=== PATIENT | female | born 1950 | race Caucasian/White ===

== ENCOUNTER 2023-09-26 15:04 | Inpatient (IN) ==
--- NOTE | 2023-09-26 15:24 | ED Triage Note ---
Date of Service September 26, 2023 History of Present Illness This patient was briefly evaluated while in triage. An abbreviated physical exam was performed. This patient is a 73-year-old Female who presents to the ED for evaluation of at Dr. 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 Nontender to palpation. Initial orders for labs and / or imaging were placed and patient was placed in the waiting area until a bed is available. Please see further documentation for the full ED course.
[2023-09-26 15:44] LABS: Basophils # (auto) 0.02 K/uL (0.00-0.20); Basophils % (auto) 0.2 %; Eosinophils # (auto) 0.04 K/uL (0.00-0.50); Eosinophils % (auto) 0.5 %; Hematocrit (blood only) 33.8 % (37.0-47.0); Hemoglobin 10.9 g/dl (12.0-16.0); Immature Granulocytes # (auto) 0.04 K/uL (0.01-0.20); Immature Granulocytes % (auto) 0.5 %; Lymphocytes # (auto) 2.06 K/uL (1.20-3.40); Lymphocytes % (auto) 24.2 %; Mean Corpuscular Hemoglobin 31.2 pg (25.0-34.0); Mean Corpuscular Hgb Conc 32.2 g/dL (32.0-36.0); Mean Corpuscular Volume 96.8 fL (80.0-100.0); Mean Platelet Volume 10.6 fL (9.4-12.4); Monocytes # (auto) 0.61 K/uL (0.11-0.59); Monocytes % (auto) 7.2 %; Neutrophils # (auto) 5.75 K/uL (1.40-6.50); Neutrophils % (auto) 67.4 %; Platelet Count 358 K/uL (130-400); RDW Coefficient of Variation 15.2 % (11.5-14.5); RDW Standard Deviation 53.5 fL (36.4-46.3); Red Blood Count 3.49 M/uL (4.20-5.40); White Blood Count 8.52 K/ul (4.8-10.8)
[2023-09-26 16:03] LABS: Alanine Aminotransferase 19 U/L (7-52); Albumin Globulin Ratio 1.6 (0.9-2); Albumin Level 4.5 gm/dl (3.4-5.0); Alkaline Phosphatase 39 U/L (34-104); Anion Gap 7 (3-11); Aspartate Aminotransferase 25 U/L (13-39); BUN Creatinine Ratio 14.3 (10-20); Bilirubin,Total 0.4 mg/dl (0.2-1.0); Blood Urea Nitrogen 13 mg/dl (6-23); Calcium 10.3 mg/dl (8.6-10.3); Carbon Dioxide 29 mmol/L (21-32); Chloride 103 mmol/L (98-107); Est GFR (African American) 73.1 ml/min; Globulin 2.9 gm/dl (2.5-4.0); Glucose 91 mg/dl (70-99(Fasting)); Potassium 3.6 mmol/L (3.5-5.1); Sodium 139 mmol/L (136-145); Total Protein 7.4 gm/dl (6.0-8.3)
--- NOTE | 2023-09-26 16:05 | XRay Report ---
XR chest 1V not portable HISTORY: hypertension COMPARISON: Chest 08/15/2023. FINDINGS: The lungs are clear. Cardiac silhouette is normal in size. No pleural effusions. No pneumot horax. Mild elevation of the right hemidiaphragm, unchanged. Surgical clips again noted within the up per abdomen. IMPRESSION: No significant change compared to the prior study. No acute process. ACT 112: Negative or not required by law. Electronically signed by: Aly Diaz M.D. 09/26/2023 4:04 PM
[2023-09-26 16:09] LABS: Troponin I High Sensitivity 8.5 pg/ml (0-14)
--- NOTE | 2023-09-26 16:09 | CT Scan Report ---
HEAD CT NONCONTRAST CT DOSE: 703.85 mGy.cm HISTORY: Hypertension, vison changes TECHNIQUE: Multiaxial CT images of the head were performed without the use of intravenous contrast. A utomated exposure control was utilized for this study. A dose lowering technique was utilized adheri ng to the principles of ALARA. Comparison: None. Findings: Postoperative changes within the paranasal sinuses. The paranasal sinuses and mastoid air c ells are clear. Prior bilateral lens replacement. The calvarium and skull base are intact. There is n o mass, hematoma, midline shift, acute infarct. White matter hypodensity is nonspecific but suggestiv e of microvascular ischemic change. The ventricles and sulci demonstrate mild age-related involutiona l changes. Impression: No acute intracranial abnormality. ACT 112: Negative or not required by law. Electronically signed by: Aly Diaz M.D. 09/26/2023 4:08 PM
[2023-09-26 16:18] LABS: Thyroid Stimulating Hormone 1.266 uIu/ml (0.300-4.500)
[2023-09-26] MEDS ORDERED: LABETALOL HCL IV 5 MG/ML 20ML IV STA (18:25)
--- NOTE | 2023-09-26 18:30 | Emergency Department Note ---
Impression & Plan Brain TIA, Hypertensive emergency ED Provider Note NAME: ELAINE SHELBY AGE: 73 SEX: F : 1950 ARRIVES VIA: Walk-In INFORMANT: Patient, ED PROVIDER(S): Mike Toledo MD CHIEF COMPLAINT: Elevated blood pressure HPI: This is a 73-year-old female presenting for elevated blood pressure. Mary ent notes that she was seen for a first-time cardiology appointment with the cardiology [employer]. At that time she does have blood pressures in the 200s systolic. She does note that prior to arrival of this appointment she also noted some vision changes where she had said that her left eye her right eye were seeing at different angles. She notes that this resolved after about 5 to 7 minutes but she had some haziness in her vision at this time. Otherwise she notes while the emergency room she is at about 3 episodes of dizziness when which she describes room spinning sensation. She has no weakness in her arms, legs, facial droop, difficulty with speech. Patient has me that she thinks her blood pressure elevated due to her significant back pain, she has had sciatica type back pain for the past 2 weeks and is waiting to see orthopedic surgery for a injection. She reports no chest pain, shortness of breath, fever, chills, diarrhea. ROS: See above HPI for pertinent positives & negatives. A total of 10 systems reviewed and were otherwise negative. PAST MEDICAL HISTORY: See Below PAST SURGICAL HISTORY: See Below FAMILY HISTORY: See Below SOCIAL HISTORY: See Below HOME MEDICATIONS: See Below ALLERGIES: See Below VITALS: See Below PHYSICAL EXAMINATION: General: resting comfortably in no acute distress Head: Normocephalic and atraumatic Eyes: Normal inspection, extraocular muscles intact, no conjunctival pallor Ear, nose, throat: Normal external exam Neck: Normal range of motion Respiratory: Patient is in no respiratory distress, lungs clear to auscultation bilaterally Cardiovascular: RRR without murmur appreciated GI: soft, nontender, no guarding or rebound Extremities: pulses intact with good cap refills, no LE pitting edema or calf tenderness Neuro: The patient awake and alert, appropriately conversive,no focal decifits, cranial nerves II through XII grossly intact Skin: Warm, dry, and intact MEDICAL DECISION MAKING: This is a 73-year-old female seen for elevated blood pressure. Patient has an episode where she had vision changes. Then she has had episodes with dizziness here. This time she is no neurodeficits but concern for TIA at this time. She had this work-up including head CT which is negative at this time. Based on patient's current symptoms and elevated blood pressure we will admit for TIA rule out versus hypertensive emergency. We will give 20 mg IV labetalol for blood pressures in the 230s systolic at this time. Blood work otherwise reviewed showing anemia, improved from baseline. Otherwise no signs of other endorgan damage such as troponin elevation or creatinine el evation. Urinalysis negative for protein. Triage Nursing notes reviewed. Prior medical records reviewed Vital Signs: reviewed and remarkable for no significant abnormalities Differential diagnosis: ACS, PE, TIA, stroke, hypertensive emergency ER treatment provided: See below Diagnostics interpreted by me: ECG: None Cardiac Monitoring: An order was placed for continuous cardiac monitoring. The monitor shows a rate of 55 with sinus rhythm. Laboratory studies: As stated above and show below. Imaging studies: See below. Radiographic imaging was reviewed by myself Consultation(s): None Past Med/Surg History Medical History Coronary artery disease Stent May 2012 - SD during stress test Stent Oct 2019 - pressure in chest Diverticulitis Fibromyalgia Heart attack Hypothyroid Osteoarthritis Rheumatoid arthritis Staph infection Surgical History History of back surgery History of colon resection History of left nephrectomy Social History Smoking Status: Never smoker Hx Alcohol Use: No Hx Substance Use: No Preferred Language: Japanese Communication Ability: Effective Legal [employer] Required: No Beliefs That Will Affect Care: None Current Living Situation: Spouse Other Information That Helps Us Care for You: No Feels Safe at Home: Yes Safety Concerns: Feels Safe At This Time Assistive Devices: Cane Allergies Allergies Allergy/AdvReac Type Severity Reaction Status Date / Time clopidogrel [From Plavix] Allergy Intermediate Hives Verified 09/26/23 17:46 hydroxychloroquine Allergy Intermediate Hives Verified 09/26/23 17:46 [From Plaquenil] celecoxib [From Celebrex] AdvReac Intermediate HX OF Verified 09/26/23 17:46 BLEEDING STOMACH codeine AdvReac Intermediate Gastrointestinal Verified 09/26/23 17:46 Upset hydrocodone [From Vicodin] AdvReac Intermediate Gastrointestinal Verified 09/26/23 17:46 Upset lubiprostone [From Amitiza] AdvReac Intermediate HX OF Verified 09/26/23 17:46 BLEEDING STOMACH pitavastatin AdvReac Intermediate Joint Pain Verified 09/26/23 17:46 pravastatin [From Pravachol] AdvReac Intermediate Joint Pain Verified 09/26/23 17:46 rosuvastatin AdvReac Intermediate Joint Pain Verified 09/26/23 17:46 [From Ezallor Sprinkle] simvastatin [From FloLipid] AdvReac Intermediate Joint Pain Verified 09/26/23 17:46 [id number] Reductase AdvReac Intermediate Joint Pain Verified 09/26/23 17:46 Inhibitor Home Meds Home Medications Medication Instructions Recorded Confirmed albuterol sulfate 90 mcg/actuation 1 puff inhalation QID PRN Wheezing 04/05/23 09/26/23 aerosol inhaler alirocumab 75 mg/mL subcutaneous 75 mg subcut USEASDIRECTD 04/05/23 09/26/23 pen injector (Praluent Pen) amlodipine 10 mg tablet 10 mg PO DAILY 04/05/23 09/26/23 aspirin 81 mg tablet,delayed 81 mg PO DAILY 04/05/23 09/26/23 release cefadroxil 500 mg capsule 500 mg PO BID 04/05/23 09/26/23 coenzyme Q10 100 mg capsule 100 mg PO BID 04/05/23 09/26/23 (CoQ-10) docusate sodium 100 mg capsule 100 mg PO DAILY 04/05/23 09/26/23 (Colace) esomeprazole magnesium 40 mg 40 mg PO DAILY 04/05/23 09/26/23 capsule,delayed release fluticasone propionate 50 1 spray intranasal DAILY PRN 04/05/23 09/26/23 mcg/actuation nasal allergy spray,suspension folic acid 1 mg tablet 1 mg PO DAILY 04/05/23 09/26/23 lactobacillus combination no.4 3 3,000 mmu cells PO QPM 04/05/23 09/26/23 billion cell capsule (Probiotic) methotrexate sodium 2.5 mg tablet 17.5 mg PO WK 04/05/23 09/26/23 metoprolol succinate 50 mg 50 mg PO DAILY 04/05/23 09/26/23 tablet,extended release 24 hr montelukast 10 mg tablet 10 mg PO QPM 04/05/23 09/26/23 nitroglycerin 0.4 mg sublingual 0.4 mg sublingual DIRECTED PRN 04/05/23 09/26/23 tablet Chest Pain omega 4-crx-kfq-fish oil 1,200 mg 1 cap PO QPM 04/05/23 09/26/23 (144 mg-216 mg) capsule (Fish Oil) pregabalin 100 mg capsule 100 mg PO BID 04/05/23 09/26/23 sulfasalazine 500 mg tablet 500 mg PO BID 04/05/23 09/26/23 thyroid (pork) 60 mg tablet 60 mg PO DAILY 04/05/23 09/26/23 ([place] Thyroid) triamterene 37.5 1 cap PO QAM 04/05/23 09/26/23 mg-hydrochlorothiazide 25 mg capsule iron,carbonyl 65 mg-vitamin C 125 1 tab PO QPM 08/15/23 09/26/23 mg tablet,delayed release (Vitron-C) acetaminophen 650 mg 650 mg PO BID 09/26/23 09/26/23 tablet,extended release (Tylenol Arthritis Pain) calcium carbonate 500 mg calcium 500 mg PO DAILY 09/26/23 09/26/23 (1,250 mg) tablet denosumab 60 mg/mL subcutaneous 0 mg subcut DIRECTED 09/26/23 09/26/23 syringe (Prolia) inulin-sorbitol 2 gram chewable 1 tab PO DAILY 09/26/23 09/26/23 tablet methylprednisolone 8 mg tablet 16 mg PO DAILY 09/26/23 09/26/23 Previous Rx's Medication Instructions Recorded potassium chloride 20 mEq 20 meq PO DAILY #20 tabs 04/05/23 tablet,extended release apixaban 5 mg tablet (Eliquis) 5 mg PO BID #60 tabs 08/17/23 Results & Data (ED) Vital Signs Vital Signs - 24 hr 09/26/23 15:20 09/26/23 17:07 09/26/23 17:07 Temperature 36.8 C Temperature Source Temporal Artery Scan Pulse Rate 64 52 L Pulse Rate [Left Finger] 53 L Pulse Rhythm Regular Respiratory Rate 18 14 18 Respiratory Effort / Characteristics Non-Labored Spontaneous Non-Labored Spontaneous Respiratory Depth Normal Normal Respiratory Pattern Regular Blood Pressure 201/92 H Blood Pressure [Right Arm] 171/92 H Blood Pressure Mean 128 Blood Pressure Mean [Right Arm] 118 Blood Pressure Position Sitting Pulse Oximetry 99 99 99 Oxygen Delivery Method Room Air Room Air Room Air Sepsis Recent Fever Within 48 Hours No Sepsis New/Unexplained Change in Mental Status N/A Sepsis Action Taken by Nursing No Action Required 09/26/23 17:06 09/26/23 18:42 09/26/23 19:00 Temperature Temperature Source Pulse Rate 67 62 60 Pulse Rate [Left Finger] Pulse Rhythm Respiratory Rate 20 Respiratory Effort / Characteristics Respiratory Depth Respiratory Pattern Blood Pressure 209/112 H 191/94 H Blood Pressure [Right Arm] Blood Pressure Mean 126 Blood Pressure Mean [Right Arm] Blood Pressure Position Pulse Oximetry 100 Oxygen Delivery Method Sepsis Recent Fever Within 48 Hours Sepsis New/Unexplained Change in Mental Status Sepsis Action Taken by Nursing 09/26/23 19:14 09/26/23 19:55 Temperature Temperature Source Pulse Rate 72 60 Pulse Rate [Left Finger] Pulse Rhythm Respiratory Rate 18 16 Respiratory Effort / Characteristics Respiratory Depth Respiratory Pattern Blood Pressure 170/89 H 160/79 H Blood Pressure [Right Arm] Blood Pressure Mean 116 106 Blood Pressure Mean [Right Arm] Blood Pressure Position Pulse Oximetry 98 Oxygen Delivery Method Sepsis Recent Fever Within 48 Hours Sepsis New/Unexplained Change in Mental Status Sepsis Action Taken by Nursing Laboratory Data 09/26/23 15:28 09/26/23 15:28 Lab Results 09/26/23 09/26/23 Range/Units 15:28 15:28 WBC 8.52 (4.8-10.8) K/ul RBC 3.49 L (4.20-5.40) M/uL Hgb 10.9 L (12.0-16.0) g/dl Hct 33.8 L (37.0-47.0) % MCV 96.8 (80.0-100.0) fL MCH 31.2 (25.0-34.0) pg MCHC 32.2 (32.0-36.0) g/dL RDW Std Deviation 53.5 H (36.4-46.3) fL RDW Coeff of Ashley 15.2 H (11.5-14.5) % Plt Count 358 (130-400) K/uL MPV 10.6 (9.4-12.4) fL Immature Gran % (Auto) 0.5 % Neut % (Auto) 67.4 % Lymph % (Auto) 24.2 % [place] % (Auto) 7.2 % Eos % (Auto) 0.5 % Baso % (Auto) 0.2 % Neut # (Auto) 5.75 (1.40-6.50) K/uL Lymph # (Auto) 2.06 (1.20-3.40) K/uL [place] # (Auto) 0.61 H (0.11-0.59) K/uL Eos # (Auto) 0.04 (0.00-0.50) K/uL Baso # (Auto) 0.02 (0.00-0.20) K/uL Immature Gran # (Auto) 0.04 (0.01-0.20) K/uL Sodium 139 (136-145) mmol/L Potassium 3.6 (3.5-5.1) mmol/L Chloride 103 (98-107) mmol/L Carbon Dioxide 29 (21-32) mmol/L Anion Gap 7 (3-11) BUN 13 (6-23) mg/dl Creatinine 0.91 (0.6-1.2) mg/dl Est Cr Clr Drug Dosing Not Reportable Est GFR ( Amer) 73.1 ml/min Est GFR (Non-Af Amer) 63.0 ml/min BUN/Creatinine Ratio 14.3 (10-20) Glucose 91 (70-99(Fasting)) mg/dl Calcium 10.3 (8.6-10.3) mg/dl Total Bilirubin 0.4 (0.2-1.0) mg/dl AST 25 (13-39) U/L ALT 19 (7-52) U/L Alkaline Phosphatase 39 (34-104) U/L Troponin I High Sens 8.5 (0-14) pg/ml Total Protein 7.4 (6.0-8.3) gm/dl Albumin 4.5 (3.4-5.0) gm/dl Globulin 2.9 (2.5-4.0) gm/dl Albumin/Globulin Ratio 1.6 (0.9-2) TSH 1.266 (0.300-4.500) uIu/ml Administered Medications Morphine Sulfate (Morphine Sulfate 2 Mg/Ml Carp) 2 mg IV Q4H PRN PRN Reason: Pain (5+) Stop: 11/13/23 20:13 Last Admin: 09/26/23 23:03 Dose: 2 mg Documented By: JAYSON Discontinued Medications Acetaminophen (Acetaminophen 325 Mg Tab) 650 mg PO NOW STA Stop: 09/26/23 20:15 Last Admin: 09/26/23 20:30 Dose: 650 mg Documented By: KATY Labetalol HCl (Labetalol Hcl Iv 5 Mg/Ml 20ml) 10 mg IV NOW STA Stop: 09/26/23 18:26 Last Admin: 09/26/23 18:42 Dose: 10 mg Documented By: ALISON Co-signed By: MANDO Lidocaine (Lidocaine 5% 1 Patch) 1 patch TD NOW STA Stop: 09/26/23 20:15 Last Admin: 09/26/23 20:30 Dose: 1 patch Documented By: KATY Morphine Sulfate (Morphine Sulfate 2 Mg/Ml Carp) 2 mg IV NOW STA Stop: 09/26/23 19:37 Last Admin: 09/26/23 19:51 Dose: 2 mg Documented By: KATY Imaging Data Radiologist's Impression: Chest X-Ray 09/26/23 15:24 XR chest 1V not portable HISTORY: hypertension COMPARISON: Chest 08/15/2023. FINDINGS: The lungs are clear. Cardiac silhouette is normal in size. No pleural effusions. No pneumothorax. Mild elevation of the right hemidiaphragm, unchanged. Surgical clips again noted within the upper abdomen. IMPRESSION: No significant change compared to the prior study. No acute process. ACT 112: Negative or not required by law. Electronically signed by: Aly Diaz M.D. 09/26/2023 4:[address] 09/26/23 15:[address] DOSE: 703.85 mGy.cm HISTORY: Hypertension, vison changes TECHNIQUE: Multiaxial CT images of the head were performed without the use of intravenous contrast. Automated exposure control was utilized for this study. A dose lowering technique was utilized adhering to the principles of ALARA. Comparison: None. Findings: Postoperative changes within the paranasal sinuses. The paranasal sinuses and mastoid air cells are clear. Prior bilateral lens replacement. The calvarium and skull base are intact. There is no mass, hematoma, midline shift, acute infarct. White matter hypodensity is nonspecific but suggestive of microvascular ischemic change. The ventricles and sulci demonstrate mild age- related involutional changes. Impression: No acute intracranial abnormality. ACT 112: Negative or not required by law. Electronically signed by: Aly Diaz M.D. 09/26/2023 4:08 PM Venous Doppler Study 09/26/23 18:31 Exam(s): US VENOUS RIGHT LOWER EXTREMITY EXAM: US Duplex Right Lower Extremity Veins CLINICAL HISTORY: Reason for exam: pain in calf. TECHNIQUE: Real-time duplex ultrasound scan of the right lower extremity veins integrating B-mode two-dimensional vascular structure, Doppler spectral analysis, color flow Doppler imaging and compression. COMPARISON: No relevant prior studies available. FINDINGS: Deep veins: Unremarkable. No DVT in the visualized common femoral, femoral, proximal deep femoral or popliteal veins. The veins demonstrate normal color flow, are normally compressible, with normal phasic flow and/or augmentation response. Superficial veins: Unremarkable. No thrombus in the visualized great saphenous vein. Soft tissues: No acute findings. No popliteal cyst. IMPRESSION: Normal right lower extremity duplex venous ultrasound. Electronically signed by: Adams Rock MD 09/27/23 00:05 AM Discharge Plan Visit Data Chief Complaint: Hypertension Stated Complaint: BP HIGH ED Provider: Mike Toledo Discharge Problem: Brain TIA, Hypertensive emergency Patient Disposition: Admitted As Inpatient Discharge Instructions Interventions: ED Discharge Assessment Last Done: 09/26/23 20:55
--- NOTE | 2023-09-26 19:13 | History & Physical Report ---
Date of Service September 26, 2023 Assessment & Plan (1) Hypertensive urgency: Plan: -Admit to the PCU on tele -Currently stable and without neurologic findings -Patient presented to the ED from the Cardiology clinic for HTN and vision changes -CT of the head and chest xray were without acute findings -Patient is without acute ST segment or T-wave changes on ECG, denies chest pain or SOB -At this time the patient's HTN and resolved vision changes are most likely due to her severe, uncontrolled left hip/left leg pain -Pain has been severe and uncontrolled over the past 2 weeks, was severe in the Cardiology office as well -Pain is significantly improved after I gave her 2 mg IV morphine on admission, BP now stable with systolic's in the 120's-140's -Will hold off on MRI of the brain at this time as symptoms have resolved, will focus on pain control at this time -Will continue Tylenol for and IV morphine for pain control, will also order lidocaine patch and heat -Continue amlodipine, metoprolol, and triamterene-HCTZ -Q4H neuro checks -Fall precautions -Continue home Eliquis for DVT PPX -HH diet -AM CBC, BMP. PT/INR (2) Left hip pain: Plan: -Patient has been experiencing progressive left lateral buttocks/hip pain with radiation down the left leg to the left knee -Patient denies recent trauma, confirms this is an ongoing, chronic issue -She denies back pain, loss of bowel or bladder function, and paresthesias in the LE's, but her symptoms do sound radicular in nature -Continue tylenol, morphine, heat, and lidocaine patch -Will obtain Xray of the lumbar spine for further evaluation at this time -Fall precautions ordered (3) Pulmonary emboli: Plan: -Continue BID Eliquis (4) Polymyalgia rheumatica: Plan: -Continue methylprednisolone, methotrexate, and Sulfasalazine (5) Hypothyroid: Plan: -Continue levothyroxine (6) Coronary artery disease: Plan: -Continue aspirin Plan The patient was discussed with Dr. Gómez at the time of the amdission History of Present Illness Chief Complaint: HTN, headache, vision changes Primary Care Provider: Elaine Winchester is a 73yo female with history of CAD s/p KS in 2011 with stent placement x 1 in 2011 and again [id number], RA, Giant Cell Arteritis, Fibromyalgia, Hypothyroidism, and recently diagnosed PE's with recent trip to [place] and b pamela Covid 19 positive who was sent to the [facility] from the [facility] when she was found to be hypertensive and reporting vision changes. She was found to be hypertensive at 209/112 and bradycardic with HR in the 50's but otherwise stable. Labs including CBC, CMP, High sen trop, and TSH were WNL. CT of the head and chest xray were read as "No acute intracranial abnormality.". The patient was asymptomatic in the ED and was given 10 mg IV labetalol prior to admission as her systolic BP remained above 200 mmhg. We were asked to admit the patient for further evaluation of previous neurologic symptoms and ongoing HTN. At the time of the exam the patient was lying in bed and uncomfortable due to chronic left hip/bursitis pain but otherwise asymptomatic. She states that she had been in her normal state of health since last admission and has been taking the lower dose of her Eliquis as prescribed without complication. She has been having severe left hip/bursitis pain over the past 2 weeks. This is a chronic issue typically resolved by injections in the orthopedic office. She has been unable to get an appointment with orthopedics recently. She took her am meds as prescribed and was driving to the Cardiology clinic with her . She was initially driving when she developed a sudden onset of vision changes. She describes the changes as the left side of the road being higher and the right side of the road being lower. She states that this lasted for 5-10 minutes. When it started she pulled off the road and her drove the rest of the way. She had a short episode of blurry vision in the left upper field of her left eye, but this resolved quickly. She states that her neurologic symptoms had resolved by the time she arrived to the Cardiology clinic. However, her left hip pain was still severe during her appointment. They sent her to the ED for ongoing HTN and neurologic symptoms. She states that she has been without neurologic symptoms since arrival to to the ED. She had one episode of dizziness when they quickly laid the head of her bed down earlier, but was fine when she got up to go to the bathroom prior to my exam. She denies current headache, vision changes, new numbness/paresthesias, unilateral weakness, chest pain, SOB, abd pain, nausea, vomiting, diarrhea, dysuria, hematuria, melena, LE Swelling, and recent trauma. We discussed code status, she is a full code and wishes for her to make medical decisions for her if she cannot make them herself. Please refer to Dr. Gómez's attestation for any changes to the treatment plan Allergies Allergy/AdvReac Type Severity Reaction Status Date / Time clopidogrel [From Plavix] Allergy Intermediate Hives Verified 09/26/23 17:46 hydroxychloroquine Allergy Intermediate Hives Verified 09/26/23 17:46 [From Plaquenil] celecoxib [From Celebrex] AdvReac Intermediate HX OF Verified 09/26/23 17:46 BLEEDING STOMACH codeine AdvReac Intermediate Gastrointestinal Verified 09/26/23 17:46 Upset hydrocodone [From Vicodin] AdvReac Intermediate Gastrointestinal Verified 09/26/23 17:46 Upset lubiprostone [From Amitiza] AdvReac Intermediate HX OF Verified 09/26/23 17:46 BLEEDING STOMACH pitavastatin AdvReac Intermediate Joint Pain Verified 09/26/23 17:46 pravastatin [From Pravachol] AdvReac Intermediate Joint Pain Verified 09/26/23 17:46 rosuvastatin AdvReac Intermediate Joint Pain Verified 09/26/23 17:46 [From Ezallor Sprinkle] simvastatin [From FloLipid] AdvReac Intermediate Joint Pain Verified 09/26/23 17:46 Pnobhdh-DWR-TaN Reductase AdvReac Intermediate Joint Pain Verified 09/26/23 17:46 Inhibitor Home Medications Medication Instructions Recorded Confirmed Type albuterol sulfate 90 mcg/actuation 1 puff inhalation QID PRN Wheezing 04/05/23 09/26/23 History aerosol inhaler alirocumab 75 mg/mL subcutaneous 75 mg subcut USEASDIRECTD 04/05/23 09/26/23 History pen injector (Praluent Pen) amlodipine 10 mg tablet 10 mg PO DAILY 04/05/23 09/26/23 History aspirin 81 mg tablet,delayed 81 mg PO DAILY 04/05/23 09/26/23 History release cefadroxil 500 mg capsule 500 mg PO BID 04/05/23 09/26/23 History coenzyme Q10 100 mg capsule 100 mg PO BID 04/05/23 09/26/23 History (CoQ-10) docusate sodium 100 mg capsule 100 mg PO DAILY 04/05/23 09/26/23 History (Colace) esomeprazole magnesium 40 mg 40 mg PO DAILY 04/05/23 09/26/23 History capsule,delayed release fluticasone propionate 50 1 spray intranasal DAILY PRN 04/05/23 09/26/23 History mcg/actuation nasal allergy spray,suspension folic acid 1 mg tablet 1 mg PO DAILY 04/05/23 09/26/23 History lactobacillus combination no.4 3 3,000 mmu cells PO QPM 04/05/23 09/26/23 History billion cell capsule (Probiotic) methotrexate sodium 2.5 mg tablet 17.5 mg PO WK 04/05/23 09/26/23 History metoprolol succinate 50 mg 50 mg PO DAILY 04/05/23 09/26/23 History tablet,extended release 24 hr montelukast 10 mg tablet 10 mg PO QPM 04/05/23 09/26/23 History nitroglycerin 0.4 mg sublingual 0.4 mg sublingual DIRECTED PRN 04/05/23 09/26/23 History tablet Chest Pain omega 6-quv-ppx-fish oil 1,200 mg 1 cap PO QPM 04/05/23 09/26/23 History (144 mg-216 mg) capsule (Fish Oil) potassium chloride 20 mEq 20 meq PO DAILY #20 tabs 04/05/23 09/26/23 Rx tablet,extended release pregabalin 100 mg capsule 100 mg PO BID 04/05/23 09/26/23 History sulfasalazine 500 mg tablet 500 mg PO BID 04/05/23 09/26/23 History thyroid (pork) 60 mg tablet 60 mg PO DAILY 04/05/23 09/26/23 History ([place] Thyroid) triamterene 37.5 1 cap PO QAM 04/05/23 09/26/23 History mg-hydrochlorothiazide 25 mg capsule iron,carbonyl 65 mg-vitamin C 125 1 tab PO QPM 08/15/23 09/26/23 History mg tablet,delayed release (Vitron-C) apixaban 5 mg tablet (Eliquis) 5 mg PO BID #60 tabs 08/17/23 09/26/23 Rx acetaminophen 650 mg 650 mg PO BID 09/26/23 09/26/23 History tablet,extended release (Tylenol Arthritis Pain) calcium carbonate 500 mg calcium 500 mg PO DAILY 09/26/23 09/26/23 History (1,250 mg) tablet denosumab 60 mg/mL subcutaneous 0 mg subcut DIRECTED 09/26/23 09/26/23 History syringe (Prolia) inulin-sorbitol 2 gram chewable 1 tab PO DAILY 09/26/23 09/26/23 History tablet methylprednisolone 8 mg tablet 16 mg PO DAILY 09/26/23 09/26/23 History Past Med/Surg History Medical History Coronary artery disease Stent May 2012 - KS during stress test Stent Oct 2019 - pressure in chest Diverticulitis Fibromyalgia Heart attack Hypothyroid Osteoarthritis Rheumatoid arthritis Staph infection Surgical History History of back surgery History of colon resection History of left nephrectomy Social History Smoking Status: Never smoker Hx Alcohol Use: No Hx Substance Use: No Preferred Language: Bahamian Communication Ability: Effective Sales Executive Required: No Beliefs That Will Affect Care: None Current Living Situation: Spouse Feels Safe at Home: Yes Assistive Devices: Cane Physical Exam Physical Exam: Physical Exam: General: In no acute distress, stated age, well-nourished, good hygiene HEENT: Normocephalic, atraumatic, no scleral icterus, pupils around round, symmetrical, and reactive to light, moist mucus membranes, trachea midline, no thyromegaly Chest/Pulm: No respiratory distress, symmetrical chest expansion, clear breath sounds throughout Cardiac: RRR, no murmurs noted Abdomen: Negative for ascites and bruising, normoactive bowel sounds, soft, non-tender to palpation throughout Musculoskeletal: Without signs of acute trauma, upper extremities with full ROM, tender to palpation over the left hip/bursa without crepitus or acute trauma, intact ROM in the BL LE's with increased pain in the left hip with flexion Extremities: Radial, dorsalis pedis, and posterior tibial pulses are intact and symmetrical, no edema noted in the BL LE's Skin: Warm, dry, no rashes , lesions, or scars noted Neuro: Alert and oriented to person, place, month, year, and president, no focal defects, CN II-XII tested and intact, negative cerebellar and pronator drift BL, no tremors noted Psych: No acute distress, calm and cooperative during the exam Results & Data Results & Data Vital Signs (Past 12 Hours) Vital Signs Temp Pulse Pulse Resp BP BP Pulse Ox 09/26/23 18:42 62 209/112 H 09/26/23 17:06 67 09/26/23 17:07 52 L 18 99 09/26/23 17:07 53 L 14 171/92 H 99 09/26/23 15:20 36.8 C 64 18 201/92 H 99 O2 Del Method 09/26/23 18:42 09/26/23 17:06 09/26/23 17:07 Room Air 09/26/23 17:07 Room Air 09/26/23 15:20 Room Air Laboratory Results Abnormal lab results 09/26/23 Range/Units 15:28 RBC 3.49 L (4.20-5.40) M/uL Hgb 10.9 L (12.0-16.0) g/dl Hct 33.8 L (37.0-47.0) % RDW Std Deviation 53.5 H (36.4-46.3) fL RDW Coeff of Ashley 15.2 H (11.5-14.5) % [place] # (Auto) 0.61 H (0.11-0.59) K/uL Diagnostic Findings Chest X-Ray 09/26/23 15:24 XR chest 1V not portable HISTORY: hypertension COMPARISON: Chest 08/15/2023. FINDINGS: The lungs are clear. Cardiac silhouette is normal in size. No pleural effusions. No pneumothorax. Mild elevation of the right hemidiaphragm, unchanged. Surgical clips again noted within the upper abdomen. IMPRESSION: No significant change compared to the prior study. No acute process. ACT 112: Negative or not required by law. Electronically signed by: Aly Diaz M.D. 09/26/2023 4:[address] 09/26/23 15:[address] DOSE: 703.85 mGy.cm HISTORY: Hypertension, vison changes TECHNIQUE: Multiaxial CT images of the head were performed without the use of intravenous contrast. Automated exposure control was utilized for this study. A dose lowering technique was utilized adhering to the principles of ALARA. Comparison: None. Findings: Postoperative changes within the paranasal sinuses. The paranasal sinuses and mastoid air cells are clear. Prior bilateral lens replacement. The calvarium and skull base are intact. There is no mass, hematoma, midline shift, acute infarct. White matter hypodensity is nonspecific but suggestive of microvascular ischemic change. The ventricles and sulci demonstrate mild age- related involutional changes. Impression: No acute intracranial abnormality. ACT 112: Negative or not required by law. Electronically signed by: Aly Diaz M.D. 09/26/2023 4:08 PM ECG Additional Comments: Sinus bradycardia Possible Inferior infarct (cited on or before 05-APR-2023) Anterior infarct (cited on or before 05-APR-2023) Abnormal ECG When compared with ECG of 15-AUG-2023 21:12, Questionable change in initial forces of Anteroseptal leads T wave inversion no longer evident in Inferior leads Code Status & VTE Plan Code Status Full code VTE Prophylaxis Plan VTE Prophylaxis will be ordered: Yes Supervising Physician Co-Signing Physician Notes Patient seen and examined, chart reviewed, case discussed with Gagan Hodge PA-C and I agree with the assessment and plan as above except as otherwise noted Labs and images reviewed Annabella presents with ?symptomatic HTN >200. Took all meds this morning and was driving to [facility]. While driving she had a 5 minute episode of visual disturbance and slightly blurry vision in left upper eye. THis resolved shortly thereafter and prior to arriving to the Clinic. BP at cardiology clinic noted elevated BP at beginning and end of appointment, with visual sx was recommended for ER evaluation. Pt notes she has had bursitis and severe hip pain which was also severe on the way to cards clinic and in the car, and thinks this may be elevating her BP. She is on eliquis for hx of PE and no bleeding issues. No sx at time of assessment, vision is full. No headaches. No sensation or strength deficits, no speech deficits, no facial asymmetry. Recommend admission for symptomatic hypertension. Improved with labetelol, sx resolves with BP <180. 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 Low suspicion for stroke given resolution of symptoms and no other neuro sx. Agree w/ tx above PG Care Time/CCT Total # of Minutes Spent Total Time Spent with Patient: Total time spent is greater than 50% in coordination of care (as documented) at patient's floor/unit and/or counseling patient: Coding [place] [address] INT INP/OBS CARE 2/55MIN Patient Type Established History Comprehensive Exam Comprehensive Medical Decision Making Moderate Complexity Diagnoses Hypertensive urgency I16.0 Left hip pain M25.552 Pulmonary emboli I26.99 Polymyalgia rheumatica M35.3 Hypothyroid E03.9 Coronary artery disease I25.10
[2023-09-26] MEDS ORDERED: MoRPHine SULFATE 2 MG/ML CARP IV STA (19:36)
[2023-09-26] MEDS ORDERED: ACETAMINOPHEN 325 MG TAB PO STA (20:14)
[2023-09-26] MEDS ORDERED: LIDOCAINE 5% 1 PATCH TD STA (20:14)
[2023-09-26] MEDS ORDERED: ACETAMINOPHEN 325 MG TAB PO PRN ×2 (20:22→22:55)
[2023-09-26] MEDS ORDERED: NON-FORMULARY MEDICATION (Cefadroxil 500 mg capsule) PO SCH (22:55)
[2023-09-26] MEDS: MoRPHine SULFATE 2 MG/ML CARP IV PRN (23:03)
[2023-09-26 23:14] LABS: Appearance Urine Clear (Clear); Bilirubin Urine Negative (Negative); Blood Urine Negative (Negative); Color Urine Yellow; Glucose Urine UA Negative (Negative); Ketones Urine Negative (Negative); Leukocyte Esterase Urine Negative (Negative); Nitrite Urine Negative (Negative); Protein Urine Negative (Negative); Specific Gravity Urine 1.009 (1.000-1.030); Urobilinogen Urine Negative (Negative); pH Urine 6.5 (4.5-7.5)
--- NOTE | 2023-09-27 00:06 | Ultrasound Report ---
Exam(s): US VENOUS RIGHT LOWER EXTREMITY EXAM: US Duplex Right Lower Extremity Veins CLINICAL HISTORY: Reason for exam: pain in calf. TECHNIQUE: Real-time duplex ultrasound scan of the right lower extremity veins integrating B-mode two-dimensional vascular structure, Doppler spectral analysis, color flow Doppler imaging and compression. COMPARISON: No relevant prior studies available. FINDINGS: Deep veins: Unremarkable. No DVT in the visualized common femoral, femoral, proximal deep femoral or popliteal veins. The veins demonstrate normal color flow, are normally compressible, with normal phasic flow and/or augmentation response. Superficial veins: Unremarkable. No thrombus in the visualized great saphenous vein. Soft tissues: No acute findings. No popliteal cyst. IMPRESSION: Normal right lower extremity duplex venous ultrasound. Electronically signed by: Adams Rock MD 09/27/23 00:05 AM
[2023-09-27] MEDS: sulfaSALAzine 500 MG TABLET PO SCH ×3 (00:58→20:28)
[2023-09-27] MEDS: APIXABAN 5 MG TABLET PO SCH ×3 (00:59→20:28)
[2023-09-27] MEDS: cefUROXime axetil 500 MG TAB PO SCH ×3 (00:59→20:28)
[2023-09-27] MEDS: PREGABALIN 100 MG CAP PO SCH ×3 (01:08→20:32)
[2023-09-27] MEDS: MoRPHine SULFATE 2 MG/ML CARP IV PRN ×3 (03:06→16:46)
--- NOTE | 2023-09-27 03:12 | Magnetic Resonance Report ---
Exam(s): MRI HEAD Without Contrast EXAM: MR Head Without Intravenous Contrast CLINICAL HISTORY: Reason for exam: HTN, vision changes. TECHNIQUE: Magnetic resonance images of the head/brain without intravenous contrast in multiple planes. COMPARISON: CT head from September 26, 2023 FINDINGS: Brain: Mild patchy periventricular and deep white matter T2 hyperintensities consistent with chronic small vessel disease and/or senescent changes. No areas of diffusion restriction are seen to indicate acute stroke. No hemorrhage. Ventricles: Unremarkable. No ventriculomegaly. Bones/joints: Unremarkable. Sinuses: Unremarkable as visualized. No acute sinusitis. Mastoid air cells: Unremarkable as visualized. No mastoid effusion. Orbits: Unremarkable as visualized. IMPRESSION: 1. Mild patchy periventricular and deep white matter T2 hyperintensities consistent with chronic small vessel disease and/or senescent changes. No areas of diffusion restriction are seen to indicate acute stroke. 2. No acute intracranial process is identified. Electronically signed by: Adams Rock MD 09/27/23 03:11 AM
[2023-09-27] MEDS: ARMOUR THYROID 30 MG TAB PO SCH (05:34)
--- NOTE | 2023-09-27 07:47 | XRay Report ---
XR lumbar spine 2-3V CLINICAL HISTORY: left low back pain COMPARISON STUDY: None. FINDINGS: Mild dextroscoliosis of the lumbar spine. Prior cholecystectomy. Moderate degenerative burns ges within the bilateral sacroiliac joints. The sacrum appears intact. No acute fractures within the lumbar spine. L4-L5 posterior decompression and fusion with pedicle screws and rods. Hardware appears intact. Severe disc space narrowing at L3-L4. IMPRESSION: 1. No acute fractures within the lumbar spine. 2. Severe disc space narrowing at L3-L4. 3. Postoperative changes as described above. ACT 112: Negative or not required by law. Electronically signed by: Aly Diaz M.D. 09/27/2023 7:46 AM
[2023-09-27 07:48] LABS: Basophils # (auto) 0.04 K/uL (0.00-0.20); Basophils % (auto) 0.5 %; Eosinophils # (auto) 0.27 K/uL (0.00-0.50); Eosinophils % (auto) 3.4 %; Hematocrit (blood only) 30.8 % (37.0-47.0); Hemoglobin 9.8 g/dl (12.0-16.0); Immature Granulocytes # (auto) 0.03 K/uL (0.01-0.20); Immature Granulocytes % (auto) 0.4 %; Lymphocytes # (auto) 2.75 K/uL (1.20-3.40); Mean Corpuscular Hemoglobin 31.5 pg (25.0-34.0); Mean Corpuscular Hgb Conc 31.8 g/dL (32.0-36.0); Mean Platelet Volume 11.4 fL (9.4-12.4); Monocytes # (auto) 0.71 K/uL (0.11-0.59); Neutrophils # (auto) 4.05 K/uL (1.40-6.50); Neutrophils % (auto) 51.7 %; Platelet Count 309 K/uL (130-400); RDW Coefficient of Variation 15.3 % (11.5-14.5); RDW Standard Deviation 54.9 fL (36.4-46.3); Red Blood Count 3.11 M/uL (4.20-5.40); White Blood Count 7.85 K/ul (4.8-10.8)
--- NOTE | 2023-09-27 08:05 | Electrocardiogram Report ---
Test Reason : Blood Pressure : / mmHG Vent. Rate : 059 BPM Atrial Rate : 059 BPM P-R Int : 166 ms QRS Dur : 066 ms QT Int : 392 ms P-R-T Axes : 053 002 042 degrees QTc Int : 388 ms Sinus bradycardia Possible Inferior infarct (cited on or before 05-APR-2023) Anterior infarct (cited on or before 05-APR-2023) Abnormal ECG When compared with ECG of 15-AUG-2023 21:12, T wave inversion no longer evident in Inferior leads Confirmed by Mark Ogden [id number]) on 09/27/2023 8:05:22 AM Referred By: Rhonda Chance Confirmed By:Trevin Ogden
[2023-09-27 08:07] LABS: BUN Creatinine Ratio 14.4 (10-20); Calcium 9.7 mg/dl (8.6-10.3); Creatinine Clr Calc Pharmacy 51.8 ml/min; Est GFR (African American) 67.6 ml/min; Est GFR (Non-African American) 58.3 ml/min; Magnesium 1.6 mg/dl (1.7-2.4); Potassium 3.7 mmol/L (3.5-5.1)
[2023-09-27 08:08] LABS: Prothrombin Time 11.1 Seconds (9.0-12.0)
[2023-09-27] MEDS: PANTOprazole 40 MG TAB PO SCH (08:12)
[2023-09-27] MEDS: ASPIRIN 81 MG ECTAB PO SCH (08:12)
[2023-09-27] MEDS: TRIAMTERENE/HCTZ 37.5/25MG CAP PO SCH (08:12)
[2023-09-27] MEDS: amLODIPine BESYLATE 5 MG TAB PO SCH (08:12)
[2023-09-27] MEDS: POTASSIUM CHLORIDE CRTAB 20 MEQ TABCR PO SCH (08:12)
[2023-09-27] MEDS: METOPROLOL SUCC 50MG EXT REL TAB PO SCH (08:12)
[2023-09-27] MEDS ORDERED: MoRPHine SULFATE 2 MG/ML CARP IV PRN (17:20)
--- NOTE | 2023-09-27 17:33 | Hospitalist Progress Note ---
Date of Service September 27, 2023 Assessment & Plan (1) Hypertensive urgency: Plan: blood pressure is fairly controlled at this time Most likely pain induced We will address pain Vision changes are likely related to uncontrolled hypertension Vision problems have resolved CT head negative MRI brain negative. (2) Left hip pain: Plan: -Patient has been experiencing progressive left lateral buttocks/hip pain with radiation down the left leg to the left knee -Patient denies recent trauma, confirms this is an ongoing, chronic issue -She denies back pain, loss of bowel or bladder function, and paresthesias in the LE's, but her symptoms do sound radicular in nature -Continue tylenol, morphine, heat, and lidocaine patch Added oxycodone IR Already on methylprednisolone for PMR Lumbar spine x-ray showed disc space narrowing and L3/L4 We will consult orthospine (3) Pulmonary emboli: Plan: -Continue BID Eliquis (4) Polymyalgia rheumatica: Plan: -Continue methylprednisolone, methotrexate, and Sulfasalazine (5) Hypothyroid: Plan: -Continue levothyroxine (6) Coronary artery disease: Plan: -Continue aspirin Admission and Anticipated Discharge Date Admission Date: September 26, 2023 Subjective patient says that her back pain is fairly controlled with IV morphine use. Noted that her blood pressure is fairly controlled as well. She does not have any issues with her vision. Her vision problems have resolved. Review of Systems Review of Systems: All systems reviewed & are unremarkable except as noted in Subjective Physical Exam Physical Exam: General: Awake, conversant Heart: S1, S2/regular rate and rhythm, no murmur rubs or gallops Lungs: Clear to auscultation bilaterally. Normal effort Abdomen: Soft/nontender/nondistended. No hepatosplenomegaly Extremities: No clubbing/cyanosis. No edema Behavior: Appropriate, cooperative Results & Data Results & Data Vital Signs (Past 12 Hours) Vital Signs Temp Pulse Pulse Resp BP Pulse Ox O2 Del Method 09/27/23 15:55 70 09/27/23 15:42 36.9 C 70 22 153/81 H 94 Room Air 09/27/23 11:37 36.7 C 63 20 120/75 98 Room Air 09/27/23 10:40 Room Air 09/27/23 07:44 36.4 C L 65 18 147/75 H 98 Room Air 09/27/23 07:37 54 L Laboratory Results Abnormal lab results 09/27/23 09/27/23 Range/Units 07:01 07:01 RBC 3.11 L (4.20-5.40) M/uL Hgb 9.8 L (12.0-16.0) g/dl Hct 30.8 L (37.0-47.0) % MCHC 31.8 L (32.0-36.0) g/dL RDW Std Deviation 54.9 H (36.4-46.3) fL RDW Coeff of Ashley 15.3 H (11.5-14.5) % [place] # (Auto) 0.71 H (0.11-0.59) K/uL Glucose 105 H (70-99(Fasting)) mg/dl Magnesium 1.6 L (1.7-2.4) mg/dl Diagnostic Findings Venous Doppler Study 09/26/23 18:31 Exam(s): US VENOUS RIGHT LOWER EXTREMITY EXAM: US Duplex Right Lower Extremity Veins CLINICAL HISTORY: Reason for exam: pain in calf. TECHNIQUE: Real-time duplex ultrasound scan of the right lower extremity veins integrating B-mode two-dimensional vascular structure, Doppler spectral analysis, color flow Doppler imaging and compression. COMPARISON: No relevant prior studies available. FINDINGS: Deep veins: Unremarkable. No DVT in the visualized common femoral, femoral, proximal deep femoral or popliteal veins. The veins demonstrate normal color flow, are normally compressible, with normal phasic flow and/or augmentation response. Superficial veins: Unremarkable. No thrombus in the visualized great saphenous vein. Soft tissues: No acute findings. No popliteal cyst. IMPRESSION: Normal right lower extremity duplex venous ultrasound. Electronically signed by: Adams Rock MD 09/27/23 00:05 AM Lumbar Spine X-Ray 09/26/23 20:17 XR lumbar spine 2-3V CLINICAL HISTORY: left low back pain COMPARISON STUDY: None. FINDINGS: Mild dextroscoliosis of the lumbar spine. Prior cholecystectomy. Moderate degenerative changes within the bilateral sacroiliac joints. The sacrum appears intact. No acute fractures within the lumbar spine. L4-L5 posterior decompression and fusion with pedicle screws and rods. Hardware appears intact. Severe disc space narrowing at L3-L4. IMPRESSION: 1. No acute fractures within the lumbar spine. 2. Severe disc space narrowing at L3-L4. 3. Postoperative changes as described above. ACT 112: Negative or not required by law. Electronically signed by: Aly Diaz M.D. 09/27/2023 7:46 AM Brain MRI 09/27/23 00:28 Exam(s): MRI HEAD Without Contrast EXAM: MR Head Without Intravenous Contrast CLINICAL HISTORY: Reason for exam: HTN, vision changes. TECHNIQUE: Magnetic resonance images of the head/brain without intravenous contrast in multiple planes. COMPARISON: CT head from September 26, 2023 FINDINGS: Brain: Mild patchy periventricular and deep white matter T2 hyperintensities consistent with chronic small vessel disease and/or senescent changes. No areas of diffusion restriction are seen to indicate acute stroke. No hemorrhage. Ventricles: Unremarkable. No ventriculomegaly. Bones/joints: Unremarkable. Sinuses: Unremarkable as visualized. No acute sinusitis. Mastoid air cells: Unremarkable as visualized. No mastoid effusion. Orbits: Unremarkable as visualized. IMPRESSION: 1. Mild patchy periventricular and deep white matter T2 hyperintensities consistent with chronic small vessel disease and/or senescent changes. No areas of diffusion restriction are seen to indicate acute stroke. 2. No acute intracranial process is identified. Electronically signed by: Adams Rock MD 09/27/23 03:11 AM PG Care Time/CCT Total # of Minutes Spent Total Time Spent with Patient: Total time spent is greater than 50% in coordination of care (as documented) at patient's floor/unit and/or counseling patient: Coding Level of Care Code 71377 SUB INP/OBS CARE 2/35MIN Diagnoses Hypertensive urgency I16.0 Left hip pain M25.552 Pulmonary emboli I26.99 Polymyalgia rheumatica M35.3 Hypothyroid E03.9 Coronary artery disease I25.10
[2023-09-27] MEDS: oxyCODONE HCL IR 5 MG TAB (IMMEDIATE RELEASE) PO PRN (22:52)
[2023-09-28] MEDS: ARMOUR THYROID 30 MG TAB PO SCH (05:29)
[2023-09-28 06:46] LABS: Basophils # (auto) 0.03 K/uL (0.00-0.20); Basophils % (auto) 0.3 %; Eosinophils # (auto) 0.18 K/uL (0.00-0.50); Eosinophils % (auto) 1.9 %; Hemoglobin 10.2 g/dl (12.0-16.0); Immature Granulocytes # (auto) 0.06 K/uL (0.01-0.20); Immature Granulocytes % (auto) 0.6 %; Lymphocytes # (auto) 2.12 K/uL (1.20-3.40); Lymphocytes % (auto) 21.8 %; Mean Corpuscular Hemoglobin 31.5 pg (25.0-34.0); Mean Corpuscular Hgb Conc 31.9 g/dL (32.0-36.0); Mean Corpuscular Volume 98.8 fL (80.0-100.0); Mean Platelet Volume 11.1 fL (9.4-12.4); Monocytes # (auto) 0.79 K/uL (0.11-0.59); Monocytes % (auto) 8.1 %; Neutrophils # (auto) 6.54 K/uL (1.40-6.50); Neutrophils % (auto) 67.3 %; Platelet Count 333 K/uL (130-400); RDW Coefficient of Variation 15.3 % (11.5-14.5); RDW Standard Deviation 55.4 fL (36.4-46.3); Red Blood Count 3.24 M/uL (4.20-5.40); White Blood Count 9.72 K/ul (4.8-10.8)
[2023-09-28 07:10] LABS: BUN Creatinine Ratio 21.7 (10-20); Calcium 9.2 mg/dl (8.6-10.3); Creatinine Clr Calc Pharmacy 53.8 ml/min; Est GFR (African American) 72.1 ml/min; Est GFR (Non-African American) 62.2 ml/min; Magnesium 1.7 mg/dl (1.7-2.4); Potassium 3.9 mmol/L (3.5-5.1)
[2023-09-28 07:12] LABS: Prothrombin Time 10.7 Seconds (9.0-12.0)
[2023-09-28] MEDS: oxyCODONE HCL IR 5 MG TAB (IMMEDIATE RELEASE) PO PRN ×3 (09:19→21:51)
[2023-09-28] MEDS: sulfaSALAzine 500 MG TABLET PO SCH ×2 (09:20→20:45)
[2023-09-28] MEDS: PANTOprazole 40 MG TAB PO SCH (09:20)
[2023-09-28] MEDS: amLODIPine BESYLATE 5 MG TAB PO SCH (09:20)
[2023-09-28] MEDS: POTASSIUM CHLORIDE CRTAB 20 MEQ TABCR PO SCH (09:20)
[2023-09-28] MEDS: METOPROLOL SUCC 50MG EXT REL TAB PO SCH (09:20)
[2023-09-28] MEDS: TRIAMTERENE/HCTZ 37.5/25MG CAP PO SCH (09:20)
[2023-09-28] MEDS: ASPIRIN 81 MG ECTAB PO SCH (09:20)
[2023-09-28] MEDS: APIXABAN 5 MG TABLET PO SCH ×2 (09:20→20:45)
[2023-09-28] MEDS: cefUROXime axetil 500 MG TAB PO SCH ×2 (09:20→20:45)
[2023-09-28] MEDS: PREGABALIN 100 MG CAP PO SCH ×2 (09:22→20:46)
--- NOTE | 2023-09-28 10:01 | Consultation ---
Date of Consultation September 28, 2023 Assessment & Plan (1) Left hip pain: Dr. Tafoya has reviewed imaging. She has an acute L2-3 on the left disc herniation which is probably the source of her symptoms for the past 2 weeks. She also has severe adjacent level L3-4 stenosis with a vacuum phenomenon. Batres rdware present at L4-5 which appears to be well fused. I have given her 4 options these include #1 observation and pain control. #2 is consultation with pain management for greater trochanter injection as well as lumbar injection. She would have to hold her anticoagulation for this. #3 is keep her follow-up with Dr. Stephens in 5 days and continue further care with him as he is her established surgeon. #4 we have discussed pursuing surgical intervention here. This would require hardware removal L4-5, decompression instrumented fusion L2- 4. Patient was on the phone with her during our exam and interview. She is going to consider her options with him and let us know how they would like to proceed. History of Present Illness Reason for Consultation: Back and leg pain Attending Physician: Madhu Shrestha MD History of Present Illness Velma is a pleasant 73-year-old female we are asked to see in consultation regarding new left lower extremity pain. She has had a prior L4-5 decompression and fusion by Dr. Stpehens in [place] in 2018. She did suffer an infection that required an I&D postop. No issues since. 2 weeks ago she started with acute onset of pain across the left buttock, lateral hip anterior lateral thigh to her knee. Right leg is asymptomatic. She is now using a cane because of the pain. It is fairly constant. She has had prior greater trochanter injections by Dr. Stephens on the left which have been successful last almost 3+ years ago. At home she has tramadol and Lyrica for pain control. She is on Eliquis and aspirin. She has an upcoming appoint with Dr. Stephens on October 03. She denies any bowel or bladder dysfunction or perineum numbness. 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 Allergies Allergy/AdvReac Type Severity Reaction Status Date / Time clopidogrel [From Plavix] Allergy Intermediate Hives Verified 09/26/23 17:46 hydroxychloroquine Allergy Intermediate Hives Verified 09/26/23 17:46 [From Plaquenil] celecoxib [From Celebrex] AdvReac Intermediate HX OF Verified 09/26/23 17:46 BLEEDING STOMACH codeine AdvReac Intermediate Gastrointestinal Verified 09/26/23 17:46 Upset hydrocodone [From Vicodin] AdvReac Intermediate Gastrointestinal Verified 09/26/23 17:46 Upset lubiprostone [From Amitiza] AdvReac Intermediate HX OF Verified 09/26/23 17:46 BLEEDING STOMACH pitavastatin AdvReac Intermediate Joint Pain Verified 09/26/23 17:46 pravastatin [From Pravachol] AdvReac Intermediate Joint Pain Verified 09/26/23 17:46 rosuvastatin AdvReac Intermediate Joint Pain Verified 09/26/23 17:46 [From Ezallor Sprinkle] simvastatin [From FloLipid] AdvReac Intermediate Joint Pain Verified 09/26/23 17:46 Pmcnznm-AMY-WrR Reductase AdvReac Intermediate Joint Pain Verified 09/26/23 17:46 Inhibitor Home Medications Medication Instructions Recorded Confirmed Type albuterol sulfate 90 mcg/actuation 1 puff inhalation QID PRN Wheezing 04/05/23 09/26/23 History aerosol inhaler alirocumab 75 mg/mL subcutaneous 75 mg subcut USEASDIRECTD 04/05/23 09/26/23 History pen injector (Praluent Pen) amlodipine 10 mg tablet 10 mg PO DAILY 04/05/23 09/26/23 History aspirin 81 mg tablet,delayed 81 mg PO DAILY 04/05/23 09/26/23 History release cefadroxil 500 mg capsule 500 mg PO BID 04/05/23 09/26/23 History coenzyme Q10 100 mg capsule 100 mg PO BID 04/05/23 09/26/23 History (CoQ-10) docusate sodium 100 mg capsule 100 mg PO DAILY 04/05/23 09/26/23 History (Colace) esomeprazole magnesium 40 mg 40 mg PO DAILY 04/05/23 09/26/23 History capsule,delayed release fluticasone propionate 50 1 spray intranasal DAILY PRN 04/05/23 09/26/23 History mcg/actuation nasal allergy spray,suspension folic acid 1 mg tablet 1 mg PO DAILY 04/05/23 09/26/23 History lactobacillus combination no.4 3 3,000 mmu cells PO QPM 04/05/23 09/26/23 History billion cell capsule (Probiotic) methotrexate sodium 2.5 mg tablet 17.5 mg PO WK 04/05/23 09/26/23 History metoprolol succinate 50 mg 50 mg PO DAILY 04/05/23 09/26/23 History tablet,extended release 24 hr montelukast 10 mg tablet 10 mg PO QPM 04/05/23 09/26/23 History nitroglycerin 0.4 mg sublingual 0.4 mg sublingual DIRECTED PRN 04/05/23 09/26/23 History tablet Chest Pain omega 0-puh-gbd-fish oil 1,200 mg 1 cap PO QPM 04/05/23 09/26/23 History (144 mg-216 mg) capsule (Fish Oil) potassium chloride 20 mEq 20 meq PO DAILY #20 tabs 04/05/23 09/26/23 Rx tablet,extended release pregabalin 100 mg capsule 100 mg PO BID 04/05/23 09/26/23 History sulfasalazine 500 mg tablet 500 mg PO BID 04/05/23 09/26/23 History thyroid (pork) 60 mg tablet 60 mg PO DAILY 04/05/23 09/26/23 History (Alger Thyroid) triamterene 37.5 1 cap PO QAM 04/05/23 09/26/23 History mg-hydrochlorothiazide 25 mg capsule iron,carbonyl 65 mg-vitamin C 125 1 tab PO QPM 08/15/23 09/26/23 History mg tablet,delayed release (Vitron-C) apixaban 5 mg tablet (Eliquis) 5 mg PO BID #60 tabs 08/17/23 09/26/23 Rx acetaminophen 650 mg 650 mg PO BID 09/26/23 09/26/23 History tablet,extended release (Tylenol Arthritis Pain) calcium carbonate 500 mg calcium 500 mg PO DAILY 09/26/23 09/26/23 History (1,250 mg) tablet denosumab 60 mg/mL subcutaneous 0 mg subcut DIRECTED 09/26/23 09/26/23 His tory syringe (Prolia) inulin-sorbitol 2 gram chewable 1 tab PO DAILY 09/26/23 09/26/23 History tablet methylprednisolone 8 mg tablet 16 mg PO DAILY 09/26/23 09/26/23 History Patient History Medical History Coronary artery disease Stent May 2012 - [place] during stress test Stent Oct 2019 - pressure in chest Diverticulitis Fibromyalgia Heart attack Hypothyroid Osteoarthritis Rheumatoid arthritis Staph infection Surgical History History of back surgery History of colon resection History of left nephrectomy Social History Smoking Status: Never smoker Hx Alcohol Use: No Hx Substance Use: No Preferred Language: Mexican Communication Ability: Effective Supervisor Blueprinting And Photocopy Required: No Beliefs That Will Affect Care: None Current Living Situation: Spouse Other Information That Helps Us Care for You: No Feels Safe at Home: Yes Safety Concerns: Feels Safe At This Time Assistive Devices: Cane Review of Systems Review of Systems: All systems reviewed & are unremarkable except as noted in HPI & below Physical Exam Physical Exam: She is alert and oriented x3 No acute distress Sitting on the edge of the bed talking to her on the phone when I arrived Negative logrolling bilateral Negative tension signs bilateral Motor testing is 5 5 bilateral EHL, dorsiflexion, plantarflexion, car steps, hamstrings, hip flexors, hip abductor's and hip adductor Nontender over the site not regions bilaterally Exquisite tenderness over the left greater trochanter region Well-healed lumbar incision No evidence of ankle clonus bilaterally Results & Data Vital Signs (Past 12 Hours) Vital Signs Temp Pulse Pulse Resp BP Pulse Ox O2 Del Method 09/28/23 08:00 36.7 C 73 20 121/61 97 Room Air 09/27/23 22:00 84 09/28/23 03:24 36.6 C 65 18 133/79 98 Room Air 09/27/23 22:38 36.7 C 62 17 135/77 96 Room Air
--- NOTE | 2023-09-28 13:00 | Magnetic Resonance Report ---
MRI OF THE LUMBAR SPINE WITHOUT IV CONTRAST CLINICAL HISTORY: Left hip and buttock pain. COMPARISON STUDY: Radiographs of the lumbar spine dated 09/26/2023. TECHNIQUE: MRI of the lumbar spine was performed utilizing various T1 and T2-weighted sequences in th e axial and sagittal planes. IV contrast was not administered for this examination. There is suscepti bility-artifact from metallic spinal hardware. FINDINGS: Lumbar spine: Vertebral body height is maintained throughout the lumbar spine. There is 7 mm of anter olisthesis at L4-L5. Alignment is otherwise preserved. There is postsurgical change from laminectomy and posterior fusion at L4-L5. Interpedicular screws are in place. The transverse processes are gross ly intact. A small hemangioma is noted in the body of T12. No destructive bony lesion is seen. Chroni c degenerative endplate change is noted at several levels. There is degenerative endplate edema seen at L2-L3. Small anterior and lateral marginal osteophytes are seen throughout. Intervertebral discs: There has been discectomy at L4-L5. Disc desiccation and loss of height is seen at the remaining lumbar levels. Loss of height is severe at L3-L4. Spinal cord: The visualized spinal cord is normal in morphology and signal intensity. The conus medul cherri terminates at the level of L1. The nerve roots of the cauda equina are normal in morphology. L1-L2: Unremarkable. L2-L3: There is broad-based posterior disc bulge. In conjunction with hypertrophy of the ligamentum f lavum, there is mild central canal stenosis at this level with a minimum AP canal diameter of 7.5 mm. Lateral disc bulges contribute to bilateral subarticular stenosis. In conjunction with facet arthrop athy, there is mild left neural foraminal stenosis. The right neural foramen is patent. There is an i nferiorly extruded and likely sequestered disc fragment, eccentric to the left at this level. This is best seen on axial image #11 and sagittal image #10. The extruded fragment measures up to 1.7 cm and impinges on the transiting left-sided nerve roots. L3-L4: There is broad-based posterior disc bulge with annular fissure. This abuts the transiting nerv e roots. In conjunction with hypertrophy of the ligamentum flavum, there is moderate central canal st enosis at this level. The minimum AP canal diameter measures 5 mm. Lateral disc bulges contribute to bilateral subarticular stenosis and likely impinge the exiting bilateral L3 nerve roots. In conjuncti on with facet arthropathy, there is vejqbuay-em-qhdcnn left and cnog-cj-qumjcbbm right neural foramin al stenosis. L4-L5: There is mild posterior osteophytosis. The central canal is clear. Facet arthropathy and osteo phytosis in conjunction with anterolisthesis contribute to moderate bilateral neural foraminal stenos is. L5-S1: Unremarkable. Sacrum: The visualized sacrum is normal in morphology and signal intensity. A bone graft donor site i s seen in the right ilium. Soft tissues: Postsurgical change is seen posterior to the thecal sac at the operative levels. The pa raspinous soft tissues are otherwise normal in appearance. The left kidney is not visualized. The ret roperitoneal structures are otherwise grossly unremarkable but incompletely evaluated. IMPRESSION: 1. There is a large inferiorly extruded and likely sequestered disc fragment, eccentric to the left a t L2-L3. This impinges on the transiting left-sided nerve roots. 2. The postsurgical and spondylotic change at additional levels as above with moderate central canal stenosis at L3-L4. See discussion for detailed level by level analysis. 3. There is grade 1 anterolisthesis at L4-L5. 4. Degenerative disc disease as above with endplate edema at L2-L3. 5. No destructive bony lesion is seen. Dictated: 09/28/2023 9:20 AM Transcribed: 09/28/2023 11:14 AM Shahram [id number] [email or web address] Electronically signed by: Garrett Ocampo M.D. 09/28/2023 12:59 PM
--- NOTE | 2023-09-28 16:56 | Hospitalist Progress Note ---
Date of Service September 28, 2023 Assessment & Plan (1) Hypertensive urgency: Plan: blood pressure is fairly controlled at this time Most likely pain induced We will address pain Vision changes are likely related to uncontrolled hypertension Vision problems have resolved CT head negative MRI brain negative. (2) Left hip pain: Plan: -Patient has been experiencing progressive left lateral buttocks/hip pain with radiation down the left leg to the left knee -Patient denies recent trauma, confirms this is an ongoing, chronic issue -She denies back pain, loss of bowel or bladder function, and paresthesias in the LE's, but her symptoms do sound radicular in nature -Continue tylenol, morphine, heat, and lidocaine patch Added oxycodone IR. Encourage patient to use oxycodone More regularly. Already on methylprednisolone for PMR Lumbar spine x-ray showed disc space narrowing and L3/L4 Orthospine involved. Options given. Patient is thinking about her options. No decisions yet. (3) Pulmonary emboli: Plan: -Continue BID Eliquis (4) Polymyalgia rheumatica: Plan: -Continue methylprednisolone, methotrexate, and Sulfasalazine (5) Hypothyroid: Plan: -Continue levothyroxine (6) Coronary artery disease: Plan: -Continue aspirin Admission and Anticipated Discharge Date Admission Date: September 28, 2023 Subjective patient complains of pain being uncontrolled. She had a conversation with the orthospine team and was given some options. She has not made up her mind as to what option she is going to choose. In the meantime, she has not used oxycodone as regularly. She was informed that pain medication options are limited because of the fact that she is on Eliquis, making NSAIDs not an option. Review of Systems Review of Systems: All systems reviewed & are unremarkable except as noted in Subjective Physical Exam Physical Exam: General: Awake, conversant Heart: S1, S2/regular rate and rhythm, no murmur rubs or gallops Lungs: Clear to auscultation bilaterally. Normal effort Abdomen: Soft/nontender/nondistended. No hepatosplenomegaly Extremities: No clubbing/cyanosis. No edema Behavior: Appropriate, cooperative Results & Data Results & Data Vital Signs (Past 12 Hours) Vital Signs Temp Pulse Resp BP Pulse Ox O2 Del Method 09/28/23 12:00 36.8 C 62 18 130/82 92 Room Air 09/28/23 08:00 36.7 C 73 20 121/61 97 Room Air PG Care Time/CCT Total # of Minutes Spent Total Time Spent with Patient: Total time spent is greater than 50% in coordination of care (as documented) at patient's floor/unit and/or counseling patient: Coding Level of Care Code 09463 SUB INP/OBS CARE 2/35MIN Diagnoses Hypertensive urgency I16.0 Left hip pain M25.552 Pulmonary emboli I26.99 Polymyalgia rheumatica M35.3 Hypothyroid E03.9 Coronary artery disease I25.10
[2023-09-29] MEDS: ARMOUR THYROID 30 MG TAB PO SCH (05:24)
[2023-09-29] MEDS: oxyCODONE HCL IR 5 MG TAB (IMMEDIATE RELEASE) PO PRN ×2 (05:24→11:29)
[2023-09-29 06:41] LABS: Basophils # (auto) 0.03 K/uL (0.00-0.20); Basophils % (auto) 0.3 %; Eosinophils # (auto) 0.17 K/uL (0.00-0.50); Eosinophils % (auto) 1.9 %; Hematocrit (blood only) 30.8 % (37.0-47.0); Hemoglobin 9.9 g/dl (12.0-16.0); Immature Granulocytes # (auto) 0.03 K/uL (0.01-0.20); Immature Granulocytes % (auto) 0.3 %; Lymphocytes # (auto) 2.68 K/uL (1.20-3.40); Lymphocytes % (auto) 30.4 %; Mean Corpuscular Hemoglobin 31.5 pg (25.0-34.0); Mean Corpuscular Hgb Conc 32.1 g/dL (32.0-36.0); Mean Corpuscular Volume 98.1 fL (80.0-100.0); Mean Platelet Volume 11.2 fL (9.4-12.4); Monocytes # (auto) 1.06 K/uL (0.11-0.59); Neutrophils # (auto) 4.84 K/uL (1.40-6.50); Neutrophils % (auto) 55.1 %; Platelet Count 308 K/uL (130-400); RDW Coefficient of Variation 15.5 % (11.5-14.5); RDW Standard Deviation 54.4 fL (36.4-46.3); Red Blood Count 3.14 M/uL (4.20-5.40); White Blood Count 8.81 K/ul (4.8-10.8)
[2023-09-29 07:01] LABS: BUN Creatinine Ratio 24.7 (10-20); Creatinine Clr Calc Pharmacy 53.2 ml/min; Est GFR (African American) 71.2 ml/min; Est GFR (Non-African American) 61.4 ml/min; Magnesium 1.8 mg/dl (1.7-2.4); Potassium 3.2 mmol/L (3.5-5.1)
[2023-09-29 07:38] LABS: Prothrombin Time 10.5 Seconds (9.0-12.0)
[2023-09-29] MEDS ORDERED: POTASSIUM CHLORIDE CRTAB 20 MEQ TABCR PO STA (08:26)
[2023-09-29] MEDS: amLODIPine BESYLATE 5 MG TAB PO SCH (09:38)
[2023-09-29] MEDS: ASPIRIN 81 MG ECTAB PO SCH (09:38)
[2023-09-29] MEDS: TRIAMTERENE/HCTZ 37.5/25MG CAP PO SCH (09:39)
[2023-09-29] MEDS: cefUROXime axetil 500 MG TAB PO SCH ×2 (09:39→21:06)
[2023-09-29] MEDS: APIXABAN 5 MG TABLET PO SCH ×2 (09:39→21:06)
[2023-09-29] MEDS: sulfaSALAzine 500 MG TABLET PO SCH ×2 (09:39→21:07)
[2023-09-29] MEDS: METOPROLOL SUCC 50MG EXT REL TAB PO SCH (09:39)
[2023-09-29] MEDS: PANTOprazole 40 MG TAB PO SCH (09:39)
[2023-09-29] MEDS: POTASSIUM CHLORIDE CRTAB 20 MEQ TABCR PO SCH (09:40)
[2023-09-29] MEDS: PREGABALIN 100 MG CAP PO SCH ×2 (09:42→21:06)
[2023-09-29] MEDS: oxyCODONE HCL 10 MG TABCR (OxyCONTIN) PO SCH ×2 (13:09→21:05)
--- NOTE | 2023-09-29 14:29 | Hospitalist Progress Note ---
Date of Service September 29, 2023 Assessment & Plan (1) Hypertensive urgency: Plan: blood pressure is fairly controlled at this time Most likely pain induced We will address pain Vision changes are likely related to uncontrolled hypertension Vision problems have resolved CT head negative MRI brain negative. (2) Left hip pain: Plan: -Patient has been experiencing progressive left lateral buttocks/hip pain with radiation down the left leg to the left knee -Patient denies recent trauma, confirms this is an ongoing, chronic issue -She denies back pain, loss of bowel or bladder function, and paresthesias in the LE's, but her symptoms do sound radicular in nature -Continue tylenol, morphine, heat, and lidocaine patch Increase the dose of oxycodone IR to 10 mg as needed. Added OxyContin 10 mg p.o. twice daily Already on methylprednisolone for PMR Lumbar spine x-ray showed disc space narrowing and L3/L4 Orthospine involved. Options given. patient has decided on moving forward with surgery by Dr. Tafoya. Asked her to speak to the nurse so that the message can be relayed to Dr. Tafoya's team. (3) Pulmonary emboli: Plan: -Continue BID Eliquis (4) Polymyalgia rheumatica: Plan: -Continue methylprednisolone, methotrexate, and Sulfasalazine (5) Hypothyroid: Plan: -Continue levothyroxine (6) Coronary artery disease: Plan: -Continue aspirin Admission and Anticipated Discharge Date Admission Date: September 28, 2023 Subjective patient says that the small dose of oxycodone is not taking care of her pain. She says that it is not doing anything at all. We discussed going up on the dose of oxycodone and starting OxyContin long-acting. The patient also informed me that she has decided to proceed with surgery by Dr. Tafoya during this hospital stay. I asked the patient to inform the nurse so she can relay the information to Dr. Tafoya's team. Review of Systems Review of Systems: All systems reviewed & are unremarkable except as noted in Subjective Physical Exam Physical Exam: General: Awake, conversant Heart: S1, S2/regular rate and rhythm, no murmur rubs or gallops Lungs: Clear to auscultation bilaterally. Normal effort Abdomen: Soft/nontender/nondistended. No hepatosplenomegaly Extremities: No clubbing/cyanosis. No edema Behavior: Appropriate, cooperative Results & Data Results & Data Vital Signs (Past 12 Hours) Vital Signs Temp Pulse Resp BP Pulse Ox O2 Del Method 09/29/23 07:10 37.1 C 67 17 121/63 96 Room Air Laboratory Results Abnormal lab results 09/29/23 Range/Units 06:02 RBC 3.14 L (4.20-5.40) M/uL Hgb 9.9 L (12.0-16.0) g/dl Hct 30.8 L (37.0-47.0) % RDW Std Deviation 54.4 H (36.4-46.3) fL RDW Coeff of Ashley 15.5 H (11.5-14.5) % Cobb # (Auto) 1.06 H (0.11-0.59) K/uL Potassium 3.2 L (3.5-5.1) mmol/L BUN/Creatinine Ratio 24.7 H (10-20) PG Care Time/CCT Total # of Minutes Spent Total Time Spent with Patient: Total time spent is greater than 50% in coordination of care (as documented) at patient's floor/unit and/or counseling patient: Coding Level of Care Code 32975 SUB INP/OBS CARE 2/35MIN Diagnoses Hypertensive urgency I16.0 Left hip pain M25.552 Pulmonary emboli I26.99 Polymyalgia rheumatica M35.3 Hypothyroid E03.9 Coronary artery disease I25.10
[2023-09-29] MEDS: DOCUSATE SODIUM 100 MG CAP PO SCH (21:06)
[2023-09-30] MEDS: ARMOUR THYROID 30 MG TAB PO SCH (05:59)
[2023-09-30] MEDS: PANTOprazole 40 MG TAB PO SCH (09:13)
[2023-09-30] MEDS: DOCUSATE SODIUM 100 MG CAP PO SCH ×2 (09:13→20:45)
[2023-09-30] MEDS: METOPROLOL SUCC 50MG EXT REL TAB PO SCH (09:13)
[2023-09-30] MEDS: amLODIPine BESYLATE 5 MG TAB PO SCH (09:13)
[2023-09-30] MEDS: TRIAMTERENE/HCTZ 37.5/25MG CAP PO SCH (09:13)
[2023-09-30] MEDS: ASPIRIN 81 MG ECTAB PO SCH (09:13)
[2023-09-30] MEDS: APIXABAN 5 MG TABLET PO SCH (09:13)
[2023-09-30] MEDS: oxyCODONE HCL 10 MG TABCR (OxyCONTIN) PO SCH (09:14)
[2023-09-30] MEDS: POTASSIUM CHLORIDE CRTAB 20 MEQ TABCR PO SCH (09:14)
[2023-09-30] MEDS: PREGABALIN 100 MG CAP PO SCH ×2 (09:14→20:46)
[2023-09-30] MEDS: sulfaSALAzine 500 MG TABLET PO SCH ×2 (09:14→20:47)
[2023-09-30] MEDS: cefUROXime axetil 500 MG TAB PO SCH ×2 (12:14→20:46)
--- NOTE | 2023-09-30 14:24 | Orthopedic Progress Note ---
Date of Service September 30, 2023 Assessment & Plan (1) Neurogenic claudication due to lumbar spinal stenosis: Plan: Assessment lumbar spinal stenosis with spondylolisthesis L3-L4 disc herniation L2-L3. Plan at this time I had a lengthy discussion today with the patient and her who is at the bedside. Reviewed her MRI findings and clinical presentation. She could consider surgical invention. Would require a lumbar decompression L2-L3 L3-L4 with aggressive facetectomies and foraminotomies to address all neural compression. Subsequently she would require a fusion. This would require removing previous instrumentation L4-5. Risk benefits pros cons alternatives were in detail. Risk include but not limited to anesthesia blindness stroke paralysis nerve damage blood loss and transfusion infection requiring reoperation benefits with the marked improvement of radiculopathy. We will try to find time soon as possible from her surgery so she can begin rehabilitation. Admission and Anticipated Discharge Date Admission Date: September 28, 2023 Subjective Patient continues to struggle significant back pain rating to left buttock and anterior thigh. Marked limited ability to stand and ambulate. Physical Exam Physical Exam: On exam she stands this out of bed she is able to stand for me. She does have modest tenderness palpation of the left trochanter and SI joint but more significant discomfort of the left sciatic notch. She has pain with weightbearing. Bench exam reveals reasonable plantarflexion dorsiflexion bilaterally. Results & Data Vital Signs (Past 12 Hours) Vital Signs Temp Pulse Resp BP Pulse Ox O2 Del Method 09/30/23 07:46 36.8 C 67 15 110/66 81 L Room Air
--- NOTE | 2023-09-30 15:39 | Hospitalist Progress Note ---
Date of Service September 30, 2023 Assessment & Plan (1) Hypertensive urgency: Plan: blood pressure is fairly controlled at this time Most likely pain induced We will address pain Vision changes are likely related to uncontrolled hypertension Vision problems have resolved CT head negative MRI brain negative. (2) Left hip pain: Plan: -Patient has been experiencing progressive left lateral buttocks/hip pain with radiation down the left leg to the left knee -Patient denies recent trauma, confirms this is an ongoing, chronic issue -She denies back pain, loss of bowel or bladder function, and paresthesias in the LE's, but her symptoms do sound radicular in nature -Continue tylenol, morphine, heat, and lidocaine patch continue oxycodone IR 10 mg as needed. Increase the dose of OxyContin to 15 mg p.o. twice daily Already on methylprednisolone for PMR Lumbar spine x-ray showed disc space narrowing and L3/L4 Orthospine involved. Options given. patient has decided on moving forward with surgery by Dr. Tafoya. Dr. Tafoya plans to do her surgery early next week Meds (3) Pulmonary emboli: Plan: - discontinue twice daily Eliquis Switch to Lovenox twice daily in preparation for surgery next week She had PE 5 weeks ago and the plan is to continue anticoagulation for 3 to 6 months. (4) Polymyalgia rheumatica: Plan: -Continue methylprednisolone, methotrexate, and Sulfasalazine (5) Hypothyroid: Plan: -Continue levothyroxine (6) Coronary artery disease: Plan: -Continue aspirin Admission and Anticipated Discharge Date Admission Date: September 28, 2023 Subjective patient says that her pain is still uncontrolled. She did receive some relief after her oxycodone yesterday. Review of Systems Review of Systems: All systems reviewed & are unremarkable except as noted in Subjective Physical Exam Physical Exam: General: Awake, conversant Heart: S1, S2/regular rate and rhythm, no murmur rubs or gallops Lungs: Clear to auscultation bilaterally. Normal effort Abdomen: Soft/nontender/nondistended. No hepatosplenomegaly Extremities: No clubbing/cyanosis. No edema Behavior: Appropriate, cooperative Results & Data Results & Data Vital Signs (Past 12 Hours) Vital Signs Temp Pulse Resp BP BP Pulse Ox O2 Del Method 09/30/23 15:26 36.6 C 70 18 137/81 96 Room Air 09/30/23 07:46 36.8 C 67 15 110/66 81 L Room Air PG Care Time/CCT Total # of Minutes Spent Total Time Spent with Patient: Total time spent is greater than 50% in coordination of care (as documented) at patient's floor/unit and/or counseling patient: Coding Level of Care Code 39578 SUB INP/OBS CARE 2/35MIN Diagnoses Hypertensive urgency I16.0 Left hip pain M25.552 Pulmonary emboli I26.99 Polymyalgia rheumatica M35.3 Hypothyroid E03.9 Coronary artery disease I25.10
[2023-09-30] MEDS ORDERED: ENOXAPARIN 1 MG/KG SC SCH (15:45)
[2023-09-30] MEDS: oxyCODONE HCL 15 MG TABCR (OxyCONTIN) PO SCH (20:53)
[2023-09-30] MEDS: ENOXAPARIN 80 MG/0.8 ML SYR SQ SCH (20:54)
[2023-10-01] MEDS: ARMOUR THYROID 30 MG TAB PO SCH (07:50)
[2023-10-01] MEDS: oxyCODONE HCL 15 MG TABCR (OxyCONTIN) PO SCH ×2 (08:10→20:33)
[2023-10-01] MEDS: POLYETHYLENE (MIRALAX) 17 GM PACK PO PRN (08:10)
[2023-10-01] MEDS: ASPIRIN 81 MG ECTAB PO SCH (08:11)
[2023-10-01] MEDS: PANTOprazole 40 MG TAB PO SCH (08:11)
[2023-10-01] MEDS: sulfaSALAzine 500 MG TABLET PO SCH ×2 (08:12→20:34)
[2023-10-01] MEDS: METOPROLOL SUCC 50MG EXT REL TAB PO SCH (08:13)
[2023-10-01] MEDS: ENOXAPARIN 80 MG/0.8 ML SYR SQ SCH ×2 (08:14→20:33)
[2023-10-01] MEDS: TRIAMTERENE/HCTZ 37.5/25MG CAP PO SCH (08:15)
[2023-10-01] MEDS: amLODIPine BESYLATE 5 MG TAB PO SCH (08:15)
[2023-10-01] MEDS: DOCUSATE SODIUM 100 MG CAP PO SCH ×2 (08:16→20:33)
[2023-10-01] MEDS: cefUROXime axetil 500 MG TAB PO SCH ×2 (08:17→20:34)
[2023-10-01] MEDS: PREGABALIN 100 MG CAP PO SCH ×2 (08:18→20:33)
[2023-10-01] MEDS: POTASSIUM CHLORIDE CRTAB 20 MEQ TABCR PO SCH (08:18)
--- NOTE | 2023-10-01 11:37 | Orthopedic Progress Note ---
Date of Service October 01, 2023 Assessment & Plan (1) Neurogenic claudication due to lumbar spinal stenosis: Plan: Plan at this time in discussions patient stating that we will try for surgery next Tuesday. This allow the Eliquis to clear from her system and prevent risk of increased blood loss at the time of surgery. She states agrees. Admission and Anticipated Discharge Date Admission Date: September 28, 2023 Subjective Patient continues to be limited with predominant left leg pain and weakness Physical Exam Physical Exam: Patient is sitting beside the bed. She is comfortable at this time. Results & Data Vital Signs (Past 12 Hours) Vital Signs Temp Pulse Resp BP Pulse Ox O2 Del Method 10/01/23 08:16 36.8 C 62 16 146/80 H 98 Room Air
--- NOTE | 2023-10-01 13:01 | Hospitalist Progress Note ---
Date of Service October 01, 2023 Assessment & Plan (1) Hypertensive urgency: Plan: blood pressure is fairly controlled at this time Most likely pain induced We will address pain Vision changes are likely related to uncontrolled hypertension Vision problems have resolved CT head negative MRI brain negative. (2) Left hip pain: Plan: -Patient has been experiencing progressive left lateral buttocks/hip pain with radiation down the left leg to the left knee -Patient denies recent trauma, confirms this is an ongoing, chronic issue -She denies back pain, loss of bowel or bladder function, and paresthesias in the LE's, but her symptoms do sound radicular in nature -Continue tylenol, morphine, heat, and lidocaine patch continue oxycodone IR 10 mg as needed. Increase the dose of OxyContin to 15 mg p.o. twice daily Already on methylprednisolone for PMR Lumbar spine x-ray showed disc space narrowing and L3/L4 [facility] involved. Options given. patient has decided on moving forward with surgery by Dr. Tafoya. Dr. Tafoya plans to do her surgery early next week, likely Tuesday (3) Pulmonary emboli: Plan: - discontinued twice daily Eliquis Switched to Lovenox twice daily in preparation for surgery next week She had PE 5 weeks ago and the plan is to continue anticoagulation for 3 to 6 months. (4) Polymyalgia rheumatica: Plan: -Continue methylprednisolone, methotrexate, and Sulfasalazine (5) Hypothyroid: Plan: -Continue levothyroxine (6) Coronary artery disease: Plan: -Continue aspirin Admission and Anticipated Discharge Date Admission Date: September 28, 2023 Subjective Patient says that she spoke with Dr. Tafoya yesterday and the plan is for surgery likely on Tuesday. Her pain seems to be slightly better controlled with up titration of the dose of the long-acting oxycodone. We will continue. Review of Systems Review of Systems: All systems reviewed & are unremarkable except as noted in Subjective Physical Exam Physical Exam: General: Awake, conversant Heart: S1, S2/regular rate and rhythm, no murmur rubs or gallops Lungs: Clear to auscultation bilaterally. Normal effort Abdomen: Soft/nontender/nondistended. No hepatosplenomegaly Extremities: No clubbing/cyanosis. No edema Behavior: Appropriate, cooperative Results & Data Results & Data Vital Signs (Past 12 Hours) Vital Signs Temp Pulse Resp BP Pulse Ox O2 Del Method 10/01/23 08:16 36.8 C 62 16 146/80 H 98 Room Air PG Care Time/CCT Total # of Minutes Spent Total Time Spent with Patient: Total time spent is greater than 50% in coordination of care (as documented) at patient's floor/unit and/or counseling patient: Coding Level of Care Code 66891 SUB INP/OBS CARE 2/35MIN Diagnoses Hypertensive urgency I16.0 Left hip pain M25.552 Pulmonary emboli I26.99 Polymyalgia rheumatica M35.3 Hypothyroid E03.9 Coronary artery disease I25.10
[2023-10-01] MEDS: oxyCODONE HCL IR 5 MG TAB (IMMEDIATE RELEASE) PO PRN (17:45)
[2023-10-02] MEDS: oxyCODONE HCL IR 5 MG TAB (IMMEDIATE RELEASE) PO PRN ×2 (01:26→08:11)
[2023-10-02] MEDS: ARMOUR THYROID 30 MG TAB PO SCH (06:36)
[2023-10-02] MEDS: ASPIRIN 81 MG ECTAB PO SCH (09:12)
[2023-10-02] MEDS: amLODIPine BESYLATE 5 MG TAB PO SCH (09:12)
[2023-10-02] MEDS: TRIAMTERENE/HCTZ 37.5/25MG CAP PO SCH (09:13)
[2023-10-02] MEDS: METOPROLOL SUCC 50MG EXT REL TAB PO SCH (09:13)
[2023-10-02] MEDS: sulfaSALAzine 500 MG TABLET PO SCH ×2 (09:13→20:53)
[2023-10-02] MEDS: DOCUSATE SODIUM 100 MG CAP PO SCH ×2 (09:13→20:53)
[2023-10-02] MEDS: PANTOprazole 40 MG TAB PO SCH (09:13)
[2023-10-02] MEDS: ENOXAPARIN 80 MG/0.8 ML SYR SQ SCH ×2 (09:14→20:53)
[2023-10-02] MEDS: cefUROXime axetil 500 MG TAB PO SCH ×2 (09:14→20:53)
[2023-10-02] MEDS: oxyCODONE HCL 15 MG TABCR (OxyCONTIN) PO SCH ×2 (09:32→20:53)
[2023-10-02] MEDS: PREGABALIN 100 MG CAP PO SCH ×2 (09:32→20:53)
[2023-10-02] MEDS: POTASSIUM CHLORIDE CRTAB 20 MEQ TABCR PO SCH (09:32)
[2023-10-02] MEDS: POLYETHYLENE (MIRALAX) 17 GM PACK PO PRN (09:33)
--- NOTE | 2023-10-02 14:31 | Hospitalist Progress Note ---
Date of Service October 02, 2023 Assessment & Plan (1) Hypertensive urgency: Plan: blood pressure is fairly controlled at this time Most likely pain induced We will address pain Vision changes are likely related to uncontrolled hypertension Vision problems have resolved CT head negative MRI brain negative. (2) Left hip pain: Plan: -Patient has been experiencing progressive left lateral buttocks/hip pain with radiation down the left leg to the left knee -Patient denies recent trauma, confirms this is an ongoing, chronic issue -She denies back pain, loss of bowel or bladder function, and paresthesias in the LE's, but her symptoms do sound radicular in nature -Continue tylenol, morphine, heat, and lidocaine patch continue oxycodone IR 10 mg as needed. Continue OxyContin to 15 mg p.o. twice daily Already on methylprednisolone for PMR Lumbar spine x-ray showed disc space narrowing and L3/L4 [facility] involved. Options given. patient has decided on moving forward with surgery by Dr. Tafoya. Dr. Tafoya plans to do her surgery Tuesday (3) Pulmonary emboli: Plan: - discontinued twice daily Eliquis Switched to Lovenox twice daily in preparation for surgery next week She had PE 5 weeks ago and the plan is to continue anticoagulation for 3 to 6 months. (4) Polymyalgia rheumatica: Plan: -Continue methylprednisolone, methotrexate, and Sulfasalazine (5) Hypothyroid: Plan: -Continue levothyroxine (6) Coronary artery disease: Plan: -Continue aspirin Admission and Anticipated Discharge Date Admission Date: September 28, 2023 Subjective patient feels well. Denies chest pain or shortness of breath. Review of Systems Review of Systems: All systems reviewed & are unremarkable except as noted in Subjective Physical Exam Physical Exam: General: Awake, conversant Heart: S1, S2/regular rate and rhythm, no murmur rubs or gallops Lungs: Clear to auscultation bilaterally. Normal effort Abdomen: Soft/nontender/nondistended. No hepatosplenomegaly Extremities: No clubbing/cyanosis. No edema Behavior: Appropriate, cooperative Results & Data Results & Data Vital Signs (Past 12 Hours) Vital Signs Temp Pulse Resp BP Pulse Ox O2 Del Method 10/02/23 08:36 36.8 C 72 16 124/76 96 Room Air 10/02/23 02:30 36.8 C 69 17 120/69 94 Room Air PG Care Time/CCT Total # of Minutes Spent Total Time Spent with Patient: Total time spent is greater than 50% in coordination of care (as documented) at patient's floor/unit and/or counseling patient: Coding Level of Care Code 88982 SUB INP/OBS CARE 2/35MIN Diagnoses Hypertensive urgency I16.0 Left hip pain M25.552 Pulmonary emboli I26.99 Polymyalgia rheumatica M35.3 Hypothyroid E03.9 Coronary artery disease I25.10
[2023-10-03] MEDS: ARMOUR THYROID 30 MG TAB PO SCH (05:45)
[2023-10-03] MEDS: METOPROLOL SUCC 50MG EXT REL TAB PO SCH (08:43)
[2023-10-03] MEDS: DOCUSATE SODIUM 100 MG CAP PO SCH ×2 (08:43→20:50)
[2023-10-03] MEDS: PANTOprazole 40 MG TAB PO SCH (08:43)
[2023-10-03] MEDS: cefUROXime axetil 500 MG TAB PO SCH ×2 (08:43→20:50)
[2023-10-03] MEDS: amLODIPine BESYLATE 5 MG TAB PO SCH (08:43)
[2023-10-03] MEDS: sulfaSALAzine 500 MG TABLET PO SCH ×2 (08:43→20:50)
[2023-10-03] MEDS: TRIAMTERENE/HCTZ 37.5/25MG CAP PO SCH (08:44)
[2023-10-03] MEDS: ASPIRIN 81 MG ECTAB PO SCH (08:44)
[2023-10-03] MEDS: ENOXAPARIN 80 MG/0.8 ML SYR SQ SCH (08:45)
[2023-10-03] MEDS: oxyCODONE HCL 15 MG TABCR (OxyCONTIN) PO SCH ×2 (08:50→20:50)
[2023-10-03] MEDS: PREGABALIN 100 MG CAP PO SCH ×2 (08:50→20:50)
[2023-10-03] MEDS: POTASSIUM CHLORIDE CRTAB 20 MEQ TABCR PO SCH (08:50)
[2023-10-03] MEDS: POLYETHYLENE (MIRALAX) 17 GM PACK PO PRN (09:01)
[2023-10-03 09:39] LABS: BUN Creatinine Ratio 21.1 (10-20); Calcium 9.2 mg/dl (8.6-10.3); Creatinine Clr Calc Pharmacy 51.1 ml/min; Est GFR (Non-African American) 63.9 ml/min; Potassium 3.3 mmol/L (3.5-5.1)
[2023-10-03] MEDS ORDERED: POTASSIUM CHLORIDE CRTAB 20 MEQ TABCR PO STA (11:20)
--- NOTE | 2023-10-03 13:59 | Hospitalist Progress Note ---
Date of Service October 03, 2023 Assessment & Plan (1) Left hip pain: Plan: -Patient has been experiencing progressive left lateral buttocks/hip pain with radiation down the left leg to the left knee -Patient denies recent trauma, confirms this is an ongoing, chronic issue -She denies back pain, loss of bowel or bladder function, and paresthesias in the LE's, but her symptoms do sound radicular in nature -Continue tylenol, morphine, heat, and lidocaine patch continue oxycodone IR 10 mg as needed. Continue OxyContin to 15 mg p.o. twice daily Already on methylprednisolone for PMR Lumbar spine x-ray showed disc space narrowing and L3/L4 [facility] plans to take the patient to the OR tomorrow 10/04 (2) Pulmonary emboli: Plan: - discontinued twice daily Eliquis Switched to Lovenox twice daily in preparation for surgery Tomorrow She had PE 5 weeks ago and the plan is to continue anticoagulation for 3 to 6 months. (3) Hypertensive urgency: Plan: blood pressure is fairly controlled at this time Most likely pain induced We will address pain Vision changes are likely related to uncontrolled hypertension Vision problems have resolved CT head negative MRI brain negative. (4) Polymyalgia rheumatica: Plan: -Continue methylprednisolone, methotrexate, and Sulfasalazine We will order IV hydrocortisone 50 mg every 8 hours x3 doses in preparation for OR tomorrow (5) Hypothyroid: Plan: -Continue levothyroxine (6) Coronary artery disease: Plan: -Continue aspirin Admission and Anticipated Discharge Date Admission Date: September 28, 2023 Subjective Patient denies any chest pain or shortness of breath. Continues to have back pain, fairly controlled with narcotics. Waiting for OR tomorrow. Review of Systems Review of Systems: All systems reviewed & are unremarkable except as noted in Subjective Physical Exam Physical Exam: General: Awake, conversant Heart: S1, S2/regular rate and rhythm, no murmur rubs or gallops Lungs: Clear to auscultation bilaterally. Normal effort Abdomen: Soft/nontender/nondistended. No hepatosplenomegaly Extremities: No clubbing/cyanosis. No edema Behavior: Appropriate, cooperative Results & Data Results & Data Vital Signs (Past 12 Hours) Vital Signs Temp Pulse Resp BP Pulse Ox O2 Del Method 10/03/23 07:06 36.8 C 68 16 116/66 95 Room Air Laboratory Results Abnormal lab results 10/03/23 Range/Units 08:42 Potassium 3.3 L (3.5-5.1) mmol/L BUN/Creatinine Ratio 21.1 H (10-20) Glucose 120 H (70-99(Fasting)) mg/dl PG Care Time/CCT Total # of Minutes Spent Total Time Spent with Patient: Total time spent is greater than 50% in coordination of care (as documented) at patient's floor/unit and/or counseling patient: Coding Level of Care Code 06473 SUB INP/OBS CARE 2/35MIN Diagnoses Left hip pain M25.552 Pulmonary emboli I26.99 Hypertensive urgency I16.0 Polymyalgia rheumatica M35.3 Hypothyroid E03.9 Coronary artery disease I25.10
[2023-10-04] MEDS: ARMOUR THYROID 30 MG TAB PO SCH (06:01)
[2023-10-04] MEDS: HYDROCORTISONE SOD 50 MG in SYRINGE 0 ML IV SCH ×3 (06:36→21:51)
[2023-10-04] MEDS: DOCUSATE SODIUM 100 MG CAP PO SCH ×2 (08:04→20:21)
[2023-10-04] MEDS: ASPIRIN 81 MG ECTAB PO SCH (08:05)
[2023-10-04] MEDS: sulfaSALAzine 500 MG TABLET PO SCH ×2 (08:06→20:21)
[2023-10-04] MEDS: PREGABALIN 100 MG CAP PO SCH ×2 (08:09→20:21)
[2023-10-04] MEDS: POTASSIUM CHLORIDE CRTAB 20 MEQ TABCR PO SCH (08:10)
[2023-10-04] MEDS: amLODIPine BESYLATE 5 MG TAB PO SCH (08:10)
[2023-10-04] MEDS: METOPROLOL SUCC 50MG EXT REL TAB PO SCH (08:10)
[2023-10-04] MEDS: PANTOprazole 40 MG TAB PO SCH (08:10)
[2023-10-04] MEDS: TRIAMTERENE/HCTZ 37.5/25MG CAP PO SCH (08:10)
[2023-10-04] MEDS: oxyCODONE HCL 15 MG TABCR (OxyCONTIN) PO SCH (08:10)
[2023-10-04] MEDS: cefUROXime axetil 500 MG TAB PO SCH (08:10)
--- NOTE | 2023-10-04 10:29 | Anesthesiology Consultation ---
Date of Service October 04, 2023 Assessment & Plan Chart Review Chart Review: Acceptable Risk for Surgery and Patient NOT seen in Pre Admission Testing Consults Requested none ASA ASA4 Proposed Anesthesia Anesthesia Type: General History Surgery Operation Date: 10/04/23 11:45 Proposed Procedures p L2-L4 Decompression and Fusion, L4-L5 Hardware Removal, Spinal Cord Monitoring - Saturnino Tafoya DO Height/Weight Height: 5 ft 2 in Weight: 68.1 kg Allergies Allergy/AdvReac Type Severity Reaction Status Date / Time clopidogrel [From Plavix] Allergy Intermediate Hives Verified 09/26/23 17:46 hydroxychloroquine Allergy Intermediate Hives Verified 09/26/23 17:46 [From Plaquenil] celecoxib [From Celebrex] AdvReac Intermediate HX OF Verified 09/26/23 17:46 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 STOMACH codeine AdvReac Intermediate Gastrointestinal Verified 09/26/23 17:46 Upset hydrocodone [From Vicodin] AdvReac Intermediate Gastrointestinal Verified 09/26/23 17:46 Upset lubiprostone [From Amitiza] AdvReac Intermediate HX OF Verified 09/26/23 17:46 BLEEDING STOMACH pitavastatin AdvReac Intermediate Joint Pain Verified 09/26/23 17:46 pravastatin [From Pravachol] AdvReac Intermediate Joint Pain Verified 09/26/23 17:46 rosuvastatin AdvReac Intermediate Joint Pain Verified 09/26/23 17:46 [From Ezallor Sprinkle] simvastatin [From FloLipid] AdvReac Intermediate Joint Pain Verified 09/26/23 17:46 Qgurzil-FHV-IhU Reductase AdvReac Intermediate Joint Pain Verified 09/26/23 17:46 Inhibitor Medications Home Medications Medication Instructions Recorded Confirmed Last Taken albuterol sulfate 90 mcg/actuation 1 puff inhalation QID PRN Wheezing 04/05/23 09/26/23 Unknown aerosol inhaler alirocumab 75 mg/mL subcutaneous 75 mg subcut USEASDIRECTD 04/05/23 09/26/23 09/20/23 pen injector (Praluent Pen) amlodipine 10 mg tablet 10 mg PO DAILY 04/05/23 09/26/23 09/26/23 aspirin 81 mg tablet,delayed 81 mg PO DAILY 04/05/23 09/26/23 09/26/23 release cefadroxil 500 mg capsule 500 mg PO BID 05/08/2009/26/23 09/26/23 08:00 coenzyme Q10 100 mg capsule 100 mg PO BID 04/05/23 09/26/23 09/26/23 08:00 (CoQ-10) docusate sodium 100 mg capsule 100 mg PO DAILY 04/05/23 09/26/23 09/26/23 (Colace) esomeprazole magnesium 40 mg 40 mg PO DAILY 04/05/23 09/26/23 09/26/23 capsule,delayed release fluticasone propionate 50 1 spray intranasal DAILY PRN 04/05/23 09/26/23 Unknown mcg/actuation nasal allergy spray,suspension folic acid 1 mg tablet 1 mg PO DAILY 04/05/23 09/26/23 09/26/23 lactobacillus combination no.4 3 3,000 mmu cells PO QPM 04/05/23 09/26/23 09/25/23 billion cell capsule (Probiotic) methotrexate sodium 2.5 mg tablet 17.5 mg PO WK 04/05/23 09/26/23 09/23/23 metoprolol succinate 50 mg 50 mg PO DAILY 04/05/23 09/26/23 09/26/23 tablet,extended release 24 hr montelukast 10 mg tablet 10 mg PO QPM 04/05/23 09/26/23 09/25/23 nitroglycerin 0.4 mg sublingual 0.4 mg sublingual DIRECTED PRN 04/05/23 09/26/23 Unknown tablet Chest Pain omega 9-byi-stj-fish oil 1,200 mg 1 cap PO QPM 04/05/23 09/26/23 09/25/23 (144 mg-216 mg) capsule (Fish Oil) potassium chloride 20 mEq 20 meq PO DAILY #20 tabs 04/05/23 09/26/23 09/26/23 tablet,extended release pregabalin 100 mg capsule 100 mg PO BID 04/05/23 09/26/23 09/26/23 08:00 sulfasalazine 500 mg tablet 500 mg PO BID 04/05/23 09/26/23 09/26/23 08:00 thyroid (pork) 60 mg tablet 60 mg PO DAILY 04/05/23 09/26/23 09/26/23 ([place] Thyroid) triamterene 37.5 1 cap PO QAM 04/05/23 09/26/23 09/26/23 mg-hydrochlorothiazide 25 mg capsule iron,carbonyl 65 mg-vitamin C 125 1 tab PO QPM 08/15/23 09/26/23 09/25/23 mg tablet,delayed release (Vitron-C) apixaban 5 mg tablet (Eliquis) 5 mg PO BID #60 tabs 08/17/23 09/26/23 09/26/23 08:00 acetaminophen 650 mg 650 mg PO BID 09/26/23 09/26/23 09/26/23 08:00 tablet,extended release (Tylenol Arthritis Pain) calcium carbonate 500 mg calcium 500 mg PO DAILY 09/26/23 09/26/23 09/26/23 (1,250 mg) tablet denosumab 60 mg/mL subcutaneous 0 mg subcut DIRECTED 09/26/23 09/26/23 Unknown syringe (Prolia) inulin-sorbitol 2 gram chewable 1 tab PO DAILY 09/26/23 09/26/23 09/26/23 tablet methylprednisolone 8 mg tablet 16 mg PO DAILY 09/26/23 09/26/23 09/26/23 Active Medications Generic Name Dose Route Start Last Admin Trade Name Freq PRN Reason Stop Dose Admin Amlodipine Besylate 10 mg 09/27/23 09:00 10/04/23 08:10 Amlodipine Besylate 5 Mg Tab PO 10/27/23 08:59 10 mg DAILY JEN Administration Aspirin 81 mg 09/27/23 09:00 10/04/23 08:05 Aspirin 81 Mg Ectab PO 10/27/23 08:59 Not Given DAILY JEN Cefuroxime Axetil 500 mg 09/26/23 23:45 10/04/23 08:10 Cefuroxime Axetil 500 Mg Tab PO 10/26/23 23:44 500 mg BID JEN Administration Docusate Sodium 100 mg 09/29/23 21:00 10/04/23 08:04 Docusate Sodium 100 Mg Cap PO 10/29/23 20:59 Not Given BID JEN Hydrocortisone Sodium 1 mls @ 4 mls/min 10/04/23 07:00 10/04/23 06:36 Succinate 50 mg/ Syringe IV 10/04/23 23:01 4 mls/min Q8H JEN Administration Methylprednisolone 16 mg 09/27/23 09:00 10/04/23 08:10 Methylprednisolone 16 Mg Tab PO 10/27/23 08:59 16 mg DAILY JEN Administration Metoprolol Succinate 50 mg 09/27/23 09:00 10/04/23 08:10 Metoprolol Succ 50mg Ext Rel Tab PO 10/27/23 08:59 50 mg DAILY JEN Administration Oxycodone HCl 10 mg 09/29/23 12:36 10/02/23 08:11 Oxycodone Hcl Ir 5 Mg Tab (Immediate Release) PO 10/11/23 17:18 10 mg Q6 PRN Administration Pain Oxycodone HCl 15 mg 09/30/23 21:00 10/04/23 08:10 Oxycodone Hcl 15 Mg Tabcr (Oxycontin) PO 10/14/23 20:59 15 mg BID JEN Administration Pantoprazole Sodium 40 mg 09/27/23 09:00 10/04/23 08:10 Pantoprazole 40 Mg Tab PO 10/27/23 08:59 40 mg DAILY JEN Administration Polyethylene Glycol 17 gm 09/29/23 12:36 10/03/23 09:01 Polyethylene (Miralax) 17 Gm Pack PO 10/29/23 12:35 17 gm DAILY PRN Administration Constipation Potassium Chloride 20 meq 09/27/23 09:00 10/04/23 08:10 Potassium Chloride Crtab 20 Meq Tabcr PO 10/27/23 08:59 20 meq DAILY JEN Administration Pregabalin 100 mg 09/26/23 22:55 10/04/23 08:09 Pregabalin 100 Mg Cap PO 10/26/23 22:54 100 mg BID JEN Administration Sulfasalazine 500 mg 09/26/23 22:55 10/04/23 08:06 Sulfasalazine 500 Mg Tablet PO 10/26/23 22:54 Not Given BID JEN Thyroid 60 mg 09/27/23 06:30 10/04/23 06:01 [place] Thyroid 30 Mg Tab PO 10/27/23 06:29 60 mg DAILYBB JEN Administration Triamterene/Hydrochlorothiazide 1 cap 09/27/23 09:00 10/04/23 08:10 Triamterene/Hctz 37.5/25mg Cap PO 10/27/23 08:59 1 cap QAM JEN Administration Past Medical History Medical History Staph infection Diverticulitis Hypothyroid Osteoarthritis Rheumatoid arthritis Heart attack Coronary artery disease Stent May 2012 - [place] during stress test Stent Oct 2019 - pressure in chest Fibromyalgia 08/15/2023-multiple PE's Exercise / Class Metabolic Activity III < 4 Walking/Shop/Light housework Past Surgical History Surgical History History of left nephrectomy History of back surgery History of colon resection Past Anesthesia History No Hx of Anesthesia Complications and No Family Hx of Anesthesia Complications History of PONV No Hx of PONV and No Hx of Motion Sickness Social History Smoking Status: Never smoker Hx Alcohol Use: No Hx Substance Use: No Physical Exam Vital Signs Last Vital Signs Temp 37 C 10/04/23 07:14 Pulse 71 10/04/23 07:14 Resp 18 10/04/23 07:14 BP 103/69 10/04/23 07:14 Pulse Ox 95 10/04/23 07:14 O2 Del Method Room Air 10/04/23 07:14 Testing Laboratory Results 09/29/23 06:02 10/03/23 08:42 PT 10.5 Seconds (9.0-12.0) 09/29/23 06:02 INR 1.0 (0.9-1.1) 09/29/23 06:02 Urine Color Yellow 09/26/23 22:30 Urine Appearance Clear (Clear) 09/26/23 22:30 Urine pH 6.5 (4.5-7.5) 09/26/23 22:30 Ur Specific [place] 1.009 (1.000-1.030) 09/26/23 22:30 Urine Protein Negative (Negative) 09/26/23 22:30 Urine Glucose (UA) Negative (Negative) 09/26/23 22:30 Urine Ketones Negative (Negative) 09/26/23 22:30 Urine Nitrite Negative (Negative) 09/26/23 22:30 Ur Leukocyte Esterase Negative (Negative) 09/26/23 22:30 Blood Type O Positive 10/03/23 17:32 Antibody Screen NEGATIVE 10/03/23 17:32 Electrocardiogram Date: 09/26/23 Findings: + SB @ (@ 59;poss. infer. infarct,age ?;poss. anter. infarct,age ?) Chest X-Ray Date: 09/26/23 Findings: + NAD Echocardiogram Date: 08/17/23 EF: 65% LV Function: normal RWMA: + none Other Findings: + diastolic dysfunction (Grade 1) Valvular Disease: + no significant valvular disease [id number]
--- NOTE | 2023-10-04 12:33 | History & Physical Bridge Note ---
Date of Service October 04, 2023 History & Physical Bridge Note I have examined the patient, reviewed the History & Physical and in the interval since the performance of the History & Physical I have noted the following changes of clinical significance: no changes noted Patient struggles with severe left leg radiculopathy and progressive motor deficit. She has been off her anticoagulation medication and we have window time to safely pursue surgery. It would require a lumbar decompression and fusion L2-L4 with removal of instrumentation L4-L5.
[2023-10-04] MEDS ORDERED: ONDANSETRON INJ 2 MG/ML 2 ML VIAL ONE (12:34)
[2023-10-04] MEDS ORDERED: MIDAZOLAM HCL 1 MG/ML 2ML VIAL ONE (12:34)
[2023-10-04] MEDS ORDERED: PROPOFOL IV EMULSION 10 MG/ML 20 ML VIAL IV ONE (12:34)
[2023-10-04] MEDS ORDERED: fentaNYL citrate PF 100 MCG/2 ML VIAL ONE ×2 (12:34→13:52)
[2023-10-04] MEDS ORDERED: DEXAMETHASONE SOD INJ 4 MG/ML VIAL ONE (12:34)
[2023-10-04] MEDS ORDERED: LIDOCAINE 2% 2 ML VIAL/AMP(20MG/ML) INFIL ONE (12:34)
[2023-10-04] MEDS ORDERED: ROCURONIUM BROMIDE 10 MG/ML 5 ML VIAL IV ONE (12:34)
[2023-10-04] MEDS ORDERED: HYDROCORTISONE SOD SUCCINATE 100 MG/2 ML VIAL ONE (12:34)
[2023-10-04] MEDS ORDERED: BUPIVACAINE/EPINEPHRINE 0.25% 1:200,000 30 ML VIAL ONE (12:52)
[2023-10-04] MEDS ORDERED: FLUMAZENIL 0.1 MG/1 ML 10 ML VIAL IV PRN (13:01)
[2023-10-04] MEDS ORDERED: HYDROmorphone INJ 1 MG/ML SYRINGE IV PRN ×2 (13:01→16:56)
[2023-10-04] MEDS ORDERED: ATROPINE SULFATE 0.1 MG/ML 10ML SYR IV PRN (13:01)
[2023-10-04] MEDS ORDERED: ONDANSETRON INJ 2 MG/ML 2 ML VIAL IV PRN ×2 (13:01→16:56)
[2023-10-04] MEDS ORDERED: NALOXONE HCL 0.4 MG/1 ML VIAL/CARP IV PRN ×2 (13:01→16:56)
[2023-10-04] MEDS ORDERED: PROMETHAZINE HCL 12.5 MG in SODIUM CHLORIDE 0.9% 50 ML IV PRN ×2 (13:01→16:56)
[2023-10-04] MEDS ORDERED: ePHEDrine sulfate 50 MG/ML AMP IV PRN (13:01)
[2023-10-04] MEDS: ceFAZolin 330 MG/ML 1 GM VIAL ONE (13:17)
[2023-10-04] MEDS ORDERED: LACTATED RINGER'S 1,000 ML IV SCH (13:30)
[2023-10-04] MEDS ORDERED: VANCOMYCIN HCL 1000MG/20ML VIAL ONE (14:02)
[2023-10-04] MEDS ORDERED: GENTAMICIN SULFATE 40 MG/ML 2 ML VIAL ONE (14:03)
[2023-10-04] MEDS ORDERED: FLOSEAL HEMOSTATIC MATRIX 10ML TOP ONE (14:20)
[2023-10-04] MEDS ORDERED: ePHEDrine sulfate 50 MG/5 ML SYR ONE (14:32)
[2023-10-04] MEDS ORDERED: HYDROmorphone INJ 2 MG/ML SYR/VIAL ONE (15:10)
--- NOTE | 2023-10-04 15:36 | Operative Report ---
Post Operative Report Pre & Post Diagnosis Operation Date: 10/04/23 11:45 Pre-Op Diagnosis: Neurogenic claudication due to lumbar spinal stenosis Lumbar spinal listhesis L3-L4 Lumbar disc herniation L2-L3 with free fragment Post-Op Diagnosis: Same I identified the patient and participated in the time-out.: Yes Procedure Operation Date: 10/04/23 11:45 Actual Procedures #1 removal of posterior instrumentation L4-5. #2 exploration of fusion L4-5. #3 lumbar decompression bilaterally facetectomies and foraminotomies L2-L3 L3-4 per #4 posterior spinal fusion L2-L4. #5 placement posterior instrumentation L2-L5. #6 interbody fusion L2-L3 L3-L4. #7 placement Spira 11 x 26 mm at L2-L3 and 10 x 26 mm at L3-L4. #8 placement locally harvested morselized autograft in the posterior gutters. #9 placement of I factor interbody space and infuse collagen sponge, mass graft in the posterior lateral gutters. Surgeon Saturnino Tafoya, Noc Analyst Gladys Mccall Estimated Blood Loss 200 Findings Consistent with Post-Op Diagnosis Specimens None Indications This is a 73-year-old female presents problems diagnosis. Patient presents with marked decline in status inability to ambulate not improving with narcotic medications and rest. Her anticoagulation was held for safe amount of time and we chose to emergently take her to the OR to decompress her spine and remove the disc herniation to stabilize her neurologic decline and hopefully gain some improvement. Description of Procedure Patient was met with identified informed consent obtained. Patient was then taken to the operative suite underwent patient placed in a prone position the [place] table top Chaz frame. All bony promises well-padded eyes inspected to ensure no external pressure placed upon them. This point the lumbar spine was prepped and draped in normal sterile fashion. Sharp dissection with the assistance of Bovie cautery form down to and exposing the lamina transverse processes of L2-L3 and instrumentation at L4-L5 bilaterally. Then proceeded move the hardware bilaterally explore the fusion mass noting it to be mature and intact. Then performed a complete laminectomy of L3 and L2 including bilateral medial facetectomies and foraminotomies addressing severe spinal stenosis as well as identifying massive disc herniation at L2-L3 on the left that migrated caudally along the pedicle of L3 on the left. After complete decompression removal of fragments adhered to the root on the left pedicle screws were placed in L2 L3-L4-L5 bilaterally with assistance of fluoroscopy in the process dexter placed. I did omit the pedicle screw at L5 on the left. By way of transforaminal approach on the left complete discectomy of L3-L4 was performed endplates curetted to subcortical bleeding bone and the 10 x 26 mm Spira cage with I factor tapped in position. Then proceeded to L2-L3 and again by way of a transforaminal approach on the left complete discectomy was performed endplates guided to subcortical bleeding bone and a 11 x 26 mm Spira cage filled with I factor tapped in position. The rods were locked into final position bilaterally. The transverse processes of L2-L3-L4 burred to subcortical bleeding bone. Infuse collagen sponge bone mass graft locally harvested morselized autograft was placed in the posterior gutters. 15 round PRIMO drain inserted. The incision was then closed with 1 Vicryl to fascia 2-0 Vicryl subcutaneously and 4 Monocryl for final skin closure. Steri-Strips sterile dressings placed. Patient awakened taken to PACU in stable condition. Please note spinal cord monitoring was utilized at the procedure no changes noted. Lastly Gladys Mccall was present at the entire surgery about the patient positioning complex portion of the surgery and fascial closure. I attest to the content of the Intraoperative Record and any orders documented therein. Any exceptions are noted below.
[2023-10-04] MEDS: LABETALOL HCL IV 5 MG/ML 20ML IV PRN ×2 (16:04→16:11)
[2023-10-04] MEDS: fentaNYL citrate PF 100 MCG/2 ML VIAL IV PRN ×2 (16:23→16:29)
--- NOTE | 2023-10-04 16:38 | Anesthesiology Progress Note ---
Date of Service October 04, 2023 Anesthesia Post Procedure Vital Signs Vital Signs: Temp Pulse Pulse Resp BP BP Pulse Ox 10/04/23 16:30 71 12 118/78 100 10/04/23 16:20 76 12 134/75 100 10/04/23 16:10 88 14 161/84 H 100 10/04/23 16:01 36.0 C L 84 17 201/110 H 100 10/04/23 11:17 36.6 C 71 18 148/81 H 96 10/04/23 07:14 37 C 71 18 103/69 95 10/03/23 22:36 36.8 C 68 16 143/77 H 94 10/03/23 21:30 10/03/23 20:46 36.8 C 81 16 133/80 96 O2 Del Method O2 Flow Rate 10/04/23 16:30 Oxymask 4 10/04/23 16:20 Oxymask 4 10/04/23 16:10 Oxymask 6 10/04/23 16:01 Oxymask 8 10/04/23 11:17 Room Air 10/04/23 07:14 Room Air 10/03/23 22:36 Room Air 10/03/23 21:30 Room Air 10/03/23 20:46 Room Air Pain Intensity Left Hip: Pain Intensity: 8 Posterior Head: Pain Intensity: 8 Lower Back: Pain Intensity: 6 Transfer of Care Handoff Completed per policy Notes Mental Status: alert / awake / arousable Patient Amnestic to Procedure: Yes Nausea / Vomiting: adequately controlled Pain: adequately controlled Airway Patency, RR, SpO2: stable & adequate BP & HR: stable & adequate Hydration State: stable & adequate Anesthetic Complications: no major complications apparent and Pt Satisfied with anesthetic care
[2023-10-04 16:41] LABS: Hematocrit (blood only) 29.1 % (37.0-47.0); Hemoglobin 9.5 g/dl (12.0-16.0)
[2023-10-04] MEDS ORDERED: hydrOXYzine HCl 25 MG TAB PO PRN (16:56)
[2023-10-04] MEDS ORDERED: MAGNESIUM HYDROXIDE SUSP 30 ML UDC PO PRN (16:56)
[2023-10-04] MEDS ORDERED: diphenhydrAMINE Capsule 25 MG CAP PO PRN (16:56)
[2023-10-04] MEDS ORDERED: SOD PHOSPHATE/SOD BIPHOSPHATE ENEMA 132 ML BTL PR PRN (16:56)
[2023-10-04] MEDS ORDERED: LORazepam 2 MG/1 ML VIAL IV PRN (16:56)
[2023-10-04] MEDS ORDERED: bisacodyL 10 MG SUPP PR PRN (16:56)
[2023-10-04] MEDS ORDERED: DO NOT ADMINISTER FLU VACCINE PRN (16:56)
[2023-10-04] MEDS ORDERED: ONDANSETRON 4 MG OD TAB PO PRN (16:56)
[2023-10-04] MEDS ORDERED: ACETAMINOPHEN 500 MG TAB PO PRN (16:56)
[2023-10-04] MEDS ORDERED: FAMOTIDINE 20 MG TAB PO PRN (16:56)
[2023-10-04] MEDS ORDERED: ACETAMINOPHEN 1,000 MG/100 ML VIAL IV PRN (16:56)
[2023-10-04] MEDS ORDERED: DO NOT ADMINISTER PNEUMOCOCCAL VACCINE PRN (16:56)
[2023-10-04] MEDS ORDERED: LORazepam 0.5 MG TAB PO PRN (16:56)
[2023-10-04] MEDS ORDERED: METOCLOPRAMIDE HCL INJ 5 MG/ML 2 ML VIAL IV PRN (16:56)
[2023-10-04] MEDS ORDERED: ALUMINUM/MAGNESIUM SUSP 30 ML UDC PO PRN (16:56)
--- NOTE | 2023-10-04 17:02 | Fluoroscopy Report ---
INTRAOPERATIVE RADIOGRAPHS CLINICAL HISTORY: Lumbar spinal fusion surgery. Fluoro time: 20 seconds Ka,r: 16.79 mGy FINDINGS: 2 spot fluoroscopic views of the lumbar spine are presented. There is evidence of multileve l lumbar discectomy with laminectomy and posterior fusion. Pedicular screws are in place. Orthopedic hardware appears intact. This is reportedly at L2-L5. The exact levels cannot be delineated on the pr ovided images. IMPRESSION: Intraoperative images from multilevel lumbar spinal fusion surgery as above. Electronically signed by: Garrett Ocampo M.D. 10/04/2023 5:01 PM
[2023-10-04] MEDS: LACTATED RINGER'S 1,000 ML IV SCH (17:31)
--- NOTE | 2023-10-04 18:29 | Hospitalist Progress Note ---
Date of Service October 04, 2023 Assessment & Plan (1) Left hip pain: Plan: -Patient has been experiencing progressive left lateral buttocks/hip pain with radiation down the left leg to the left knee -Patient denies recent trauma, confirms this is an ongoing, chronic issue -She denies back pain, loss of bowel or bladder function, and paresthesias in the LE's, but her symptoms do sound radicular in nature -Continue tylenol, morphine, heat, and lidocaine patch continue oxycodone IR 10 mg as needed. Continue OxyContin to 15 mg p.o. twice daily Already on methylprednisolone for PMR Lumbar spine x-ray showed disc space narrowing and L3/L4 [facility] plans to take the patient to the OR tomorrow 10/04 (2) Pulmonary emboli: Plan: - discontinued twice daily Eliquis Switched to Lovenox twice daily in preparation for surgery Tomorrow She had PE 5 weeks ago and the plan is to continue anticoagulation for 3 to 6 months. (3) Hypertensive urgency: Plan: blood pressure is fairly controlled at this time Most likely pain induced We will address pain Vision changes are likely related to uncontrolled hypertension Vision problems have resolved CT head negative MRI brain negative. (4) Polymyalgia rheumatica: Plan: -Continue methylprednisolone, methotrexate, and Sulfasalazine We will order IV hydrocortisone 50 mg every 8 hours x3 doses in preparation for OR tomorrow (5) Hypothyroid: Plan: -Continue levothyroxine (6) Coronary artery disease: Plan: -Continue aspirin Admission and Anticipated Discharge Date Admission Date: September 28, 2023 Subjective Patient is going to the OR today for spinal stenosis Physical Exam Physical Exam: General: Awake, conversant Heart: S1, S2/regular rate and rhythm, no murmur rubs or gallops Lungs: Clear to auscultation bilaterally. Normal effort Abdomen: Soft/nontender/nondistended. No hepatosplenomegaly Extremities: No clubbing/cyanosis. No edema Behavior: Appropriate, cooperative Results & Data Results & Data Vital Signs (Past 12 Hours) Vital Signs Temp Pulse Pulse Pulse Resp BP BP 10/04/23 17:35 36.4 C L 79 14 120/72 10/04/23 17:03 36.6 C 75 14 123/71 10/04/23 16:40 36.3 C L 70 14 116/78 10/04/23 16:30 71 12 118/78 10/04/23 16:20 76 12 134/75 10/04/23 16:10 88 14 161/84 H 10/04/23 16:01 36.0 C L 84 17 201/110 H 10/04/23 11:17 36.6 C 71 18 148/81 H 10/04/23 07:14 37 C 71 18 103/69 Pulse Ox O2 Del Method O2 Flow Rate 10/04/23 17:35 98 Nasal Cannula 1 10/04/23 17:03 95 Nasal Cannula 2 10/04/23 16:40 99 Oxymask 4 10/04/23 16:30 100 Oxymask 4 10/04/23 16:20 100 Oxymask 4 10/04/23 16:10 100 Oxymask 6 10/04/23 16:01 100 Oxymask 8 10/04/23 11:17 96 Room Air 10/04/23 07:14 95 Room Air PG Care Time/CCT Total # of Minutes Spent Total Time Spent with Patient: Total time spent is greater than 50% in coordination of care (as documented) at patient's floor/unit and/or counseling patient: Coding Level of Care Code 73401 SUB INP/OBS CARE 25MIN Diagnoses Left hip pain M25.552 Pulmonary emboli I26.99 Hypertensive urgency I16.0 Polymyalgia rheumatica M35.3 Hypothyroid E03.9 Coronary artery disease I25.10
[2023-10-04] MEDS: HYDROmorphone INJ 0.5 MG/0.5 ML SYR IV PRN (20:21)
[2023-10-04] MEDS: DOCUSATE SODIUM/SENNA 50/8.6MG TAB PO SCH (20:22)
[2023-10-04] MEDS: ceFAZolin 2000MG 2,000 MG/15 ML SYR IV SCH (21:50)
[2023-10-05] MEDS: HYDROmorphone INJ 0.5 MG/0.5 ML SYR IV PRN (01:30)
[2023-10-05] MEDS: LACTATED RINGER'S 1,000 ML IV SCH ×2 (03:00→12:26)
[2023-10-05] MEDS: ARMOUR THYROID 30 MG TAB PO SCH (05:48)
[2023-10-05] MEDS: ceFAZolin 2000MG 2,000 MG/15 ML SYR IV SCH (05:49)
[2023-10-05 05:53] LABS: Basophils # (auto) 0.01 K/uL (0.00-0.20); Basophils % (auto) 0.1 %; Eosinophils # (auto) 0.01 K/uL (0.00-0.50); Eosinophils % (auto) 0.1 %; Hematocrit (blood only) 26.1 % (37.0-47.0); Hemoglobin 8.1 g/dl (12.0-16.0); Immature Granulocytes % (auto) 0.6 %; Lymphocytes # (auto) 1.46 K/uL (1.20-3.40); Lymphocytes % (auto) 9.4 %; Mean Corpuscular Hemoglobin 30.6 pg (25.0-34.0); Mean Corpuscular Volume 98.5 fL (80.0-100.0); Mean Platelet Volume 11.2 fL (9.4-12.4); Monocytes # (auto) 1.79 K/uL (0.11-0.59); Monocytes % (auto) 11.5 %; Neutrophils # (auto) 12.24 K/uL (1.40-6.50); Neutrophils % (auto) 78.3 %; Platelet Count 282 K/uL (130-400); RDW Coefficient of Variation 14.6 % (11.5-14.5); RDW Standard Deviation 52.6 fL (36.4-46.3); Red Blood Count 2.65 M/uL (4.20-5.40); White Blood Count 15.61 K/ul (4.8-10.8)
[2023-10-05 06:11] LABS: Calcium 8.5 mg/dl (8.6-10.3); Potassium 3.6 mmol/L (3.5-5.1)
[2023-10-05 06:17] LABS: BUN Creatinine Ratio 20.3 (10-20); Creatinine Clr Calc Pharmacy 66.7 ml/min; Est GFR (African American) 100.8 ml/min
[2023-10-05] MEDS: POLYETHYLENE (MIRALAX) 17 GM PACK PO SCH ×4 (06:21→23:00)
[2023-10-05] MEDS: METOPROLOL SUCC 50MG EXT REL TAB PO SCH (08:33)
[2023-10-05] MEDS: amLODIPine BESYLATE 5 MG TAB PO SCH (08:33)
[2023-10-05] MEDS: ASPIRIN 81 MG ECTAB PO SCH (08:34)
[2023-10-05] MEDS: DOCUSATE SODIUM 100 MG CAP PO SCH ×2 (08:34→20:51)
[2023-10-05] MEDS: sulfaSALAzine 500 MG TABLET PO SCH ×2 (08:34→20:50)
[2023-10-05] MEDS: TRIAMTERENE/HCTZ 37.5/25MG CAP PO SCH (08:34)
[2023-10-05] MEDS: PANTOprazole 40 MG TAB PO SCH (08:34)
[2023-10-05] MEDS: PREGABALIN 100 MG CAP PO SCH ×2 (08:52→20:50)
[2023-10-05] MEDS: POTASSIUM CHLORIDE CRTAB 20 MEQ TABCR PO SCH (08:52)
--- NOTE | 2023-10-05 12:59 | Orthopedic Progress Note ---
Date of Service October 05, 2023 Assessment & Plan (1) Neurogenic claudication due to lumbar spinal stenosis: Plan: At this time we will continue physical therapy monitor PRIMO output hopefully discharge home this weekend. Admission and Anticipated Discharge Date Admission Date: September 28, 2023 Subjective Patient's leg pain is markedly improved. Back pain is controlled. Physical Exam Physical Exam: Patient is in the chair at the bedside. Is constricted testing. Appears comfortable. Results & Data Vital Signs (Past 12 Hours) Vital Signs Temp Pulse Pulse Resp BP Pulse Ox O2 Del Method 10/05/23 11:49 Room Air 10/05/23 08:33 71 131/64 96 Room Air 10/05/23 07:49 36.2 C L 57 L 16 110/68 97 Room Air 10/05/23 03:00 36.6 C 70 16 116/70 95 Room Air
[2023-10-05] MEDS ORDERED: LORazepam 0.5 MG in SYRINGE 0.25 ML IV PRN (14:33)
--- NOTE | 2023-10-05 19:12 | Hospitalist Progress Note ---
Date of Service October 05, 2023 Assessment & Plan (1) Left hip pain: Plan: -Patient has been experiencing progressive left lateral buttocks/hip pain with radiation down the left leg to the left knee -Patient denies recent trauma, confirms this is an ongoing, chronic issue -She denies back pain, loss of bowel or bladder function, and paresthesias in the LE's, but her symptoms do sound radicular in nature -Continue tylenol, morphine, heat, and lidocaine patch continue oxycodone IR 10 mg as needed. Continue OxyContin to 15 mg p.o. twice daily Already on methylprednisolone for PMR Lumbar spine x-ray showed disc space narrowing and L3/L4 Status post OR on 10/04 -Neurogenic claudication due to lumbar spinal stenosis: -Possible discharge over the (2) Pulmonary emboli: Plan: - discontinued twice daily Eliquis We will discuss with surgery tomorrow if he can resume Eliquis She had PE 5 weeks ago and the plan is to continue anticoagulation for 3 to 6 months. (3) Hypertensive urgency: Plan: blood pressure is fairly controlled at this time Most likely pain induced We will address pain Vision changes are likely related to uncontrolled hypertension Vision problems have resolved CT head negative MRI brain negative. (4) Polymyalgia rheumatica: Plan: -Continue methylprednisolone, methotrexate, and Sulfasalazine We will order IV hydrocortisone 50 mg every 8 hours x3 doses in preparation for OR tomorrow (5) Hypothyroid: Plan: -Continue levothyroxine (6) Coronary artery disease: Plan: -Continue aspirin Admission and Anticipated Discharge Date Admission Date: September 28, 2023 Subjective No complaint today Physical Exam Physical Exam: Patient is in the chair at the bedside. Is constricted testing. Appears comfortable. Results & Data Results & Data Vital Signs (Past 12 Hours) Vital Signs Temp Pulse Resp BP Pulse Ox O2 Del Method 10/05/23 15:07 36.9 C 72 16 112/56 L 97 Room Air 10/05/23 11:49 Room Air 10/05/23 08:33 71 131/64 96 Room Air 10/05/23 07:49 36.2 C L 57 L 16 110/68 97 Room Air PG Care Time/CCT Total # of Minutes Spent Total Time Spent with Patient: Total time spent is greater than 50% in coordination of care (as documented) at patient's floor/unit and/or counseling patient: Coding Level of Care Code 63021 SUB INP/OBS CARE 2/35MIN Diagnoses Left hip pain M25.552 Pulmonary emboli I26.99 Hypertensive urgency I16.0 Polymyalgia rheumatica M35.3 Hypothyroid E03.9 Coronary artery disease I25.10
[2023-10-05] MEDS: traMADol HCL 50 MG TABLET PO PRN (20:50)
[2023-10-05] MEDS: DOCUSATE SODIUM/SENNA 50/8.6MG TAB PO SCH (20:51)
[2023-10-06] MEDS: HYDROmorphone INJ 0.5 MG/0.5 ML SYR IV PRN ×3 (01:04→20:19)
[2023-10-06] MEDS: ARMOUR THYROID 30 MG TAB PO SCH (05:26)
[2023-10-06] MEDS: POLYETHYLENE (MIRALAX) 17 GM PACK PO SCH ×4 (05:26→23:01)
[2023-10-06] MEDS: PANTOprazole 40 MG TAB PO SCH (07:54)
[2023-10-06] MEDS: DOCUSATE SODIUM 100 MG CAP PO SCH ×2 (07:54→20:18)
[2023-10-06] MEDS: sulfaSALAzine 500 MG TABLET PO SCH ×2 (07:54→20:19)
[2023-10-06] MEDS: METOPROLOL SUCC 50MG EXT REL TAB PO SCH (07:55)
[2023-10-06] MEDS: amLODIPine BESYLATE 5 MG TAB PO SCH (07:55)
[2023-10-06] MEDS: ASPIRIN 81 MG ECTAB PO SCH (07:55)
[2023-10-06] MEDS: TRIAMTERENE/HCTZ 37.5/25MG CAP PO SCH (07:56)
[2023-10-06] MEDS: POTASSIUM CHLORIDE CRTAB 20 MEQ TABCR PO SCH (07:59)
[2023-10-06] MEDS: PREGABALIN 100 MG CAP PO SCH ×2 (07:59→20:19)
[2023-10-06 08:14] LABS: Hematocrit (blood only) 22.9 % (37.0-47.0); Hemoglobin 7.3 g/dl (12.0-16.0); Mean Corpuscular Hemoglobin 29.9 pg (25.0-34.0); Mean Corpuscular Hgb Conc 31.9 g/dL (32.0-36.0); Mean Corpuscular Volume 93.9 fL (80.0-100.0); Mean Platelet Volume 11.8 fL (9.4-12.4); Platelet Count 262 K/uL (130-400); RDW Coefficient of Variation 15.1 % (11.5-14.5); RDW Standard Deviation 51.8 fL (36.4-46.3); Red Blood Count 2.44 M/uL (4.20-5.40); White Blood Count 11.57 K/ul (4.8-10.8)
--- NOTE | 2023-10-06 10:33 | Orthopedic Progress Note ---
Date of Service October 06, 2023 Assessment & Plan (1) Neurogenic claudication due to lumbar spinal stenosis: Plan: Annabella is postoperative day 2 status post hard removal L4-5, decompression L2-4 and instrumented fusion L2-5. She will continue with physical therapy today. Maintain PRIMO drain. May resume anticoagulation starting tomorrow/postoperative day 3. DVT prophylaxis currently is in the form of teds and SCDs. Continue with pain control. Anticipate discharge over the weekend Admission and Anticipated Discharge Date Admission Date: September 28, 2023 Subjective Annabella postoperative day 2 status post hardware removal L4-5, decompression L2-4 and instrumented fusion L2-5. Was having some shortness of breath this morning. Back and leg symptoms improved. PRIMO drain output last shift was 60 cc. Yesterday in physical therapy ambling roughly 12 feet. Review of Systems Review of Systems: All systems reviewed & are unremarkable except as noted in HPI & below Physical Exam Physical Exam: She sitting on the edge of the bed in no acute distress Alert and oriented x3 Lumbar dressing is clean dry intact with functioning PRIMO drain Strength is intact bilateral lower extremities Results & Data Vital Signs (Past 12 Hours) Vital Signs Temp Pulse BP Pulse Ox O2 Del Method 10/06/23 08:05 Room Air 10/06/23 07:52 37.9 C H 99 H 115/67 97 Room Air
--- NOTE | 2023-10-06 19:06 | Hospitalist Progress Note ---
Date of Service October 06, 2023 Assessment & Plan (1) Left hip pain: Plan: -Patient has been experiencing progressive left lateral buttocks/hip pain with radiation down the left leg to the left knee Already on methylprednisolone for PMR Lumbar spine x-ray showed disc space narrowing and L3/L4 Status post OR on 10/04 -Neurogenic claudication due to lumbar spinal stenosis: -CT patient has PRIMO drain, possible PRIMO drain comes off tomorrow, (2) Pulmonary emboli: Plan: - discontinued twice daily Eliquis We will resume Eliquis when medically feasible due to recent surgery She had PE 5 weeks ago and the plan is to continue anticoagulation for 3 to 6 months. (3) Hypertensive urgency: Plan: blood pressure is fairly controlled at this time Most likely pain induced (4) Polymyalgia rheumatica: Plan: -Continue methylprednisolone, methotrexate, and Sulfasalazine (5) Hypothyroid: Plan: -Continue levothyroxine (6) Coronary artery disease: Plan: -Continue aspirin Admission and Anticipated Discharge Date Admission Date: September 28, 2023 Subjective No acute issues today, patient is resting comfortably laying on the bed Results & Data Results & Data Vital Signs (Past 12 Hours) Vital Signs Temp Pulse Resp BP Pulse Ox O2 Del Method 10/06/23 14:17 37.0 C 80 16 127/71 94 Room Air 10/06/23 11:19 37.8 C H 88 114/71 93 Room Air 10/06/23 08:05 Room Air 10/06/23 07:52 37.9 C H 99 H 115/67 97 Room Air PG Care Time/CCT Total # of Minutes Spent Total Time Spent with Patient: Total time spent is greater than 50% in coordination of care (as documented) at patient's floor/unit and/or counseling patient: Coding Level of Care Code 79326 SUB INP/OBS CARE 2/35MIN Diagnoses Left hip pain M25.552 Pulmonary emboli I26.99 Hypertensive urgency I16.0 Polymyalgia rheumatica M35.3 Hypothyroid E03.9 Coronary artery disease I25.10
[2023-10-06] MEDS: DOCUSATE SODIUM/SENNA 50/8.6MG TAB PO SCH (20:18)
[2023-10-06] MEDS: traMADol HCL 50 MG TABLET PO PRN (21:33)
[2023-10-07] MEDS: ARMOUR THYROID 30 MG TAB PO SCH (05:31)
[2023-10-07] MEDS: traMADol HCL 50 MG TABLET PO PRN ×2 (05:31→19:24)
[2023-10-07] MEDS: POLYETHYLENE (MIRALAX) 17 GM PACK PO SCH ×3 (05:43→12:27)
[2023-10-07] MEDS: sulfaSALAzine 500 MG TABLET PO SCH ×2 (08:01→20:46)
[2023-10-07] MEDS: PANTOprazole 40 MG TAB PO SCH (08:02)
[2023-10-07] MEDS: amLODIPine BESYLATE 5 MG TAB PO SCH (08:02)
[2023-10-07] MEDS: ASPIRIN 81 MG ECTAB PO SCH (08:02)
[2023-10-07] MEDS: METOPROLOL SUCC 50MG EXT REL TAB PO SCH (08:03)
[2023-10-07] MEDS: TRIAMTERENE/HCTZ 37.5/25MG CAP PO SCH (08:03)
[2023-10-07] MEDS: DOCUSATE SODIUM 100 MG CAP PO SCH ×2 (08:03→20:46)
[2023-10-07] MEDS: PREGABALIN 100 MG CAP PO SCH ×2 (08:27→20:46)
[2023-10-07] MEDS: POTASSIUM CHLORIDE CRTAB 20 MEQ TABCR PO SCH (09:13)
[2023-10-07] MEDS: APIXABAN 5 MG TABLET PO SCH ×2 (12:12→20:46)
[2023-10-07] MEDS ORDERED: KETOROLAC TROMETHAMINE 15 MG/ML VIAL IV PRN (13:08)
--- NOTE | 2023-10-07 13:27 | Orthopedic Progress Note ---
Date of Service October 07, 2023 Assessment & Plan (1) Neurogenic claudication due to lumbar spinal stenosis: Plan: We will continue physical therapy today. Drain will be DC'd tomorrow. She is cleared for discharge tomorrow from an orthopedic standpoint. Admission and Anticipated Discharge Date Admission Date: September 28, 2023 Subjective Patient's back pain is controlled leg symptoms improved Physical Exam Physical Exam: On exam she is currently back in bed. Has good strength testing. Results & Data Vital Signs (Past 12 Hours) Vital Signs Temp Pulse Resp BP Pulse Ox O2 Del Method 10/07/23 11:57 36.9 C 84 18 122/60 95 Room Air 10/07/23 08:00 37 C 82 16 124/68 95 Room Air
[2023-10-07] MEDS: ACETAMINOPHEN 500 MG TAB PO SCH ×2 (14:34→20:46)
--- NOTE | 2023-10-07 19:22 | Hospitalist Progress Note ---
Date of Service October 07, 2023 Assessment & Plan (1) Left hip pain: Plan: -Patient has been experiencing progressive left lateral buttocks/hip pain with radiation down the left leg to the left knee Already on methylprednisolone for PMR Lumbar spine x-ray showed disc space narrowing and L3/L4 Status post OR on 10/04 -Neurogenic claudication due to lumbar spinal stenosis: -PRIMO drain has been removed on 10/07, patient is to have severe back pain, started on tramadol stating that narcotics give her nausea and vomiting (2) Pulmonary emboli: Plan: - discontinued twice daily Eliquis We will resume Eliquis when medically feasible due to recent surgery She had PE 5 weeks ago and the plan is to continue anticoagulation for 3 to 6 months. (3) Hypertensive urgency: Plan: blood pressure is fairly controlled at this time Most likely pain induced (4) Polymyalgia rheumatica: Plan: -Continue methylprednisolone, methotrexate, and Sulfasalazine (5) Hypothyroid: Plan: -Continue levothyroxine (6) Coronary artery disease: Plan: -Continue aspirin Admission and Anticipated Discharge Date Admission Date: September 28, 2023 Subjective Complaint of pain at the surgical site on inspection the surgical site is clean Physical Exam Physical Exam: Patient is in the chair at the bedside. Is constricted testing. Appears comfortable. Results & Data Results & Data Vital Signs (Past 12 Hours) Vital Signs Temp Pulse Pulse Resp BP Pulse Ox O2 Del Method 10/07/23 14:50 36.8 C 73 16 115/65 96 Room Air 10/07/23 11:57 36.9 C 84 18 122/60 95 Room Air 10/07/23 08:00 37 C 82 16 124/68 95 Room Air PG Care Time/CCT Total # of Minutes Spent Total Time Spent with Patient: Total time spent is greater than 50% in coordination of care (as documented) at patient's floor/unit and/or counseling patient: Coding Level of Care Code 17538 SUB INP/OBS CARE 2/35MIN Diagnoses Left hip pain M25.552 Pulmonary emboli I26.99 Hypertensive urgency I16.0 Polymyalgia rheumatica M35.3 Hypothyroid E03.9 Coronary artery disease I25.10
[2023-10-07] MEDS: DOCUSATE SODIUM/SENNA 50/8.6MG TAB PO SCH (20:45)
[2023-10-08] MEDS: ARMOUR THYROID 30 MG TAB PO SCH (06:10)
[2023-10-08] MEDS: ACETAMINOPHEN 500 MG TAB PO SCH ×3 (06:10→20:39)
[2023-10-08] MEDS: amLODIPine BESYLATE 5 MG TAB PO SCH (08:14)
[2023-10-08] MEDS: METOPROLOL SUCC 50MG EXT REL TAB PO SCH (08:15)
[2023-10-08] MEDS: traMADol HCL 50 MG TABLET PO PRN ×2 (08:27→23:03)
[2023-10-08] MEDS: POTASSIUM CHLORIDE CRTAB 20 MEQ TABCR PO SCH (08:28)
[2023-10-08] MEDS: APIXABAN 5 MG TABLET PO SCH ×2 (08:29→20:39)
[2023-10-08] MEDS: ASPIRIN 81 MG ECTAB PO SCH (08:29)
[2023-10-08] MEDS: DOCUSATE SODIUM 100 MG CAP PO SCH ×2 (08:29→20:39)
[2023-10-08] MEDS: PANTOprazole 40 MG TAB PO SCH (08:29)
[2023-10-08] MEDS: sulfaSALAzine 500 MG TABLET PO SCH ×2 (08:29→20:38)
[2023-10-08] MEDS: TRIAMTERENE/HCTZ 37.5/25MG CAP PO SCH (08:30)
[2023-10-08] MEDS: PREGABALIN 100 MG CAP PO SCH ×2 (08:33→20:38)
--- NOTE | 2023-10-08 09:01 | Orthopedic Progress Note ---
Date of Service October 08, 2023 Assessment & Plan (1) Neurogenic claudication due to lumbar spinal stenosis: Plan: At this time she can continue physical therapy PRIMO drain has been removed. She is okay for discharge per orthopedics. We will have her follow-up in the office in 2 weeks. Admission and Anticipated Discharge Date Admission Date: September 28, 2023 Subjective Back pain controlled leg pain improved Physical Exam Physical Exam: Patient is constricted testing. Peers comfortable. Results & Data Vital Signs (Past 12 Hours) Vital Signs Temp Pulse Resp BP Pulse Ox O2 Del Method 10/08/23 08:02 36.5 C 65 16 94/60 L 98 Room Air 10/08/23 08:02 36.5 C 65 16 108/67 95 Room Air
[2023-10-08 09:25] LABS: Hematocrit (blood only) 24.1 % (37.0-47.0); Hemoglobin 7.5 g/dl (12.0-16.0); Mean Corpuscular Hemoglobin 29.8 pg (25.0-34.0); Mean Corpuscular Hgb Conc 31.1 g/dL (32.0-36.0); Mean Corpuscular Volume 95.6 fL (80.0-100.0); Mean Platelet Volume 11.8 fL (9.4-12.4); Platelet Count 293 K/uL (130-400); RDW Standard Deviation 52.3 fL (36.4-46.3); Red Blood Count 2.52 M/uL (4.20-5.40); White Blood Count 8.37 K/ul (4.8-10.8)
[2023-10-08] MEDS: oxyCODONE HCL IR 5 MG TAB (IMMEDIATE RELEASE) PO PRN ×3 (10:00→20:39)
[2023-10-08] MEDS ORDERED: LIDOCAINE 5% 1 PATCH TD STA (10:55)
[2023-10-08] MEDS: CYCLOBENZAPRINE HCL 10 MG TAB PO SCH ×3 (10:55→20:39)
[2023-10-08 11:40] LABS: Iron 10 mcg/dl (35-150); Transferrin 164 mg/dl (200-360); Unsaturated Iron Binding Cap 211 mcg/dl (155-355)
--- NOTE | 2023-10-08 19:55 | Hospitalist Progress Note ---
Date of Service October 08, 2023 Assessment & Plan (1) Left hip pain: Plan: -Patient has been experiencing progressive left lateral buttocks/hip pain with radiation down the left leg to the left knee -Neurogenic claudication due to lumbar spinal stenosis: Lumbar spine x-ray showed disc space narrowing and L3/L4 Status post surgical intervention on 10/04, PRIMO drain was removed on 10/07 -The surgical site site looks intact, patient has severe pain, she management however states she has significant pain, started on scheduled Flexeril p.o. home meds for breakthrough pain still has a lot of pain, patient is lethargic, patient suffers from polymyalgia rheumatica which could be contributing factor, I will give her 1 dose of IV Solu-Medrol 125 (2) Anemia: Plan: Possibly mixed type of iron deficiency anemia anemia chronic disease, need GI outpatient work-up, patient suffers from hemorrhoid and according to her needs, I have initiated IV iron (3) Pulmonary emboli: Plan: Resume Eliquis after discussion with the surgery (4) Hypertensive urgency: Plan: blood pressure is fairly controlled at this time Most likely pain induced (5) Polymyalgia rheumatica: Plan: -Continue methylprednisolone, methotrexate, and Sulfasalazine (6) Hypothyroid: Plan: -Continue levothyroxine (7) Coronary artery disease: Plan: -Continue aspirin Admission and Anticipated Discharge Date Admission Date: September 28, 2023 Subjective Still patient complained of significant pain with movement, patient has polymyalgia rheumatica probably contributing factor Physical Exam Physical Exam: Patient is in the chair at the bedside. Is constricted testing. Appears comfortable. Results & Data Results & Data Vital Signs (Past 12 Hours) Vital Signs Temp Pulse Resp BP Pulse Ox O2 Del Method 10/08/23 15:18 36.3 C L 68 16 151/66 H 95 Room Air 10/08/23 08:02 36.5 C 65 16 94/60 L 98 Room Air 10/08/23 08:02 36.5 C 65 16 108/67 95 Room Air PG Care Time/CCT Total # of Minutes Spent Total Time Spent with Patient: Total time spent is greater than 50% in coordination of care (as documented) at patient's floor/unit and/or counseling patient: Coding Level of Care Code 15024 SUB INP/OBS CARE 3/50MIN Diagnoses Left hip pain M25.552 Anemia D64.9 Pulmonary emboli I26.99 Hypertensive urgency I16.0 Polymyalgia rheumatica M35.3 Hypothyroid E03.9 Coronary artery disease I25.10
[2023-10-08] MEDS ORDERED: methylPREDNISolone 125 MG in SYRINGE 0 ML IV ONE (20:00)
[2023-10-08] MEDS ORDERED: SODIUM FERRIC GLUCONATE 125 MG in 0.9 % SODIUM CHLORIDE 100 ML IV SCH (20:15)
[2023-10-08] MEDS: DOCUSATE SODIUM/SENNA 50/8.6MG TAB PO SCH (20:38)
[2023-10-09] MEDS: ARMOUR THYROID 30 MG TAB PO SCH (05:56)
[2023-10-09] MEDS: ACETAMINOPHEN 500 MG TAB PO SCH ×2 (05:56→13:46)
[2023-10-09] MEDS: DOCUSATE SODIUM 100 MG CAP PO SCH (08:22)
[2023-10-09] MEDS: sulfaSALAzine 500 MG TABLET PO SCH (08:22)
[2023-10-09] MEDS: APIXABAN 5 MG TABLET PO SCH (08:22)
[2023-10-09] MEDS: CYCLOBENZAPRINE HCL 10 MG TAB PO SCH ×2 (08:23→13:46)
[2023-10-09] MEDS: PANTOprazole 40 MG TAB PO SCH (08:23)
[2023-10-09] MEDS: ASPIRIN 81 MG ECTAB PO SCH (08:23)
[2023-10-09] MEDS: TRIAMTERENE/HCTZ 37.5/25MG CAP PO SCH (08:24)
[2023-10-09] MEDS: POTASSIUM CHLORIDE CRTAB 20 MEQ TABCR PO SCH (08:28)
[2023-10-09] MEDS: PREGABALIN 100 MG CAP PO SCH (08:28)
[2023-10-09] MEDS: oxyCODONE HCL IR 5 MG TAB (IMMEDIATE RELEASE) PO PRN ×2 (08:28→12:36)
[2023-10-09] MEDS: METOPROLOL SUCC 50MG EXT REL TAB PO SCH (08:29)
[2023-10-09] MEDS: amLODIPine BESYLATE 5 MG TAB PO SCH (08:29)
--- NOTE | 2023-10-09 08:49 | Orthopedic Progress Note ---
Date of Service October 09, 2023 Assessment & Plan (1) Neurogenic claudication due to lumbar spinal stenosis: Plan: Krishna is postoperative day 5 status post hard removal L4-5, decompression L2-4 and instrumented fusion L2-5. She is struggling with back pain. We will continue with pain control management. May have to consider pain management consult for recommendations. Ambulate ad fely. Continue with physical therapy. She has resumed her Eliquis. Admission and Anticipated Discharge Date Admission Date: September 28, 2023 Nir Borjas is status post hard removal L4-5, decompression L2-4 with instrumented fusion L2-5. She still struggling with quite a bit of lower back pain. She is using ice. Radicular leg pain on the left has resolved. Yesterday in physical therapy ambulating 85 feet x 2. She had a bowel movement. Review of Systems Review of Systems: All systems reviewed & are unremarkable except as noted in HPI & below Physical Exam Physical Exam: She is laying in bed uncomfortable I took down the dressing down. It looks great. No significant edema. A little bit of ecchymosis. No drainage. Strength is intact bilateral lower extremities Results & Data Vital Signs (Past 12 Hours) Vital Signs Temp Pulse Resp BP Pulse Ox O2 Del Method 10/09/23 07:50 36.8 C 70 18 129/71 92 Room Air
[2023-10-09] MEDS: traMADol HCL 50 MG TABLET PO PRN (10:29)
--- NOTE | 2023-10-09 19:27 | Discharge Summary ---
Date of Service October 09, 2023 Admission HPI Per Admitting Provider Annabella is a 73yo female with history of CAD s/p [place] in 2012 with stent placement x 1 in 2011 and again [id number], RA, Giant Cell Arteritis, Fibromyalgia, Hypothyroidism, and recently diagnosed PE's with recent trip to [place] and being Covid 19 positive who was sent to the [facility] from the [facility] when she was found to be hypertensive and reporting vision changes. She was found to be hypertensive at 209/112 and bradycardic with HR in the 50's but otherwise stable. Labs including CBC, CMP, High sen trop, and TSH were WNL. CT of the head and chest xray were read as "No acute intracranial abnormality.". The patient was asymptomatic in the ED and was given 10 mg IV labetalol prior to admission as her systolic BP remained above 200 mmhg. We were asked to admit the patient for further evaluation of previous neurologic symptoms and ongoing HTN. At the time of the exam the patient was lying in bed and uncomfortable due to chronic left hip/bursitis pain but otherwise asymptomatic. She states that she had been in her normal state of health since last admission and has been taking the lower dose of her Eliquis as prescribed without complication. She has been having severe left hip/bursitis pain over the past 2 weeks. This is a chronic issue typically resolved by injections in the orthopedic office. She has been unable to get an appointment with orthopedics recently. She took her am meds as prescribed and was driving to the Cardiology clinic with her . She was initially driving when she developed a sudden onset of vision changes. She describes the changes as the left side of the road being higher and the right side of the road being lower. She states that this lasted for 5-10 minutes. When it started she pulled off the road and her drove the rest of the way. She had a short episode of blurry vision in the left upper field of her left eye, but this resolved quickly. She states that her neurologic symptoms had resolved by the time she arrived to the Cardiology clinic. However, her left hip pain was still severe during her appointment. They sent her to the ED for ongoing HTN and neurologic symptoms. She states that she has been without neurologic symptoms since arrival to to the ED. She had one episode of dizziness when they quickly laid the head of her bed down earlier, but was fine when she got up to go to the bathroom prior to my exam. She denies current headache, vision changes, new numbness/paresthesias, unilateral weakness, chest pain, SOB, abd pain, nausea, vomiting, diarrhea, dysuria, hematuria, melena, LE Swelling, and recent trauma. We discussed code status, she is a full code and wishes for her to make medical decisions for her if she cannot make them herself. Please refer to Dr. Gómez's attestation for any changes to the treatment plan Principal Diagnosis Spinal stenosis Discharge Exam Patient is in the chair at the bedside. Is constricted testing. Appears comfortable. 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 STOMACH codeine AdvReac Intermediate Gastrointestinal Verified 09/26/23 17:46 Upset hydrocodone [From Vicodin] AdvReac Intermediate Gastrointestinal Verified 09/26/23 17:46 Upset lubiprostone [From Amitiza] AdvReac Intermediate HX OF Verified 09/26/23 17:46 BLEEDING STOMACH pitavastatin AdvReac Intermediate Joint Pain Verified 09/26/23 17:46 pravastatin [From Pravachol] AdvReac Intermediate Joint Pain Verified 09/26/23 17:46 rosuvastatin AdvReac Intermediate Joint Pain Verified 09/26/23 17:46 [From Ezallor Sprinkle] simvastatin [From FloLipid] AdvReac Intermediate Joint Pain Verified 09/26/23 17:46 Lrwflks-LKK-CiU Reductase AdvReac Intermediate Joint Pain Verified 09/26/23 17:46 Inhibitor Consultations 09/26/23 19:13 ED Decision to Admit Stat 09/27/23 17:16 Consult Orthopedic Spine Surgery Routine Procedures Performed Operation Date: 10/04/23 11:45 Actual Procedures p L2-L4 Decompression and Fusion, Spinal Cord Monitoring - Saturnino Tafoya DO s L4-L5 Hardware Removal, - Saturnino Tafoya DO Ordered Studies 09/26/23 15:25 CT head/brain wo con Stat 09/26/23 18:31 US venous doppler LE RT Stat 09/27/23 00:28 MRI Brain [MR brain wo con] Routine 09/28/23 07:55 MR lumbar spine wo con Routine 10/04/23 11:45 FL lumbar spine 2-3V Routine Hospital Course (1) Left hip pain: -Patient has been experiencing progressive left lateral buttocks/hip pain with radiation down the left leg to the left knee -Neurogenic claudication due to lumbar spinal stenosis: Lumbar spine x-ray showed disc space narrowing and L3/L4 Status post surgical intervention on 10/04, PRIMO drain was removed on 10/07 -The surgical site site looks intact, patient has severe pain, she management however states she has significant pain, started on scheduled Flexeril p.o. home meds for breakthrough pain still has a lot of pain, patient suffering from polymyalgia rheumatica which possibly caused a low threshold for pain, patient was discharged on Tylenol 1 g 3 times daily, tramadol and Percocet for breakthrough pain, moderate the dose of Lyrica was increased to 200 mg twice daily, patient was offered to stay in the hospital for further pain management with transfer to rehab, however she refused both and wanted to go home (2) Anemia: Possibly mixed type of iron deficiency anemia anemia chronic disease, need GI outpatient work-up, patient suffers from hemorrhoid and according to her needs, I have initiated IV iron, I recommend the patient to follow-up with GI and primary care doctor (3) Pulmonary emboli: Resume Eliquis after discussion with the surgery (4) Hypertensive urgency: blood pressure is fairly controlled at this time Most likely pain induced (5) Polymyalgia rheumatica: -Continue methylprednisolone, methotrexate, and Sulfasalazine (6) Hypothyroid: -Continue levothyroxine (7) Coronary artery disease: -Continue aspirin Total Time Total Time Spent Total Time Spent (In Minutes): 45-minute Discharge Plan Discharge Items Patient Disposition: Home - Self-Care Reason For Visit: HTN, VISION CHANGES Discharge Diagnosis: Lumbar spinal stenosis with herniated nucleus pulposus Activity: Resume your previous activity Lifting: Gradually increase as tolerated Bathing: No limitations Sexual Activity: When tolerated Driving/Machine Use: No limitations Weightbearing: Full weightbearing Non-emergency contact: Surgeon Call non-emergency contact if: you have any medication questions, your symptoms worsen, your pain is not controlled, your pain is worsening, your pain is unusual for you, your rectal temperature is above 100.4, your wound has increased redness, your wound has increased drainage and your wound pain has increased Follow-up/Referrals: Saturnino Tafoya DO [Surgeon] - 10/21/23 Elaine Emmanuel [Primary Care Provider] - Diet: Heart Healthy Addtl Attending Provider Instructions: ACTIVITY RECOMMENDATIONS: SELF CARE INSTRUCTIONS AFTER THORACIC/LUMBAR FUSIONS 1. You may walk to your tolerance. It is good exercise for your legs and back. Expect some back and intermittent leg aches and pains. 2. You may perform "counter-top" level activities (make a sandwich, sally with a project, etc.). 3. No bending or lifting of more than 10 pounds or back twisting of any nature (roll like a log when turning in bed). 4. You may ride in a car for 20-30 minutes at a time. No driving until after your first visit with your doctor. 5. Frequent changes of position and restricting sitting to 30 minutes at a time will help limit the amount of back spasms and stiffness you may experience. 6. You may discontinue the use of ambulatory aids (cane, crutches, etc.) once your strength and confidence allow. 7. You may career development engineer the shower and let water strike your incision when you arrive home at least once daily. Do not take a tub bath, sit in a hot tub or go into a swimming pool until after your first recheck in the office. SPECIAL CARE INSTRUCTIONS: VERY IMPORTANT TO READ AND REVIEW A. Your surgical incision has been closed with a cosmetic suture under the skin that will dissolve in about 6 weeks. In 14 days, you can use a pair of clean scissors and cut the suture that is left outside of the skin at the ends of your incision. 1. The small skin tapes can be removed 7 days after surgery if they have not fallen off by that point. 2. You may keep the wound open to air as much as possible to promote healing after post-op day number 5 unless told otherwise by your doctor. 3. If you think the wound looks like it is becoming infected (redness or worsening drainage) and/or you are experiencing fever, chill or worsening back pain and muscle spasms, contact the office so that we may evaluate you as soon as possible. B. Complications are uncommon, but please contact us if you have any signs or symptoms of: 1. wound infection (fever higher than 102.5 degrees F, redness, separation of wound, drainage, or increasing pain from the incision) 2. blood clots in legs (pain, swelling, redness and warmth in legs) 3. urinary tract infection (fever higher than 102.5 degrees F, burning upon urination or increased frequency of urination) 4. nerve problems (inability to walk on your toes or heels, numbness, loss of bowel or bladder control) 5. any other symptoms that concern you C. Please call the office at if you have any concerns or questions about your operation or recovery. D. No smoking! Smoking drastically decreases the chance of a solid fusion. E. Do not take any anti-inflammatory medications (Indocin, Advil, Motrin, Aspirin, Naprosyn, etc.) as these may inhibit the chance of a solid fusion. Tylenol is okay to take for pain. MANAGING PAIN AFTER SPINAL SURGERY 1. Narcotic medication is intended for short-term use and will be provided for surgical pain. Surgical pain usually lasts for a period of 4-6 weeks. Narcotic medication includes Percocet, Vicodin, Darvocet, Tylenol #3 or Lortab. 2. Longer-term pain is more appropriately treated with non-narcotic medication such as Tylenol ES. 3. Muscle spasm is not appropriately treated with narcotics. Muscle relaxers such as Soma, Flexeril or Skelaxin can be used along with Tylenol ES. 4. Remember that we all live with some "aches and pains". This is not unusual or uncommon after an injury or as we get older. a. Back pain is expected and may include muscle spasms for 4 to 6 weeks after surgery. The pain should gradually improve. If the pain worsens for no apparent reason, please contact the office. b. Intermittent leg pain may also be experienced and should not be concerned about unless it worsens for no apparent reason. If so, please contact the office. 5. We will provide appropriate medication within the normal guidelines of their prescribed use. We will also be very cautious and aware of potential abuse and extended duration of patients' medication needs. a. Pain medications are for your comfort and to assist with sleep and rest so that the tissue can heal. They are not provided in order to return to normal activity and should not be used through the day. To do so or worsening pain at night can result from ongoing tissue damage and development of tolerance to the prescribed medicine. 6. Please allow 2-3 days to process refills. Prescriptions will not be mailed but must be picked up at the office. FOLLOW UP VISIT: Keep your scheduled follow-up appointment. Any questions, please call the office at . Pending Studies at Discharge: No Stand-Alone Forms: My [facility], Pain - Opioid Pain Management Medications and DC Order Prescriptions: New acetaminophen [Tylenol Extra Strength] 500 mg Tablet 1,000 mg PO Q8H Qty: 60 0RF tramadol 50 mg Tablet 50 mg PO Q4H PRN (Reason: pain) Qty: 30 0RF oxycodone 5 mg Tablet 5 - 10 mg PO Q4H PRN (Reason: pain (scale score 7-10)) Qty: 30 0RF pregabalin [Lyrica] 200 mg capsule 200 mg PO BID Qty: 60 0RF Continued sulfasalazine 500 mg tablet 500 mg PO BID metoprolol succinate 50 mg tablet extended release 24 hr 50 mg PO DAILY aspirin 81 mg Tablet,Delayed Release (Dr/Ec) 81 mg PO DAILY triamterene-hydrochlorothiazid 37.5-25 mg capsule 1 cap PO QAM cefadroxil 500 mg capsule 500 mg PO BID methotrexate sodium 2.5 mg tablet 17.5 mg PO WK Rx Instructions: FRIDAYS--TAKES 7 TABS. amlodipine 10 mg tablet 10 mg PO DAILY esomeprazole magnesium 40 mg capsule,delayed release(DR/EC) 40 mg PO DAILY nitroglycerin 0.4 mg tablet, sublingual 0.4 mg sublingual DIRECTED PRN (Reason: Chest Pain) Rx Instructions: PLACE 1 TABLET UNDER TONGUE EVERY 5 MINS, UP TO 3 DOSES NEEDED FOR CHEST PAIN docusate sodium [Colace] 100 mg Capsule 100 mg PO DAILY folic acid 1 mg tablet 1 mg PO DAILY montelukast 10 mg tablet 10 mg PO QPM albuterol sulfate 90 mcg/actuation HFA aerosol inhaler 1 puff INHALATION QID PRN (Reason: Wheezing) fluticasone propionate 50 mcg/actuation spray,suspension 1 spray INTRANASAL DAILY PRN (Reason: allergy) coenzyme Q10 [CoQ-10] 100 mg Capsule 100 mg PO BID thyroid (pork) [[place] Thyroid] 60 mg tablet 60 mg PO DAILY omega [id number]-[id number]-fish oil [Fish Oil] 1,200 (144-216) mg Capsule 1 cap PO QPM Probiotic 3 billion cell Capsule 3,000 mmu cells PO QPM Rx Instructions: administer with a meal Praluent Pen 75 mg/mL pen injector 75 mg SUBCUT USEASDIRECTD Rx Instructions: INJECT 1 ML (75 MG TOTAL) INTO THE SKIN EVERY 14 (FOURTEEN) DAYS. potassium chloride 20 mEq tablet extended release 20 meq PO DAILY Qty: 20 0RF Vitron-C 65 mg iron- 125 mg Tablet,Delayed Release (Dr/Ec) 1 tab PO QPM Eliquis 5 mg tablet 5 mg PO BID Qty: 60 4RF acetaminophen [Tylenol Arthritis Pain] 650 mg Tablet Extended Release 650 mg PO BID calcium carbonate 500 mg calcium (1,250 mg) Tablet 500 mg PO DAILY methylprednisolone 8 mg tablet 16 mg PO DAILY inulin-sorbitol 2 gram Tablet,Chewable 1 tab PO DAILY Prolia 60 mg/mL Syringe 0 mg SUBCUT DIRECTED Rx Instructions: PER PT "OVER DUE, TROUBLE SCHEDULING AT THIS TIME". pregabalin 100 mg capsule 100 mg PO BID Qty: 200 0RF Discharge Orders: Discharge Order (Routine); Ordered 10/09/23 Ordered By: Yaya Newman/Other Patient Handouts: Lumbar Fusion Dc Admission Data Admit Date/Time: 09/28/23 11:47 Attending Provider: Yaya Cordova Admit Provider: Hany Gómez Primary Care Provider: Elaine Emmanuel Other Providers: Hany Gómez; Saturnino Tafoya Other Interventions: Discharge Summary Assessment (RN) Last Done: 10/09/23 12:24 Coding Level of Care Code 46494 INP/OBS DISCH >30 MIN Diagnoses Left hip pain M25.552 Anemia D64.9 Pulmonary emboli I26.99 Hypertensive urgency I16.0 Polymyalgia rheumatica M35.3 Hypothyroid E03.9 Coronary artery disease I25.10
== END 2023-10-09 14:41 | disposition home or self-care (01) | DRG 454 ==
LOC: 2S 15:04 → ED 15:04 → SUATTDRO 19:56 → 2S 20:55 → SUATTDRO 09-28 11:47 → 3N 09-28 22:20

== ENCOUNTER 2023-10-14 16:45 | Inpatient (IN) ==
[2023-10-14] MEDS ORDERED: SODIUM CHLORIDE 0.9% 500 ML IV STA (17:38)
[2023-10-14] MEDS ORDERED: ONDANSETRON INJ 2 MG/ML 2 ML VIAL IV STA (17:38)
[2023-10-14] MEDS ORDERED: MoRPHine SULFATE 4 MG/ML 1 ML CARP\\VIAL IV PRN (17:38)
[2023-10-14] MEDS ORDERED: dexAMETHasone**PF** 10 MG/ML VIAL IV ONE (17:40)
--- NOTE | 2023-10-14 17:40 | Emergency Department Note ---
Impression & Plan Post-operative pain, Anemia ED Provider Note NAME: ELAINE SHELBY AGE: 73 SEX: F : 1950 ARRIVES VIA: Walk-In INFORMANT: Patient, ED PROVIDER(S): Devaughn Adam DO CHIEF COMPLAINT: Back pain HPI: The patient is a 73-year-old female who presented to the emergency department with back pain. The patient has a history of recent lumbar spine surgery with Dr. Tafoya. She has been seen at our facility multiple times as well as an outside emergency department because of ongoing pain issues. Initially she was seen here and diagnosed with urinary tension. She had a Best catheter placed but this did not relieve her symptoms. She returns today because of ongoing and worsening back pain. The patient denies having any fever or trauma. ROS: See above HPI for pertinent positives & negatives. A total of 10 systems reviewed and were otherwise negative. PAST MEDICAL HISTORY: See Below PAST SURGICAL HISTORY: See Below FAMILY HISTORY: See Below SOCIAL HISTORY: See Below HOME MEDICATIONS: See Below ALLERGIES: See Below VITALS: See Below PHYSICAL EXAMINATION: GENERAL: Patient is awake alert in no acute distress patient is resting comfortably and showing no signs of anxiety EYES: The conjunctivae are clear. The pupils are round and reactive. EARS, NOSE, MOUTH AND THROAT: The nose is without any evidence of any deformity. NECK: The neck is nontender and supple. RESPIRATORY: Normal respiratory effort is noted there is no evidence of wheezing rhonchi or rales CARDIOVASCULAR: Regular rate and rhythm noted there no murmurs rubs or gallops normal S1 normal S2. GASTROINTESTINAL: The abdomen is soft. Abdomen is nontender. BACK: Diffuse tenderness was noted to palpation essentially from the cervical spine down to the sacrum. There is no malalignment. There is no erythema drainage or dehiscence over the recent lumbar spine surgical site. MUSCULOSKELETAL/EXTREMITIES: There is no evidence of gross deformity full range of motion is noted in the hips and shoulders. SKIN: There is no obvious evidence of any rash. There are no petechiae, pallor or cyanosis noted. NEUROLOGIC: Patient is awake alert and oriented x3 strength is symmetric patellar reflexes are 2+ bilaterally MEDICAL DECISION MAKING: The patient is a 73-year-old female who presented to the emergency department for an evaluation of back pain. The patient is status post lumbar surgery. She has been seen multiple times in our facility as well as outside ERs. The pain appears to be very difficult to control despite being on pain medication as an outpatient. I discussed patient's laboratory results with her. I discussed her condition with her primary orthopedic spinal surgeon as well as the on-call [facility]. They have agreed to evaluate the patient in the emergency department for further management and disposition. Triage Nursing notes reviewed. Prior medical records reviewed Vital Signs: reviewed and remarkable for no significant abnormalities Differential diagnosis: Musculoskeletal, disc herniation, fracture, metastatic disease, cord compression, discitis, sciatica, cauda equina, infection, aortic disease, renal colic, gastrointestinal, as well as other pathologies. ER treatment provided: See below Diagnostics interpreted by me: ECG: none Cardiac Monitoring: An order was placed for continuous cardiac monitoring. The monitor shows a rate of 81 bpm with sinus rhythm. Laboratory studies: As stated above and show below. Imaging studies: See below. Consultation(s): I discussed this case with Dr. Tafoya. I discussed this case with Dr. Carvalho who is on-call for the [facility] group. Past Med/Surg History Medical History Staph infection Diverticulitis Hypothyroid Osteoarthritis Rheumatoid arthritis Heart attack Coronary artery disease Stent May 2012 - [place] during stress test Stent Oct 2019 - pressure in chest Fibromyalgia Surgical History History of left nephrectomy History of back surgery History of colon resection Social History Smoking Status: Never smoker Hx Alcohol Use: No Hx Substance Use: No Preferred Language: Brazilian Communication Ability: Effective Director Asset Required: No Beliefs That Will Affect Care: None Current Living Situation: Spouse Feels Safe at Home: Yes Assistive Devices: Cane Allergies Allergies Allergy/AdvReac Type Severity Reaction Status Date / Time clopidogrel [From Plavix] Allergy Intermediate Hives Verified 10/12/23 15:52 hydroxychloroquine Allergy Intermediate Hives Verified 10/12/23 15:52 [From Plaquenil] celecoxib [From Celebrex] AdvReac Intermediate HX OF Verified 10/12/23 15:52 BLEEDING STOMACH codeine AdvReac Intermediate Gastrointestinal Verified 10/12/23 15:52 Upset hydrocodone [From Vicodin] AdvReac Intermediate Gastrointestinal Verified 10/12/23 15:52 Upset lubiprostone [From Amitiza] AdvReac Intermediate HX OF Verified 10/12/23 15:52 BLEEDING STOMACH pitavastatin AdvReac Intermediate Joint Pain Verified 10/12/23 15:52 pravastatin [From Pravachol] AdvReac Intermediate Joint Pain Verified 10/12/23 15:52 rosuvastatin AdvReac Intermediate Joint Pain Verified 10/12/23 15:52 [From Ezallor Sprinkle] simvastatin [From FloLipid] AdvReac Intermediate Joint Pain Verified 10/12/23 15:52 Xirmevh-MEO-XwN Reductase AdvReac Intermediate Joint Pain Verified 10/12/23 15:52 Inhibitor Home Meds Home Medications Medication Instructions Recorded Confirmed albuterol sulfate 90 mcg/actuation 1 puff inhalation QID PRN Wheezing 04/05/23 10/12/23 aerosol inhaler alirocumab 75 mg/mL subcutaneous 75 mg subcut USEASDIRECTD 04/05/23 10/12/23 pen injector (Praluent Pen) amlodipine 10 mg tablet 10 mg PO DAILY 04/05/23 10/12/23 aspirin 81 mg tablet,delayed 81 mg PO DAILY 04/05/23 10/12/23 release cefadroxil 500 mg capsule 500 mg PO BID 04/05/23 10/12/23 coenzyme Q10 100 mg capsule 100 mg PO BID 04/05/23 10/12/23 (CoQ-10) docusate sodium 100 mg capsule 100 mg PO DAILY 04/05/23 10/12/23 (Colace) esomeprazole magnesium 40 mg 40 mg PO DAILY 04/05/23 10/12/23 capsule,delayed release fluticasone propionate 50 1 spray intranasal DAILY PRN 04/05/23 10/12/23 mcg/actuation nasal allergy spray,suspension folic acid 1 mg tablet 1 mg PO DAILY 04/05/23 10/12/23 lactobacillus combination no.4 3 3,000 mmu cells PO QPM 04/05/23 10/12/23 billion cell capsule (Probiotic) methotrexate sodium 2.5 mg tablet 17.5 mg PO WK 04/05/23 10/12/23 metoprolol succinate 50 mg 50 mg PO DAILY 04/05/23 10/12/23 tablet,extended release 24 hr montelukast 10 mg tablet 10 mg PO QPM 04/05/23 10/12/23 nitroglycerin 0.4 mg sublingual 0.4 mg sublingual DIRECTED PRN 04/05/23 10/12/23 tablet Chest Pain omega 0-shy-lcf-fish oil 1,200 mg 1 cap PO QPM 04/05/23 10/12/23 (144 mg-216 mg) capsule (Fish Oil) sulfasalazine 500 mg tablet 500 mg PO BID 04/05/23 10/12/23 thyroid (pork) 60 mg tablet 60 mg PO DAILY 04/05/23 10/12/23 ([place] Thyroid) triamterene 37.5 1 cap PO QAM 04/05/23 10/12/23 mg-hydrochlorothiazide 25 mg capsule iron,carbonyl 65 mg-vitamin C 125 1 tab PO QPM 08/15/23 10/12/23 mg tablet,delayed release (Vitron-C) acetaminophen 650 mg 650 mg PO BID 09/26/23 10/12/23 tablet,extended release (Tylenol Arthritis Pain) calcium carbonate 500 mg calcium 500 mg PO DAILY 09/26/23 10/12/23 (1,250 mg) tablet denosumab 60 mg/mL subcutaneous 0 mg subcut DIRECTED 09/26/23 10/12/23 syringe (Prolia) inulin-sorbitol 2 gram chewable 1 tab PO DAILY 09/26/23 10/12/23 tablet methylprednisolone 8 mg tablet 16 mg PO DAILY 09/26/23 10/12/23 acetaminophen 500 mg tablet 1,000 mg PO Q8H PRN Pain 10/12/23 10/12/23 (Tylenol Extra Strength) Previous Rx's Medication Instructions Recorded potassium chloride 20 mEq 20 meq PO DAILY #20 tabs 04/05/23 tablet,extended release apixaban 5 mg tablet (Eliquis) 5 mg PO BID #60 tabs 08/17/23 oxycodone 5 mg tablet 5 - 10 mg (1 - 2 x 5 mg) PO Q4H 10/09/23 PRN pain (scale score 7-10) #30 tabs pregabalin 100 mg capsule 100 mg PO BID #200 caps 10/09/23 pregabalin 200 mg capsule (Lyrica) 200 mg PO BID #60 caps 10/09/23 tramadol 50 mg tablet 50 mg PO Q4H PRN pain #30 tabs 10/09/23 lactulose 20 gram/30 mL oral 20 g (30 mL) PO TID PRN 10/12/23 solution constipation #3,000 mL Results & Data (ED) Vital Signs Vital Signs - 24 hr 10/14/23 16:51 10/14/23 18:00 10/14/23 19:06 Temperature 36.8 C Temperature Source Temporal Artery Scan Pulse Rate 97 H Pulse Rate [Left Finger] 81 Respiratory Rate 18 18 Blood Pressure 148/80 H Blood Pressure [Right Arm] 125/75 Blood Pressure Mean 102 Blood Pressure Mean [Right Arm] 91 Blood Pressure Position Sitting Blood Pressure Position [Right Arm] Lying Pulse Oximetry 100 98 93 Oxygen Delivery Method Room Air Room Air Room Air Sepsis Recent Fever Within 48 Hours No Sepsis New/Unexplained Change in Mental Status N/A Sepsis Action Taken by Nursing No Action Required Home Medications Current Medication List: was personally reviewed by me Laboratory Data Attestation: I reviewed the patient's lab results. 10/14/23 17:52 10/14/23 17:52 Lab Results 10/14/23 Range/Units 17:52 WBC 14.43 H (4.8-10.8) K/ul RBC 3.05 L (4.20-5.40) M/uL Hgb 8.9 L (12.0-16.0) g/dl Hct 28.1 L (37.0-47.0) % MCV 92.1 (80.0-100.0) fL MCH 29.2 (25.0-34.0) pg MCHC 31.7 L (32.0-36.0) g/dL RDW Std Deviation 53.8 H (36.4-46.3) fL RDW Coeff of Ashley 15.9 H (11.5-14.5) % Plt Count 517 H (130-400) K/uL MPV 10.4 (9.4-12.4) fL Immature Gran % (Auto) 1.5 % Neut % (Auto) 82.8 % Lymph % (Auto) 6.5 % [place] % (Auto) 8.4 % Eos % (Auto) 0.6 % Baso % (Auto) 0.2 % Neut # (Auto) 11.96 H (1.40-6.50) K/uL Lymph # (Auto) 0.94 L (1.20-3.40) K/uL [place] # (Auto) 1.21 H (0.11-0.59) K/uL Eos # (Auto) 0.08 (0.00-0.50) K/uL Baso # (Auto) 0.03 (0.00-0.20) K/uL Immature Gran # (Auto) 0.21 H (0.01-0.20) K/uL Sodium 132 L (136-145) mmol/L Potassium 3.6 (3.5-5.1) mmol/L Chloride 91 L (98-107) mmol/L Carbon Dioxide 30 (21-32) mmol/L Anion Gap 11 (3-11) BUN 14 (6-23) mg/dl Creatinine 0.76 (0.6-1.2) mg/dl Est Cr Clr Drug Dosing Not Reportable Est GFR ( Amer) 90.8 ml/min Est GFR (Non-Af Amer) 78.4 ml/min BUN/Creatinine Ratio 18.4 (10-20) Glucose 85 (70-99(Fasting)) mg/dl Calcium 9.9 (8.6-10.3) mg/dl Total Bilirubin 0.4 (0.2-1.0) mg/dl AST 19 (13-39) U/L ALT 13 (7-52) U/L Alkaline Phosphatase 73 (34-104) U/L Total Protein 6.7 (6.0-8.3) gm/dl Albumin 3.6 (3.4-5.0) gm/dl Globulin 3.1 (2.5-4.0) gm/dl Albumin/Globulin Ratio 1.2 (0.9-2) Lipase 6 L (11-82) U/L Administered Medications Morphine Sulfate (Morphine Sulfate 4 Mg/Ml 1 Ml Carp\\Vial) 4 mg IV Q15M PRN PRN Reason: Pain Stop: 10/28/23 17:37 Last Admin: 10/14/23 17:57 Dose: 4 mg Documented By: OAM Discontinued Medications Dexamethasone Sodium Phosphate (DexamethasonePf 10 Mg/Ml Vial) 10 mg IV NOW ONE Stop: 10/14/23 17:41 Last Admin: 10/14/23 17:57 Dose: 10 mg Documented By: OAM Sodium Chloride (Nss) 500 mls @ 999 mls/hr IV .Q31M STA Stop: 10/14/23 18:08 Last Infusion: 10/14/23 18:31 Dose: Infused Documented By: Admin: 10/14/23 17:57 Dose: 999 mls/hr Documented By: ARISTEO Ondansetron HCl (Ondansetron Inj 2 Mg/Ml 2 Ml Vial) 4 mg IV NOW STA Stop: 10/14/23 17:39 Last Admin: 10/14/23 17:57 Dose: 4 mg Documented By: ARISTEO Discharge Plan Visit Data Chief Complaint: Back Injury/Pain Stated Complaint: BACK PAIN/POST SURGURY, DIZZY, DEHYDRATION, WEAK ED Provider: Devaughn Adam Discharge Problem: Post-operative pain, Anemia Patient Disposition: Being Evaluated by Hospitalist Forms Stand Alone Forms: [facility] Prescriptions Prescriptions: No Action sulfasalazine 500 mg tablet 500 mg PO BID metoprolol succinate 50 mg tablet extended release 24 hr 50 mg PO DAILY aspirin 81 mg Tablet,Delayed Release (Dr/Ec) 81 mg PO DAILY triamterene-hydrochlorothiazid 37.5-25 mg capsule 1 cap PO QAM cefadroxil 500 mg capsule 500 mg PO BID methotrexate sodium 2.5 mg tablet 17.5 mg PO WK Rx Instructions: FRIDAYS--TAKES 7 TABS. amlodipine 10 mg tablet 10 mg PO DAILY esomeprazole magnesium 40 mg capsule,delayed release(DR/EC) 40 mg PO DAILY nitroglycerin 0.4 mg tablet, sublingual 0.4 mg sublingual DIRECTED PRN (Reason: Chest Pain) Rx Instructions: PLACE 1 TABLET UNDER TONGUE EVERY 5 MINS, UP TO 3 DOSES NEEDED FOR CHEST PAIN docusate sodium [Colace] 100 mg Capsule 100 mg PO DAILY folic acid 1 mg tablet 1 mg PO DAILY montelukast 10 mg tablet 10 mg PO QPM albuterol sulfate 90 mcg/actuation HFA aerosol inhaler 1 puff INHALATION QID PRN (Reason: Wheezing) fluticasone propionate 50 mcg/actuation spray,suspension 1 spray INTRANASAL DAILY PRN (Reason: allergy) coenzyme Q10 [CoQ-10] 100 mg Capsule 100 mg PO BID thyroid (pork) [[place] Thyroid] 60 mg tablet 60 mg PO DAILY omega [id number]-fish oil [Fish Oil] 1,200 (144-216) mg Capsule 1 cap PO QPM Probiotic 3 billion cell Capsule 3,000 mmu cells PO QPM Rx Instructions: administer with a meal Praluent Pen 75 mg/mL pen injector 75 mg SUBCUT USEASDIRECTD Rx Instructions: INJECT 1 ML (75 MG TOTAL) INTO THE SKIN EVERY 14 (FOURTEEN) DAYS. potassium chloride 20 mEq tablet extended release 20 meq PO DAILY Qty: 20 0RF acetaminophen [Tylenol Extra Strength] 500 mg tablet 1,000 mg PO Q8H PRN (Reason: Pain) lactulose 20 gram/30 mL solution 20 g PO TID PRN (Reason: constipation) Qty: 3000 0RF Vitron-C 65 mg iron- 125 mg Tablet,Delayed Release (Dr/Ec) 1 tab PO QPM Eliquis 5 mg tablet 5 mg PO BID Qty: 60 4RF acetaminophen [Tylenol Arthritis Pain] 650 mg Tablet Extended Release 650 mg PO BID calcium carbonate 500 mg calcium (1,250 mg) Tablet 500 mg PO DAILY methylprednisolone 8 mg tablet 16 mg PO DAILY inulin-sorbitol 2 gram Tablet,Chewable 1 tab PO DAILY Prolia 60 mg/mL Syringe 0 mg SUBCUT DIRECTED Rx Instructions: PER PT "OVER DUE, TROUBLE SCHEDULING AT THIS TIME". tramadol 50 mg Tablet 50 mg PO Q4H PRN (Reason: pain) Qty: 30 0RF oxycodone 5 mg Tablet 5 - 10 mg PO Q4H PRN (Reason: pain (scale score 7-10)) Qty: 30 0RF pregabalin 100 mg capsule 100 mg PO BID Qty: 200 0RF pregabalin [Lyrica] 200 mg capsule 200 mg PO BID Qty: 60 0RF Referrals Referrals: Elaine Emmanuel [Primary Care Provider] - Discharge Problem: Anemia Qualifiers: Anemia type: unspecified type Qualified Code(s): D64.9 - Anemia, unspecified
[2023-10-14 18:09] LABS: Basophils # (auto) 0.03 K/uL (0.00-0.20); Basophils % (auto) 0.2 %; Eosinophils # (auto) 0.08 K/uL (0.00-0.50); Eosinophils % (auto) 0.6 %; Hematocrit (blood only) 28.1 % (37.0-47.0); Hemoglobin 8.9 g/dl (12.0-16.0); Immature Granulocytes # (auto) 0.21 K/uL (0.01-0.20); Immature Granulocytes % (auto) 1.5 %; Lymphocytes # (auto) 0.94 K/uL (1.20-3.40); Lymphocytes % (auto) 6.5 %; Mean Corpuscular Hemoglobin 29.2 pg (25.0-34.0); Mean Corpuscular Hgb Conc 31.7 g/dL (32.0-36.0); Mean Corpuscular Volume 92.1 fL (80.0-100.0); Mean Platelet Volume 10.4 fL (9.4-12.4); Monocytes # (auto) 1.21 K/uL (0.11-0.59); Monocytes % (auto) 8.4 %; Neutrophils # (auto) 11.96 K/uL (1.40-6.50); Neutrophils % (auto) 82.8 %; Platelet Count 517 K/uL (130-400); RDW Coefficient of Variation 15.9 % (11.5-14.5); RDW Standard Deviation 53.8 fL (36.4-46.3); Red Blood Count 3.05 M/uL (4.20-5.40); White Blood Count 14.43 K/ul (4.8-10.8)
[2023-10-14 18:28] LABS: Alanine Aminotransferase 13 U/L (7-52); Albumin Globulin Ratio 1.2 (0.9-2); Albumin Level 3.6 gm/dl (3.4-5.0); Alkaline Phosphatase 73 U/L (34-104); Anion Gap 11 (3-11); Aspartate Aminotransferase 19 U/L (13-39); BUN Creatinine Ratio 18.4 (10-20); Bilirubin,Total 0.4 mg/dl (0.2-1.0); Blood Urea Nitrogen 14 mg/dl (6-23); Calcium 9.9 mg/dl (8.6-10.3); Carbon Dioxide 30 mmol/L (21-32); Chloride 91 mmol/L (98-107); Est GFR (African American) 90.8 ml/min; Est GFR (Non-African American) 78.4 ml/min; Globulin 3.1 gm/dl (2.5-4.0); Glucose 85 mg/dl (70-99(Fasting)); Lipase 6 U/L (11-82); Potassium 3.6 mmol/L (3.5-5.1); Sodium 132 mmol/L (136-145); Total Protein 6.7 gm/dl (6.0-8.3)
--- NOTE | 2023-10-14 19:02 | History & Physical Report ---
Date of Service October 14, 2023 Assessment & Plan (1) Acute urinary retention: (2) Constipation: (3) HTN (hypertension): (4) Polymyalgia rheumatica: (5) Hypothyroid: (6) Fibromyalgia: (7) Coronary artery disease: (8) Rheumatoid arthritis: (9) AMS (altered mental status): (10) Back pain with history of spinal surgery: (11) Abdominal tenderness: (12) Dehydration: Plan Pt is a 73 yo female with a past medical history of HTN, GERD, hx PE, fibromyalgia, polymyalgia rheumatica, hypothyroidism, constipation, and recent spinal surg on 10/04/23 who presents to the hospital on 10/14/23 for poor oral intake, AMS, and worsening low back pain. Abdominal tenderness - suprapubic and epigastric tenderness noted, WBC count 14 - will replace mahmood and do UA + cx - ESR, procal, CRP and blood cultures pending - pantoprazole and pepcid started Back pain - continue home tramadol, lyrica 100 BID (decreased from home dose of 300mg BID) - will avoid NSAID use as much as possible as pt has only 1 kidney - will do morphine 2 mg q4h prn for pain as well - PT/OT consulted Constipation - large stool burden noted 10/[address] - pt has had decreased appetite and some abd pain, some nausea, no vomiting - if pt does not improve or pain worsens, low threshold for KUB to r/o SBO, pt has hx bowel perf secondary to diverticulitis - will do miralax 1 cap TID scheduled - consider golytely if miralax not yielding good results AMS - notes she had an episode of confusion at home - delirium due to medication induced vs dehydration vs infection with WBC count 14 - TSH pending, will also do infectious workup noted above - pt oriented at this time Dehydration - pt appears clinically dry, - will start LR 80/hr Acute urinary retention - noted last visit 10/12, mahmood placed then for retention - continue mahmood, replaced today - recommend voiding trial once pt more awake Recurrent staph infections - previous back surg infected years ago - on cefadioxil chronically, hold for current infectious workup HTN - continue amlodipine - hold triamterene/HCTZ since poor oral intake/dry - continue metoprolol GERD - continue esomeprazole Hx TIA CAD - continue aspirin Hypothyroidism - continue home [place] thyroid Polymyalgia rheumatica Rheumatoid arthritis - continue methotrexate - continue methylprednisolone - continue sulfasalazine VTE proph: home eliquis Dispo: Medsurg, no tele History of Present Illness Chief Complaint: Poor oral intake, AMS, worsening back pain Primary Care Provider: Elaine Emmanuel Pt is a 73 yo female with a past medical history of HTN, GERD, hx PE, fibromyalgia, polymyalgia rheumatica, hypothyroidism, constipation, and recent spinal surg on 10/04/23 who presents to the hospital on 10/14/23 for poor oral intake, AMS, and worsening low back pain. Pt is present today with her . She appears drowsy and her states she has been drowsy lately due to use of multiple pain meds to control her worsening back pain. He offers a history at this time. He states that she had a spinal fusion surgery 10/04 and felt great after for 2 days. He states that after the 2 days, she started getting progressively worsening back pain. She was given the option of going home vs rehab and at the time she and her decided to try to go home with pain meds. He states that from there she seemed to decline, as she was in horrible pain, especially when standing or walking. He states the pain got to be a 10/10, so they came into the ER to be evaluated. He states they found that her bladder was distended and a mahmood was placed. The notes that she has had very poor oral intake the last 5 days, does not feel like eating and really had just 2 moderate bowel movements yesterday. He states that she appears drowsy to him on the current pain regime they were on and that he noticed an episode last night where she seemed out of it and confused, which has never happened before. He overall states that he is concerned that her intake has been so limited and that her pain has been difficult to control. Pt is drowsy but states she is feeling okay aside from some belly discomfort. Allergies Allergy/AdvReac Type Severity Reaction Status Date / Time clopidogrel [From Plavix] Allergy Intermediate Hives Verified 10/14/23 20:38 hydroxychloroquine Allergy Intermediate Hives Verified 10/14/23 20:38 [From Plaquenil] celecoxib [From Celebrex] AdvReac Intermediate HX OF Verified 10/14/23 20:38 BLEEDING STOMACH codeine AdvReac Intermediate Gastrointestinal Verified 10/14/23 20:38 Upset hydrocodone [From Vicodin] AdvReac Intermediate Gastrointestinal Verified 10/14/23 20:38 Upset lubiprostone [From Amitiza] AdvReac Intermediate HX OF Verified 10/14/23 20:38 BLEEDING STOMACH pitavastatin AdvReac Intermediate Joint Pain Verified 10/14/23 20:38 pravastatin [From Pravachol] AdvReac Intermediate Joint Pain Verified 10/14/23 20:38 rosuvastatin AdvReac Intermediate Joint Pain Verified 10/14/23 20:38 [From Ezallor Sprinkle] simvastatin [From FloLipid] AdvReac Intermediate Joint Pain Verified 10/14/23 20:38 Lrwanqg-[id number]-BeA Reductase AdvReac Intermediate Joint Pain Verified 10/14/23 20:38 Inhibitor Home Medications Medication Instructions Recorded Confirmed Type albuterol sulfate 90 mcg/actuation 1 puff inhalation QID PRN Wheezing 04/05/23 10/14/23 History aerosol inhaler alirocumab 75 mg/mL subcutaneous 75 mg subcut USEASDIRECTD 04/05/23 10/14/23 History pen injector (Praluent Pen) amlodipine 10 mg tablet 10 mg PO DAILY 04/05/23 10/14/23 History aspirin 81 mg tablet,delayed 81 mg PO DAILY 04/05/23 10/14/23 History release cefadroxil 500 mg capsule 500 mg PO BID 04/05/23 10/14/23 History coenzyme Q10 100 mg capsule 100 mg PO BID 04/05/23 10/14/23 History (CoQ-10) docusate sodium 100 mg capsule 100 mg PO DAILY 04/05/23 10/14/23 History (Colace) esomeprazole magnesium 40 mg 40 mg PO DAILY 04/05/23 10/14/23 History capsule,delayed release fluticasone propionate 50 1 spray intranasal DAILY PRN 04/05/23 10/14/23 History mcg/actuation nasal allergy spray,suspension folic acid 1 mg tablet 1 mg PO DAILY 04/05/23 10/14/23 History lactobacillus combination no.4 3 3,000 mmu cells PO QPM 04/05/23 10/14/23 History billion cell capsule (Probiotic) methotrexate sodium 2.5 mg tablet 17.5 mg PO .QWEEK IN PM 04/05/23 10/14/23 History metoprolol succinate 50 mg 50 mg PO DAILY 04/05/23 10/14/23 History tablet,extended release 24 hr montelukast 10 mg tablet 10 mg PO QPM 04/05/23 10/14/23 History nitroglycerin 0.4 mg sublingual 0.4 mg sublingual DIRECTED PRN 04/05/23 10/14/23 History tablet Chest Pain omega 7-svr-tqy-fish oil 1,200 mg 1 cap PO QPM 04/05/23 10/14/23 History (144 mg-216 mg) capsule (Fish Oil) potassium chloride 20 mEq 20 meq PO DAILY #20 tabs 04/05/23 10/14/23 Rx tablet,extended release sulfasalazine 500 mg tablet 500 mg PO BID 04/05/23 10/14/23 History thyroid (pork) 60 mg tablet 60 mg PO DAILY 04/05/23 10/14/23 History ([place] Thyroid) triamterene 37.5 1 cap PO QAM 04/05/23 10/14/23 History mg-hydrochlorothiazide 25 mg capsule iron,carbonyl 65 mg-vitamin C 125 1 tab PO QPM 08/15/23 10/14/23 History mg tablet,delayed release (Vitron-C) apixaban 5 mg tablet (Eliquis) 5 mg PO BID #60 tabs 08/17/23 10/14/23 Rx acetaminophen 650 mg 650 mg PO BID 09/26/23 10/14/23 History tablet,extended release (Tylenol Arthritis Pain) calcium carbonate 500 mg calcium 500 mg PO DAILY 09/26/23 10/14/23 History (1,250 mg) tablet denosumab 60 mg/mL subcutaneous 0 mg subcut DIRECTED 09/26/23 10/14/23 History syringe (Prolia) inulin-sorbitol 2 gram chewable 1 tab PO DAILY 09/26/23 10/14/23 History tablet methylprednisolone 8 mg tablet 16 mg PO DAILY 09/26/23 10/14/23 History pregabalin 200 mg capsule (Lyrica) 200 mg PO BID #60 caps 10/09/23 10/14/23 Rx tramadol 50 mg tablet 50 mg PO Q4H PRN pain #30 tabs 10/09/23 10/14/23 Rx lactulose 20 gram/30 mL oral 20 g (30 mL) PO TID PRN 10/12/23 10/14/23 Rx solution constipation #3,000 mL ondansetron 4 mg disintegrating 4 mg translingual DIRECTED PRN 10/14/23 10/14/23 History tablet Nausea Past Med/Surg History Medical History Staph infection Diverticulitis Hypothyroid Osteoarthritis Rheumatoid arthritis Heart attack Coronary artery disease Stent May 2012 - [place] during stress test Stent Oct 2019 - pressure in chest Fibromyalgia Surgical History History of left nephrectomy History of back surgery History of colon resection Social History Smoking Status: Never smoker Hx Alcohol Use: No Hx Substance Use: No Preferred Language: Togolese Communication Ability: Effective Hoop Bender Tank Required: No Beliefs That Will Affect Care: None Current Living Situation: Spouse Other Information That Helps Us Care for You: No Feels Safe at Home: Yes Safety Concerns: Feels Safe At This Time Assistive Devices: Walker Review of Systems Review of Systems: Per HPI. Physical Exam Physical Exam: General: Drowsy but oriented, no acute distress, Cardio: Regular rate and rhythm, Resp: Lungs clear to auscultation b/l, no wheezes or rhonchi, GI: Soft, nondistended, bowel sounds active, epigastric and suprapubic tenderness noted Skin: Warm, pink, dry, Psych: Mood-affect congruence. Results & Data Results & Data Vital Signs (Past 12 Hours) Vital Signs Temp Pulse Resp BP Pulse Ox O2 Del Method 10/14/23 18:00 98 Room Air 10/14/23 16:51 36.8 C 97 H 18 148/80 H 100 Room Air Code Status & VTE Plan VTE Prophylaxis Plan VTE Prophylaxis will be ordered: Yes Supervising Physician Co-Signing Physician Notes I personally saw and examined the patient. I verified all allen points and agree with resident physician Dr Verónica Mcqueen, with the following exceptions and/or additions: 73 year old female with recent lumbar surgery decompression revision on 10/04 presents with intermittent confusion, back and abdominal pain. Unable to give me a good timeline. Generally having increasing problems getting around at home and requesting to go to rehab. Had a bowel movement yesterday at [place] [facility] with an enema. Found recently in urine retention on ER visit 10/12 and mahmood catheter placed. O/E Alert and orientated to place, person and year, HS RRR, no murmurs, Chest CTAB, Abdo epigastric and suprapubic tenderness without rebound or guarding, b/l LE hip flex, ankle dorsi/plantarflex 5/5 with normal sensation. A/P Intermittent confusion - suspect medication induced. Will reduce Lyrica back to 100mg PO BID as pain was controlled on this dose last admission Back pain - suspect from recent operation +/- constipation. Blood cultures due to elevated WBC, immunosuppression and prior history of infection however procalcitonin negative and not septic therefore no empiric antibiotics warranted at this time. Consult ortho spine. Likely to need PT/OT and placement for rehab. Constipation - Miralax 17g TID Dehydration, poor oral intake - stop diuretics, Gentle IV fluids overnight. Abdominal pain - difficult to get a good history from patient but thinks this is new since her operation. No acute pathology on CT from 10/12 therefore no need to re-image at this time. ?constipation ?gastritis. Possible gastritis - add famotidine, increase PPI to BID (switched to pantoprazole as only PPI formulary) Leucocytosis - blood cultures taken as above, UA not suggestive of infection. Notably dexamethasone given in the ER. Trend with AM labs. PMR - continue routine steroid dosing, no indication for stress dose steroids currently without hypotension of electrolyte abnormalities. Resident Activity Tracking Resident Involvement: Resident Care Provided Care Provided: Adult Hospital Medicine (2) Constipation Constipation type: unspecified constipation type Qualified Code(s): K59.00 - Constipation, unspecified
[2023-10-14] MEDS ORDERED: MoRPHine SULFATE 2 MG/ML CARP IV PRN (20:17)
[2023-10-14 20:19] LABS: C Reactive Protein 13.68 mg/dl (0-0.5)
[2023-10-14] MEDS ORDERED: traMADol HCL 50 MG TABLET PO PRN (21:14)
[2023-10-14] MEDS ORDERED: ALBUTEROL HFA 8 GM INHALER INH PRN (21:14)
[2023-10-14] MEDS ORDERED: POLYETHYLENE (MIRALAX) 17 GM PACK PO PRN (21:14)
[2023-10-14] MEDS ORDERED: FLUTICASONE PROPIONATE NA SPR 16 GM BTL PRN (21:14)
[2023-10-14] MEDS ORDERED: ONDANSETRON INJ 2 MG/ML 2 ML VIAL IV PRN (21:14)
[2023-10-14] MEDS: LACTATED RINGER'S 1,000 ML IV SCH (21:18)
[2023-10-14 21:53] LABS: Adenovirus PCR Not Detected (NotDetected); Bordetella parapertussis PCR Not Detected (NotDetected); Bordetella pertussis PCR Not Detected (NotDetected); Chlamydia pneumoniae PCR Not Detected (NotDetected); Coronavirus 229E PCR Not Detected (NotDetected); Coronavirus CoV-2 (COVID19)PCR Not Detected (NotDetected); Coronavirus HKU1 PCR Not Detected (NotDetected); Coronavirus NL63 PCR Not Detected (NotDetected); Coronavirus OC43PCR Not Detected (NotDetected); Human Metapneumovirus PCR Not Detected (NotDetected); Influenza A PCR Not Detected (NotDetected); Influenza B PCR Not Detected (NotDetected); Mycoplasma pneumoniae PCR Not Detected (NotDetected); Parainfluenza Virus 1 PCR Not Detected (NotDetected); Parainfluenza Virus 2 PCR Not Detected (NotDetected); Parainfluenza Virus 3 PCR Not Detected (NotDetected); Parainfluenza Virus 4 PCR Not Detected (NotDetected); Respiratory Syncytial VirusPCR Not Detected (NotDetected); Rhinovirus/Enterovirus PCR Not Detected (NotDetected)
[2023-10-14] MEDS: MONTELUKAST SODIUM 10 MG TABLET PO SCH (22:29)
[2023-10-14] MEDS: metHOTREXate sodium 2.5 MG TAB PO SCH (22:29)
[2023-10-14] MEDS: APIXABAN 5 MG TABLET PO SCH (22:29)
[2023-10-14] MEDS: FAMOTIDINE 20 MG TAB PO SCH (22:30)
[2023-10-14] MEDS: PANTOprazole 40 MG TAB PO SCH (22:30)
[2023-10-14] MEDS: POLYETHYLENE (MIRALAX) 17 GM PACK PO SCH (22:30)
[2023-10-14] MEDS: sulfaSALAzine 500 MG TABLET PO SCH (22:30)
[2023-10-14 22:33] LABS: Appearance Urine Clear (Clear); Bilirubin Urine Negative (Negative); Blood Urine Negative (Negative); Color Urine Yellow; Glucose Urine UA Negative (Negative); Ketones Urine 3+ (Negative); Leukocyte Esterase Urine Negative (Negative); Nitrite Urine Negative (Negative); Protein Urine Negative (Negative); Specific Gravity Urine 1.014 (1.000-1.030); Urobilinogen Urine Negative (Negative)
[2023-10-14] MEDS: PREGABALIN 100 MG CAP PO SCH (22:38)
[2023-10-15 07:33] LABS: Albumin Level 3.3 gm/dl (3.4-5.0); Bilirubin,Total 0.4 mg/dl (0.2-1.0); Calcium 8.9 mg/dl (8.6-10.3); Magnesium 1.7 mg/dl (1.7-2.4)
[2023-10-15 07:35] LABS: Basophils # (auto) 0.03 K/uL (0.00-0.20); Basophils % (auto) 0.3 %; Eosinophils # (auto) 0.01 K/uL (0.00-0.50); Eosinophils % (auto) 0.1 %; Hematocrit (blood only) 25.3 % (37.0-47.0); Hemoglobin 8.1 g/dl (12.0-16.0); Immature Granulocytes # (auto) 0.29 K/uL (0.01-0.20); Immature Granulocytes % (auto) 2.5 %; Lymphocytes # (auto) 1.41 K/uL (1.20-3.40); Lymphocytes % (auto) 11.9 %; Mean Corpuscular Hemoglobin 29.2 pg (25.0-34.0); Mean Corpuscular Volume 91.3 fL (80.0-100.0); Mean Platelet Volume 10.8 fL (9.4-12.4); Monocytes # (auto) 0.89 K/uL (0.11-0.59); Monocytes % (auto) 7.5 %; Neutrophils # (auto) 9.19 K/uL (1.40-6.50); Neutrophils % (auto) 77.7 %; Platelet Count 512 K/uL (130-400); RDW Coefficient of Variation 15.9 % (11.5-14.5); RDW Standard Deviation 52.3 fL (36.4-46.3); Red Blood Count 2.77 M/uL (4.20-5.40); White Blood Count 11.82 K/ul (4.8-10.8)
[2023-10-15 07:39] LABS: Albumin Globulin Ratio 1.1 (0.9-2); BUN Creatinine Ratio 20.3 (10-20); Creatinine Clr Calc Pharmacy 71.7 ml/min; Est GFR (African American) 100.8 ml/min; Globulin 2.9 gm/dl (2.5-4.0); Phosphorus 3.5 mg/dl (2.5-4.9); Total Protein 6.2 gm/dl (6.0-8.3)
[2023-10-15] MEDS: ACETAMINOPHEN 325 MG TAB PO PRN (07:47)
--- NOTE | 2023-10-15 08:38 | Orthopedic Consultation ---
Date of Consultation October 15, 2023 Assessment & Plan (1) Back pain with history of spinal surgery: From an orthopedic standpoint I would encourage physical therapy occupational therapy as tolerated. I believe she would be best served by going to rehab. History of Present Illness Reason for Consultation: Postoperative back pain Attending Physician: Jing Quiroz MD History of Present Illness This is a 73-year-old female well-known to me status post multilevel lumbar decompression fusion. She is attempted to return home postoperatively but consent continues to struggle to progress. She has now had several trips to the emergency room and was admitted last night. This morning she states she has mostly back pain and some upper buttock discomfort. She denies any radicular complaints. She denies any numbness or tingling in the lower extremities. Her radiculopathy feels is improved. Allergies Allergy/AdvReac Type Severity Reaction Status Date / Time clopidogrel [From Plavix] Allergy Intermediate Hives Verified 10/14/23 20:38 hydroxychloroquine Allergy Intermediate Hives Verified 10/14/23 20:38 [From Plaquenil] celecoxib [From Celebrex] AdvReac Intermediate HX OF Verified 10/14/23 20:38 BLEEDING STOMACH codeine AdvReac Intermediate Gastrointestinal Verified 10/14/23 20:38 Upset hydrocodone [From Vicodin] AdvReac Intermediate Gastrointestinal Verified 10/14/23 20:38 Upset lubiprostone [From Amitiza] AdvReac Intermediate HX OF Verified 10/14/23 20:38 BLEEDING STOMACH pitavastatin AdvReac Intermediate Joint Pain Verified 10/14/23 20:38 pravastatin [From Pravachol] AdvReac Intermediate Joint Pain Verified 10/14/23 20:38 rosuvastatin AdvReac Intermediate Joint Pain Verified 10/14/23 20:38 [From Ezallor Sprinkle] simvastatin [From FloLipid] AdvReac Intermediate Joint Pain Verified 10/14/23 20:38 Olvptys-MUR-AmQ Reductase AdvReac Intermediate Joint Pain Verified 10/14/23 20:38 Inhibitor Home Medications Medication Instructions Recorded Confirmed Type albuterol sulfate 90 mcg/actuation 1 puff inhalation QID PRN Wheezing 04/05/23 10/14/23 History aerosol inhaler alirocumab 75 mg/mL subcutaneous 75 mg subcut USEASDIRECTD 04/05/23 10/14/23 History pen injector (Praluent Pen) amlodipine 10 mg tablet 10 mg PO DAILY 04/05/23 10/14/23 History aspirin 81 mg tablet,delayed 81 mg PO DAILY 04/05/23 10/14/23 History release cefadroxil 500 mg capsule 500 mg PO BID 04/05/23 10/14/23 History coenzyme Q10 100 mg capsule 100 mg PO BID 04/05/23 10/14/23 History (CoQ-10) docusate sodium 100 mg capsule 100 mg PO DAILY 04/05/23 10/14/23 History (Colace) esomeprazole magnesium 40 mg 40 mg PO DAILY 04/05/23 10/14/23 History capsule,delayed release fluticasone propionate 50 1 spray intranasal DAILY PRN 04/05/23 10/14/23 History mcg/actuation nasal allergy spray,suspension folic acid 1 mg tablet 1 mg PO DAILY 04/05/23 10/14/23 History lactobacillus combination no.4 3 3,000 mmu cells PO QPM 04/05/23 10/14/23 History billion cell capsule (Probiotic) methotrexate sodium 2.5 mg tablet 17.5 mg PO .QWEEK IN PM 04/05/23 10/14/23 History metoprolol succinate 50 mg 50 mg PO DAILY 04/05/23 10/14/23 History tablet,extended release 24 hr montelukast 10 mg tablet 10 mg PO QPM 04/05/23 10/14/23 History nitroglycerin 0.4 mg sublingual 0.4 mg sublingual DIRECTED PRN 04/05/23 10/14/23 History tablet Chest Pain omega 6-wyg-njf-fish oil 1,200 mg 1 cap PO QPM 04/05/23 10/14/23 History (144 mg-216 mg) capsule (Fish Oil) potassium chloride 20 mEq 20 meq PO DAILY #20 tabs 04/05/23 10/14/23 Rx tablet,extended release sulfasalazine 500 mg tablet 500 mg PO BID 04/05/23 10/14/23 History thyroid (pork) 60 mg tablet 60 mg PO DAILY 04/05/23 10/14/23 History ([place] Thyroid) triamterene 37.5 1 cap PO QAM 04/05/23 10/14/23 History mg-hydrochlorothiazide 25 mg capsule iron,carbonyl 65 mg-vitamin C 125 1 tab PO QPM 08/15/23 10/14/23 History mg tablet,delayed release (Vitron-C) apixaban 5 mg tablet (Eliquis) 5 mg PO BID #60 tabs 08/17/23 10/14/23 Rx acetaminophen 650 mg 650 mg PO BID 09/26/23 10/14/23 History tablet,extended release (Tylenol Arthritis Pain) calcium carbonate 500 mg calcium 500 mg PO DAILY 09/26/23 10/14/23 History (1,250 mg) tablet denosumab 60 mg/mL subcutaneous 0 mg subcut DIRECTED 09/26/23 10/14/23 History syringe (Prolia) inulin-sorbitol 2 gram chewable 1 tab PO DAILY 09/26/23 10/14/23 History tablet methylprednisolone 8 mg tablet 16 mg PO DAILY 09/26/23 10/14/23 History pregabalin 200 mg capsule (Lyrica) 200 mg PO BID #60 caps 10/09/23 10/14/23 Rx tramadol 50 mg tablet 50 mg PO Q4H PRN pain #30 tabs 10/09/23 10/14/23 Rx lactulose 20 gram/30 mL oral 20 g (30 mL) PO TID PRN 10/12/23 10/14/23 Rx solution constipation #3,000 mL ondansetron 4 mg disintegrating 4 mg translingual DIRECTED PRN 10/14/23 10/14/23 History tablet Nausea Patient History Medical History Staph infection Diverticulitis Hypothyroid Osteoarthritis Rheumatoid arthritis Heart attack Coronary artery disease Stent May 2012 - [place] during stress test Stent Oct 2019 - pressure in chest Fibromyalgia Surgical History History of left nephrectomy History of back surgery History of colon resection Social History Smoking Status: Never smoker Hx Alcohol Use: No Hx Substance Use: No Preferred Language: Nepali Communication Ability: Effective Manager Environmental Health Required: No Beliefs That Will Affect Care: None Current Living Situation: Spouse Other Information That Helps Us Care for You: No Feels Safe at Home: Yes Safety Concerns: Feels Safe At This Time Assistive Devices: Walker Physical Exam Physical Exam: On exam incisions healing well. There is no erythema or drainage. Is essentially nontender. She is good strength testing lower extremities. Results & Data Vital Signs (Past 12 Hours) Vital Signs Temp Pulse Resp BP Pulse Ox O2 Del Method 10/15/23 07:43 36.6 C 89 18 128/62 98 Room Air 10/14/23 21:05 Room Air 10/14/23 21:05 36.7 C 84 18 147/84 H 94 Room Air 10/14/23 20:56 Room Air
[2023-10-15] MEDS: ARMOUR THYROID 30 MG TAB PO SCH (08:46)
--- NOTE | 2023-10-15 09:15 | Billing Data ---
Date of Service October 14, 2023 Coding Level of Care Code 27016 INT INP/OBS CARE
[2023-10-15] MEDS: LACTATED RINGER'S 1,000 ML IV SCH (10:10)
[2023-10-15] MEDS: POLYETHYLENE (MIRALAX) 17 GM PACK PO SCH ×2 (10:43→15:05)
[2023-10-15] MEDS: PREGABALIN 100 MG CAP PO SCH ×2 (10:47→21:20)
[2023-10-15] MEDS: DOCUSATE SODIUM 100 MG CAP PO SCH (10:48)
[2023-10-15] MEDS: amLODIPine BESYLATE 5 MG TAB PO SCH (10:48)
[2023-10-15] MEDS: FAMOTIDINE 20 MG TAB PO SCH ×2 (10:49→21:20)
[2023-10-15] MEDS: APIXABAN 5 MG TABLET PO SCH ×2 (10:49→21:20)
[2023-10-15] MEDS: ASPIRIN 81 MG ECTAB PO SCH (10:49)
[2023-10-15] MEDS: METOPROLOL SUCC 50MG EXT REL TAB PO SCH (10:49)
[2023-10-15] MEDS: sulfaSALAzine 500 MG TABLET PO SCH ×2 (10:50→21:20)
[2023-10-15] MEDS: PANTOprazole 40 MG TAB PO SCH ×2 (10:50→21:20)
[2023-10-15] MEDS: FOLIC ACID 1 MG TAB PO SCH (10:50)
--- NOTE | 2023-10-15 11:26 | XRay Report ---
KUB CLINICAL HISTORY: Constipation. FINDINGS: An AP, portable, supine abdominal radiograph is compared to abdominal radiographs and CT da sulma 10/12/2023. Cholecystectomy clips are seen in the right upper quadrant. There is a nonobstructed abdominal bowel gas pattern. [id number] fecal retention is seen throughout the colon. Fecal ret ention has significantly improved as compared to the 10/12/2023 examination. A calcification along th e course of the right unilateral vein is unchanged. The skeletal structures are osteopenic. Postsurgi nikolas and spondylotic change is noted in the lumbar spine with antibiotic implants in place. IMPRESSION: 1. Nonobstructed bowel gas pattern. 2. Fecal retention has improved from 10/12/2023. Electronically signed by: Garrett Ocampo M.D. 10/15/2023 11:24 AM
--- NOTE | 2023-10-15 13:21 | Hospitalist Progress Note ---
Date of Service October 15, 2023 Assessment & Plan (1) Back pain with history of spinal surgery: Plan: Pt is a 73 yo female with a past medical history of HTN, GERD, hx PE, fibromyalgia, polymyalgia rheumatica, hypothyroidism, constipation, and recent spinal surg on 10/04/23 who presents to the hospital on 10/14/23 for poor oral intake, AMS, and worsening low back pain. No repeat imaging has been performed. Seen by orthopedic spine surgeon and recommends rehab and pain control No evidence of infection at the wound site. Hemoglobin is low but is actually increased from previous-do not suspect bleeding No fevers. WBC count is elevated but she is on chronic steroids and did receive IV steroids in the ER. White blood cell count is coming down. She does have elevated platelets which could be from inflammation or infection but could also be reactive to anemia from blood loss from surgery. Follow blood cultures, monitor for fevers. -Continue tramadol 50 mg every 4 hours as needed moderate pain and add tramadol 100 mg p.o. every 4 hours as needed severe pain -Continue lyrica 100 BID-she reports confusion with increased dose of Lyrica at 200 mg twice daily from last admission -will avoid NSAID use as much as possible as pt has only 1 kidney -Discontinue morphine as she does not want to take it - PT/OT consulted -If pain not improving, would consider imaging and would discuss with spine surgeon -Continue to work on constipation which is now greatly improved -Mahmood catheter in place for urinary retention which was related to constipation and opioid use - previous back surg infected years ago with Staphylococcus-her will bring in her cefadroxil from home for prophylaxis -Add on duloxetine 30 mg p.o. daily for fibromyalgia and radicular type neuropathic pain (2) Acute encephalopathy: Plan: - notes she had an episode of confusion at home - delirium due to medication induced likely from increased dose of Lyrica and taking opioids as well as severe constipation, urinary retention - TSH normal, no evidence of infection so far the blood cultures pending -Mentation is much improved now (3) Anemia: Plan: Hemoglobin low at 8.1-likely component of acute blood loss anemia from previous back surgery -Check iron studies, B12, folate in the morning TSH normal Follow CBC (4) Constipation: Plan: - large stool burden noted 10/[address] -Has now had multiple large bowel movements and now having incontinence to stool through her vagina with likely fistula which has been ongoing for months -Make MiraLAX daily as needed rather than 3 times daily -Continue home docusate -Avoidance of opioids if possible (5) Thrombocytosis: Plan: Platelets elevated in the 500s-as above, could be reactive to anemia versus from acute phase reactant to infection or inflammation Follow CBC (6) Acute urinary retention: Plan: - noted last visit 10/12, mahmood placed then for retention in the ER - continue mahmood, replaced on admission this time - recommend voiding trial once pt more awake and constipation has improved, ambulation improved and not taking opioids (7) HTN (hypertension): Plan: Blood pressures have been elevated likely secondary to pain but are now improved - continue amlodipine - hold triamterene/HCTZ since poor oral intake/dry - continue metoprolol (8) Polymyalgia rheumatica: Plan: Continue home methylprednisolone No stress dose steroids needed (9) Hypothyroid: Plan: - continue home [place] thyroid TSH here normal at 1.27 (10) Fibromyalgia: Plan: Chronic, continue Lyrica Adding duloxetine 30 mg daily (11) Coronary artery disease: Plan: With a history of stents x2 Continue aspirin, Eliquis, metoprolol Has intolerance to statins but is on Praluent as an outpatient (12) Rheumatoid arthritis: Plan: Continue methotrexate and add back home folic acid Continue chronic methylprednisolone (13) Pulmonary emboli: Plan: Continue Eliquis (14) Hemorrhoid: Plan: Add hydrocortisone as needed 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 She is now moving her bowels frequently and actually is having stool coming from her vagina as per nursing. She has been having feculent material from her vagina for 3 to 4 months and has an upcoming appointment with colorectal surgery for this. She does not like to take opioids as it makes her feel "crazy" and she is also been having significant constipation and urinary retention. She denies fevers or chills. Physical Exam Constitutional: WD/WN, vitals as above Respiratory: normal respiratory effort, lungs clear to auscultation Cardiovascular: RRR, no murmur, no edema Chest (Breasts): Chest: normal inspection of chest Gastrointestinal (Abdomen): normal bowel sounds, soft, nontender, no hepatosplenomegaly Musculoskeletal: Extremities: extremities normal to inspection; no cyanosis and no clubbing Positive tenderness to palpation over right lower back and right superior gluteus into right lateral hip, no masses or ecchymosis Incision at lower back is well-healed, no erythema or drainage Skin: no rashes, warm and dry Neurologic: moves all extremities and awake; no focal motor deficits Psychiatric: Orientation: alert, oriented x 3 and cooperative Affect: + tearful affect Genitourinary: + abnormal external appearance (Mahmood ca theter in place draining clear yellow urine) Lymphatic: no lymphedema Results & Data Results & Data Vital Signs (Past 12 Hours) Vital Signs Temp Pulse Resp BP Pulse Ox O2 Del Method 10/15/23 07:43 36.6 C 89 18 128/62 98 Room Air Laboratory Results CBC, CMP, magnesium reviewed Blood cultures-no growth to date Diagnostic Findings KUB reviewed-severe constipation is resolved, no ileus PG Care Time/CCT Total # of Minutes Spent Total Time Spent with Patient: Total time spent is greater than 50% in coordination of care (as documented) at patient's floor/unit and/or counseling patient: Coding Level of Care Code 64661 SUB INP/OBS CARE 3/50MIN Diagnoses Back pain with history of spinal surgery M54.9; Z98.890 Acute encephalopathy G93.40 Anemia D64.9 Constipation K59.00 Constipation type: unspecified constipation type Thrombocytosis D75.839 Acute urinary retention R33.8 HTN (hypertension) I10 Polymyalgia rheumatica M35.3 Hypothyroid E03.9 Fibromyalgia M79.7 Coronary artery disease I25.10 Rheumatoid arthritis M06.9 Pulmonary emboli I26.99 Hemorrhoid K64.9 GERD (gastroesophageal reflux disease) K21.9 (4) Constipation Constipation type: unspecified constipation type Qualified Code(s): K59.00 - Constipation, unspecified
[2023-10-15] MEDS ORDERED: POLYETHYLENE (MIRALAX) 17 GM PACK PO PRN (14:30)
[2023-10-15] MEDS: DULoxetine HCL 30 MG CAP PO SCH (15:08)
[2023-10-15] MEDS: traMADol HCL 50 MG TABLET PO PRN (17:35)
[2023-10-15] MEDS: HYDROCORTISONE ACETATE 25 MG SUPP PR SCH (21:20)
[2023-10-15] MEDS: MONTELUKAST SODIUM 10 MG TABLET PO SCH (21:20)
[2023-10-16] MEDS: ARMOUR THYROID 30 MG TAB PO SCH (07:40)
[2023-10-16] MEDS: amLODIPine BESYLATE 5 MG TAB PO SCH (09:03)
[2023-10-16] MEDS: APIXABAN 5 MG TABLET PO SCH ×2 (09:03→21:37)
[2023-10-16] MEDS: ASPIRIN 81 MG ECTAB PO SCH (09:03)
[2023-10-16] MEDS: DOCUSATE SODIUM 100 MG CAP PO SCH (09:04)
[2023-10-16] MEDS: FOLIC ACID 1 MG TAB PO SCH (09:04)
[2023-10-16] MEDS: FAMOTIDINE 20 MG TAB PO SCH ×2 (09:04→21:37)
[2023-10-16] MEDS: DULoxetine HCL 30 MG CAP PO SCH (09:04)
[2023-10-16] MEDS: PANTOprazole 40 MG TAB PO SCH ×2 (09:05→21:37)
[2023-10-16] MEDS: sulfaSALAzine 500 MG TABLET PO SCH ×2 (09:05→21:37)
[2023-10-16] MEDS: METOPROLOL SUCC 50MG EXT REL TAB PO SCH (09:05)
[2023-10-16 09:09] LABS: Basophils # (auto) 0.04 K/uL (0.00-0.20); Basophils % (auto) 0.5 %; Eosinophils # (auto) 0.21 K/uL (0.00-0.50); Eosinophils % (auto) 2.4 %; Hematocrit (blood only) 24.9 % (37.0-47.0); Hemoglobin 7.9 g/dl (12.0-16.0); Immature Granulocytes # (auto) 0.09 K/uL (0.01-0.20); Lymphocytes # (auto) 1.04 K/uL (1.20-3.40); Lymphocytes % (auto) 11.7 %; Mean Corpuscular Hemoglobin 28.9 pg (25.0-34.0); Mean Corpuscular Hgb Conc 31.7 g/dL (32.0-36.0); Mean Corpuscular Volume 91.2 fL (80.0-100.0); Mean Platelet Volume 10.5 fL (9.4-12.4); Monocytes # (auto) 0.75 K/uL (0.11-0.59); Monocytes % (auto) 8.5 %; Neutrophils # (auto) 6.73 K/uL (1.40-6.50); Neutrophils % (auto) 75.9 %; Platelet Count 483 K/uL (130-400); RDW Coefficient of Variation 16.1 % (11.5-14.5); RDW Standard Deviation 52.9 fL (36.4-46.3); Red Blood Count 2.73 M/uL (4.20-5.40); White Blood Count 8.86 K/ul (4.8-10.8)
[2023-10-16] MEDS: PREGABALIN 100 MG CAP PO SCH ×2 (09:09→21:37)
[2023-10-16 09:39] LABS: Albumin Globulin Ratio 1.1 (0.9-2); Albumin Level 3.2 gm/dl (3.4-5.0); BUN Creatinine Ratio 17.2 (10-20); Bilirubin,Total 0.4 mg/dl (0.2-1.0); Calcium 8.9 mg/dl (8.6-10.3); Creatinine Clr Calc Pharmacy 77.3 ml/min; Est GFR (African American) 103.3 ml/min; Est GFR (Non-African American) 89.2 ml/min; Globulin 2.8 gm/dl (2.5-4.0); Polychromasia 1+; Potassium 3.2 mmol/L (3.5-5.1)
[2023-10-16 09:50] LABS: Folate (Folic Acid),Ser orPlas 11.78 ng/ml (>5.38)
[2023-10-16] MEDS: traMADol HCL 50 MG TABLET PO PRN ×2 (09:51→17:01)
[2023-10-16 09:54] LABS: Ferritin 136.5 ng/ml (8-388)
--- NOTE | 2023-10-16 14:02 | Hospitalist Progress Note ---
Date of Service October 16, 2023 Assessment & Plan (1) Back pain with history of spinal surgery: Plan: Pt is a 73 yo female with a past medical history of HTN, GERD, hx PE, fibromyalgia, polymyalgia rheumatica, hypothyroidism, constipation, and recent spinal surg on 10/04/23 who presents to the hospital on 10/14/23 for poor oral intake, AMS, and worsening low back pain. No repeat imaging has been performed. Seen by orthopedic spine surgeon and recommends rehab and pain control No evidence of infection at the wound site. Hemoglobin is low but is actually increased from previous-do not suspect bleeding No fevers. WBC count is elevated but she is on chronic steroids and did receive IV steroids in the ER. White blood cell count is now back to normal. She does have elevated platelets which could be from inflammation or infection but could also be reactive to anemia from blood loss from surgery. These are also improving Follow blood cultures-no growth to date, monitor for fevers. Pain is now much improved with increased dose of tramadol and with resolution of severe constipation -Continue tramadol 50 mg every 4 hours as needed for moderate pain and tramadol 100 mg p.o. every 4 hours as needed for severe pain -Continue lyrica 100 BID-she reports confusion with increased dose of Lyrica at 200 mg twice daily from last admission -will avoid NSAID use as much as possible as pt has only 1 kidney - PT/OT consulted -If pain not improving or worsens again, would consider imaging and would discuss with spine surgeon -Continue to work on constipation which is now greatly improved -Mahmood catheter in place for urinary retention which was related to constipation and opioid use - previous back surg infected years ago with Staphylococcus-continue cefadroxil from home for prophylaxis -Added on duloxetine 30 mg p.o. daily for fibromyalgia and radicular type neuropathic pain-consider titration up of dose in 2 to 3 weeks (2) Acute encephalopathy: Plan: Now completely resolved - notes she had an episode of confusion at home - delirium due to medication induced likely from increased dose of Lyrica and taking opioids as well as severe constipation, urinary retention - TSH normal, no evidence of infection so far the blood cultures pending (3) Anemia: Plan: Hemoglobin low at 7.9-likely component of acute blood loss anemia from previous back surgery but she also reports a history of chronic iron deficiency Last colonoscopy was 3 years ago and she was told was normal but does have a history of ulcerative colitis remotely for which she is not currently treated Iron studies and ferritin more consistent with anemia of chronic disease B12, folate, and TSH were normal Follow CBC Hold home p.o. ferrous sulfate for now given recent severe constipation (4) Constipation: Plan: - large stool burden noted 10/[address] -Has now had multiple large bowel movements after receiving several doses of MiraLAX and lactulose and was having incontinence to stool through her vagina with likely fistula which has been ongoing for months -Continue MiraLAX daily as needed -Continue home docusate -Avoidance of opioids if possible -Encourage ambulation with rehab -Hold home p.o. iron tablets (5) Thrombocytosis: Plan: Platelets elevated in the 500s on admission and now improving-could be reactive to anemia versus from acute phase reactant to infection or inflammation Follow CBC and blood cultures (6) Acute urinary retention: Plan: - noted last visit 10/12, mahmood placed then for retention in the ER - continue mahmood, replaced on admission this time - recommend voiding trial once pt more awake and constipation has improved, ambulation improved and not taking opioids-most likely this will be in 1 to 2 weeks She does have an appointment with urology on 10/26 I believe (7) HTN (hypertension): Plan: Blood pressures have been elevated likely secondary to pain but are now improved - continue amlodipine -Continue to hold triamterene/HCTZ since poor oral intake/dry - continue metoprolol (8) Polymyalgia rheumatica: Plan: Continue home methylprednisolone No stress dose steroids needed (9) Hypothyroid: Plan: - continue home [place] thyroid TSH here normal at 1.27 (10) Fibromyalgia: Plan: Chronic, continue Lyrica Added duloxetine 30 mg daily (11) Coronary artery disease: Plan: With a history of stents x2 Continue aspirin, Eliquis, metoprolol Has intolerance to statins but is on Praluent as an outpatient (12) Rheumatoid arthritis: Plan: Continue methotrexate and folic acid Continue chronic methylprednisolone (13) Pulmonary emboli: Plan: Diagnosed in 07/2023 after having COVID and recent long travel to [place] Continue Eliquis for at least 3 to 6 months (14) Hemorrhoid: Plan: Continue hydrocortisone MD nightly 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 Has not been on any treatment for UC in over 10 years at least Had colonoscopy about 3 years ago in [place], was told was normal Also had dilated appendix on CT abd/pel 10/12 without appendicitis-needs Surgical eval which she has set up already for 10/17/23 with Colorectal SUrgery from [facility] that comes to [place] Will request CT on CD for her to take to her appt (17) Hypokalemia: Plan: Potassium mildly low today at 3.2 Replace with oral potassium chloride Follow BMP and magnesium in the morning Plan VTE proph: home eliquis Dispo: Medsurg, continued stay, PT/OT consulted and needs rehab. site project manager discussed referrals to rehab and SNF for her Discussed care with at bedside on 10/16 Admission and Anticipated Discharge Date Admission Date: October 14, 2023 Subjective Patient feeling improved today with less pain. Still moving bowels regularly. She was able to ambulate further no other concerns I discussed her care with her at the bedside and also with case operator. Physical Exam Constitutional: WD/WN, vitals as above Respiratory: normal respiratory effort, lungs clear to auscultation Cardiovascular: RRR, no murmur, no edema Chest (Breasts): Chest: normal inspection of chest Gastrointestinal (Abdomen): normal bowel sounds, soft, nontender, no hepatosplenomegaly Musculoskeletal: Extremities: extremities normal to inspection; no cyanosis and no clubbing Skin: no rashes, warm and dry Neurologic: moves all extremities and awake; no focal motor deficits Psychiatric: Orientation: alert, oriented x 3 and cooperative Affect: euthymic affect Genitourinary: + abnormal external appearance (Mahmood ca theter in place draining clear yellow urine) Lymphatic: no lymphedema Results & Data Results & Data Vital Signs (Past 12 Hours) Vital Signs Temp Pulse Resp BP Pulse Ox O2 Del Method 10/16/23 07:10 36.5 C 72 18 118/64 97 Room Air Laboratory Results CBC, BMP, B12 and folate levels, iron studies, ferritin all reviewed blood cultures reviewed PG Care Time/CCT Total # of Minutes Spent Total Time Spent with Patient: Total time spent is greater than 50% in coordination of care (as documented) at patient's floor/unit and/or counseling patient: Coding Level of Care Code 53577 SUB INP/OBS CARE 3/50MIN Diagnoses Back pain with history of spinal surgery M54.9; Z98.890 Acute encephalopathy G93.40 Anemia D64.9 Constipation K59.00 Constipation type: unspecified constipation type Thrombocytosis D75.839 Acute urinary retention R33.8 HTN (hypertension) I10 Polymyalgia rheumatica M35.3 Hypothyroid E03.9 Fibromyalgia M79.7 Coronary artery disease I25.10 Rheumatoid arthritis M06.9 Pulmonary emboli I26.99 Hemorrhoid K64.9 GERD (gastroesophageal reflux disease) K21.9 [place]-vesical fistula N32.1 Hypokalemia E87.6 (4) Constipation Constipation type: unspecified constipation type Qualified Code(s): K59.00 - Constipation, unspecified
[2023-10-16] MEDS ORDERED: POTASSIUM CHLORIDE CRTAB 20 MEQ TABCR PO STA (14:04)
[2023-10-16] MEDS: HYDROCORTISONE ACETATE 25 MG SUPP PR SCH (21:37)
[2023-10-16] MEDS: MONTELUKAST SODIUM 10 MG TABLET PO SCH (21:37)
[2023-10-17] MEDS: HYDROCORTISONE ACETATE 25 MG SUPP PR SCH ×3 (01:13→22:06)
[2023-10-17 07:14] LABS: Basophils # (auto) 0.05 K/uL (0.00-0.20); Basophils % (auto) 0.4 %; Eosinophils # (auto) 0.23 K/uL (0.00-0.50); Eosinophils % (auto) 1.8 %; Hematocrit (blood only) 26.7 % (37.0-47.0); Hemoglobin 8.3 g/dl (12.0-16.0); Immature Granulocytes # (auto) 0.09 K/uL (0.01-0.20); Immature Granulocytes % (auto) 0.7 %; Lymphocytes # (auto) 1.17 K/uL (1.20-3.40); Lymphocytes % (auto) 9.1 %; Mean Corpuscular Hgb Conc 31.1 g/dL (32.0-36.0); Mean Corpuscular Volume 90.2 fL (80.0-100.0); Mean Platelet Volume 10.6 fL (9.4-12.4); Monocytes # (auto) 1.14 K/uL (0.11-0.59); Monocytes % (auto) 8.9 %; Neutrophils # (auto) 10.11 K/uL (1.40-6.50); Neutrophils % (auto) 79.1 %; Platelet Count 532 K/uL (130-400); RDW Coefficient of Variation 15.7 % (11.5-14.5); RDW Standard Deviation 52.1 fL (36.4-46.3); Red Blood Count 2.96 M/uL (4.20-5.40); White Blood Count 12.79 K/ul (4.8-10.8)
--- NOTE | 2023-10-17 08:16 | Hospitalist Progress Note ---
Date of Service October 17, 2023 Assessment & Plan (1) Back pain with history of spinal surgery: Plan: Pt is a 73 yo female with a past medical history of HTN, GERD, hx PE, fibromyalgia, polymyalgia rheumatica, hypothyroidism, constipation, and recent spinal surg on 10/04/23 who presents to the hospital on 10/14/23 for poor oral intake, AMS, and worsening low back pain. No repeat imaging has been performed. Seen by orthopedic spine surgeon and recommends rehab and pain control No evidence of infection at the wound site. Hemoglobin is low but is actually increased from previous-do not suspect bleeding No fevers. WBC count is elevated but she is on chronic steroids and did receive IV steroids in the ER. White blood cell count is now back to normal. She does have elevated platelets which could be from inflammation or infection but could also be reactive to anemia from blood loss from surgery. These are also improving Follow blood cultures-no growth to date, monitor for fevers. Pain was much improved with increased dose of tramadol and with resolution of severe constipation, however now with severe pain as she did not receive pain medicine since yesterday evening -Continue tramadol 50 mg every 4 hours as needed for moderate pain and tramadol 100 mg p.o. every 4 hours as needed for severe pain -Continue lyrica 100 BID-she reports confusion with increased dose of Lyrica at 200 mg twice daily from last admission -will avoid NSAID use as much as possible as pt has only 1 kidney - PT/OT consulted-needs rehab -If pain not improving or worsens again, would consider imaging to look for infection or hematoma- discussed with spine surgeon who wants to see how the patient does with PT tomorrow and then decide -Continue to work on constipation which is now greatly improved -Mahmood catheter in place for urinary retention which was related to constipation and opioid use - previous back surg infected years ago with Staphylococcus-continue cefadroxil from home for prophylaxis -Added on duloxetine 30 mg p.o. daily for fibromyalgia and radicular type neuropathic pain-consider titration up of dose in 2 to 3 weeks (2) Acute encephalopathy: Plan: Was resolved and now acutely worsened AM of 10/17 Likely secondary to parasomnia as did not sleep all night likely from pain. CT head negative, ABG without acidosis or hypercarbia, lactate and ammonia levels normal, renal function and electrolytes acceptable No fever and vitals acceptable. No awake and alert and oriented after napping. - notes she had an episode of confusion at home -Initially her delirium due to medication induced likely from increased dose of Lyrica and taking opioids as well as severe constipation, urinary retention - TSH normal, no evidence of infection so far the blood cultures no growth to date Supportive care, pain control (3) Anemia: Plan: Hemoglobin low at 7.9-likely component of acute blood loss anemia from previous back surgery but she also reports a history of chronic iron deficiency Last colonoscopy was 3 years ago and she was told was normal but does have a history of ulcerative colitis remotely for which she is not currently treated Iron studies and ferritin more consistent with anemia of chronic disease B12, folate, and TSH were normal Follow CBC Hold home p.o. ferrous sulfate for now given recent severe constipation (4) Constipation: Plan: - large stool burden noted 10/[address] -Has now had multiple large bowel movements after receiving several doses of MiraLAX and lactulose and was having incontinence to stool through her vagina with likely fistula which has been ongoing for months -Continue MiraLAX daily as needed -Continue home docusate -Avoidance of opioids if possible except for tramadol -Encourage ambulation with rehab -Hold home p.o. iron tablets (5) Thrombocytosis: Plan: Platelets elevated in the 500s on admission and now improving-could be reactive to anemia versus from acute phase reactant to infection or inflammation Follow CBC and blood cultures (6) Acute urinary retention: Plan: - noted last visit 10/12, mahmood placed then for retention in the ER - continue mahmood, replaced on admission this time - recommend voiding trial once pt more awake and constipation has improved, ambulation improved and not taking opioids-most likely this will be in 1 to 2 weeks She does have an appointment with urology on 10/26 I believe (7) HTN (hypertension): Plan: Blood pressures have been elevated likely secondary to pain but are now improved - continue amlodipine -Continue to hold triamterene/HCTZ since poor oral intake/dry - continue metoprolol (8) Polymyalgia rheumatica: Plan: Continue home methylprednisolone No stress dose steroids needed (9) Hypothyroid: Plan: - continue home [place] thyroid TSH here normal at 1.27 (10) Fibromyalgia: Plan: Chronic, continue Lyrica Added duloxetine 30 mg daily (11) Coronary artery disease: Plan: With a history of stents x2 Continue aspirin, Eliquis, metoprolol Has intolerance to statins but is on Praluent as an outpatient (12) Rheumatoid arthritis: Plan: Continue methotrexate and folic acid Continue chronic methylprednisolone (13) Pulmonary emboli: Plan: Diagnosed in 07/2023 after having COVID and recent long travel to [place] Continue Eliquis for at least 3 to 6 months (14) Hemorrhoid: Plan: Continue hydrocortisone [place] nightly With 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 Has not been on any treatment for UC in over 10 years at least Had colonoscopy about 3 years ago in [place], was told was normal Also had dilated appendix on CT abd/pel 10/12 without appendicitis-needs Surgical eval which she has set up already for 10/17/23 with Colorectal SUrgery from [facility] that comes to [place] Will request CT on CD for her to take to her appt Plan VTE proph: home eliquis Dispo: Transferred to PCU for altered mental status, continued stay, PT/OT consulted and needs rehab. account manager b2b discussed referrals to rehab and SNF for her Discussed care with at bedside on 10/16 and again in 10/17 Admission and Anticipated Discharge Date Admission Date: October 16, 2023 Subjective Patient was acutely lethargic this morning as per nursing and I was called to the bedside urgently. She would not open her eyes and seemed to be in a dreamlike state but would follow commands and move all 4 extremities on command. She did report pain but would not open her eyes. She was very lethargic. She did respond to painful stimuli with moaning with sternal rub and applying pressure with a pen to her toenails. She had a CT head, labs, ABG, and was transferred to the telemetry unit. Prior to transfer to the telemetry unit and afterwards, she did wake up completely and was back to her baseline. She was complaining of pain now in the bilateral hips down the anterior thighs. She had not been out of bed for the rest of the day due to feeling tired. Pain is improved with tramadol. Physical Exam Constitutional: WD/WN, vitals as above Eyes: PERRL, conjunctivae normal, anicteric sclerae Respiratory: normal respiratory effort, lungs clear to auscultation Cardiovascular: RRR, no murmur, no edema Chest (Breasts): Chest: normal inspection of chest Gastrointestinal (Abdomen): normal bowel sounds, soft, nontender, no hepatosplenomegaly Musculoskeletal: Extremities: extremities normal to inspection; no cyanosis and no clubbing Skin: no rashes, warm and dry Neurologic: moves all extremities and awake; no focal motor deficits Very lethargic, follows commands, moves all 4 extremities to command but remains asleep Genitourinary: + abnormal external appearance (Mahmood ca theter in place draining clear yellow urine) Lymphatic: no lymphedema Results & Data Results & Data Vital Signs (Past 12 Hours) Vital Signs Temp Pulse Resp BP Pulse Ox O2 Del Method 10/17/23 08:04 36.4 C L 92 H 19 153/86 H 95 Room Air 10/16/23 21:30 Room Air Laboratory Results CBC, CMP, lactate, troponin, ammonia, ABG reviewed Diagnostic Findings CT head images personally reviewed by me ECG Additional Comments: ECG NSR, no acute ischemic changes PG Care Time/CCT Total # of Minutes Spent Total Time Spent with Patient: Total time spent is greater than 50% in coordination of care (as documented) at patient's floor/unit and/or counseling patient: Coding Level of Care Code 99005 SUB INP/OBS CARE 3/50MIN Diagnoses Back pain with history of spinal surgery M54.9; Z98.890 Acute encephalopathy G93.40 Anemia D64.9 Constipation K59.00 Constipation type: unspecified constipation type Thrombocytosis D75.839 Acute urinary retention R33.8 HTN (hypertension) I10 Polymyalgia rheumatica M35.3 Hypothyroid E03.9 Fibromyalgia M79.7 Coronary artery disease I25.10 Rheumatoid arthritis M06.9 Pulmonary emboli I26.99 Hemorrhoid K64.9 GERD (gastroesophageal reflux disease) K21.9 [place]-vesical fistula N32.1 (4) Constipation Constipation type: unspecified constipation type Qualified Code(s): K59.00 - Constipation, unspecified
[2023-10-17] MEDS ORDERED: ACETAMINOPHEN 1,000 MG/100 ML VIAL IV STA (08:25)
[2023-10-17] MEDS ORDERED: ACETAMINOPHEN 1000 MG/100 ML IV IV ONE (08:27)
[2023-10-17 09:00] LABS: Albumin Globulin Ratio 1.2 (0.9-2); Albumin Level 3.4 gm/dl (3.4-5.0); Bilirubin,Total 0.3 mg/dl (0.2-1.0); Calcium 9.3 mg/dl (8.6-10.3); Creatinine Clr Calc Pharmacy 86.8 ml/min; Est GFR (African American) 107.3 ml/min; Est GFR (Non-African American) 92.6 ml/min; Globulin 2.9 gm/dl (2.5-4.0); Magnesium 1.5 mg/dl (1.7-2.4); Potassium 3.8 mmol/L (3.5-5.1); Total Protein 6.3 gm/dl (6.0-8.3)
--- NOTE | 2023-10-17 09:12 | CT Scan Report ---
HEAD CT NONCONTRAST CT DOSE: 703.85 mGy.cm HISTORY: altered mental status acutely TECHNIQUE: Multiaxial CT images of the head were performed without the use of intravenous contrast. A utomated exposure control was utilized for this study. A dose lowering technique was utilized adheri ng to the principles of ALARA. Comparison: Head CT 09/26/2023. Findings: Postoperative changes again noted within the paranasal sinuses. The paranasal sinuses and m astoid air cells are clear. Prior bilateral lens replacement again noted. The calvarium and skull bas e are intact. There is no mass, hematoma, midline shift, acute infarct. White matter hypodensity is n onspecific but suggestive of microvascular ischemic change. The ventricles and sulci demonstrate mild age-related involutional changes. Impression: No significant change compared to the prior study. No acute intracranial abnormality. ACT 112: Negative or not required by law. Electronically signed by: Aly Diaz M.D. 10/17/2023 9:10 AM
[2023-10-17] MEDS: DULoxetine HCL 30 MG CAP PO SCH (09:18)
[2023-10-17] MEDS: DOCUSATE SODIUM 100 MG CAP PO SCH (09:18)
[2023-10-17] MEDS: FOLIC ACID 1 MG TAB PO SCH (09:18)
[2023-10-17] MEDS: ASPIRIN 81 MG ECTAB PO SCH (09:18)
[2023-10-17] MEDS: amLODIPine BESYLATE 5 MG TAB PO SCH (09:18)
[2023-10-17] MEDS: FAMOTIDINE 20 MG TAB PO SCH ×2 (09:18→20:37)
[2023-10-17] MEDS: APIXABAN 5 MG TABLET PO SCH ×2 (09:18→20:34)
[2023-10-17 09:19] LABS: Base Excess ABG 4.9 mEq/L (-9-1.8); HCO3 ABG 28 mmol/L (19-24); Oxygen Saturation ABG 99.2 % (90-95); PCO2 ABG 36 mmHg (35-46); PO2 ABG 107 mmHg (80-95)
[2023-10-17] MEDS: PANTOprazole 40 MG TAB PO SCH ×2 (09:19→20:41)
[2023-10-17] MEDS: METOPROLOL SUCC 50MG EXT REL TAB PO SCH (09:19)
[2023-10-17] MEDS: PREGABALIN 100 MG CAP PO SCH ×2 (09:19→20:45)
[2023-10-17] MEDS: ARMOUR THYROID 30 MG TAB PO SCH (09:19)
[2023-10-17] MEDS: sulfaSALAzine 500 MG TABLET PO SCH ×2 (09:19→20:42)
[2023-10-17 09:20] LABS: Allen Test Pos (Pos)
[2023-10-17 09:26] LABS: Basophils # (auto) 0.05 K/uL (0.00-0.20); Basophils % (auto) 0.4 %; Eosinophils # (auto) 0.21 K/uL (0.00-0.50); Eosinophils % (auto) 1.7 %; Hematocrit (blood only) 26.5 % (37.0-47.0); Hemoglobin 8.6 g/dl (12.0-16.0); Immature Granulocytes # (auto) 0.11 K/uL (0.01-0.20); Immature Granulocytes % (auto) 0.9 %; Lymphocytes # (auto) 1.22 K/uL (1.20-3.40); Lymphocytes % (auto) 9.7 %; Mean Corpuscular Hemoglobin 29.2 pg (25.0-34.0); Mean Corpuscular Hgb Conc 32.5 g/dL (32.0-36.0); Mean Corpuscular Volume 89.8 fL (80.0-100.0); Mean Platelet Volume 10.4 fL (9.4-12.4); Monocytes # (auto) 1.11 K/uL (0.11-0.59); Monocytes % (auto) 8.8 %; Neutrophils # (auto) 9.91 K/uL (1.40-6.50); Neutrophils % (auto) 78.5 %; Platelet Count 517 K/uL (130-400); RDW Coefficient of Variation 15.9 % (11.5-14.5); RDW Standard Deviation 51.8 fL (36.4-46.3); Red Blood Count 2.95 M/uL (4.20-5.40); White Blood Count 12.61 K/ul (4.8-10.8)
[2023-10-17 09:41] LABS: Albumin Level 3.4 gm/dl (3.4-5.0); Bilirubin,Total 0.3 mg/dl (0.2-1.0); Calcium 9.2 mg/dl (8.6-10.3); Potassium 3.9 mmol/L (3.5-5.1)
[2023-10-17 09:46] LABS: Albumin Globulin Ratio 1.2 (0.9-2); BUN Creatinine Ratio 14.8 (10-20); Creatinine Clr Calc Pharmacy 91.6 ml/min; Est GFR (African American) 109.3 ml/min; Est GFR (Non-African American) 94.3 ml/min; Globulin 2.9 gm/dl (2.5-4.0); Total Protein 6.3 gm/dl (6.0-8.3)
[2023-10-17] MEDS ORDERED: HYDROmorphone INJ 0.5 MG/0.5 ML SYR IV STA (09:57)
[2023-10-17 09:59] LABS: Troponin I High Sensitivity 8.6 pg/ml (0-14)
[2023-10-17] MEDS: traMADol HCL 50 MG TABLET PO PRN ×3 (11:00→21:50)
[2023-10-17] MEDS: MAGNESIUM SULFATE / D5W 1 GM/100 ML BAG IV SCH ×2 (11:09→12:39)
[2023-10-17] MEDS: LACTATED RINGER'S 1,000 ML IV SCH ×2 (11:09→22:26)
[2023-10-17] MEDS: MONTELUKAST SODIUM 10 MG TABLET PO SCH (20:40)
[2023-10-18 04:49] LABS: Basophils # (auto) 0.04 K/uL (0.00-0.20); Basophils % (auto) 0.3 %; Eosinophils % (auto) 1.6 %; Hematocrit (blood only) 25.5 % (37.0-47.0); Hemoglobin 8.2 g/dl (12.0-16.0); Immature Granulocytes # (auto) 0.09 K/uL (0.01-0.20); Immature Granulocytes % (auto) 0.7 %; Lymphocytes # (auto) 1.13 K/uL (1.20-3.40); Lymphocytes % (auto) 9.1 %; Mean Corpuscular Hemoglobin 28.9 pg (25.0-34.0); Mean Corpuscular Hgb Conc 32.2 g/dL (32.0-36.0); Mean Corpuscular Volume 89.8 fL (80.0-100.0); Mean Platelet Volume 10.5 fL (9.4-12.4); Monocytes % (auto) 8.9 %; Neutrophils # (auto) 9.81 K/uL (1.40-6.50); Neutrophils % (auto) 79.4 %; Platelet Count 466 K/uL (130-400); RDW Coefficient of Variation 15.8 % (11.5-14.5); RDW Standard Deviation 51.4 fL (36.4-46.3); Red Blood Count 2.84 M/uL (4.20-5.40); White Blood Count 12.37 K/ul (4.8-10.8)
[2023-10-18 04:59] LABS: Albumin Level 3.1 gm/dl (3.4-5.0); Bilirubin,Total 0.3 mg/dl (0.2-1.0); Potassium 3.7 mmol/L (3.5-5.1)
[2023-10-18 05:05] LABS: Albumin Globulin Ratio 1.1 (0.9-2); BUN Creatinine Ratio 11.1 (10-20); Creatinine Clr Calc Pharmacy 91.6 ml/min; Est GFR (African American) 109.3 ml/min; Est GFR (Non-African American) 94.3 ml/min; Globulin 2.7 gm/dl (2.5-4.0); Total Protein 5.8 gm/dl (6.0-8.3)
[2023-10-18] MEDS: traMADol HCL 50 MG TABLET PO PRN ×3 (05:45→22:20)
[2023-10-18] MEDS: FAMOTIDINE 20 MG TAB PO SCH ×2 (07:38→22:22)
[2023-10-18] MEDS: APIXABAN 5 MG TABLET PO SCH ×2 (07:39→22:20)
[2023-10-18] MEDS: METOPROLOL SUCC 50MG EXT REL TAB PO SCH (07:39)
[2023-10-18] MEDS: ASPIRIN 81 MG ECTAB PO SCH (07:40)
[2023-10-18] MEDS: DOCUSATE SODIUM 100 MG CAP PO SCH (07:41)
[2023-10-18] MEDS: amLODIPine BESYLATE 5 MG TAB PO SCH (07:41)
[2023-10-18] MEDS: DULoxetine HCL 30 MG CAP PO SCH (07:41)
[2023-10-18] MEDS: FOLIC ACID 1 MG TAB PO SCH (07:42)
[2023-10-18] MEDS: ARMOUR THYROID 30 MG TAB PO SCH (07:43)
[2023-10-18] MEDS: PANTOprazole 40 MG TAB PO SCH ×2 (07:43→22:21)
[2023-10-18] MEDS: sulfaSALAzine 500 MG TABLET PO SCH ×2 (07:44→22:21)
[2023-10-18] MEDS: PREGABALIN 100 MG CAP PO SCH ×2 (07:48→22:27)
[2023-10-18] MEDS: ACETAMINOPHEN 325 MG TAB PO PRN ×2 (08:17→18:29)
--- NOTE | 2023-10-18 10:13 | Orthopedic Progress Note ---
Date of Service October 18, 2023 Assessment & Plan (1) Status post lumbar surgery: Plan: At this time she seems to be improving. I would encourage her to undergo physical therapy occupational therapy as tolerated. She did ambulate 100 feet a few days ago. Admission and Anticipated Discharge Date Admission Date: October 16, 2023 Subjective Patient's back pain is much improved today. She has some pain to the left leg distally. She states overall it is improved. Physical Exam Physical Exam: On exam she has good strength testing lower extremities. Sensory symmetric and intact. There is no erythema or swelling to the lower extremities. Inspection of her lumbar spine demonstrates incision to be healing well. There is no erythema no drainage. She is nontender to palpation. Results & Data Vital Signs (Past 12 Hours) Vital Signs Temp Pulse Pulse Resp BP BP Pulse Ox 10/18/23 08:16 90 10/18/23 07:45 36.9 C 95 H 18 110/64 97 10/18/23 05:50 36.3 C L 93 H 16 184/101 H 93 10/18/23 01:49 90 10/17/23 22:55 36.8 C 88 16 172/88 H 95 O2 Del Method 10/18/23 08:16 10/18/23 07:45 Room Air 10/18/23 05:50 Room Air 10/18/23 01:49 10/17/23 22:55 Room Air
[2023-10-18] MEDS ORDERED: SODIUM CHLORIDE 0.9% 500 ML IV SCH (10:30)
[2023-10-18] MEDS: LACTATED RINGER'S 1,000 ML IV SCH (11:29)
--- NOTE | 2023-10-18 12:20 | Hospitalist Progress Note ---
Date of Service October 18, 2023 Assessment & Plan (1) Back pain with history of spinal surgery: Plan: Pt is a 73 yo female with a past medical history of HTN, GERD, hx PE, fibromyalgia, polymyalgia rheumatica, hypothyroidism, constipation, and recent spinal surg on 10/04/23 who presents to the hospital on 10/14/23 for poor oral intake, AMS, and worsening low back pain. No repeat imaging has been performed. Seen by orthopedic spine surgeon and recommends rehab and pain control No evidence of infection at the wound site. Hemoglobin is low but is actually increased from previous-do not suspect bleeding No fevers. WBC count is elevated but she is on chronic steroids and did receive IV steroids in the ER. She does have elevated platelets which could be from inflammation or infection but could also be reactive to anemia from blood loss from surgery. These are also improving Follow blood cultures-no growth to date, monitor for fevers. Pain was much improved with increased dose of tramadol and with resolution of severe constipation, however now with severe pain intermittently with seated position Discussed case with Dr. Tafoya again on 10/19--> does not feel strongly that she has a hematoma as she has no TTP over her lower back, but is possible. Doubt infection as afebrile,no bacteria in blood cxs, no erythema or drainage -Continue tramadol 50 mg every 4 hours as needed for moderate pain and tramadol 100 mg p.o. every 4 hours as needed for severe pain -Continue lyrica 100 BID-she reports confusion with increased dose of Lyrica at 200 mg twice daily from last admission -avoid NSAID use as pt has only 1 kidney - PT/OT consulted-needs rehab -If pain not improving or worsens again, would consider imaging to look for infection or hematoma- hold off for today -Continue to work on constipation which is now greatly improved -Mahmood catheter in place for urinary retention which was related to constipation and opioid use - previous back surg infected years ago with Staphylococcus-continue cefadroxil from home for prophylaxis -Added on duloxetine 30 mg p.o. daily for fibromyalgia and radicular type neuropathic pain-consider titration up of dose in 2 to 3 weeks (2) Acute encephalopathy: Plan: Was resolved and now acutely worsened AM of 10/17 Likely secondary to parasomnia as did not sleep all night likely from pain. CT head negative, ABG without acidosis or hypercarbia, lactate and ammonia levels normal, renal function and electrolytes acceptable No fever and vitals acceptable. -Initially her delirium due to medication induced likely from increased dose of Lyrica and taking opioids as well as severe constipation, urinary retention - TSH normal, no evidence of infection so far the blood cultures no growth to date NOW RESOLVED (AGAIN) COntinue Supportive care, pain control, avoid constipation, and maintain Mahmood (3) Anemia: Plan: Hemoglobin low at 7.9-8.1-likely component of acute blood loss anemia from previous back surgery but she also reports a history of chronic iron deficiency Last colonoscopy was 3 years ago and she was told was normal but does have a history of ulcerative colitis remotely for which she is not currently treated Iron studies and ferritin more consistent with anemia of chronic disease B12, folate, and TSH were normal Follow CBC Hold home p.o. ferrous sulfate for now given recent severe constipation (4) Constipation: Plan: - large stool burden noted 10/[address] -Has now had multiple large bowel movements after receiving several doses of MiraLAX and lactulose and was having incontinence to stool through her vagina with likely fistula which has been ongoing for months -Continue MiraLAX daily as needed -Continue home docusate -Avoidance of opioids if possible except for tramadol -Encourage ambulation with rehab -Hold home p.o. iron tablets (5) Thrombocytosis: Plan: Platelets elevated in the 500s on admission and now improving down to 400s-could be reactive to anemia versus from acute phase reactant to infection or inflammation Follow CBC and blood cultures (6) Acute urinary retention: Plan: - noted last visit 10/12, mahmood placed then for retention in the ER - continue mahmood, replaced on admission this time - recommend voiding trial once pt more awake and constipation has improved, ambulation improved and not taking opioids-most likely this will be in 1 to 2 weeks She does have an appointment with urology on 10/26 I believe (7) HTN (hypertension): Plan: Blood pressures have been elevated likely secondary to pain but are now improved - continue amlodipine -Continue to hold triamterene/HCTZ since poor oral intake/dry - continue metoprolol (8) Polymyalgia rheumatica: Plan: Continue home methylprednisolone No stress dose steroids needed (9) Hypothyroid: Plan: - continue home [place] thyroid TSH here normal at 1.27 (10) Fibromyalgia: Plan: Chronic, continue Lyrica Added duloxetine 30 mg daily (11) Coronary artery disease: Plan: With a history of stents x2 Continue aspirin, Eliquis, metoprolol Has intolerance to statins but is on Praluent as an outpatient (12) Rheumatoid arthritis: Plan: Continue methotrexate and folic acid Continue chronic methylprednisolone (13) Pulmonary emboli: Plan: Diagnosed in 07/2023 after having COVID and recent long travel to [place] Continue Eliquis for at least 3 to 6 months (14) Hemorrhoid: Plan: Continue hydrocortisone [place] nightly 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 Has not been on any treatment for UC in over 10 years at least Had colonoscopy about 3 years ago in [place], was told was normal Also had dilated appendix on CT abd/pel 10/12 without appendicitis-needs Surgical eval which she has set up already for 10/17/23 with Colorectal SUrgery from [facility] that comes to [place] Will request CT on CD for her to take to her appt Plan VTE proph: home eliquis Dispo: continued stay on PCU for previous significant altered mental status which is now resolved-can likely downgrade to med/surg tomorrow if continues to have normal mentation. With continued stay, PT/OT consulted and needs rehab. information systems audit manager discussed referrals to rehab and SNF for her Discussed care with at bedside on 10/16 and again in 10/17 Admission and Anticipated Discharge Date Admission Date: October 16, 2023 Subjective Pt was feeling better this AM and then after getting OOB to the chair and walking with PT in the room, she has had severe return of pain in lower back, down both lateral thighs to mid shins. After sitting in the chair for a couple of hours, she also felt like her right lower extremity was weak. She is moving her bowels, no further confusion, thinks she slept better last night. Tele with NSR, PVCs, rates in 90s Physical Exam Constitutional: WD/WN, vitals as above Respiratory: normal respiratory effort, lungs clear to auscultation Cardiovascular: RRR, no murmur, no edema Chest (Breasts): Chest: normal inspection of chest Gastrointestinal (Abdomen): normal bowel sounds, soft, nontender, no hepatosplenomegaly Musculoskeletal: Extremities: extremities normal to inspection; no cyanosis and no clubbing Skin: no rashes, warm and dry Neurologic: moves all extremities and awake; no focal motor deficits (5/5 strength throughout LEs bilat) Psychiatric: Orientation: alert, oriented x 3 and cooperative Affect: euthymic affect Genitourinary: + abnormal external appearance (Mahmood ca theter in place draining clear yellow urine) Lymphatic: no lymphedema Results & Data Results & Data Vital Signs (Past 12 Hours) Vital Signs Temp Pulse Pulse Resp BP BP Pulse Ox 10/18/23 11:25 36.8 C 78 18 138/80 95 10/18/23 08:16 90 10/18/23 07:45 36.9 C 95 H 18 110/64 97 10/18/23 05:50 36.3 C L 93 H 16 184/101 H 93 10/18/23 01:49 90 O2 Del Method 10/18/23 11:25 Room Air 10/18/23 08:16 10/18/23 07:45 Room Air 10/18/23 05:50 Room Air 10/18/23 01:49 Laboratory Results CBC, CMP, blood cx reviewed PG Care Time/CCT Total # of Minutes Spent Total Time Spent with Patient: Total time spent is greater than 50% in coordination of care (as documented) at patient's floor/unit and/or counseling patient: Coding Level of Care Code 00671 SUB INP/OBS CARE 2/35MIN Diagnoses Back pain with history of spinal surgery M54.9; Z98.890 Acute encephalopathy G93.40 Anemia D64.9 Constipation K59.00 Constipation type: unspecified constipation type Thrombocytosis D75.839 Acute urinary retention R33.8 HTN (hypertension) I10 Polymyalgia rheumatica M35.3 Hypothyroid E03.9 Fibromyalgia M79.7 Coronary artery disease I25.10 Rheumatoid arthritis M06.9 Pulmonary emboli I26.99 Hemorrhoid K64.9 GERD (gastroesophageal reflux disease) K21.9 [place]-vesical fistula N32.1 (4) Constipation Constipation type: unspecified constipation type Qualified Code(s): K59.00 - Constipation, unspecified
[2023-10-18] MEDS: HYDROCORTISONE ACETATE 25 MG SUPP PR SCH (22:20)
[2023-10-18] MEDS: MONTELUKAST SODIUM 10 MG TABLET PO SCH (22:21)
[2023-10-19] MEDS: LACTATED RINGER'S 1,000 ML IV SCH (00:14)
[2023-10-19 07:31] LABS: Basophils # (auto) 0.04 K/uL (0.00-0.20); Basophils % (auto) 0.4 %; Eosinophils # (auto) 0.27 K/uL (0.00-0.50); Eosinophils % (auto) 2.5 %; Hematocrit (blood only) 25.9 % (37.0-47.0); Hemoglobin 8.2 g/dl (12.0-16.0); Immature Granulocytes # (auto) 0.12 K/uL (0.01-0.20); Immature Granulocytes % (auto) 1.1 %; Lymphocytes # (auto) 1.71 K/uL (1.20-3.40); Lymphocytes % (auto) 15.6 %; Mean Corpuscular Hemoglobin 28.7 pg (25.0-34.0); Mean Corpuscular Hgb Conc 31.7 g/dL (32.0-36.0); Mean Corpuscular Volume 90.6 fL (80.0-100.0); Mean Platelet Volume 10.6 fL (9.4-12.4); Monocytes # (auto) 1.16 K/uL (0.11-0.59); Monocytes % (auto) 10.6 %; Neutrophils # (auto) 7.65 K/uL (1.40-6.50); Neutrophils % (auto) 69.8 %; Platelet Count 480 K/uL (130-400); RDW Coefficient of Variation 15.9 % (11.5-14.5); RDW Standard Deviation 52.1 fL (36.4-46.3); Red Blood Count 2.86 M/uL (4.20-5.40); White Blood Count 10.95 K/ul (4.8-10.8)
[2023-10-19 07:46] LABS: Albumin Level 2.9 gm/dl (3.4-5.0); BUN Creatinine Ratio 10.3 (10-20); Bilirubin,Total 0.3 mg/dl (0.2-1.0); Calcium 8.7 mg/dl (8.6-10.3); Creatinine Clr Calc Pharmacy 84.8 ml/min; Est GFR (African American) 106.7 ml/min; Est GFR (Non-African American) 92.1 ml/min; Globulin 2.8 gm/dl (2.5-4.0); Potassium 3.5 mmol/L (3.5-5.1); Total Protein 5.7 gm/dl (6.0-8.3)
[2023-10-19] MEDS: APIXABAN 5 MG TABLET PO SCH ×2 (08:32→20:14)
[2023-10-19] MEDS: FOLIC ACID 1 MG TAB PO SCH (08:32)
[2023-10-19] MEDS: DULoxetine HCL 30 MG CAP PO SCH (08:32)
[2023-10-19] MEDS: FAMOTIDINE 20 MG TAB PO SCH ×2 (08:32→20:14)
[2023-10-19] MEDS: METOPROLOL SUCC 50MG EXT REL TAB PO SCH (08:32)
[2023-10-19] MEDS: ARMOUR THYROID 30 MG TAB PO SCH (08:32)
[2023-10-19] MEDS: PANTOprazole 40 MG TAB PO SCH ×2 (08:32→20:15)
[2023-10-19] MEDS: sulfaSALAzine 500 MG TABLET PO SCH ×2 (08:32→20:13)
[2023-10-19] MEDS: ASPIRIN 81 MG ECTAB PO SCH (08:32)
[2023-10-19] MEDS: amLODIPine BESYLATE 5 MG TAB PO SCH (08:32)
[2023-10-19] MEDS: traMADol HCL 50 MG TABLET PO PRN ×2 (08:38→12:21)
[2023-10-19] MEDS: PREGABALIN 100 MG CAP PO SCH ×2 (08:38→20:12)
[2023-10-19] MEDS: DOCUSATE SODIUM 100 MG CAP PO SCH (08:38)
--- NOTE | 2023-10-19 12:25 | Orthopedic Progress Note ---
Date of Service October 19, 2023 Assessment & Plan (1) Neurogenic claudication due to lumbar spinal stenosis: Plan: At this time we will also add physical therapy to Occupational Therapy. Her disuse and deconditioning is contributing to some of her limitation and pain. Hopefully we can continue to work with her over the course the next several days and she will improved to the point of rehab placement. Admission and Anticipated Discharge Date Admission Date: October 16, 2023 Subjective Patient states her back pain is controlled at rest. She struggles with activity. Denies any radicular complaints at this time. Physical Exam Physical Exam: On exam she is able to roll on her side without difficulty. The incision is healing appropriately. No erythema or drainage appreciated no gross swelling. There is tenderness to deep palpation of the paravertebral musculature. She has good strength testing lower extremities otherwise. Results & Data Vital Signs (Past 12 Hours) Vital Signs Temp Pulse Pulse Resp BP BP Pulse Ox 10/19/23 10:59 36.6 C 66 17 138/78 96 10/19/23 09:58 79 10/19/23 07:17 36.5 C 81 17 128/76 96 10/19/23 03:56 36.8 C 76 16 109/72 92 O2 Del Method 10/19/23 10:59 Room Air 10/19/23 09:58 10/19/23 07:17 Room Air 10/19/23 03:56 Room Air
[2023-10-19] MEDS: POLYETHYLENE (MIRALAX) 17 GM PACK PO SCH (13:00)
[2023-10-19] MEDS: SENNA 8.6 MG TAB PO SCH (13:39)
--- NOTE | 2023-10-19 17:28 | Hospitalist Progress Note ---
Date of Service October 19, 2023 Assessment & Plan (1) Back pain with history of spinal surgery: Plan: Pt is a 73 yo female with a past medical history of HTN, GERD, hx PE, fibromyalgia, polymyalgia rheumatica, hypothyroidism, constipation, and recent spinal surg on 10/04/23 who presents to the hospital on 10/14/23 for poor oral intake, AMS, and worsening low back pain. No repeat imaging has been performed. Seen by orthopedic spine surgeon and recommends ongoing rehab and pain control No evidence of infection at the wound site. Hemoglobin is low but is actually increased from previous-do not suspect bleeding No fevers. WBC count is elevated but she is on chronic steroids and did receive IV steroids in the ER. She does have elevated platelets which could be from inflammation or infection but could also be reactive to anemia from blood loss from surgery. These are also improving Follow blood cultures-no growth to date, monitor for fevers. She has fibromyalgia and seems to be exquisitely tender anywhere palpated on her body including her shins Pain improved with increased dose of tramadol and with resolution of severe constipation, but forgets to ask for pain medicine -make tramadol 100 mg p.o. q8h scheduled so she doesn't get behind on pain -Continue lyrica 100 BID-she reports confusion with increased dose of Lyrica at 200 mg twice daily from last admission -avoid NSAID use as pt has only 1 kidney - PT/OT consulted-needs rehab -If pain not improving or worsens again, would consider imaging to look for infection or hematoma- hold off on this as per my d/w Ortho -Continue to work on constipation which is now greatly improved but recurrent- add Miralax daily and senna back on -Mahmood catheter in place for urinary retention which was related to constipation and opioid use - previous back surg infected years ago with Staphylococcus-continue cefadroxil from home for prophylaxis -Added on duloxetine 30 mg p.o. daily for fibromyalgia and radicular type neuropathic pain-consider titration up of dose in 2 to 3 weeks (2) Acute encephalopathy: Plan: Was resolved from admission and acutely worsened AM of 10/17 when she was essentially obtunded, but would follow commands and moan with pain but would not wake up for several hours Likely secondary to parasomnia as did not sleep all night likely from pain. CT head negative, ABG without acidosis or hypercarbia, lactate and ammonia levels normal, renal function and electrolytes acceptable No arrhythmias on tele No fever and vitals acceptable. -Initially her delirium due to medication induced likely from increased dose of Lyrica and taking opioids as well as severe constipation, urinary retention - TSH normal, no evidence of infection so far the blood cultures no growth to date NOW RESOLVED (AGAIN) COntinue Supportive care, pain control, avoid constipation, and maintain Mahmood (3) Anemia: Plan: Hemoglobin low at 8.2-likely component of acute blood loss anemia from previous back surgery but she also reports a history of chronic iron deficiency Last colonoscopy was 3 years ago and she was told was normal but does have a h istory of ulcerative colitis remotely for which she is not currently treated Iron studies and ferritin more consistent with anemia of chronic disease B12, folate, and TSH were normal Follow CBC Hold home p.o. ferrous sulfate for now given recent severe constipation (4) Constipation: Plan: - large stool burden noted 10/[address] -then had multiple large bowel movements after receiving several doses of MiraLAX and lactulose and was having incontinence to stool through her vagina with likely fistula which has been ongoing for months -now no BM again for 2 days -make MiraLAX daily scheduled -Continue home docusate and add on daily senna -Avoidance of opioids if possible except for tramadol -Encourage ambulation with rehab -Hold home p.o. iron tablets (5) Thrombocytosis: Plan: Platelets elevated in the 500s on admission and now improving down to 400s-could be reactive to anemia versus from acute phase reactant to infection or inflammation Follow CBC and blood cultures (6) Acute urinary retention: Plan: - noted last visit 10/12, mahmood placed then for retention in the ER - continue mahmood, replaced on admission this time - recommend voiding trial once pt more awake and constipation has improved, ambulation improved and not taking opioids-most likely this will be in 1 to 2 weeks She does have an appointment with urology on 10/26 I believe (7) HTN (hypertension): Plan: Blood pressures have been elevated likely secondary to pain but are now improved - continue amlodipine -Continue to hold triamterene/HCTZ since poor oral intake/dry - continue metoprolol (8) Polymyalgia rheumatica: Plan: Continue home methylprednisolone ALso on MTX No stress dose steroids needed (9) Hypothyroid: Plan: - continue home [place] thyroid TSH here normal at 1.27 (10) Fibromyalgia: Plan: Chronic, continue Lyrica Added duloxetine 30 mg daily (11) Coronary artery disease: Plan: With a history of stents x2 Continue aspirin, Eliquis, metoprolol Has intolerance to statins but is on Praluent as an outpatient (12) Rheumatoid arthritis: Plan: Continue methotrexate and folic acid Continue chronic methylprednisolone (13) Pulmonary emboli: Plan: Diagnosed in 07/2023 after having COVID and recent long travel to [place] Continue Eliquis for at least 3 to 6 months (14) Hemorrhoid: Plan: Continue hydrocortisone DE nightly 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 Has not been on any treatment for UC in over 10 years at least Had colonoscopy about 3 years ago in [place], was told was normal Also had dilated appendix on CT abd/pel 10/12 without appendicitis-needs Surgical eval which she has set up already for 10/17/23 with Colorectal SUrgery from [facility] that comes [facility] with her CT images on it for her Surgeon Plan VTE proph: home eliquis Dispo: medically stable for discharge but insurance auth pending for SNF-can likely downgrade to med/surg tomorrow if continues to have normal mentation. With continued stay, PT/OT consulted and needs rehab. manager battery discussed referrals to rehab and SNF for her Discussed care with at bedside on 10/19 Admission and Anticipated Discharge Date Admission Date: October 16, 2023 Subjective Pt continues to have pain in lower back and down both hips and into bilat legs. Is not moving bowels for 2 days now Discussed her care with Ortho Spine at the bedside Tele with NSR, rates 70-80s Physical Exam Constitutional: WD/WN, vitals as above Respiratory: normal respiratory effort, lungs clear to auscultation Cardiovascular: RRR, no murmur, no edema Chest (Breasts): Chest: normal inspection of chest Gastrointestinal (Abdomen): normal bowel sounds, soft, nontender, no hepatosplenomegaly Musculoskeletal: Extremities: extremities normal to inspection; no cyanosis and no clubbing +TTP in lower back, hips and bilat shins and anywhere else on her body that is palpated Skin: no rashes, warm and dry Neurologic: moves all extremities and awake; no focal motor deficits (5/5 strength throughout LEs bilat) Psychiatric: Orientation: alert, oriented x 3 and cooperative Affect: euthymic affect Genitourinary: + abnormal external appearance (Mahmood ca theter in place draining clear yellow urine) Lymphatic: no lymphedema Results & Data Results & Data Vital Signs (Past 12 Hours) Vital Signs Temp Pulse Pulse Resp BP BP Pulse Ox 10/19/23 15:02 36.7 C 73 18 120/81 93 10/19/23 10:59 36.6 C 66 17 138/78 96 10/19/23 09:58 79 10/19/23 07:17 36.5 C 81 17 128/76 96 O2 Del Method 10/19/23 15:02 Room Air 10/19/23 10:59 Room Air 10/19/23 09:58 10/19/23 07:17 Room Air Laboratory Results CBC, CMP, Blood cxs reviewed PG Care Time/CCT Total # of Minutes Spent Total Time Spent with Patient: Total time spent is greater than 50% in coordination of care (as documented) at patient's floor/unit and/or counseling patient: Coding Level of Care Code 80131 SUB INP/OBS CARE 2/35MIN Diagnoses Back pain with history of spinal surgery M54.9; Z98.890 Acute encephalopathy G93.40 Anemia D64.9 Constipation K59.00 Constipation type: unspecified constipation type Thrombocytosis D75.839 Acute urinary retention R33.8 HTN (hypertension) I10 Polymyalgia rheumatica M35.3 Hypothyroid E03.9 Fibromyalgia M79.7 Coronary artery disease I25.10 Rheumatoid arthritis M06.9 Pulmonary emboli I26.99 Hemorrhoid K64.9 GERD (gastroesophageal reflux disease) K21.9 Luke-vesical fistula N32.1 (4) Constipation Constipation type: unspecified constipation type Qualified Code(s): K59.00 - Constipation, unspecified
[2023-10-19] MEDS: traMADol HCL 50 MG TABLET PO SCH (20:13)
[2023-10-19] MEDS: MONTELUKAST SODIUM 10 MG TABLET PO SCH (20:13)
[2023-10-19] MEDS: HYDROCORTISONE ACETATE 25 MG SUPP PR SCH (20:15)
[2023-10-19 21:21] LABS: BUN Creatinine Ratio 13.3 (10-20); Creatinine Clr Calc Pharmacy 65.6 ml/min; Est GFR (African American) 92.3 ml/min; Est GFR (Non-African American) 79.6 ml/min; Magnesium 1.6 mg/dl (1.7-2.4); Phosphorus 3.7 mg/dl (2.5-4.9); Potassium 3.7 mmol/L (3.5-5.1)
[2023-10-19 21:28] LABS: Troponin I High Sensitivity 6.7 pg/ml (0-14)
[2023-10-20] MEDS: traMADol HCL 50 MG TABLET PO SCH ×3 (04:34→20:42)
--- NOTE | 2023-10-20 05:31 | Electrocardiogram Report ---
Test Reason : Blood Pressure : / mmHG Vent. Rate : 089 BPM Atrial Rate : 089 BPM P-R Int : 168 ms QRS Dur : 068 ms QT Int : 352 ms P-R-T Axes : 049 002 026 degrees QTc Int : 428 ms Normal sinus rhythm Possible Inferior infarct (cited on or before 05-APR-2023) Abnormal ECG When compared with ECG of 26-SEP-2023 15:28, Vent. rate has increased BY 30 BPM Questionable change in initial forces of Septal leads Confirmed by Willie Hale ([id number]) on 10/20/2023 5:31:01 AM Referred By: REFERRED SELF Confirmed By:Willie Hale
[2023-10-20 07:11] LABS: Basophils # (auto) 0.05 K/uL (0.00-0.20); Basophils % (auto) 0.5 %; Eosinophils # (auto) 0.29 K/uL (0.00-0.50); Eosinophils % (auto) 2.9 %; Hematocrit (blood only) 25.3 % (37.0-47.0); Hemoglobin 8.2 g/dl (12.0-16.0); Immature Granulocytes # (auto) 0.12 K/uL (0.01-0.20); Immature Granulocytes % (auto) 1.2 %; Lymphocytes # (auto) 2.14 K/uL (1.20-3.40); Lymphocytes % (auto) 21.1 %; Mean Corpuscular Hgb Conc 32.4 g/dL (32.0-36.0); Mean Corpuscular Volume 89.4 fL (80.0-100.0); Mean Platelet Volume 10.4 fL (9.4-12.4); Monocytes # (auto) 1.08 K/uL (0.11-0.59); Monocytes % (auto) 10.6 %; Neutrophils # (auto) 6.48 K/uL (1.40-6.50); Neutrophils % (auto) 63.7 %; Platelet Count 499 K/uL (130-400); RDW Coefficient of Variation 16.1 % (11.5-14.5); RDW Standard Deviation 52.8 fL (36.4-46.3); Red Blood Count 2.83 M/uL (4.20-5.40); White Blood Count 10.16 K/ul (4.8-10.8)
[2023-10-20 07:30] LABS: Albumin Globulin Ratio 1.1 (0.9-2); BUN Creatinine Ratio 14.8 (10-20); Bilirubin,Total 0.3 mg/dl (0.2-1.0); Calcium 8.8 mg/dl (8.6-10.3); Creatinine Clr Calc Pharmacy 79.8 ml/min; Est GFR (Non-African American) 90.6 ml/min; Globulin 2.8 gm/dl (2.5-4.0); Potassium 3.6 mmol/L (3.5-5.1); Total Protein 5.8 gm/dl (6.0-8.3)
--- NOTE | 2023-10-20 08:34 | Hospitalist Progress Note ---
Date of Service October 20, 2023 Assessment & Plan (1) Back pain with history of spinal surgery: Plan: Pt is a 73 yo female with a past medical history of HTN, GERD, hx PE, fibromyalgia, polymyalgia rheumatica, hypothyroidism, constipation, and recent spinal surg on 10/04/23 who presents to the hospital on 10/14/23 for poor oral intake, AMS, and worsening low back pain. No repeat imaging has been performed. Seen by orthopedic spine surgeon and recommends ongoing rehab and pain control No evidence of infection at the wound site. Hemoglobin is low but is actually increased from previous-do not suspect bleeding No fevers. WBC count is elevated but she is on chronic steroids and did receive IV steroids in the ER. She does have elevated platelets which could be from inflammation or infection but could also be reactive to anemia from blood loss from surgery. These are also improving Follow blood cultures-no growth to date, monitor for fevers. She has fibromyalgia and has multiple tender points consistent with a diagnosis Pain improved with increased dose of scheduled tramadol and with resolution of severe constipation, adding. MiraLAX for constipation complaints -make tramadol 100 mg p.o. q8h scheduled so she doesn't get behind on pain -Continue lyrica 100 BID-she reports confusion with increased dose of Lyrica at 200 mg twice daily from last admission -avoid NSAID use as pt has only 1 kidney - PT/OT consulted-needs rehab -If pain not improving or worsens again, would consider imaging to look for infection or hematoma- hold off on this as per my d/w Ortho -Continue to work on constipation which is now greatly improved but recurrent-a dd Miralax daily and senna back on -Mahmood catheter in place for urinary retention which was related to constipation and opioid use - previous back surg infected years ago with Staphylococcus-continue cefadroxil from home for prophylaxis -Added on duloxetine 30 mg p.o. daily for fibromyalgia and radicular type neuropathic pain-consider titration up of dose in 2 to 3 weeks (2) Acute encephalopathy: Plan: Was resolved from admission and acutely worsened AM of 10/17 when she was essentially obtunded, but would follow commands and moan with pain but would not wake up for several hours Likely secondary to parasomnia as did not sleep all night likely from pain. CT head negative, ABG without acidosis or hypercarbia, lactate and ammonia levels normal, renal function and electrolytes acceptable No arrhythmias on tele No fever and vitals acceptable. -Initially her delirium due to medication induced likely from increased dose of Lyrica and taking opioids as well as severe constipation, urinary retention - TSH normal, no evidence of infection so far the blood cultures no growth to date NOW RESOLVED (AGAIN) COntinue Supportive care, pain control, avoid constipation, and maintain Mahmood (3) Anemia: Plan: Hemoglobin low at 8.2-likely component of acute blood loss anemia from previous back surgery but she also reports a history of chronic iron deficiency Last colonoscopy was 3 years ago and she was told was normal but does have a history of ulcerative colitis remotely for which she is not currently treated Iron studies and ferritin more consistent with anemia of chronic disease B12, folate, and TSH were normal Follow CBC Hold home p.o. ferrous sulfate for now given recent severe constipation (4) Constipation: Plan: - large stool burden noted 10/[address] -then had multiple large bowel movements after receiving several doses of MiraLAX and lactulose and was having incontinence to stool through her vagina with likely fistula which has been ongoing for months -now no BM again for 2 days -make MiraLAX daily scheduled -Continue home docusate and add on daily senna -Avoidance of opioids if possible except for tramadol -Encourage ambulation with rehab -Hold home p.o. iron tablets (5) Thrombocytosis: Plan: platelets are elevated at the 500 range likely acute phase reactant (6) Acute urinary retention: Plan: - noted last visit 10/12, mahmood placed then for retention in the ER - continue mahmood, replaced on admission this time - recommend voiding trial once pt more awake and constipation has improved, ambulation improved and not taking opioids-most likely this will be in 1 to 2 weeks She does have an appointment with urology on 10/26 (7) HTN (hypertension): Plan: Blood pressures have been elevated likely secondary to pain but are now improved - continue amlodipine -Continue to hold triamterene/HCTZ since poor oral intake/dry - continue metoprolol (8) Polymyalgia rheumatica: Plan: Continue home methylprednisolone ALso on MTX No stress dose steroids needed (9) Hypothyroid: Plan: - continue home [place] thyroid TSH here normal at 1.27 (10) Fibromyalgia: Plan: Chronic, continue Lyrica Added duloxetine 30 mg daily (11) Coronary artery disease: Plan: Stable, With a history of stents x2 Continue aspirin, Eliquis, metoprolol Has intolerance to statins but is on Praluent as an outpatient (12) Rheumatoid arthritis: Plan: Continue methotrexate and folic acid Continue chronic methylprednisolone (13) Pulmonary emboli: Plan: Diagnosed in 07/2023 after having COVID and recent long travel to [place] Continue Eliquis for at least 3 to 6 months (14) Hemorrhoid: Plan: Continue hydrocortisone CT nightly 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 Has not been on any treatment for UC in over 10 years at least Had colonoscopy about 3 years ago in [place], was told was normal Also had dilated appendix on CT abd/pel 10/12 without appendicitis-needs Surgical eval which she has set up already for 10/17/23 with Colorectal SUrgery from [facility] that comes to [facility] with her CT images on it for her Surgeon Plan VTE proph: home eliquis Dispo: medically stable for discharge but insurance auth pending for SNF- Admission and Anticipated Discharge Date Admission Date: October 16, 2023 Subjective patient was seen in hospital room she is having no active complaints or problems except wanting to increase her bowel regimen. She still having intermediate pain control with mostly pain with transitions of movement. Physical Exam Physical Exam: Awake alert appropriate. Cardiac exam is regular lungs are clear. Lower extremities are with equal bilateral sensation and strength although did not assess her ability to walk. It was painful for her to sit upright as she took a few moments to write herself when she was able to sit forward Results & Data Results & Data Vital Signs (Past 12 Hours) Vital Signs Temp Pulse Pulse Resp BP BP Pulse Ox 10/20/23 08:20 98.2 F 70 18 111/71 96 10/20/23 04:25 97.9 F 77 18 120/68 93 10/19/23 23:02 73 10/19/23 23:00 97.7 F 80 16 122/76 93 O2 Del Method 10/20/23 08:20 Room Air 10/20/23 04:25 Room Air 10/19/23 23:02 10/19/23 23:00 Room Air Laboratory Results reviewed CBC reviewed chemistry ordered repeat magnesium test for 10/21/2023 PG Care Time/CCT Total # of Minutes Spent Total Time Spent with Patient: Total time spent is greater than 50% in coordination of care (as documented) at patient's floor/unit and/or counseling patient: Coding Level of Care Code 00526 SUB INP/OBS CARE 2/35MIN Diagnoses Back pain with history of spinal surgery M54.9; Z98.890 Acute encephalopathy G93.40 Anemia D64.9 Constipation K59.00 Constipation type: unspecified constipation type Thrombocytosis D75.839 Acute urinary retention R33.8 HTN (hypertension) I10 Polymyalgia rheumatica M35.3 Hypothyroid E03.9 Fibromyalgia M79.7 Coronary artery disease I25.10 Rheumatoid arthritis M06.9 Pulmonary emboli I26.99 Hemorrhoid K64.9 GERD (gastroesophageal reflux disease) K21.9 Earling-vesical fistula N32.1 (4) Constipation Constipation type: unspecified constipation type Qualified Code(s): K59.00 - Constipation, unspecified
[2023-10-20] MEDS: ARMOUR THYROID 30 MG TAB PO SCH (09:06)
[2023-10-20] MEDS: amLODIPine BESYLATE 5 MG TAB PO SCH (09:07)
[2023-10-20] MEDS: APIXABAN 5 MG TABLET PO SCH ×2 (09:07→20:44)
[2023-10-20] MEDS: FOLIC ACID 1 MG TAB PO SCH (09:07)
[2023-10-20] MEDS: METOPROLOL SUCC 50MG EXT REL TAB PO SCH (09:07)
[2023-10-20] MEDS: DULoxetine HCL 30 MG CAP PO SCH (09:08)
[2023-10-20] MEDS: sulfaSALAzine 500 MG TABLET PO SCH ×2 (09:09→20:43)
[2023-10-20] MEDS: FAMOTIDINE 20 MG TAB PO SCH ×2 (09:09→20:45)
[2023-10-20] MEDS: ASPIRIN 81 MG ECTAB PO SCH (09:09)
[2023-10-20] MEDS: PANTOprazole 40 MG TAB PO SCH ×2 (09:10→20:43)
--- NOTE | 2023-10-20 09:12 | Orthopedic Progress Note ---
Date of Service October 20, 2023 Assessment & Plan (1) Neurogenic claudication due to lumbar spinal stenosis: Plan: This time we will continue to encourage physical therapy and I like her to sit in the chair at all times for meals. Admission and Anticipated Discharge Date Admission Date: October 16, 2023 Subjective Patient feels her back pain is improving. She denies any pain down the legs. She tolerated sitting the chair for several hours yesterday. Physical Exam Physical Exam: On exam she is currently bed. Regional strength testing. Appears comfortable. Results & Data Vital Signs (Past 12 Hours) Vital Signs Temp Pulse Pulse Resp BP BP Pulse Ox 10/20/23 08:20 36.8 C 70 18 111/71 96 10/20/23 04:25 36.6 C 77 18 120/68 93 10/19/23 23:02 73 10/19/23 23:00 36.5 C 80 16 122/76 93 O2 Del Method 10/20/23 08:20 Room Air 10/20/23 04:25 Room Air 10/19/23 23:02 10/19/23 23:00 Room Air
[2023-10-20] MEDS: PREGABALIN 100 MG CAP PO SCH ×2 (09:43→20:42)
[2023-10-20] MEDS: ACETAMINOPHEN 325 MG TAB PO PRN (10:30)
[2023-10-20] MEDS ORDERED: POLYETHYLENE (MIRALAX) 17 GM PACK PO PRN (11:58)
[2023-10-20] MEDS: DOCUSATE SODIUM 100 MG CAP PO SCH (12:50)
[2023-10-20] MEDS: SENNA 8.6 MG TAB PO SCH (12:50)
[2023-10-20] MEDS: POLYETHYLENE (MIRALAX) 17 GM PACK PO SCH (12:50)
--- NOTE | 2023-10-20 12:54 | Electrocardiogram Report ---
Test Reason : Blood Pressure : / mmHG Vent. Rate : 071 BPM Atrial Rate : 071 BPM P-R Int : 168 ms QRS Dur : 076 ms QT Int : 398 ms P-R-T Axes : 013 006 026 degrees QTc Int : 432 ms Sinus rhythm with Premature ventricular complexes Septal infarct (cited on or before 05-APR-2023) Possible Inferior infarct (cited on or before 05-APR-2023) Abnormal ECG When compared with ECG of 17-OCT-2023 08:14, Questionable change in initial forces of Anterior leads Confirmed by Devaughn Whitaker ([id number]) on 10/20/2023 12:53:57 PM Referred By: REFERRED SELF Confirmed By:Devaughn Whitaker
[2023-10-20] MEDS: MONTELUKAST SODIUM 10 MG TABLET PO SCH (20:44)
[2023-10-20] MEDS: HYDROCORTISONE ACETATE 25 MG SUPP PR SCH (20:46)
[2023-10-21] MEDS: traMADol HCL 50 MG TABLET PO SCH ×3 (05:50→21:22)
[2023-10-21] MEDS ORDERED: Nursing to Pharmacy Communication SCH (06:00)
[2023-10-21] MEDS: ARMOUR THYROID 30 MG TAB PO SCH (07:04)
[2023-10-21] MEDS: ACETAMINOPHEN 325 MG TAB PO PRN (07:15)
[2023-10-21 07:33] LABS: Basophils # (auto) 0.05 K/uL (0.00-0.20); Basophils % (auto) 0.6 %; Eosinophils # (auto) 0.36 K/uL (0.00-0.50); Eosinophils % (auto) 4.3 %; Hematocrit (blood only) 26.2 % (37.0-47.0); Hemoglobin 8.1 g/dl (12.0-16.0); Immature Granulocytes # (auto) 0.09 K/uL (0.01-0.20); Immature Granulocytes % (auto) 1.1 %; Lymphocytes # (auto) 2.02 K/uL (1.20-3.40); Lymphocytes % (auto) 24.1 %; Mean Corpuscular Hemoglobin 27.8 pg (25.0-34.0); Mean Corpuscular Hgb Conc 30.9 g/dL (32.0-36.0); Mean Platelet Volume 10.5 fL (9.4-12.4); Monocytes # (auto) 1.04 K/uL (0.11-0.59); Monocytes % (auto) 12.4 %; Neutrophils # (auto) 4.82 K/uL (1.40-6.50); Neutrophils % (auto) 57.5 %; Platelet Count 525 K/uL (130-400); RDW Coefficient of Variation 16.2 % (11.5-14.5); RDW Standard Deviation 53.5 fL (36.4-46.3); Red Blood Count 2.91 M/uL (4.20-5.40); White Blood Count 8.38 K/ul (4.8-10.8)
[2023-10-21 07:56] LABS: Albumin Globulin Ratio 1.1 (0.9-2); Albumin Level 3.1 gm/dl (3.4-5.0); BUN Creatinine Ratio 12.9 (10-20); Bilirubin,Total 0.3 mg/dl (0.2-1.0); Calcium 8.8 mg/dl (8.6-10.3); Creatinine Clr Calc Pharmacy 78.7 ml/min; Est GFR (African American) 104.4 ml/min; Est GFR (Non-African American) 90.1 ml/min; Globulin 2.7 gm/dl (2.5-4.0); Magnesium 1.6 mg/dl (1.7-2.4); Potassium 3.5 mmol/L (3.5-5.1); Total Protein 5.8 gm/dl (6.0-8.3)
[2023-10-21] MEDS: sulfaSALAzine 500 MG TABLET PO SCH ×2 (09:04→21:24)
[2023-10-21] MEDS: FAMOTIDINE 20 MG TAB PO SCH ×2 (09:04→21:23)
[2023-10-21] MEDS: PANTOprazole 40 MG TAB PO SCH ×2 (09:04→21:22)
[2023-10-21] MEDS: POLYETHYLENE (MIRALAX) 17 GM PACK PO SCH (09:04)
[2023-10-21] MEDS: APIXABAN 5 MG TABLET PO SCH ×2 (09:04→21:23)
[2023-10-21] MEDS: ASPIRIN 81 MG ECTAB PO SCH (09:05)
[2023-10-21] MEDS: FOLIC ACID 1 MG TAB PO SCH (09:05)
[2023-10-21] MEDS: DULoxetine HCL 30 MG CAP PO SCH (09:05)
[2023-10-21] MEDS: amLODIPine BESYLATE 5 MG TAB PO SCH (09:08)
[2023-10-21] MEDS: SENNA 8.6 MG TAB PO SCH (09:08)
[2023-10-21] MEDS: METOPROLOL SUCC 50MG EXT REL TAB PO SCH (09:13)
[2023-10-21] MEDS: MAGNESIUM SULFATE / D5W 1 GM/100 ML BAG IV SCH ×2 (09:25→10:28)
[2023-10-21] MEDS: PREGABALIN 100 MG CAP PO SCH ×2 (09:25→21:22)
[2023-10-21] MEDS: DOCUSATE SODIUM 100 MG CAP PO SCH (09:25)
[2023-10-21] MEDS: metHOTREXate sodium 2.5 MG TAB PO SCH (16:51)
--- NOTE | 2023-10-21 17:11 | Hospitalist Progress Note ---
Date of Service October 21, 2023 Assessment & Plan (1) Back pain with history of spinal surgery: Plan: Pt is a 73 yo female with a past medical history of HTN, GERD, hx PE, fibromyalgia, polymyalgia rheumatica, hypothyroidism, constipation, and recent spinal surg on 10/04/23 who presents to the hospital on 10/14/23 for poor oral intake, AMS, and worsening low back pain. No repeat imaging has been performed. Seen by orthopedic spine surgeon and recommends ongoing rehab and pain control No evidence of infection at the wound site. Hemoglobin is low but is actually increased from previous-do not suspect bleeding No fevers. WBC count is elevated but she is on chronic steroids and did receive IV steroids in the ER. She does have elevated platelets which could be from inflammation or infection but could also be reactive to anemia from blood loss from surgery. These are also improving Follow blood cultures-no growth to date, monitor for fevers. She has fibromyalgia and has multiple tender points consistent with a diagnosis Pain improved with increased dose of scheduled tramadol and with resolution of severe constipation, adding. MiraLAX for constipation complaints -make tramadol 100 mg p.o. q8h scheduled so she doesn't get behind on pain -Continue lyrica 100 BID-she reports confusion with increased dose of Lyrica at 200 mg twice daily from last admission -avoid NSAID use as pt has only 1 kidney - PT/OT consulted-needs rehab -If pain not improving or worsens again, would consider imaging to look for infection or hematoma- hold off on this as per my d/w Ortho -Continue to work on constipation which is now greatly improved but recurrent-a dd Miralax daily and senna back on -Mahmood catheter in place for urinary retention which was related to constipation and opioid use - previous back surg infected years ago with Staphylococcus-continue cefadroxil from home for prophylaxis -Added on duloxetine 30 mg p.o. daily for fibromyalgia and radicular type neuropathic pain (2) Acute encephalopathy: Plan: Was resolved from admission and acutely worsened AM of 10/17 when she was essentially obtunded, but would follow commands and moan with pain but would not wake up for several hours Likely secondary to parasomnia as did not sleep all night likely from pain. CT head negative, ABG without acidosis or hypercarbia, lactate and ammonia levels normal, renal function and electrolytes acceptable No arrhythmias on tele No fever and vitals acceptable. -Initially her delirium due to medication induced likely from increased dose of Lyrica and taking opioids as well as severe constipation, urinary retention - TSH normal, no evidence of infection so far the blood cultures no growth to date NOW RESOLVED (AGAIN) COntinue Supportive care, pain control, avoid constipation, and maintain Mahmood (3) Anemia: Plan: Hemoglobin low at 8.2-likely component of acute blood loss anemia from previous back surgery but she also reports a history of chronic iron deficiency Last colonoscopy was 3 years ago and she was told was normal but does have a history of ulcerative colitis remotely for which she is not currently treated Iron studies and ferritin more consistent with anemia of chronic disease B12, folate, and TSH were normal (4) Constipation: Plan: - large stool burden noted 10/[address] -then had multiple large bowel movements after receiving several doses of MiraLAX and lactulose and was having incontinence to stool through her vagina with likely fistula which has been ongoing for months -now no BM again for 2 days -make MiraLAX daily scheduled -Continue home docusate and add on daily senna -Avoidance of opioids if possible except for tramadol -Encourage ambulation -Hold home p.o. iron tablets (5) Thrombocytosis: Plan: platelets are elevated at the 500 range likely acute phase reactant (6) Acute urinary retention: Plan: - noted last visit 10/12, mahmood placed then for retention in the ER - continue mahmood, replaced on admission this time - recommend voiding trial once pt more awake and constipation has improved, ambulation improved and not taking opioids-most likely this will be in 1 to 2 weeks She does have an appointment with urology on 10/26 (7) HTN (hypertension): Plan: Blood pressures have been elevated likely secondary to pain but are now improved - continue amlodipine - continue metoprolol (8) Polymyalgia rheumatica: Plan: Continue home methylprednisolone ALso on MTX No stress dose steroids needed (9) Hypothyroid: Plan: - continue home [place] thyroid TSH here normal at 1.27 (10) Fibromyalgia: Plan: Chronic, continue Lyrica Added duloxetine 30 mg daily (11) Coronary artery disease: Plan: Stable, With a history of stents x2 Continue aspirin, Eliquis, metoprolol Has intolerance to statins but is on Praluent as an outpatient (12) Rheumatoid arthritis: Plan: Continue methotrexate and folic acid Continue chronic methylprednisolone (13) Pulmonary emboli: Plan: Diagnosed in 07/2023 after having COVID and recent long travel to [place] Continue Eliquis for at least 3 to 6 months (14) Hemorrhoid: Plan: Continue hydrocortisone [place] nightly With 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 Has not been on any treatment for UC in over 10 years at least Had colonoscopy about 3 years ago in [place], was told was normal Also had dilated appendix on CT abd/pel 10/12 without appendicitis-needs Surgical eval which she has set up already for 10/17/23 with Colorectal SUrgery from [place] that comes to [facility] with her CT images on it for her Surgeon Plan VTE proph: home eliquis Dispo: medically stable for discharge but insurance auth pending for SNF- Admission and Anticipated Discharge Date Admission Date: October 16, 2023 Subjective pt still with fair to good pain control, painful with movement pt understands that insurance denied snf and will go home with consideration of out pt rehab Physical Exam Physical Exam: Awake alert appropriate. Cardiac exam is regular lungs are clear. Lower extremities are with equal bilateral sensation and strength although did not assess her ability to walk. It was painful for her to sit upright as she took a few moments to write herself when she was able to sit forward Results & Data Results & Data Vital Signs (Past 12 Hours) Vital Signs Temp Pulse Pulse Resp BP BP Pulse Ox 10/21/23 16:00 70 10/21/23 15:25 97.9 F 70 18 98/60 L 93 10/21/23 11:36 97.7 F 62 18 111/65 96 10/21/23 09:11 68 16 126/70 96 10/21/23 09:00 10/21/23 09:00 74 10/21/23 07:26 97.9 F 80 19 106/71 97 O2 Del Method 10/21/23 16:00 10/21/23 15:25 Room Air 11/24/23 11:36 Room Air 10/21/23 09:11 Room Air 10/21/23 09:00 Room Air 10/21/23 09:00 10/21/23 07:26 Room Air Laboratory Results reviewed cbc reviewed chemistry PG Care Time/CCT Total # of Minutes Spent Total Time Spent with Patient: Total time spent is greater than 50% in coordination of care (as documented) at patient's floor/unit and/or counseling patient: Coding Level of Care Code 94750 SUB INP/OBS CARE 2/35MIN Diagnoses Back pain with history of spinal surgery M54.9; Z98.890 Acute encephalopathy G93.40 Anemia D64.9 Constipation K59.00 Constipation type: unspecified constipation type Thrombocytosis D75.839 Acute urinary retention R33.8 HTN (hypertension) I10 Polymyalgia rheumatica M35.3 Hypothyroid E03.9 Fibromyalgia M79.7 Coronary artery disease I25.10 Rheumatoid arthritis M06.9 Pulmonary emboli I26.99 Hemorrhoid K64.9 GERD (gastroesophageal reflux disease) K21.9 [place]-vesical fistula N32.1 (4) Constipation Constipation type: unspecified constipation type Qualified Code(s): K59.00 - Constipation, unspecified
[2023-10-21] MEDS: MONTELUKAST SODIUM 10 MG TABLET PO SCH (21:23)
[2023-10-21] MEDS: HYDROCORTISONE ACETATE 25 MG SUPP PR SCH (21:24)
[2023-10-22] MEDS: traMADol HCL 50 MG TABLET PO SCH ×2 (04:18→14:17)
[2023-10-22] MEDS: ARMOUR THYROID 30 MG TAB PO SCH (05:47)
[2023-10-22 06:40] LABS: Basophils # (auto) 0.04 K/uL (0.00-0.20); Basophils % (auto) 0.4 %; Eosinophils # (auto) 0.28 K/uL (0.00-0.50); Hematocrit (blood only) 26.6 % (37.0-47.0); Hemoglobin 8.2 g/dl (12.0-16.0); Immature Granulocytes # (auto) 0.06 K/uL (0.01-0.20); Immature Granulocytes % (auto) 0.6 %; Lymphocytes # (auto) 1.47 K/uL (1.20-3.40); Lymphocytes % (auto) 15.9 %; Mean Corpuscular Hemoglobin 28.1 pg (25.0-34.0); Mean Corpuscular Hgb Conc 30.8 g/dL (32.0-36.0); Mean Corpuscular Volume 91.1 fL (80.0-100.0); Mean Platelet Volume 10.2 fL (9.4-12.4); Monocytes # (auto) 1.19 K/uL (0.11-0.59); Monocytes % (auto) 12.9 %; Neutrophils # (auto) 6.21 K/uL (1.40-6.50); Neutrophils % (auto) 67.2 %; Platelet Count 522 K/uL (130-400); RDW Coefficient of Variation 16.4 % (11.5-14.5); RDW Standard Deviation 54.4 fL (36.4-46.3); Red Blood Count 2.92 M/uL (4.20-5.40); White Blood Count 9.25 K/ul (4.8-10.8)
[2023-10-22 06:57] LABS: Albumin Globulin Ratio 1.1 (0.9-2); Albumin Level 3.2 gm/dl (3.4-5.0); BUN Creatinine Ratio 15.2 (10-20); Bilirubin,Total 0.3 mg/dl (0.2-1.0); Calcium 8.9 mg/dl (8.6-10.3); Creatinine Clr Calc Pharmacy 74.2 ml/min; Est GFR (African American) 102.3 ml/min; Est GFR (Non-African American) 88.3 ml/min; Globulin 2.8 gm/dl (2.5-4.0); Potassium 3.5 mmol/L (3.5-5.1)
--- NOTE | 2023-10-22 07:58 | Orthopedic Progress Note ---
Date of Service October 22, 2023 Assessment & Plan (1) Status post lumbar surgery: Plan: Velma is status post hardware removal and multilevel lumbar decompression and fusion of the lumbar spine Dr. Tafoya. She is being discharged home today. She is orthopedically stable for discharge. We will have to reschedule her follow- up appointment as she missed it last week. Continue ambulation. No lifting over 5 pounds. Limited bending and twisting. She reports she has a walker at home. Admission and Anticipated Discharge Date Admission Date: October 16, 2023 Subjective Velma is status post hardware removal and multilevel lumbar decompression and fusion. She hopes to be discharged home today. She had a bowel movement this morning. Best is intact. She currently rates her back pain to be 5 out of 10. Denies any radicular leg pain. She feels great when she is up and walking. Yesterday in physical therapy ambulating roughly 120 feet. Review of Systems Review of Systems: All systems reviewed & are unremarkable except as noted in HPI & below Physical Exam Physical Exam: She is up and ambulatory around the room with the assistance of a walker Lumbar incision looks great, no drainage. No edema. No ecchymosis. No erythema Small skin breakdown just distal to the incision noted Strength is intact bilateral lower extremities Calf soft and nontender bilateral lower extremities Results & Data Vital Signs (Past 12 Hours) Vital Signs Temp Pulse Pulse Resp BP BP Pulse Ox 10/22/23 03:12 36.6 C 66 20 110/66 95 10/21/23 23:38 36.6 C 67 20 127/71 98 10/21/23 22:00 69 10/21/23 19:57 37.1 C 70 14 114/70 91 O2 Del Method 10/22/23 03:12 Room Air 10/21/23 23:38 Room Air 10/21/23 22:00 10/21/23 19:57 Room Air
[2023-10-22] MEDS: POLYETHYLENE (MIRALAX) 17 GM PACK PO SCH (08:55)
[2023-10-22] MEDS: sulfaSALAzine 500 MG TABLET PO SCH (08:55)
[2023-10-22] MEDS: METOPROLOL SUCC 50MG EXT REL TAB PO SCH (08:55)
[2023-10-22] MEDS: DULoxetine HCL 30 MG CAP PO SCH (08:55)
[2023-10-22] MEDS: PANTOprazole 40 MG TAB PO SCH (08:56)
[2023-10-22] MEDS: FAMOTIDINE 20 MG TAB PO SCH (08:56)
[2023-10-22] MEDS: ASPIRIN 81 MG ECTAB PO SCH (08:56)
[2023-10-22] MEDS: amLODIPine BESYLATE 5 MG TAB PO SCH (08:56)
[2023-10-22] MEDS: SENNA 8.6 MG TAB PO SCH (08:57)
[2023-10-22] MEDS: FOLIC ACID 1 MG TAB PO SCH (08:57)
[2023-10-22] MEDS: APIXABAN 5 MG TABLET PO SCH (08:57)
[2023-10-22] MEDS: PREGABALIN 100 MG CAP PO SCH (09:02)
[2023-10-22] MEDS: DOCUSATE SODIUM 100 MG CAP PO SCH (09:02)
--- NOTE | 2023-10-22 11:48 | Discharge Summary ---
Date of Service October 22, 2023 Admission HPI Per Admitting Provider Pt is a 73 yo female with a past medical history of HTN, GERD, hx PE, fibromyalgia, polymyalgia rheumatica, hypothyroidism, constipation, and recent spinal surg on 10/04/23 who presents to the hospital on 10/14/23 for poor oral intake, AMS, and worsening low back pain. Pt is present today with her . She appears drowsy and her states she has been drowsy lately due to use of multiple pain meds to control her worsening back pain. He offers a history at this time. He states that she had a spinal fusion surgery 10/04 and felt great after for 2 days. He states that after the 2 days, she started getting progressively worsening back pain. She was given the option of going home vs rehab and at the time she and her decided to try to go home with pain meds. He states that from there she seemed to decline, as she was in horrible pain, especially when standing or walking. He states the pain got to be a 10/10, so they came into the ER to be evaluated. He states they found that her bladder was distended and a mahmood was placed. The notes that she has had very poor oral intake the last 5 days, does not feel like eating and really had just 2 moderate bowel movements yesterday. He states that she appears drowsy to him on the current pain regime they were on and that he noticed an episode last night where she seemed out of it and confused, which has never happened before. He overall states that he is concerned that her intake has been so limited and that her pain has been difficult to control. Pt is drowsy but states she is feeling okay aside from some belly discomfort. Admission Exam Per Admitting Provider General: Drowsy but oriented, no acute distress, Cardio: Regular rate and rhythm, Resp: Lungs clear to auscultation b/l, no wheezes or rhonchi, GI: Soft, nondistended, bowel sounds active, epigastric and suprapubic tenderness noted Skin: Warm, pink, dry, Psych: Mood-affect congruence. Principal Diagnosis intractable back pain encephalopathy secondary to sleep deprivation due to uncontrolled pain Discharge Exam General: Awake, conversant Heart: S1, S2/regular rate and rhythm, no murmur rubs or gallops Lungs: Clear to auscultation bilaterally. Normal effort Abdomen: Soft/nontender/nondistended. No hepatosplenomegaly Extremities: No clubbing/cyanosis. No edema Behavior: Appropriate, cooperative Discharge Data Allergies Allergy/AdvReac Type Severity Reaction Status Date / Time clopidogrel [From Plavix] Allergy Intermediate Hives Verified 10/14/23 20:38 hydroxychloroquine Allergy Intermediate Hives Verified 10/14/23 20:38 [From Plaquenil] celecoxib [From Celebrex] AdvReac Intermediate HX OF Verified 10/14/23 20:38 BLEEDING STOMACH codeine AdvReac Intermediate Gastrointestinal Verified 10/14/23 20:38 Upset hydrocodone [From Vicodin] AdvReac Intermediate Gastrointestinal Verified 10/14/23 20:38 Upset lubiprostone [From Amitiza] AdvReac Intermediate HX OF Verified 10/14/23 20:38 BLEEDING STOMACH pitavastatin AdvReac Intermediate Joint Pain Verified 10/14/23 20:38 pravastatin [From Pravachol] AdvReac Intermediate Joint Pain Verified 10/14/23 20:38 rosuvastatin AdvReac Intermediate Joint Pain Verified 10/14/23 20:38 [From Ezallor Sprinkle] simvastatin [From FloLipid] AdvReac Intermediate Joint Pain Verified 10/14/23 20:38 [id number] Reductase AdvReac Intermediate Joint Pain Verified 10/14/23 20:38 Inhibitor Consultations 10/14/23 17:56 ED Decision to Admit Stat 10/15/23 08:39 Consult Orthopedic Spine Surgery Routine 10/16/23 14:07 Burn CD for patient Routine Ordered Studies 10/17/23 08:11 CT head/brain wo con Stat Hospital Course (1) Back pain with history of spinal surgery: Pt is a 73 yo female with a past medical history of HTN, GERD, hx PE, fibromyalgia, polymyalgia rheumatica, hypothyroidism, constipation, and recent spinal surg on 10/04/23 who presents to the hospital on 10/14/23 for poor oral intake, AMS, and worsening low back pain. No repeat imaging has been performed. Seen by orthopedic spine surgeon and recommends ongoing rehab and pain control No evidence of infection at the wound site. Hemoglobin is low but is actually increased from previous-do not suspect bleeding No fevers. WBC count is elevated but she is on chronic steroids and did receive IV steroids in the ER. She does have elevated platelets which could be from inflammation or infection but could also be reactive to anemia from blood loss from surgery. These are also improving Follow blood cultures-no growth to date, monitor for fevers. She has fibromyalgia and has multiple tender points consistent with a diagnosis Pain improved with increased dose of scheduled tramadol and with resolution of severe constipation, adding. MiraLAX for constipation complaints -make tramadol 100 mg p.o. q8h scheduled so she doesn't get behind on pain -Continue lyrica 100 BID-she reports confusion with increased dose of Lyrica at 200 mg twice daily from last admission -avoid NSAID use as pt has only 1 kidney -If pain not improving or worsens again, would consider imaging to look for infection or hematoma- hold off on this as per Ortho -Continue to work on constipation which is now greatly improved but recurrent- add Miralax daily and senna back on -Mahmood catheter in place for urinary retention which was related to constipation and opioid use - previous back surg infected years ago with Staphylococcus-continue cefadroxil from home for prophylaxis -Added on duloxetine 30 mg p.o. daily for fibromyalgia and radicular type neuropathic pain (2) Acute encephalopathy: Was resolved from admission and acutely worsened AM of 10/17 when she was essentially obtunded, but would follow commands and moan with pain but would not wake up for several hours Likely secondary to parasomnia as did not sleep all night likely from pain. CT head negative, ABG without acidosis or hypercarbia, lactate and ammonia levels normal, renal function and electrolytes acceptable No arrhythmias on tele No fever and vitals acceptable. -Initially her delirium due to medication induced likely from increased dose of Lyrica and taking opioids as well as severe constipation, urinary retention - TSH normal, no evidence of infection so far the blood cultures no growth to date NOW RESOLVED (AGAIN) COntinue Supportive care, pain control, avoid constipation, and maintain Mahmood (3) Anemia: Hemoglobin low at 8.2-likely component of acute blood loss anemia from previous back surgery but she also reports a history of chronic iron deficiency Last colonoscopy was 3 years ago and she was told was normal but does have a history of ulcerative colitis remotely for which she is not currently treated Iron studies and ferritin more consistent with anemia of chronic disease B12, folate, and TSH were normal (4) Constipation: - large stool burden noted 10/[address] -then had multiple large bowel movements after receiving several doses of MiraLAX and lactulose and was having incontinence to stool through her vagina with likely fistula which has been ongoing for months -now no BM again for 2 days -make MiraLAX daily scheduled -Continue home docusate and add on daily senna -Avoidance of opioids if possible except for tramadol -Encourage ambulation -Hold home p.o. iron tablets (5) Thrombocytosis: platelets are elevated at the 500 range likely acute phase reactant (6) Acute urinary retention: - noted last visit 10/12, mahmood placed then for retention in the ER - continue mahmood, replaced on admission this time - recommend voiding trial once pt more awake and constipation has improved, ambulation improved and not taking opioids-most likely this will be in 1 to 2 weeks She does have an appointment with urology on 10/26 (7) HTN (hypertension): Blood pressures have been elevated likely secondary to pain but are now improved - continue amlodipine - continue metoprolol (8) Polymyalgia rheumatica: Continue home methylprednisolone ALso on MTX No stress dose steroids needed (9) Hypothyroid: - continue home [place] thyroid TSH here normal at 1.27 (10) Fibromyalgia: Chronic, continue Lyrica Added duloxetine 30 mg daily (11) Coronary artery disease: Stable, With a history of stents x2 Continue aspirin, Eliquis, metoprolol Has intolerance to statins but is on Praluent as an outpatient (12) Rheumatoid arthritis: Continue methotrexate and folic acid Continue chronic methylprednisolone (13) Pulmonary emboli: Diagnosed in 07/2023 after having COVID and recent long travel to [place] Continue Eliquis for at least 3 to 6 months (14) Hemorrhoid: Continue hydrocortisone [place] nightly 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 Has not been on any treatment for UC in over 10 years at least Had colonoscopy about 3 years ago in [place], was told was normal Also had dilated appendix on CT abd/pel 10/12 without appendicitis-needs Surgical eval which she has set up already for 10/17/23 with Colorectal SUrgery from [place] [facility] on [facility] for her Surgeon Plan VTE proph: home eliquis Dispo: Discharge to home today Total Time Total Time Spent Total Time Spent (In Minutes): 35 Discharge Plan Discharge Items Patient Disposition: Home - Self-Care Reason For Visit: INTRACTABLE BACK PAIN, ENCEPHALOPATHY Discharge Diagnosis: intractable back pain encephalopathy Activity: Per Instructions section Activity Comment: keep walking and consider outpt therapy Exercise/Sports: None Weightbearing: Full weightbearing Non-emergency contact: Primary Care Provider and Surgeon Call non-emergency contact if: your symptoms worsen Follow-up/Referrals: Saturnino Tafoya DO [Surgeon] - Elaine Emmanuel [Primary Care Provider] - Diet: Regular Addtl Attending Provider Instructions: please continue to move and rehabilitate follow up with your primary care and spine surgeon please call [facility] to reschedule follow up appointment [phone] advised to follow up with urology as per prior plan for removal of your catheter Pending Studies at Discharge: No Stand-Alone Forms: [facility] [place] [email or web address], Smoking Cessation Medications and DC Order Prescriptions: New polyethylene glycol 3350 [Miralax] 17 gram Powder In Packet 17 g PO DAILY Qty: 30 0RF tramadol 50 mg Tablet 100 mg PO Q8H Qty: 90 0RF famotidine 20 mg Tablet 20 mg PO BID Qty: 60 0RF duloxetine 30 mg Capsule,Delayed Release(Dr/Ec) 30 mg PO QAM Qty: 30 3RF pregabalin [Lyrica] 100 mg Capsule 100 mg PO BID Qty: 60 3RF Continued sulfasalazine 500 mg tablet 500 mg PO BID metoprolol succinate 50 mg tablet extended release 24 hr 50 mg PO DAILY aspirin 81 mg Tablet,Delayed Release (Dr/Ec) 81 mg PO DAILY cefadroxil 500 mg capsule 500 mg PO BID methotrexate sodium 2.5 mg tablet 17.5 mg PO .QWEEK IN PM Rx Instructions: FRIDAYS--TAKES 7 TABS. amlodipine 10 mg tablet 10 mg PO DAILY nitroglycerin 0.4 mg tablet, sublingual 0.4 mg sublingual DIRECTED PRN (Reason: Chest Pain) Rx Instructions: PLACE 1 TABLET UNDER TONGUE EVERY 5 MINS, UP TO 3 DOSES NEEDED FOR CHEST PAIN docusate sodium [Colace] 100 mg Capsule 100 mg PO DAILY folic acid 1 mg tablet 1 mg PO DAILY montelukast 10 mg tablet 10 mg PO QPM albuterol sulfate 90 mcg/actuation HFA aerosol inhaler 1 puff INHALATION QID PRN (Reason: Wheezing) fluticasone propionate 50 mcg/actuation spray,suspension 1 spray INTRANASAL DAILY PRN (Reason: allergy) coenzyme Q10 [CoQ-10] 100 mg Capsule 100 mg PO BID thyroid (pork) [[place] Thyroid] 60 mg tablet 60 mg PO DAILY omega 3-alc-zhg-fish oil [Fish Oil] 1,200 (144-216) mg Capsule 1 cap PO QPM Probiotic 3 billion cell Capsule 3,000 mmu cells PO QPM Rx Instructions: administer with a meal Praluent Pen 75 mg/mL pen injector 75 mg SUBCUT USEASDIRECTD Rx Instructions: INJECT 1 ML (75 MG TOTAL) INTO THE SKIN EVERY 14 (FOURTEEN) DAYS. Eliquis 5 mg tablet 5 mg PO BID Qty: 60 4RF acetaminophen [Tylenol Arthritis Pain] 650 mg Tablet Extended Release 650 mg PO BID calcium carbonate 500 mg calcium (1,250 mg) Tablet 500 mg PO DAILY methylprednisolone 8 mg tablet 16 mg PO DAILY inulin-sorbitol 2 gram Tablet,Chewable 1 tab PO DAILY Prolia 60 mg/mL Syringe 0 mg SUBCUT DIRECTED Rx Instructions: PER PT "OVER DUE, TROUBLE SCHEDULING AT THIS TIME". pregabalin [Lyrica] 200 mg capsule 200 mg PO BID Qty: 60 0RF Rx Instructions: WANTS TO PUT HER BACK ON 100 MG BID. ondansetron 4 mg tablet,disintegrating 4 mg translingual DIRECTED PRN (Reason: Nausea) Discontinued triamterene-hydrochlorothiazid 37.5-25 mg capsule 1 cap PO QAM esomeprazole magnesium 40 mg capsule,delayed release(DR/EC) 40 mg PO DAILY potassium chloride 20 mEq tablet extended release 20 meq PO DAILY Qty: 20 0RF lactulose 20 gram/30 mL solution 20 g PO TID PRN (Reason: constipation) Qty: 3000 0RF Vitron-C 65 mg iron- 125 mg Tablet,Delayed Release (Dr/Ec) 1 tab PO QPM tramadol 50 mg Tablet 50 mg PO Q4H PRN (Reason: pain) Qty: 30 0RF Discharge Orders: Discharge Order (Routine); Ordered 10/22/23 Ordered By: Madhu Shrestha Admission Data Admit Date/Time: 10/16/23 15:33 Attending Provider: Madhu Shrestha Admit Provider: Verónica Mcqueen Primary Care Provider: Elaine Emmanuel Other Providers: John Carvalho; Saturnino Tafoya Coding Level of Care Code 48342 INP/OBS DISCH >30 MIN Diagnoses Back pain with history of spinal surgery M54.9; Z98.890 Acute encephalopathy G93.40 Anemia D64.9 Constipation K59.00 Constipation type: unspecified constipation type Thrombocytosis D75.839 Acute urinary retention R33.8 HTN (hypertension) I10 Polymyalgia rheumatica M35.3 Hypothyroid E03.9 Fibromyalgia M79.7 Coronary artery disease I25.10 Rheumatoid arthritis M06.9 Pulmonary emboli I26.99 Hemorrhoid K64.9 GERD (gastroesophageal reflux disease) K21.9 [place]-vesical fistula N32.1
== END 2023-10-22 14:50 | disposition home or self-care (01) | DRG 948 ==
LOC: 3W 16:45 → ED 16:45 → SUATTDRO 18:37 → 3W 20:56 → SUATTDRO 10-16 15:33 → 1E 10-17 10:35 → 2S 10-18 05:23

== ENCOUNTER 2023-11-10 13:44 | Inpatient (IN) ==
--- NOTE | 2023-11-10 13:54 | ED Triage Note ---
Date of Service November 10, 2023 Provider in Triage Author: Verónica French History of Present Illness This patient was briefly evaluated while in triage. An abbreviated physical exam was performed. This patient is a 73-year-old Female who presents to the ED for evaluation of back pain. Pt. referred by Dr. Tafoya for admission to medicine with consultation for Dr. Tafoya. Pt. states she was just at his office and was referred. Had back surgery in September and concern for vertebra fracture where the surgery was done. Pt. has been experiencing severe pain for 2-3 weeks. Physical Exam VITALS: Vitals are noted on the nurse's note and reviewed by myself. GENERAL: This is a 73 year old female, in no acute distress, nondiaphoretic, well-developed well-nourished. SKIN: No obvious rashes, edema, erythema HEAD: Normocephalic atraumatic. EYES: Conjunctivae without injection, sclerae without icterus. NECK: No JVD. LUNGS: No retractions or accessory muscle use. MUSCULOSKELETAL: Presents in a wheelchair. NEURO: Patient was alert and oriented to person place and time. No focal neurological deficits. Initial orders for labs and / or imaging were placed and patient was placed in the waiting area until a bed is available. Please see further documentation for the full ED course.
--- NOTE | 2023-11-10 14:14 | Emergency Department Note ---
Impression & Plan Lumbar compression fracture, Back pain with history of spinal surgery ED Provider Note CHIEF COMPLAINT: Low back pain HISTORY OF PRESENT ILLNESS: This patient is a 73-year-old Female who presents to the ED for evaluation of back pain. Pt. referred by Dr. Tafoya for admission to medicine with consultation for Dr. Tafoya. Pt. states she was just at his office and was referred. Had back surgery in September and concern for vertebrae fracture where the surgery was done. Pt. has been experiencing severe pain in the mid-low back for 2-3 weeks. Pt. denies new neurological deficits at this time. REVIEW OF SYSTEMS: A 10 system review of systems was performed with positives and pertinent negatives listed in the history of present illness. All other systems were reviewed and are negative. ALLERGIES: Plavix, Plaquenil, Celebrex, codeine, Vicodin, Amitiza, pitavastatin, Pravachol, rosuvastatin, simvastatin, Statins PHYSICAL EXAM: VITALS: Vitals are noted on the nurse's note and reviewed by myself. Vital signs stable. GENERAL: This is a 73 year old female, in no acute distress, nondiaphoretic, well-developed well-nourished. SKIN: The skin was without obvious rashes, erythema, edema, or bruising. There is no tenting of the skin. Capillary refill less than 2 seconds. HEAD: Normocephalic atraumatic. EYES: Conjunctivae without injection, sclerae without icterus. NECK: Supple without nuchal rigidity. No lymphadenopathy. No JVD. HEART: Regular rate and rhythm without murmurs gallops or rubs. LUNGS: Clear to auscultation bilaterally without wheezes, rales or rhonchi. No retractions or accessory muscle use. ABDOMEN: Positive bowel sounds x 4. Soft, nontender, without masses or organomegaly. No guarding or rebound tenderness. MUSCULOSKELETAL: No muscle atrophy, erythema, or edema noted. Severe pain in the lumbar region. Strength 5/5 throughout. NEURO: Patient was alert and oriented to person place and time. Normal sensation to light and sharp touch. No focal neurological deficits. EMERGENCY DEPARTMENT COURSE: The patient was initially seen by me in triage. Initial orders placed and I did immediately sign up for this patient. I reviewed referral note from Dr. Tafoya to nursing staff (Dr. Tafoya spoke with medical charge entry specialist prior to referring patient) and consulted Case Management and subsequently Dr. Carvalho. Dr. Carvalho requested I speak directly with Dr. Tafoya prior to admitting this patient from the waiting room to ensure she requires admission, noting they should have been able to do direct admissions and wants to be certain admission is necessary after ED evaluation. Dr. Carvalho requests notification regarding disposition after ED workup is completed and we confirm with Dr. Tafoya. I did speak with Dr. Tafoya. He notes that he is requesting that the hospitalists admit the patient due to her complex medical history and medication management, noting that she is on Eliquis and will need to be off of this prior to surgery. He also notes this is a medically complex patient and he does not feel she would best be managed by orthopedics as the primary service, believes that primary medicine admission would be more appropriate care for this patient. He is requesting that the hospitalist consult him and advised that they may contact him directly for any additional questions. He notes that he has all imaging he needs, and denies the need for any formal ED workup. Notes that he has been unsuccessful with direct admissions in the past due to hospital census and has been instructed to send the patients through the ED for admission. I updated the patient. IV access was being obtained at this time. Labs and urinalysis are pending. I again spoke with Dr. Carvalho and advised him of my conversation with Dr. Tafoya. He did agree at this time to admit the patient. Please see hospitalist and orthopedic cash management specialist dictation regarding ongoing management care of this patient. Differential diagnosis includes Musculoskeletal, disc herniation, fracture, metastatic disease, cord compression, discitis, sciatica, cauda equina, infection, aortic disease, renal colic, gastrointestinal, as well as other pathologies. I attest that I have personally reviewed the patient's current medication list. Blood Pressure Screening: Patient was found to have a slightly elevated blood pressure due to circumstances. I do not believe that the patient requires hypertension monitoring. The chart was completed utilizing [employer] Speech voice recognition software. Grammatical errors, random word insertions, pronoun errors, and incomplete sentences are an occasional consequence of this system due to software limitations, ambient noise, and hardware issues. Any formal questions or concerns about the content, text, or information contained within the body of this dictation should be directly addressed to the provider for clarification. Past Med/Surg History Medical History Neurogenic claudication due to lumbar spinal stenosis Hypertensive emergency GERD (gastroesophageal reflux disease) HTN (hypertension) History of coronary artery disease Pulmonary emboli Giant cell arteritis Polymyalgia rheumatica Staph infection Diverticulitis Hypothyroid Osteoarthritis Rheumatoid arthritis Heart attack Coronary artery disease Stent May 2012 - CA during stress test Stent Oct 2019 - pressure in chest Fibromyalgia Surgical History (Updated 10/27/23 @ 00:10 by Nahun Rios) Status post lumbar surgery History of left nephrectomy History of back surgery History of colon resection Social History Smoking Status: Never smoker Hx Alcohol Use: Yes Alcohol type: other Hx Substance Use: No Preferred Language: Monegasque Communication Ability: Effective Microwave Supervisor Required: No Beliefs That Will Affect Care: Rastafarian Rastafarian Beliefs: Congregation Current Living Situation: Spouse Other Information That Helps Us Care for You: No Feels Safe at Home: Yes Safety Concerns: Feels Safe At This Time Assistive Devices: Cane and Walker Allergies 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 STOMACH codeine AdvReac Intermediate Gastrointestinal Verified 10/26/23 10:53 Upset hydrocodone [From Vicodin] AdvReac Intermediate Gastrointestinal Verified 10/26/23 10:53 Upset lubiprostone [From Amitiza] AdvReac Intermediate HX OF Verified 10/26/23 10:53 BLEEDING STOMACH pitavastatin AdvReac Intermediate Joint Pain Verified 10/26/23 10:53 pravastatin [From Pravachol] AdvReac Intermediate Joint Pain Verified 10/26/23 10:53 rosuvastatin AdvReac Intermediate Joint Pain Verified 10/26/23 10:53 [From Ezallor Sprinkle] simvastatin [From FloLipid] AdvReac Intermediate Joint Pain Verified 10/26/23 10:53 [id number] Reductase AdvReac Intermediate Joint Pain Verified 10/26/23 10:53 Inhibitor Home Meds Home Medications Medication Instructions Recorded Confirmed albuterol sulfate 90 mcg/actuation 1 puff inhalation QID PRN Wheezing 04/05/23 11/10/23 aerosol inhaler alirocumab 75 mg/mL subcutaneous 75 mg subcut .EVERY 14 DAYS 04/05/23 11/10/23 pen injector (Praluent Pen) amlodipine 10 mg tablet 10 mg PO DAILY 04/05/23 11/10/23 aspirin 81 mg tablet,delayed 81 mg PO DAILY 04/05/23 11/10/23 release cefadroxil 500 mg capsule 500 mg PO Q12 04/05/23 11/10/23 coenzyme Q10 100 mg capsule 100 mg PO BID 04/05/23 11/10/23 (CoQ-10) docusate sodium 100 mg capsule 100 mg PO DAILY 04/05/23 11/10/23 (Colace) fluticasone propionate 50 1 spray intranasal DAILY PRN 04/05/23 11/10/23 mcg/actuation nasal allergy spray,suspension folic acid 1 mg tablet 1 mg PO DAILY 04/05/23 11/10/23 lactobacillus combination no.4 3 3,000 mmu cells PO QPM 04/05/23 11/10/23 billion cell capsule (Probiotic) methotrexate sodium 2.5 mg tablet 17.5 mg PO .QWEEK IN PM 04/05/23 11/10/23 metoprolol succinate 50 mg 50 mg PO DAILY 04/05/23 11/10/23 tablet,extended release 24 hr montelukast 10 mg tablet 10 mg PO QPM 04/05/23 11/10/23 nitroglycerin 0.4 mg sublingual 0.4 mg sublingual DIRECTED PRN 04/05/23 11/10/23 tablet Chest Pain omega 1-sba-tjl-fish oil 1,200 mg 1 cap PO QPM 04/05/23 11/10/23 (144 mg-216 mg) capsule (Fish Oil) thyroid (pork) 60 mg tablet 60 mg PO DAILY 04/05/23 11/10/23 (Marshall Thyroid) acetaminophen 650 mg 650 mg PO BID 09/26/23 11/10/23 tablet,extended release (Tylenol Arthritis Pain) calcium carbonate 500 mg calcium 500 mg PO DAILY 09/26/23 11/10/23 (1,250 mg) tablet denosumab 60 mg/mL subcutaneous 0 mg subcut DIRECTED 09/26/23 11/10/23 syringe (Prolia) inulin-sorbitol 2 gram chewable 1 tab PO DAILY 09/26/23 11/10/23 tablet methylprednisolone 8 mg tablet 16 mg PO DAILY 09/26/23 11/10/23 ondansetron 4 mg disintegrating 4 mg translingual DIRECTED PRN 10/14/23 11/10/23 tablet Nausea meclizine 25 mg tablet 25 mg PO TID PRN Dizziness 11/10/23 11/10/23 sulfasalazine 500 mg tablet 500 mg PO BID 11/10/23 11/10/23 Previous Rx's Medication Instructions Recorded apixaban 5 mg tablet (Eliquis) 5 mg PO BID #60 tabs 08/17/23 duloxetine 30 mg capsule,delayed 30 mg PO QAM #30 caps 10/21/23 release famotidine 20 mg tablet 20 mg PO BID #60 tabs 10/21/23 polyethylene glycol 3350 17 gram 17 g PO DAILY #30 ea 10/21/23 oral powder packet (Miralax) pregabalin 100 mg capsule (Lyrica) 100 mg PO BID #60 caps 10/21/23 tramadol 50 mg tablet 100 mg (2 x 50 mg) PO Q8H #90 tabs 10/21/23 Results & Data (ED) Vital Signs Vital Signs - 24 hr 11/10/23 13:50 11/10/23 16:03 11/10/23 16:05 Temperature 36 C L Temperature Source Temporal Artery Scan Pulse Rate 75 62 62 Pulse Rate from SpO2 Sensor 62 Respiratory Rate 18 17 Respiratory Effort / Characteristics Non-Labored Spontaneous Respiratory Depth Normal Blood Pressure 140/81 Blood Pressure Mean 100 Blood Pressure Position Sitting Pulse Oximetry 98 96 Oxygen Delivery Method Room Air Sepsis Recent Fever Within 48 Hours No Sepsis New/Unexplained Change in Mental Status No Sepsis Action Taken by Nursing No Action Required 11/10/23 16:19 11/10/23 16:30 Temperature Temperature Source Pulse Rate 60 Pulse Rate from SpO2 Sensor 60 Respiratory Rate 18 Respiratory Effort / Characteristics Respiratory Depth Blood Pressure 132/82 Blood Pressure Mean 98 Blood Pressure Position Pulse Oximetry 98 97 Oxygen Delivery Method Room Air Sepsis Recent Fever Within 48 Hours Sepsis New/Unexplained Change in Mental Status Sepsis Action Taken by Nursing Laboratory Data 11/10/23 16:16 11/10/23 16:16 Lab Results 11/10/23 Range/Units 16:16 WBC 11.83 H (4.8-10.8) K/ul RBC 3.55 L (4.20-5.40) M/uL Hgb 10.0 L (12.0-16.0) g/dl Hct 30.5 L (37.0-47.0) % MCV 85.9 (80.0-100.0) fL MCH 28.2 (25.0-34.0) pg MCHC 32.8 (32.0-36.0) g/dL RDW Std Deviation 55.6 H (36.4-46.3) fL RDW Coeff of Ashley 17.9 H (11.5-14.5) % Plt Count 498 H (130-400) K/uL MPV 10.9 (9.4-12.4) fL Immature Gran % (Auto) 1.0 % Neut % (Auto) 72.1 % Lymph % (Auto) 18.3 % Butts % (Auto) 7.4 % Eos % (Auto) 0.9 % Baso % (Auto) 0.3 % Neut # (Auto) 8.54 H (1.40-6.50) K/uL Lymph # (Auto) 2.16 (1.20-3.40) K/uL Butts # (Auto) 0.87 H (0.11-0.59) K/uL Eos # (Auto) 0.11 (0.00-0.50) K/uL Baso # (Auto) 0.03 (0.00-0.20) K/uL Immature Gran # (Auto) 0.12 (0.01-0.20) K/uL Sodium 135 L (136-145) mmol/L Potassium 3.0 L (3.5-5.1) mmol/L Chloride 100 (98-107) mmol/L Carbon Dioxide 24 (21-32) mmol/L Anion Gap 11 (3-11) BUN 20 (6-23) mg/dl Creatinine 0.65 (0.6-1.2) mg/dl Est Cr Clr Drug Dosing 67.9 ml/min Est GFR ( Amer) 102.8 ml/min Est GFR (Non-Af Amer) 88.7 ml/min BUN/Creatinine Ratio 30.8 H (10-20) Glucose 96 (70-99(Fasting)) mg/dl Calcium 9.3 (8.6-10.3) mg/dl Magnesium 1.9 (1.7-2.4) mg/dl Total Bilirubin 0.3 (0.2-1.0) mg/dl AST 12 L (13-39) U/L ALT 12 (7-52) U/L Alkaline Phosphatase 75 (34-104) U/L Total Protein 6.8 (6.0-8.3) gm/dl Albumin 4.1 (3.4-5.0) gm/dl Globulin 2.7 (2.5-4.0) gm/dl Albumin/Globulin Ratio 1.5 (0.9-2) Urine Color Dark Yellow Urine Appearance Turbid A (Clear) Urine pH 7.5 (4.5-7.5) Ur Specific Norris 1.015 (1.000-1.030) Urine Protein 1+ H (Negative) Urine Glucose (UA) Negative (Negative) Urine Ketones Negative (Negative) Urine Blood 3+ H (Negative) Urine Nitrite Negative (Negative) Urine Bilirubin Negative (Negative) Urine Urobilinogen Negative (Negative) Ur Leukocyte Esterase 3+ H (Negative) Urine WBC (Auto) >30 H (0-5) /hpf Urine RBC (Auto) 10-30 H (0-4) /hpf U Hyaline Cast (Auto) 5-10 H (0-5) /lpf U Epithel Cells (Auto) 20-30 H (0-5) /lpf Urine Bacteria (Auto) 1+ H (Negative) Urine Yeast Not Reportable Administered Medications Acetaminophen (Acetaminophen 325 Mg Tab) 650 mg PO BID JEN Stop: 12/10/23 20:59 Last Admin: 11/10/23 22:26 Dose: 650 mg Documented By: DORETHA Famotidine (Famotidine 20 Mg Tab) 20 mg PO BID JEN Stop: 12/10/23 20:59 Last Admin: 11/10/23 22:26 Dose: 20 mg Documented By: DORETHA Montelukast Sodium (Montelukast Sodium 10 Mg Tablet) 10 mg PO QPM JEN Stop: 12/10/23 20:59 Last Admin: 11/10/23 22:26 Dose: 10 mg Documented By: DORETHA Pregabalin (Pregabalin 100 Mg Cap) 100 mg PO BID [facility] Stop: 12/10/23 20:59 Last Admin: 11/10/23 22:27 Dose: 100 mg Documented By: DORETHA Sulfasalazine (Sulfasalazine 500 Mg Tablet) 500 mg PO BID [facility] Stop: 12/10/23 20:59 Last Admin: 11/10/23 22:34 Dose: 500 mg Documented By: DORETHA Discontinued Medications Potassium Chloride (Potassium Chloride Crtab 20 Meq Tabcr) 40 meq PO NOW STA Stop: 11/10/23 17:58 Last Admin: 11/10/23 18:31 Dose: 40 meq Documented By: CARLITOS Discharge Plan Visit Data Chief Complaint: Back Injury/Pain Stated Complaint: BACK PAIN ED Provider: Chris Grier ED Midlevel Provider: Verónica French Discharge Problem: Lumbar compression fracture, Back pain with history of spinal surgery Patient Disposition: Admitted As Inpatient Discharge Instructions Interventions: ED Discharge Assessment Last Done: 11/10/23 18:07
--- NOTE | 2023-11-10 16:29 | History & Physical Report ---
Date of Service November 10, 2023 Assessment & Plan (1) Lumbar compression fracture: Plan: Management per ortho spine. Consult placed. Limited options for pain relief as tramadol caused constipation without significant effect on pain Oxycodone caused delirium Will continue on her usual acetaminophen with additional PRN dosing Lidocaine patch Continue Lyrica Hold Eliquis Given elevated WBC and prior back infections, ESR/CRP/Procalcitonin and blood cultures taken pre-operatively (2) Abnormal urinalysis: Plan: Initial sample taken from mahmood catheter that was placed a month ago. Replace mahmood catheter and repeat sample (3) Hypokalemia: Plan: Replacement given, repeat with AM labs (4) Polymyalgia rheumatica: Plan: Continue methylprednisone 16mg PO daily (5) Rheumatoid arthritis: Plan: Continue methotrexate and sulfasalazine (6) History of pulmonary embolism: Plan: Diagnosed August 16, 2023. Currently on Eliquis. Consider periperative prophyalxis with Lovenox per surgery recommendations (7) Urinary retention: Plan: Present since last month. Continue mahmood catheter however needs replacement Suspect due to prolonged bed bound state Plan VTE Prophylaxis - Eliquis held for surgery Diet - heart healthy Disposition - admit to med/surg Admission and Anticipated Discharge Date Admission Date: November 10, 2023 History of Present Illness Chief Complaint: Lumbar compression fracture Primary Care Provider: Elaine Emmanuel Annabella Donahue is a 73 year old female who presents to the ER on advice of her orthopedic surgeon for potential surgery on Tuesday. She underwent lumbar spine decompression and fusion with removal of prior posterior instrumentation performed by Dr Tafoya on October 04. She reports no significant improvement in her back pain since that time and is mostly bed bound at this stage. She cannot sit down or stand. Can walk very little. She followed up as a routine visit with orthopedic spine surgery today and was recommended to come to the ER for admission under medicine for potential surgery on Tuesday due to lumbar compression fracture suspected to be causing her pain. She last took her Eliquis this morning. During her prior hospitalization she also had problems with urine retention and mahmood catheter has been in since last month (due to change on Tuesday). She also had problems with fecal impaction which resolved with laxative use and she is now having regular bowel movements. Also had problems with altered mental status which resolved on reducing her Lyrica back to 100mg PO BID and stopping oxycodone. Tramadol has mainly just caused constipation and does not help with pain relief. She takes Prolia for osteoporosis although missed her dose in July due to recurrent hospitalizations and is yet to be able to reschedule this. She notes her rheumatoid arthritis is under control despite missing her Orencia shots also due to prolonged hospitalizations (last one she had was in June). Her PMR has been under control since March when it was diagnosed and she was put back on steroids and has been on methylprednisone 16mg PO since following up with her e commerce analyst after this visit. 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 STOMACH codeine AdvReac Intermediate Gastrointestinal Verified 10/26/23 10:53 Upset hydrocodone [From Vicodin] AdvReac Intermediate Gastrointestinal Verified 10/26/23 10:53 Upset lubiprostone [From Amitiza] AdvReac Intermediate HX OF Verified 10/26/23 10:53 BLEEDING STOMACH pitavastatin AdvReac Intermediate Joint Pain Verified 10/26/23 10:53 pravastatin [From Pravachol] AdvReac Intermediate Joint Pain Verified 10/26/23 10:53 rosuvastatin AdvReac Intermediate Joint Pain Verified 10/26/23 10:53 [From Ezallor Sprinkle] simvastatin [From FloLipid] AdvReac Intermediate Joint Pain Verified 10/26/23 10:53 Hayapyf-IOA-GaX Reductase AdvReac Intermediate Joint Pain Verified 10/26/23 10:53 Inhibitor Home Medications Medication Instructions Recorded Confirmed Type albuterol sulfate 90 mcg/actuation 1 puff inhalation QID PRN Wheezing 04/05/23 11/10/23 History aerosol inhaler alirocumab 75 mg/mL subcutaneous 75 mg subcut .EVERY 14 DAYS 04/05/23 11/10/23 History pen injector (Praluent Pen) amlodipine 10 mg tablet 10 mg PO DAILY 04/05/23 11/10/23 History aspirin 81 mg tablet,delayed 81 mg PO DAILY 04/05/23 11/10/23 History release cefadroxil 500 mg capsule 500 mg PO Q12 04/05/23 11/10/23 History coenzyme Q10 100 mg capsule 100 mg PO BID 04/05/23 11/10/23 History (CoQ-10) docusate sodium 100 mg capsule 100 mg PO DAILY 04/05/23 11/10/23 History (Colace) fluticasone propionate 50 1 spray intranasal DAILY PRN 04/05/23 11/10/23 History mcg/actuation nasal allergy spray,suspension folic acid 1 mg tablet 1 mg PO DAILY 04/05/23 11/10/23 History lactobacillus combination no.4 3 3,000 mmu cells PO QPM 04/05/23 11/10/23 History billion cell capsule (Probiotic) methotrexate sodium 2.5 mg tablet 17.5 mg PO .QWEEK IN PM 04/05/23 11/10/23 History metoprolol succinate 50 mg 50 mg PO DAILY 04/05/23 11/10/23 History tablet,extended release 24 hr montelukast 10 mg tablet 10 mg PO QPM 04/05/23 11/10/23 History nitroglycerin 0.4 mg sublingual 0.4 mg sublingual DIRECTED PRN 04/05/23 11/10/23 History tablet Chest Pain omega 1-ufa-wvj-fish oil 1,200 mg 1 cap PO QPM 04/05/23 11/10/23 History (144 mg-216 mg) capsule (Fish Oil) thyroid (pork) 60 mg tablet 60 mg PO DAILY 04/05/23 11/10/23 History ([place] Thyroid) apixaban 5 mg tablet (Eliquis) 5 mg PO BID #60 tabs 08/17/23 11/10/23 Rx acetaminophen 650 mg 650 mg PO BID 09/26/23 11/10/23 History tablet,extended release (Tylenol Arthritis Pain) calcium carbonate 500 mg calcium 500 mg PO DAILY 09/26/23 11/10/23 History (1,250 mg) tablet denosumab 60 mg/mL subcutaneous 0 mg subcut DIRECTED 09/26/23 11/10/23 History syringe (Prolia) inulin-sorbitol 2 gram chewable 1 tab PO DAILY 09/26/23 11/10/23 History tablet methylprednisolone 8 mg tablet 16 mg PO DAILY 09/26/23 11/10/23 History ondansetron 4 mg disintegrating 4 mg translingual DIRECTED PRN 10/14/23 11/10/23 History tablet Nausea duloxetine 30 mg capsule,delayed 30 mg PO QAM #30 caps 10/21/23 11/10/23 Rx release famotidine 20 mg tablet 20 mg PO BID #60 tabs 10/21/23 11/10/23 Rx polyethylene glycol 3350 17 gram 17 g PO DAILY #30 ea 10/21/23 11/10/23 Rx oral powder packet (Miralax) pregabalin 100 mg capsule (Lyrica) 100 mg PO BID #60 caps 10/21/23 11/10/23 Rx tramadol 50 mg tablet 100 mg (2 x 50 mg) PO Q8H #90 tabs 10/21/23 11/10/23 Rx meclizine 25 mg tablet 25 mg PO TID PRN Dizziness 11/10/23 11/10/23 History sulfasalazine 500 mg tablet 500 mg PO BID 11/10/23 11/10/23 History Past Med/Surg History Medical History Neurogenic claudication due to lumbar spinal stenosis Hypertensive emergency GERD (gastroesophageal reflux disease) HTN (hypertension) History of coronary artery disease Pulmonary emboli Giant cell arteritis Polymyalgia rheumatica Staph infection Diverticulitis Hypothyroid Osteoarthritis Rheumatoid arthritis Heart attack Coronary artery disease Stent May 2012 - [place] during stress test Stent Oct 2019 - pressure in chest Fibromyalgia Surgical History (Updated 10/27/23 @ 00:10 by Nahun Rios) Status post lumbar surgery History of left nephrectomy History of back surgery History of colon resection Social History Smoking Status: Never smoker Hx Alcohol Use: Yes Alcohol type: other Hx Substance Use: No Preferred Language: Azeri Communication Ability: Effective Dye Room Helper Required: No Beliefs That Will Affect Care: Voodoo Voodoo Beliefs: Buddhism Current Living Situation: Spouse Other Information That Helps Us Care for You: No Feels Safe at Home: Yes Safety Concerns: Feels Safe At This Time Assistive Devices: Cane and Walker Review of Systems Review of Systems: All systems reviewed & are unremarkable except as noted in HPI & below Physical Exam Constitutional: WD/WN, vitals as above Respiratory: normal respiratory effort, lungs clear to auscultation Cardiovascular: RRR, no murmur, no edema Gastrointestinal (Abdomen): Inspection/Auscultation: abdomen normal to inspection; abdomen not distended Percussion/Palpation: + abdomen tender (mild LLQ) and abdomen soft; no guarding and abdomen not rigid Musculoskeletal: no cyanosis or clubbing, extremities motor strength 5/5 Spine: + paraspinal tenderness (lumbar) Skin: no rashes, warm and dry Neurologic: moves all extremities and awake; not confused Psychiatric: A+Ox3, euthymic affect Genitourinary: no CVA tenderness Results & Data Results & Data Vital Signs (Past 12 Hours) Vital Signs Temp Pulse Resp BP Pulse Ox O2 Del Method 11/10/23 16:19 98 Room Air 11/10/23 16:05 62 11/10/23 16:03 62 17 96 11/10/23 13:50 36 C L 75 18 140/81 98 Room Air Laboratory Results Abnormal lab results 11/10/23 Range/Units 16:16 WBC 11.83 H (4.8-10.8) K/ul RBC 3.55 L (4.20-5.40) M/uL Hgb 10.0 L (12.0-16.0) g/dl Hct 30.5 L (37.0-47.0) % RDW Std Deviation 55.6 H (36.4-46.3) fL RDW Coeff of Ashley 17.9 H (11.5-14.5) % Plt Count 498 H (130-400) K/uL Neut # (Auto) 8.54 H (1.40-6.50) K/uL Sharp # (Auto) 0.87 H (0.11-0.59) K/uL Sodium 135 L (136-145) mmol/L Potassium 3.0 L (3.5-5.1) mmol/L BUN/Creatinine Ratio 30.8 H (10-20) AST 12 L (13-39) U/L Urine Appearance Turbid A (Clear) Urine Protein 1+ H (Negative) Urine Blood 3+ H (Negative) Ur Leukocyte Esterase 3+ H (Negative) Urine WBC (Auto) >30 H (0-5) /hpf Urine RBC (Auto) 10-30 H (0-4) /hpf U Hyaline Cast (Auto) 5-10 H (0-5) /lpf U Epithel Cells (Auto) 20-30 H (0-5) /lpf Urine Bacteria (Auto) 1+ H (Negative) Diagnostic Findings None Medications Administered None Code Status & VTE Plan Code Status Full VTE Prophylaxis Plan VTE Prophylaxis will be ordered: No PG Care Time/CCT Total # of Minutes Spent Total Time Spent with Patient: Total time spent is greater than 50% in coordination of care (as documented) at patient's floor/unit and/or counseling patient: Coding Level of Care Code 36930 INT INP/OBS CARE 2/55MIN Diagnoses Lumbar compression fracture S32.000A Abnormal urinalysis R82.90 Hypokalemia E87.6 Polymyalgia rheumatica M35.3 Rheumatoid arthritis M06.9 History of pulmonary embolism Z86.711 Urinary retention R33.9
[2023-11-10 16:43] LABS: Basophils # (auto) 0.03 K/uL (0.00-0.20); Basophils % (auto) 0.3 %; Eosinophils # (auto) 0.11 K/uL (0.00-0.50); Eosinophils % (auto) 0.9 %; Hematocrit (blood only) 30.5 % (37.0-47.0); Immature Granulocytes # (auto) 0.12 K/uL (0.01-0.20); Lymphocytes # (auto) 2.16 K/uL (1.20-3.40); Lymphocytes % (auto) 18.3 %; Mean Corpuscular Hemoglobin 28.2 pg (25.0-34.0); Mean Corpuscular Hgb Conc 32.8 g/dL (32.0-36.0); Mean Corpuscular Volume 85.9 fL (80.0-100.0); Mean Platelet Volume 10.9 fL (9.4-12.4); Monocytes # (auto) 0.87 K/uL (0.11-0.59); Monocytes % (auto) 7.4 %; Neutrophils # (auto) 8.54 K/uL (1.40-6.50); Neutrophils % (auto) 72.1 %; Platelet Count 498 K/uL (130-400); RDW Coefficient of Variation 17.9 % (11.5-14.5); RDW Standard Deviation 55.6 fL (36.4-46.3); Red Blood Count 3.55 M/uL (4.20-5.40); White Blood Count 11.83 K/ul (4.8-10.8)
[2023-11-10 16:45] LABS: Appearance Urine Turbid (Clear); Bacteria Urine Automated 1+ (Negative); Bilirubin Urine Negative (Negative); Blood Urine 3+ (Negative); Color Urine Dark Yellow; Epithelial Cell Urine Auto 20-30 /lpf (0-5); Glucose Urine UA Negative (Negative); Ketones Urine Negative (Negative); Leukocyte Esterase Urine 3+ (Negative); Nitrite Urine Negative (Negative); Specific Gravity Urine 1.015 (1.000-1.030); Urobilinogen Urine Negative (Negative); WBC Urine Automated >30 /hpf (0-5); pH Urine 7.5 (4.5-7.5)
[2023-11-10 16:50] LABS: Protein Urine 1+ (Negative)
[2023-11-10 16:56] LABS: Albumin Globulin Ratio 1.5 (0.9-2); Albumin Level 4.1 gm/dl (3.4-5.0); BUN Creatinine Ratio 30.8 (10-20); Bilirubin,Total 0.3 mg/dl (0.2-1.0); Calcium 9.3 mg/dl (8.6-10.3); Creatinine Clr Calc Pharmacy 67.9 ml/min; Est GFR (African American) 102.8 ml/min; Est GFR (Non-African American) 88.7 ml/min; Globulin 2.7 gm/dl (2.5-4.0); Total Protein 6.8 gm/dl (6.0-8.3)
[2023-11-10] MEDS ORDERED: POTASSIUM CHLORIDE CRTAB 20 MEQ TABCR PO STA (17:57)
[2023-11-10 18:17] LABS: Magnesium 1.9 mg/dl (1.7-2.4)
[2023-11-10] MEDS: MONTELUKAST SODIUM 10 MG TABLET PO SCH (22:26)
[2023-11-10] MEDS: ACETAMINOPHEN 325 MG TAB PO SCH (22:26)
[2023-11-10] MEDS: FAMOTIDINE 20 MG TAB PO SCH (22:26)
[2023-11-10] MEDS: PREGABALIN 100 MG CAP PO SCH (22:27)
[2023-11-10] MEDS: sulfaSALAzine 500 MG TABLET PO SCH (22:34)
[2023-11-10] MEDS ORDERED: ACETAMINOPHEN 325 MG TAB PO PRN (23:14)
[2023-11-11 01:04] LABS: Appearance Urine Turbid (Clear); Bacteria Urine Automated Negative (Negative); Bilirubin Urine Negative (Negative); Blood Urine 2+ (Negative); Color Urine Dark Yellow; Epithelial Cell Urine Auto >30 /lpf (0-5); Glucose Urine UA Negative (Negative); Ketones Urine Trace (Negative); Leukocyte Esterase Urine 3+ (Negative); Nitrite Urine Negative (Negative); Protein Urine 2+ (Negative); Specific Gravity Urine 1.023 (1.000-1.030); Urobilinogen Urine Negative (Negative); WBC Urine Automated >30 /hpf (0-5)
--- OUTSIDE RECORDS SUMMARY | 2023-11-11 06:32 | External Medical Summary | Continuity of Care Document ---
Author Name Unknown Organization [address] [id number] Care Team Providers Care Bar Host/Hostess Name Role Phone Elaine Emmanuel Primary Care Physician [phone] [facility]counter [id number] Date(s): 11/03/23 - 11/03/[address] [address] [phone] Encounter Diagnosis Lumbar radiculopathy(Discharge Diagnosis) - 11/02/23 Anemia(Discharge Diagnosis) - 11/02/23 Back pain(Discharge Diagnosis) - 11/02/23 Change in mental status(Discharge Diagnosis) - 11/02/23 Constipation(Discharge Diagnosis) - 11/02/23 Vertigo(Discharge Diagnosis) - 11/03/23 Urinary retention(Discharge Diagnosis) - 11/03/23 Hemorrhoid(Discharge Diagnosis) - 11/03/23 Discharge Disposition: Home or Self Care Attending Physician: MD Tripathi Juan Allergies, Adverse Reactions, Alerts Substance Reaction Severity Status codeine nausea Active statins joint pain Active Plavix hives Active Actonel nausea Active Plaquenil Sulfate 1 hives Active Pravachol Abdominal pain Active Vicodin dizziness Active Adhesive bandage rash vazquez rips skin Active Amitiza Vomiting Active CeleBREX 2 gastric bleed Active 1hives 2GI bleed x 2 Assessment and Plan Extracted from: Title:Office Visit Note Author:MD Tripathi Juan Heber e:11/03/23 1.Lumbar radiculopathy s/u spinal fusion surgery recently. f/u with back surgery. 2.Anemia check CBC in 1 month 3.Back pain add back cymbalta 30mg daily. f/u with Elaine in 1 month. cont current pain regimens. f/u with pain clinic and Dr. Tafoya 4.Change in mental status acute. resolved. 5.Constipation resolved. cont miralax. 6.Vertigo likely BPV. Rx meclizine TID prn, SE explained. avoid changing position quickly. 7.Urinary retention on Best, has urology f/u next week. 8.Hemorrhoid f/u with colorectal. check CBC and BTO as scheduled withTara in 1 month as scheduled. Immunizations Given and Recorded Vaccine Date Status Refusal Reason RSV vaccine preF3, recombinant 1 09/05/23 Recorded influenza virus vaccine, inactivated 08/30/23 Give n influenza virus vaccine, inactivated 08/14/21 Jono rded influenza virus vaccine, inactivated 08/28/18 Jono rded SARS-CoV-2 mRNA-1273 (6y+ bivalent) 2 11/05/22 Rec orded SARS-CoV-2 (COVID-19) mRNA-1273 vaccine 3 02/10/22 Recorded SARS-CoV-2 (COVID-19) mRNA-1273 vaccine 4 07/24/21 Recorded SARS-CoV-2 (COVID-19) mRNA-1273 vaccine 5 01/31/21 Recorded SARS-CoV-2 (COVID-19) mRNA-1273 vaccine 6 12/27/20 Recorded pneumococcal 23-valent vaccine 7 07/12/18 Given pneumococcal 23-valent vaccine 8 08/04/12 Recorded pneumococcal 13-valent vaccine 9 09/17/16 Recorded tetanus/diphtheria/pertuss, acel (Tdap) 10 05/05/11 Recorded 1Result Comment: 2023-09-13: Historical information-source unspecified 2Result Comment: 2022-11-12: Historical information-source unspecified 3Result Comment: 2022-02-15: Historical information-source unspecified 4Result Comment: 2021-07-27: Historical information-source unspecified 5Result Comment: 2021-07-27: Historical information-source unspecified 6Result Comment: 2021-07-27: Historical information-source unspecified 7Early/Late Reason: Other : late 8Result Comment: 2021-07-27: Historical information-source unspecified 9Result Comment: 2021-07-27: Historical information-source unspecified 10Result Comment: 2021-07-27: Historical information-source unspecified Medications amLODIPine 10 mg oral tablet Start: 10/23/23 10:24:00 EDT, 1 tab, PO, Daily, Disp# 90 tab, Refills: 3, Pharmacy: [facility]/pharmacy #[id number] Start Date: 09/19/23 Stop Date: 09/13/24 Status: Ordered Nisula Thyroid 60 mg oral tablet Start: 10/17/23 11:18:00 EST, 1 tab, PO, Daily, Disp# 90 tab, Refills: 1, Pharmacy: [facility] STORE [id number] Start Date: 10/17/23 Status: Ordered aspirin 81 mg oral delayed release tablet Start: 11/05/20 9:08:00 EST, 1 tab, PO, Daily Start Date: 11/05/20 Status: Ordered calcium citrate Start: 10/11/13 11:08:00, 600 mg =, PO, Daily Start Date: 10/11/13 Status: Ordered CBD Oil Start: 11/04/20 8:47:00 EST, CBD Oil, PRN Start Date: 11/04/20 Status: Ordered cefadroxil 500 mg oral capsule Start: 06/09/23 10:41:00 EDT, See Instructions, Disp# 180 cap, Refills: 3, TAKE 1 CAPSULE BY MOUTH EVERY 12 HOURS, Pharmacy: [facility]/pharmacy #[id number] Start Date: 06/09/23 Status: Ordered Co Q-10 100 mg oral capsule Start: 10/11/13 11:05:00, 2 cap, PO, Daily Start Date: 10/11/13 Status: Ordered Colace Start: 01/23/19 14:14:00 EST, 50 mg =, PO, Daily Start Date: 01/23/19 Status: Ordered Cymbalta 30 mg oral delayed release capsule Start: 11/03/23 10:02:00 EST, 1 cap, PO, Daily, Disp# 30 cap, Refills: 1, Pharmacy: [facility]/pharmacy #[id number] Start Date: 11/03/23 Status: Ordered Eliquis 5 mg oral tablet Start: 08/30/23 13:36:00 EDT, 1 tab, PO, bid Start Date: 08/30/23 Status: Ordered esomeprazole 40 mg oral delayed release capsule Start: 03/09/23 16:40:00 EDT, See Instructions, Disp# 90 cap, Refills: 3, TAKE 1 CAPSULE BY MOUTH EVERY DAY, Pharmacy: [facility] [id number] [facility] Start Date: 03/09/23 Status: Ordered Fish Oil 1200 mg oral capsule Start: 08/17/18 14:25:00 EDT, 1 cap, PO, Daily Start Date: 08/17/18 Status: Ordered Flonase 50 mcg/inh nasal spray Start: 04/13/22 14:01:00 EDT, 1 spray, each nostril, Daily, Disp# 16 g, Refills: 5, PRN: allergy symptoms, Pharmacy: [facility] [id number] [facility] Start Date: 04/13/22 Stop Date: 10/10/22 Status: Ordered folic acid 1 mg oral tablet Start: 03/07/23 15:14:00 EDT, See Instructions, Disp# 90 tab, Refills: 3, TAKE 1 TABLET BY MOUTH EVERY DAY, Pharmacy: [facility]ORE [id number] [facility] Start Date: 03/07/23 Status: Ordered hydroCHLOROthiazide-triamterene 25 mg-37.5 mg oral capsule Start: 06/09/23 10:07:00 EDT, 90 each, TAKE 1 CAPSULE BY MOUTH EVERY DAY IN THE MORNING Start Date: 06/09/23 Status: Ordered Klor-Con M20 oral tablet, extended release Start: 08/23/23 16:03:00 EDT, See Instructions, Disp# 90 tab, Refills: 0, TAKE 1 TABLET BY MOUTH EVERY DAY, Pharmacy: [facility] STORE [id number] Start Date: 08/23/23 Status: Ordered meclizine 25 mg oral tablet Start: 11/03/23 10:10:00 EST, 1 tab, PO, tid, Disp# 30 tab, Refills: 0, PRN: as needed for dizziness, Pharmacy: [facility]/pharmacy #[id number] Start Date: 11/03/23 Status: Ordered Medrol 8 mg oral tablet Start: 06/06/23 8:51:00 EDT, 2 tab, PO, Daily, Disp# 180 tab, Refills: 1, , Pharmacy: [facility]/pharmacy #[id number] Start Date: 06/06/23 Stop Date: 12/03/23 Status: Ordered methotrexate 2.5 mg oral tablet Start: 10/14/23 16:19:00 EST, 7 tab, PO, q7days, Disp# 35 tab, Refills: 3, Pharmacy: [facility] STORE [id number] Start Date: 10/14/23 Status: Ordered metoprolol succinate 50 mg oral tablet, extended release Start: 09/19/23 10:26:00 EDT, 50 mg =, PO, Daily, Disp# 90 tab, Refills: 3, Pharmacy: [facility]/pharmacy #[id number] Start Date: 09/19/23 Stop Date: 09/13/24 Status: Ordered montelukast 10 mg oral tablet Start: 09/19/23 10:26:00 EDT, See Instructions, Disp# 90 tab, Refills: 3, TAKE 1 TABLET BY MOUTH EVERY DAY IN THE EVENING, Pharmacy: [facility]/pharmacy #[id number] Start Date: 09/19/23 Status: Ordered nitroglycerin 0.4 mg sublingual tablet Start: 07/14/18 10:06:00 EDT, 1 tab, SL, q5min, PRN: Chest Pain Start Date: 07/14/18 Status: Ordered Orencia ClickJect Autoinjector 125 mg/mL SQ solution Start: 02/04/23 16:08:00 EST, See Instructions, Disp# 4 each, Refills: 3, INJECT 1 AUTOINJECTOR (125 MG) UNDER THE SKIN EVERY 7 DAYS, Pharmacy: [facility] Start Date: 02/04/23 Status: Ordered Praluent Pen 75 mg/mL subcutaneous solution Start: 05/08/19 10:47:00 EDT, 75 mg =, subQ, [id number] Start Date: 05/08/19 Status: Ordered pregabalin 100 mg oral capsule Start: 09/19/23 10:26:00 EDT, 1 cap, PO, bid, Disp# 180 cap, Refills: 0, Pharmacy: [facility]/pharmacy #[id number] Start Date: 09/19/23 Stop Date: 12/18/23 Status: Ordered ProAir HFA 90 mcg/inh inhalation aerosol Start: 12/27/22 11:50:00 EST, 1 puff, inhaled, qid, Disp# 1 each, Refills: 5, PRN: as needed for wheezing, Pharmacy: [facility] [id number] [facility] Start Date: 12/27/22 Status: Ordered Probiotic Formula Start: 05/29/15 13:13:00, 1 cap, PO, Daily Start Date: 05/29/15 Status: Ordered Prolia 60 mg/mL subcutaneous solution Start: 01/25/23 19:19:00 EST, every 6 months Start Date: 01/25/23 Status: Ordered Prolia 60 mg/mL subcutaneous solution Start: 09/01/23 13:24:00 EDT, 60 mg =, subQ, [id number], Disp# 1 each, Refills: 1 Start Date: 09/01/23 Status: Ordered Proteolytic enzymes Start: 08/11/22 13:44:00 EDT, Proteolytic enzymes, 1 daily Start Date: 08/11/22 Status: Ordered sulfaSALAzine 500 mg oral tablet Start: 06/06/23 8:47:00 EDT, See Instructions, Disp# 180 tab, Refills: 1, TAKE 1 TABLET BY MOUTH TWICE A DAY, Pharmacy: [facility]ORE [id number] [facility] Start Date: 06/06/23 Status: Ordered traMADol 50 mg oral tablet Start: 04/21/23 16:50:00 EDT, 1 tab, PO, qid, Disp# 120 tab, Refills: 1, PRN: as needed for pain, Pharmacy: [facility]/pharmacy #[id number] Start Date: 04/21/23 Stop Date: 06/20/23 Status: Ordered triamterene 50 mg oral capsule Start: 01/25/23 12:33:00 EST, 1 cap, PO, Daily, PRN: see order comments Start Date: 01/25/23 Status: Ordered Tylenol Arthritis Caplet 650 mg oral tablet, extended release Start: 10/01/13 8:31:00, 2 tab, PO, bid Start Date: 10/01/13 Status: Ordered Vitamin D3 2000 intl units oral capsule Start: 06/30/13 5:49:00, 1 cap, PO, Daily Start Date: 06/30/13 Status: Ordered Vitron-C 125 mg-65 mg oral tablet Start: 11/05/20 9:25:00 EST, 1 tab, PO, Daily Start Date: 11/05/20 Status: Ordered Mental Status 11/03/23 Barriers to Learning one year Vision imp airment Mandatory Health Literacy Documentation Yes Health Literacy Communication Barriers N ever Primary Language Uzbek Problem List Condition Confirmation Course Effective Dates Status Health Status Informant ASCVD (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 disease) Confirmed Active Bilateral hip bursitis Confirmed Active DDD (degenerative disc disease), lumbosacral Confirmed Active Drug therapy Confirmed Active Fibromyalgia Confirmed Active Gastroesophageal reflux disease Confirmed Active Hemorrhoid Confirmed Active History of OR (myocardial infarction) Confirmed Active History of total bilateral knee replacement Confirmed Active Hypertension Confirmed Active Hyperuricemia Confirmed Active Hypothyroidism Confirmed Active Immunosuppressed status Confirmed Active Inflammatory polyarthropathy Confirmed Active 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 Lumbar radiculopathy Confirmed Active Cancer of kidney Confirmed Active Renal cancer Confirmed Active Erosive osteoarthritis of hand Confirmed Active Osteoporosis Confirmed Active Other polyosteoarthritis Confirmed Active PMR (polymyalgia rheumatica) Confirmed Active PMR (polymyalgia rheumatica) Confirmed Active Herniated lumbar intervertebral disc Confirmed Active Rheumatoid arthritis Confirmed Active Seronegative rheumatoid arthritis Confirmed Active Sacroiliac pain Confirmed Active Greater trochanteric bursitis of right hip Confirmed Active Weight disorder Confirmed Active Diagnosis Diagnosis Type Effective Dates Health Status Clinical Service Informant Back pain Discharge Diagnosis 11/02/23 Lumbar radiculopathy Discharge Diagnosis 11/02/23 Anemia Discharge Diagnosis 11/02/23 Change in mental status Discharge Diagnosis 11/02/23 Constipation Discharge Diagnosis 11/02/23 Vertigo Discharge Diagnosis 11/03/23 Urinary retention Discharge Diagnosis 11/03/23 Hemorrhoid Discharge Diagnosis 11/03/23 Procedures Procedure Date Related Diagnosis Body Site Status Chest X-ray 1 04/05/[address] of cervical spine 2 04/05/[address] of thoracic spine 3 04/05/23 Co mpleted Eye examination 4 11/04/20 [facility] ed Cardiac Cath and Cardiac Otto nt placement 10/2019 Completed Lumbar spinal fusion 5 07/15/18 Co mpleted Lumbar spinal fusion 06/27/18 Comp leted Left Nephrectomy 6 02/22/18 Comple sulma Left Foot Arthrodesis 7 07/11/17 C ompleted ablation 05/27/17 Completed Bilateral Cataract Extraction 01/2017 Completed L4/L5 transformainal injecti on bilateral 07/16/16 Completed Right total knee arthroplasty. 8 06/25/15 Completed Left Knee replacement 9 04/16/15 C ompleted Lumbar epidural steroid injection 10 03/28/15 Completed Lumbar epidural steroid injection 10/18/14 Completed Colon Resection - ruptured 11 01/13/14 Completed Right index finger, joint le marco amputation 07/04/13 Completed Cardiac catheterization & St ent Placement 05/2012 Completed Colonoscopy 05/2012 Completed Endoscopy 05/2012 Completed Repair of bladder 2006 [facility] ed Cholecystectomy 2001 Completed Hysterectomy 1996 Completed Tonsillectomy with adenoidectomy 1957 Completed Endometrial ablation Comp leted 1No acute chest disease. 2No evidence of acute bony injury. 3No aute bony abnormality is seen involving the thoracic spine. 4OD 20/40 OS 2030 5follow-up proceedure secondary to post-op infection 6Left nephrectomy 7Arthrodesis 1st metatarsophalangeal joint, left foot. Shorty osteotomy, 1st metatarsophalangeal joint, left foot. Hammertoe correction 2nd digit, left foot. Chito metatarsal osteotomy 2nd metatarsal, left foot. 8Right total knee arthroplasty. 9left 10bilateral 11colon resection [facility] nando osman Vital Signs Most recent to oldest [Reference Range]: 1 Heart Rate 61 bpm (11/03/23 9:05 AM) Respiratory Rate 18 br/min (11/03/23 9:05 AM) Blood Pressure 136/70mmHg (11/03/23 9:05 AM) Cuff Pulse Pressure 66 mmHg (11/03/23 9:05 AM) Social History Social History Type Response Smoking Status Never smoked cigaret ivania Sex Female FCM Outpt Note * MD Deuce, Stephen: PERFORM Event Display: FCM Outpt Note Authored Date: [id number] Chief Complaint hospital follow up History of Present Illness Hospital f/u: hadrecent spinal surg on 10/04/23 [facility] by Dr. Tafoya.LBP better for a couple of days then gotreally bad. was Rxoxycodone and lyrica was increased from 100 to 200mg daily. But still with significant low backpain and hip pain,Pt [facility] 10[facility]/23 and admittedfor poor oral intake, AMS, and worsening low back pain, constipation. Inpatient evaluation showed no evidence ofinfection at the wound site and negative blood Cx. Oxycodone was stopped and lyrica was decreased back to 100mg daily. Pain med changed to tramadol.duloxetine 30 mg p.o. daily was added while inpatient, but did not have outpatient Rx. Would like to have Rx for that to help pain. MiraLAX was added with resolution of constipation. AMS was thought likely secondary tolack of sleepdue to pain and medications such as opioids andincreased dose of lyrica,evaluations including CT head negative, ABG, etc all unremarkable. AMS resolved from before discharge. Was initially discharged to inpatient rehab but found out of day of discharge insurance did not cover it. Was discharged to home. -pt was noted having urinary retention while in ER, thought related to severe constipation and opioids. Best catheterwas put in place.Currently still on Best. had outpatient f/u with urology last week, was told cont Best and has f/u in 1 week. just saw pain clinic in [facility] in [facility] yesterday, had 2 injections on both hips. hip pain resolved. but still low back pain. has f/u in 2 weeks. Still has lots of low back pain around the surgery site, Noradiation. Also has f/u with Dr. Tafoya next week. Currently takes: tylenol arthritis 2 tab BID (total 2600mg), lyrica 100mg BID, [id number] at HS (for PMR). c/o lots of vertigo sincesurgery x 4 weeks. vertigo only when change head position. + nausea. No vomiting. No ALBERTO, visual change, cp, sob. Hx of anemia of chronic illness and recent blood loss from spine surgery, Hb 8.2 when inpatient. Hx of rectal-vagina fistula and bleeding hemorrhoid. Just saw colorectal yesterday. was toldsurgery needs to wait till pt is off Eliquis (for DVT since 07/2023). Has f/u with PCP Elaine Emmanuel in 1 month. Physical Exam Vitals & Measurements HR:61(Monitored) RR:18 BP:136/70 SpO2:95% PHQ2 Data(Data Documented on:11/03/2023 09:05) Emotional health assessment NEGATIVE GENERAL: A&Ox3. No acute distress. Affect and speech appropriate. Pt lying on exam table on herside due to back pain. HEENT: PERRLA, EOMI, Conjunctivae clear. NECK: Supple, No lymphadenopathy. No carotid bruits. HEART: RRR, normal S1, S2. No murmurs, gallops or clicks. LUNGS: breathing not labored, breathing sound clear, breathing sound equal bilaterally, no rales, no wheezing. ABDOMEN: Positive bowel sound, soft, nontender, non-distended. No hepatosplenomegaly noted. No mass. Best in place. Assessment/Plan 1.Lumbar radiculopathy s/u spinal fusion surgery recently. f/u with back surgery. 2.Anemia check CBC in 1 month 3.Back pain add back cymbalta 30mg daily. f/u with Elaine in 1 month. cont current pain regimens. f/u with pain clinic and Dr. Tafoya 4.Change in mental status acute. resolved. 5.Constipation resolved. cont miralax. 6.Vertigo likely BPV. Rx meclizine TID prn, SE explained. avoid changing position quickly. 7.Urinary retention on Best, has urology f/u next week. 8.Hemorrhoid f/u with colorectal. check CBC and BTO as scheduled withTara in 1 month as scheduled. Attestation Attestation Time spent: Pre-visit plannin min [id number] visit:45 min Post-visit:15 min Total visit time: 75 min Problem List/Past Medical History Ongoing ASCVD (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 disease) Bilateral hip bursitis Cancer of kidney DDD (degenerative disc disease), lumbosacral Drug therapy Erosive osteoarthritis of hand Fibromyalgia Gastroesophageal reflux disease Greater trochanteric bursitis of right hip Hemorrhoid Herniated lumbar intervertebral disc History of OR (myocardial infarction) History of total bilateral knee replacement Hypertension Hyperuricemia Hypothyroidism Immunosuppressed status Inflammatory polyarthropathy correction systemic steroid user Lumbar radiculopathy Osteoporosis Other polyosteoarthritis PMR (polymyalgia rheumatica) PMR (polymyalgia rheumatica) Renal cancer Rheumatoid arthritis Sacroiliac pain Seronegative rheumatoid arthritis Weight disorder Historical Diverticulitis Diverticulitis of Colon without Mention of Hemorrhage Erosive osteoarthrosis Finger infection Left kidney mass Low back pain Lumbar facet arthropathy Neck pain Osteopenia Pain of right shoulder region Radicular syndrome of lower limbs Renal cell carcinoma of left kidney Sacral back pain Shoulder pain Stented coronary artery Procedure/Surgical History CT of cervical spine (04/05/2023)Chest X-ray (04/05/2023)CT of thoracic spine (04/05/2023)Eye examination (11/04/2020)Cardiac Cath and Cardiac Stent placement (10/2019)Lumbar spinalfusion (07/15/2018)Lumbar spinal fusion (06/27/2018)Left Nephrectomy (02/22/2018)Left FootArthrodesis (07/11/2017)ablation (05/27/2017)Bilateral Cataract Extraction (01/2017)L4/L5 transformainal injection bilateral (07/16/2016)Right total knee arthroplasty. (06/25/2015)LeftKnee replacement (04/16/2015)Lumbar epidural steroid injection (03/28/2015)Lumbar epidural steroid injection (10/18/2014)Colon Resection - ruptured (01/13/2014)Right index finger, joint level amputation (2013)Endoscopy (05/2012)Colonoscopy (05/2012)Cardiac catheterization& Stent Placement (05/2012) Repair of bladder (2006) Cholecystectomy (2001) Hysterectomy (1996)Tonsillectomy with adenoidectomy (1957)Endometrial ablation Medications abatacept(Orencia ClickJect Autoinjector 125 mg/mL SQ solution), See Instructions, 3 refills acetaminophen(Tylenol Arthritis Caplet 650 mg oral tablet, extended release), 1300 mg= 2 tab, PO, bid albuterol(ProAir HFA 90 mcg/inh inhalation aerosol), 1 puff, inhaled, qid, PRN, 5 refills alirocumab(Praluent Pen 75 mg/mL subcutaneous solution), 75 mg, subQ, b2bsgra amLODIPine(amLODIPine 10 mg oral tablet), 10 mg= 1 tab, PO, Daily, 3 refills apixaban(Eliquis 5 mg oral tablet), 5 mg= 1 tab, PO, bid ascorbic acid-carbonyl iron(Vitron-C 125 mg-65 mg oral tablet), 1 tab, PO, Daily aspirin(aspirin 81 mg oral delayed release tablet), 81 mg= 1 tab, PO, Daily bifidobacterium-lactobacillus(Probiotic Formula), 1 cap, PO, Daily calcium citrate, 600 mg, PO, Daily cefadroxil(cefadroxil 500 mg oral capsule), See Instructions, 3 refills cholecalciferol(Vitamin D3 2000 intl units oral capsule), 2000 Int_Unit= 1 cap, PO, Daily denosumab(Prolia 60 mg/mL subcutaneous solution) denosumab(Prolia 60 mg/mL subcutaneous solution), 60 mg, subQ, [id number], 1 refills docusate(Colace), 50 mg, PO, Daily DULoxetine(Cymbalta 30 mg oral delayed release capsule), 30 mg= 1 cap, PO, Daily, 1 refills esomeprazole(esomeprazole 40 mg oral delayed release capsule), See Instructions, 3 refills fluticasone nasal(Flonase 50 mcg/inh nasal spray), 50 mcg= 1 spray, each nostril, Daily, PRN, 5 refills folic acid(folic acid 1 mg oral tablet), See Instructions hydroCHLOROthiazide-triamterene(hydroCHLOROthiazide-triamterene 25 mg-37.5 mg oral capsule) meclizine(meclizine 25 mg oral tablet), 25 mg= 1 tab, PO, tid, PRN methotrexate(methotrexate 2.5 mg oral tablet), 7 tab, PO, q7days methylPREDNISolone(Medrol 8 mg oral tablet), 16 mg= 2 tab, PO, Daily, 1 refills metoprolol(metoprolol succinate 50 mg oral tablet, extended release), 50 mg, PO, Daily, 3 refills montelukast(montelukast 10 mg oral tablet), See Instructions, 3 refills nitroglycerin(nitroglycerin 0.4 mg sublingual tablet), 0.4 mg= 1 tab, SL, q5min, PRN omega-3 polyunsaturated fatty acids(Fish Oil 1200 mg oral capsule), 1200 mg= 1 cap, PO, Daily potassium chloride(Klor-Con M20 oral tablet, extended release), See Instructions pregabalin(pregabalin 100 mg oral capsule), 100 mg= 1 cap, PO, bid sulfaSALAzine(sulfaSALAzine 500 mg oral tablet), See Instructions thyroid desiccated(Nisula Thyroid 60 mg oral tablet), 1 tab, PO, Daily traMADol(traMADol 50 mg oral tablet), 50 mg= 1 tab, PO, qid, PRN, 1 refills triamterene(triamterene 50 mg oral capsule), 50 mg= 1 cap, PO, Daily, PRN ubiquinone(Co Q-10 100 mg oral capsule), 200 mg= 2 cap, PO, Daily unknown medication(CBD Oil) unlisted medication(Proteolytic enzymes) Allergies Actonelnausea Adhesive bandagerash, vazquez, rips skin AmitizaVomiting CeleBREXgastric bleed Plaquenil Sulfatehives Plavixhives PravacholAbdominal pain Vicodindizziness codeinenausea statinsjoint pain Social History Smoking Status Never smoked cigarettes Family History Arthritis: Mother. CAD (coronary artery disease).: Father. Diverticulitis: Mother. Heart disease: Mother. Health Status Family Member(s) Immunizations Vaccine Date Status RSV vaccine preF3, recombinant 09/05/2023 Recorded Comments : 2023-09-13: Historical information-source unspecified influenza virus vaccine, inactivated 08/30/2023 Given SARS-CoV-2 mRNA-1273 (6y+ bivalent) 11/05/2022 Recorded Comments : 2022-11-12: Historical information-source unspecified SARS-CoV-2 (COVID-19) mRNA-1273 vaccine 02/10/2022 Recorded Comments : 2022-02-15: Historical information-source unspecified influenza virus vaccine, inactivated 08/14/2021 Recorded SARS-CoV-2 (COVID-19) mRNA-1273 vaccine 07/24/2021 Recorded Comments : 2021-07-27: Historical information-source unspecified SARS-CoV-2 (COVID-19) mRNA-1273 vaccine 01/31/2021 Recorded Comments : 2021-07-27: Historical information-source unspecified SARS-CoV-2 (COVID-19) mRNA-1273 vaccine 12/27/2020 Recorded Comments : 2021-07-27: Historical information-source unspecified influenza virus vaccine, inactivated 08/2018 Recorded pneumococcal 23-valent vaccine - Not Given Comments : Already received vaccine patient already had pneumococcal 23-valent vaccine 07/12/2018 Given Comments : Other : late pneumococcal 13-valent vaccine 09/17/2016 Recorded Comments : 2021-07-27: Historical information-source unspecified pneumococcal 23-valent vaccine 08/04/2012 Recorded Comments : 2021-07-27: Historical information-source unspecified tetanus/diphtheria/pertuss, acel (Tdap) 05/05/2011 Recorded Comments : 2021-07-27: Historical information-source unspecified Recommendations Health Maintenance Pending(in the next year) OverDue Breast Cancer Screening due07/21/23and every 731day Due Adult COVID-19 Vaccination due11/03/23Unknown Frequency Adult Tdap/Td Vaccine due11/03/23Unknown Frequency Falls Plan of Care due11/03/23Unknown Frequency Medicare Annual Wellness Visit due11/03/23and every 1year Shingles Vaccine due11/03/23One-time only Due In Future Adult Influenza Vaccine not due until05/28/24and every 1year Body Mass Index not due until08/30/24and every 366day Satisfied(in the past 1 year) Satisfied Adult COVID-19 Vaccination on11/05/22.Satisfied by SIMI Cannon Wendy N Adult Influenza Vaccine on08/30/23.Satisfied by SERGIO Berman Bobbi Body Mass Index on08/30/23.Satisfied by SERGIO Berman Bobbi Electronic Signature on File Electronically Reviewed/Signed by: Stephen Tripathi MD Author Signature Dt/Tm:11/03/2023 01:34 PM Department of Family Medicine [facility] Patient Care team information Care Team Personnel Name: TOMEKA Emmanuel Tara Position: Nurse Pract - Family Med Member Role: Primary Care Provider Address: Address: [address] [address] Name: YESIKA Smallwood, Nati Park Position: Physician Wallpaper Printer Helper - Orthopaedic Surg Member Role: Lifetime Relationship Address: Address: [address] [place] [address] [place] Name: MD Marcus, Arnie Position: Physician - Endocrinology Member Role: Lifetime Relationship Address: Address: [address] [place] [address] [place] Name: MD Mohsen, Garcia Rosa Position: Physician - Urology Member Role: Lifetime Relationship Address: Address: [address] [place] [address] Name: Ita Oscar Courtney Position: Pharmacist Member Role: Pharmacy - Lifetime Name: Ita Garcia Brittani Position: Pharmacist Schedule II Member Role: Pharmacy - Lifetime Care Team Related Persons Name: BLAKE SHELBY Address: [address] [phone] Name: BLAKE SHELBY Address: [address] [id number] Name: KAM SHELBY Address: home [address] [facility], [id number]
--- OUTSIDE RECORDS SUMMARY | 2023-11-11 06:32 | External Medical Summary | Continuity of Care Document ---
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 Discharge Disposition: Home or Self Care Attending Physician: MD Gtz Audrey Referring Physician: TOMEKA Emmanuel Tara Allergies, Adverse Reactions, Alerts Substance Reaction Severity Status codeine nausea Active Plavix hives Active Actonel nausea Active Plaquenil Sulfate 1 hives Active Pravachol Abdominal pain Active Vicodin dizziness Active Adhesive bandage rash vazquez rips skin Active Amitiza Vomiting Active statins joint pain Active CeleBREX 2 gastric bleed Active 1hives 2GI bleed x 2 Immunizations Given and Recorded Vaccine Date Status [...] Medications amLODIPine 10 mg oral tablet Start: 09/19/23 10:24:00 EDT, 1 tab, PO, Daily, Disp# 90 tab, Refills: 3, Pharmacy: [facility]/pharmacy #[id number] Start Date: 09/19/23 Stop Date: 09/13/24 Status: Ordered Pearland Thyroid 60 mg oral tablet Start: 10/17/23 11:18:00 EST, 1 tab, PO, Daily, Disp# 90 tab, Refills: 1, Pharmacy: [id number] Start Date: 10/17/23 Status: Ordered aspirin 81 [...] 1 CAPSULE BY MOUTH EVERY DAY, Pharmacy: [facility] Start Date: 03/09/23 Status: Ordered Fish Oil 1200 mg oral capsule Start: 08/17/18 14:25:00 EDT, 1 cap, PO, Daily Start Date: 08/17/18 Status: Ordered Flonase 50 mcg/inh nasal spray Start: 04/13/22 14:01:00 EDT, 1 spray, each nostril, Daily, Disp# 16 g, Refills: 5, PRN: allergy symptoms, Pharmacy: [facility] Start Date: 04/13/22 Stop Date: 10/10/22 Status: Ordered folic acid 1 mg oral tablet Start: 03/07/23 15:14:00 EDT, See Instructions, Disp# 90 tab, Refills: 3, TAKE 1 TABLET BY MOUTH EVERY DAY, Pharmacy: [id number] Start Date: 03/07/23 Status: Ordered hydroCHLOROthiazide-triamterene 25 mg-37.5 mg oral capsule Start: 06/09/23 10:07:00 EDT, 90 each, TAKE 1 CAPSULE BY MOUTH EVERY DAY IN THE MORNING Start Date: 06/09/23 Status: Ordered Klor-Con M20 oral tablet, extended release Start: 08/23/23 16:03:00 EDT, See Instructions, Disp# 90 tab, Refills: 0, TAKE 1 TABLET BY MOUTH EVERY DAY, Pharmacy: [id number] Start Date: 08/23/23 Status: Ordered meclizine 25 mg oral tablet Start: 11/03/23 10:10:00 EST, 1 tab, PO, tid, Disp# 30 tab, Refills: 0, PRN: as needed for dizziness, Pharmacy: [facility]/pharmacy #[id number] Start Date: 11/03/23 Status: Ordered Medrol 8 mg oral tablet Start: 06/06/23 8:51:00 EDT, 2 tab, PO, Daily, Disp# 180 tab, Refills: 1, , [id number] Start Date: 06/06/23 Stop Date: 12/03/23 Status: Ordered methotrexate 2.5 mg oral tablet Start: 10/14/23 16:19:00 EST, 7 tab, PO, q7days, Disp# 35 tab, Refills: 3, Pharmacy: [facility] [employer] [id number] Start Date: 10/14/23 Status: Ordered metoprolol succinate 50 mg oral tablet, extended release Start: 09/19/23 10:26:00 EDT, 50 mg =, PO, Daily, Disp# 90 tab, Refills: 3, [id number] Start Date: 09/19/23 Stop Date: 09/13/24 Status: Ordered montelukast 10 mg oral tablet Start: 09/19/23 10:26:00 EDT, See Instructions, Disp# 90 tab, Refills: 3, TAKE 1 TABLET BY MOUTH EVERY DAY IN THE EVENING, [id number] Start Date: 09/19/23 Status: Ordered nitroglycerin 0.4 mg sublingual tablet Start: 07/14/18 10:06:00 EDT, 1 tab, SL, q5min, PRN: Chest Pain Start Date: 07/14/18 Status: Ordered Orencia ClickJect Autoinjector 125 mg/mL SQ solution Start: 02/04/23 16:08:00 EST, See Instructions, Disp# 4 each, Refills: 3, INJECT 1 AUTOINJECTOR (125 MG) UNDER THE SKIN EVERY 7 DAYS, Pharmacy: [facility] Start Date: 02/04/23 Status: Ordered Praluent Pen 75 mg/mL subcutaneous solution Start: 05/08/19 10:47:00 EDT, 75 mg =, subQ, [id number] Start Date: 05/08/19 Status: Ordered pregabalin 100 mg oral capsule Start: 09/19/23 10:26:00 EDT, 1 cap, PO, bid, Disp# 180 cap, Refills: 0, Pharmacy: [facility]/pharmacy #[id number] Start Date: 09/19/23 Stop Date: 12/18/23 Status: Ordered ProAir HFA 90 mcg/inh inhalation aerosol Start: 12/27/22 11:50:00 EST, 1 puff, inhaled, qid, Disp# 1 each, Refills: 5, PRN: as needed for wheezing, Pharmacy: [facility] Start Date: 12/27/22 Status: Ordered Probiotic Formula Start: 05/29/15 13:13:00, 1 cap, PO, Daily Start Date: 05/29/15 Status: Ordered Prolia 60 mg/mL subcutaneous solution Start: 01/25/23 19:19:00 EST, every 6 months Start Date: 01/25/23 Status: Ordered Prolia 60 mg/mL subcutaneous solution Start: 09/01/23 13:24:00 EDT, 60 mg =, subQ, [id number], Disp# 1 each, Refills: 1 Start Date: 09/01/23 Status: Ordered Proteolytic enzymes Start: 08/11/22 13:44:00 EDT, Proteolytic enzymes, 1 daily Start Date: 08/11/22 Status: Ordered sulfaSALAzine 500 mg oral tablet Start: 06/06/23 8:47:00 EDT, See Instructions, Disp# 180 tab, Refills: 1, TAKE 1 TABLET BY MOUTH TWICE A DAY, Pharmacy: [id number] Start Date: 06/06/23 Status: Ordered [...] Start Date: 11/05/20 Status: Ordered Mental Status 11/01/23 Barriers to Learning one year Vision imp airment Mandatory Health Literacy Documentation Yes Health Literacy Communication Barriers N ever Primary Language Hungarian Problem List Condition Confirmation Course Effective Dates Status Health Status Informant ASCVD (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 disease) Confirmed Active Bilateral hip bursitis Confirmed Active DDD (degenerative disc disease), lumbosacral Confirmed Active Drug therapy Confirmed Active Fibromyalgia Confirmed Active Gastroesophageal reflux disease Confirmed Active Hemorrhoid Confirmed Active History of [place] (myocardial infarction) Confirmed Active History of total bilateral knee replacement Confirmed Active Hypertension Confirmed Active Hyperuricemia Confirmed Active Hypothyroidism Confirmed Active Immunosuppressed status Confirmed Active Inflammatory polyarthropathy Confirmed Active 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 Lumbar radiculopathy [...] Effective Dates Health Status Clinical Service Informant Colovaginal fistula Discharge Diagnosis 11/01/23 Hemorrhoid Discharge Diagnosis 11/01/23 Procedures Procedure Date Related Diagnosis Body Site Status Chest X-ray 1 04/05/[address] of cervical spine 2 04/05/[address] of thoracic spine 3 04/05/23 Co mpleted Eye examination 4 11/04/20 [facility] ed Cardiac Cath and Cardiac Otto [...] Endoscopy 05/2012 Completed Repair of bladder 2006 Complet ed Cholecystectomy 2001 Completed Hysterectomy 1996 Completed Tonsillectomy with adenoidectomy 1957 Completed Endometrial ablation Comp leted 1No acute chest disease. 2No evidence of acute bony injury. 3No aute bony abnormality is seen involving the thoracic spine. 4OD OS 5follow-up proceedure secondary to post-op infection 6Left nephrectomy 7Arthrodesis 1st metatarsophalangeal joint, left foot. Shorty osteotomy, 1st metatarsophalangeal joint, left foot. Hammertoe correction 2nd digit, left foot. Chtio metatarsal osteotomy 2nd metatarsal, left foot. 8Right total knee arthroplasty. 9left 10bilateral 11colon resection [facility] Social History Social History Type Response Smoking Status Never smoked cigaret ivania Sex Female Patient Care team information Care Team Personnel Name: TOMEKA Emmanuel Tara Position: Nurse Pract - Family Med Member Role: Primary Care Provider Address: Address: [address] [place] [id number] [place] Name: YESIKA Smallwood, Nati Park Position: Physician Patternmaker Metal - Orthopaedic Surg Member Role: Lifetime Relationship Address: Address: [address] [facility] [address] [facility] [address] [place] [address] [place] Name: MD Marcus, Arnie Position: Physician - Endocrinology Member Role: Lifetime Relationship Address: Address: [address] [facility] [place] [address] [place] Name: MD Mohsen, Garcia Rosa Position: Physician - Urology Member Role: Lifetime Relationship Address: Address: [address] [place] [address] [place] [address] Name: Ita Oscar Courtney Position: Pharmacist Member Role: Pharmacy - Lifetime Name: Ita Garcia Brittani Position: Pharmacist Schedule II Member Role: Pharmacy - Lifetime Care Team Related Persons Name: BLAKE SHELBY Address: [address] [phone] Name: BLAKE SHELBY Address: home [address] [place] [phone] Name: KAM SHELBY Address: home [address] [facility], [id number]
--- OUTSIDE RECORDS SUMMARY | 2023-11-11 06:32 | External Medical Summary | Continuity of Care Document ---
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 Date(s): 11/02/23 - 11/02/23 [facility] [address] [facility] [address] [place] [address] Encounter Diagnosis Hypothyroidism(Discharge Diagnosis) - 11/02/23 Discharge Disposition: Home or Self Care Attending Physician: MD Velazquez Shyam Referring Physician: MD Velazquez Shyam Allergies, Adverse Reactions, Alerts Substance Reaction Severity Status codeine nausea Active statins joint pain Active Plavix hives Active Actonel nausea Active Plaquenil Sulfate 1 hives Active Pravachol Abdominal pain Active Vicodin dizziness Active Adhesive bandage rash vazquez rips skin Active Amitiza Vomiting Active CeleBREX 2 gastric bleed Active 1hives 2GI bleed x 2 Assessment and Plan Extracted from: Title:Clinical Document Author:MD Marcus, Zayra Date:11/02/23 ENDOCRINOLOGY OUTPATIENT NOTE Name: ELAINE DONAHUE Patient Number: [id number] : 1950 Date of Service: 11/02/2023 This visit was in lieu of the previously scheduled follow up clinic visit ( patient initiated). Patient verified identity by stating their name and prior to this visit. I personally discussed with the patient that this was a virtual visit and the patient was advised a virtual visit is billable to insurance and subject to a co-payment. The patient granted me consent to proceed with this virtual visit." Patient was at his/her( X )-home, ( )- other. Provider was at his/her ( X )- home office, ( )- office/clinic, ( )- other. The telehealth platform used for this visit was: ( )- Telephone ( institution approved), ( x )- [facility] on demand health/ ( ) Zoom- "real-time audio/visual communication" Chief Complaint: Follow up visit for Hypothyroidism HPI: Ms. Donahue is a 73 y/o woman with h/o primary hypothyroidism diagnosed in her 20 s and has been on supplemental thyroid hormone since then. She was initially on Stafford thyroid at diagnosis for few years and then switched to levothyroxine, with switch to levothyroxine, she had reported to not feeling well ; decreased energy, cold intolerance and hence preferred to go back on Stafford thyroid. She was restarted/switched to Stafford thyroid 60mg daily in 2015 and her TFT monitored regularly maintaining euthyroid state. She has h/o osteoporosis ( treated with Reclast for few years now on drug holiday with stable bone density and no fragility fractures, follows up with Rheumatology) and CAD- stable. She denies any palpitations, tremors, or fragility fractures in the recent past. She was found to have renal tumor/cancer- s/p nephrectomy and has had few bouts of staph infections ( this has been attributed to her lower immunity related to therapy for her arthritis; she continues to be on methylprednisolone ( for flare ups) and Enbrel ( maintenance drug). She has been struggling with lower back pain and is bedridden due to this. She is following up with pain clinic/orthopedic doctors for this. She has had spine fusion surgeries in the past. Otherwise 12 systems review negative except as noted above She reports to mother, daughter and son with thyroid issues She does not smoke cigarettes, no use of alcohol or recreational drugs 09/2023: TSH: 1.26 06/2022: TSH: 1.32, FT4: 0.99, FT3: 3.6 Current Home Meds: (Last Updated 11/01 12:32) abatacept (Orencia ClickJect Autoinjector 125 mg/mL SQ solution) INJECT 1 AUTOINJECTOR (125 MG) UNDER THE SKIN EVERY 7 DAYS acetaminophen (Tylenol Arthritis Caplet 650 mg oral tablet, extended release) 1,300 mg PO bid albuterol (ProAir HFA 90 mcg/inh inhalation aerosol) 1 puff inhaled qid PRN: as needed for wheezing alirocumab (Praluent Pen 75 mg/mL subcutaneous solution) 75 mg subQ x1dxayl amLODIPine (amLODIPine 10 mg oral tablet) 10 mg PO Daily apixaban (Eliquis 5 mg oral tablet) 5 mg PO bid ascorbic acid-carbonyl iron (Vitron-C 125 mg-65 mg oral tablet) 1 tab PO Daily aspirin (aspirin 81 mg oral delayed release tablet) 81 mg PO Daily bifidobacterium-lactobacillus (Probiotic Formula) 1 cap PO Daily calcium citrate 600 mg PO Daily cefadroxil (cefadroxil 500 mg oral capsule) TAKE 1 CAPSULE BY MOUTH EVERY 12 HOURS cholecalciferol (Vitamin D3 2000 intl units oral capsule) 2,000 Int_Unit PO Daily denosumab (Prolia 60 mg/mL subcutaneous solution) every 6 months denosumab (Prolia 60 mg/mL subcutaneous solution) 60 mg subQ [id number] docusate (Colace) 50 mg PO Daily esomeprazole (esomeprazole 40 mg oral delayed release capsule) TAKE 1 CAPSULE BY MOUTH EVERY DAY fluticasone nasal (Flonase 50 mcg/inh nasal spray) 50 mcg each nostril Daily PRN: allergy symptoms folic acid (folic acid 1 mg oral tablet) TAKE 1 TABLET BY MOUTH EVERY DAY hydroCHLOROthiazide-triamterene (hydroCHLOROthiazide-triamterene 25 mg-37.5 mg oral capsule) 90 each, TAKE 1 CAPSULE BY MOUTH EVERY DAY IN THE MORNING Responsible Provider: KATELYN MONZON 06/09 10:07 methotrexate (methotrexate 2.5 mg oral tablet) 7 tab PO q7days methylPREDNISolone (Medrol 8 mg oral tablet) 16 mg PO Daily MOISÉS 05/24/23 12/01/23 Lorri Roberts 06/06 08:51 metoprolol (metoprolol succinate 50 mg oral tablet, extended release) 50 mg PO Daily montelukast (montelukast 10 mg oral tablet) TAKE 1 TABLET BY MOUTH EVERY DAY IN THE EVENING nitroglycerin (nitroglycerin 0.4 mg sublingual tablet) 0.4 mg SL q5min PRN: Chest Pain omega-3 polyunsaturated fatty acids (Fish Oil 1200 mg oral capsule) 1,200 mg PO Daily potassium chloride (Klor-Con M20 oral tablet, extended release) TAKE 1 TABLET BY MOUTH EVERY DAY pregabalin (pregabalin 100 mg oral capsule) 100 mg PO bid sulfaSALAzine (sulfaSALAzine 500 mg oral tablet) TAKE 1 TABLET BY MOUTH TWICE A DAY thyroid desiccated (Stafford Thyroid 60 mg oral tablet) 1 tab PO Daily traMADol (traMADol 50 mg oral tablet) 50 mg PO qid PRN: as needed for pain triamterene (triamterene 50 mg oral capsule) 50 mg PO Daily PRN: see order comments edema - W Rife 01/25 12:35 ubiquinone (Co Q-10 100 mg oral capsule) 200 mg PO Daily unknown medication (CBD Oil) PRN unlisted medication (Proteolytic enzymes) 1 daily Allergies and Sensitivities: Adhesive bandage(rips skin) Adhesive bandage(vazquez) Adhesive bandage(rash) Plaquenil Sulfate(hives) Amitiza(Vomiting) Pravachol(Abdominal pain) CeleBREX(gastric bleed) Vicodin(dizziness) statins(joint pain) Plavix(hives) codeine(nausea) Actonel(nausea) Past Medical History: Problems: Hemorrhoid Renal cancer PMR (polymyalgia rheumatica) PMR (polymyalgia rheumatica) Drug therapy History of total bilateral knee replacement ASCVD (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 disease) 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 Seronegative rheumatoid arthritis History of MT (myocardial infarction) Immunosuppressed status Rheumatoid arthritis Other polyosteoarthritis Bilateral hip bursitis Cancer of kidney Gastroesophageal reflux disease Hypertension Herniated lumbar intervertebral disc Hypothyroidism Osteoporosis Fibromyalgia Lumbar radiculopathy DDD (degenerative disc disease), lumbosacral Greater trochanteric bursitis of right hip Erosive osteoarthritis of hand Sacroiliac pain Inflammatory polyarthropathy Weight disorder Hyperuricemia OBJECTIVE Physical Exam General: Patient sounded to be in no acute distress, alert, oriented HEENT: Coherent speech, no hoarseness in voice ASSESSMENT: 73 y/o woman with primary hypothyroidism on Stafford thyroid supplementation, appears euthyroid clinically. Will maintain/aim for TSH within 1-3 range given her age, h/o osteoporosis ( not to overtreat and suppress TSH causing iatrogenic hyperthyroid state) She has been struggling with lower back pain and is bedridden due to this. She is following up with pain clinic/orthopedic doctors for this. She has had spine fusion surgeries in the past. PLAN: _ - She will continue her current dose of desiccated ( Stafford) thyroid; 60mg daily - Periodic monitoring of TFT and she would notify us of any potential hyperthyroid Sx ( discussed at her visit). RTC in 1 year with repeat TFT Thank you for letting me be part of your patients medical care and if you have any further questions, feel free to contact us. 21 minutes were spent on this virtual visit with additional 15minutes spent for pre visit review and documentation post visit. This visit was not related to a visit/procedure that occurred in the past 7 days. Extracted from: Title:ORENCIA CLICKJECT SOLN AUTO Author:Hunter Wolfe Date:02/04/23 PHARMACY OUTPATIENT NOTE Medication Name & Dose: ORENCIA CLICKJECT SOLN AUTO Diagnosis Code: M06.09 Rheumatoid arthritis w/o rheumatoid factor, multiple sites Insurance Carrier: Juan mims ID Number: [id number] Enrolled in Copay Assistance: no Previous Medications Tried or Contraindicated: mtx 2014, hydroxychloroquine 2013 (rash, nausea), ssz 2000mg 03/30/16 - 10/21/17, Enbrel [id number] Relevant Labs: TB 09/13/17 negative Approval Dates 11/28/2022-02/04/2024 Required Specialty Pharmacy: none medicare, PER PT [facility] Does patient require teaching: no Immunizations Given and Recorded Vaccine Date Status Refusal Reason RSV vaccine preF3, recombinant 1 09/05/23 Recorded influenza virus vaccine, inactivated 08/30/23 Give n influenza virus vaccine, inactivated 08/14/21 Jnoo rded influenza virus vaccine, inactivated 08/28/18 Jono [...] 90 tab, Refills: 3, [id number] Start Date: 09/19/23 Stop Date: 09/13/24 Status: Ordered Stafford Thyroid 60 mg oral tablet Start: 10/17/23 11:18:00 EST, 1 tab, PO, Daily, Disp# 90 tab, Refills: 1, Pharmacy: [facility] [id number] Start Date: 10/17/23 Status: Ordered aspirin 81 [...] CAPSULE BY MOUTH EVERY 12 HOURS, Pharmacy: [id number] Start Date: 06/09/23 Status: Ordered Co Q-10 100 mg oral capsule Start: 10/11/13 11:05:00, 2 cap, PO, Daily Start Date: 10/11/13 Status: Ordered Colace Start: 01/23/19 14:14:00 EST, 50 mg =, PO, Daily Start Date: 01/23/19 Status: Ordered Cymbalta 30 mg oral delayed release capsule Start: 11/03/23 10:02:00 EST, 1 cap, PO, Daily, Disp# 30 cap, Refills: 1, Pharmacy: [id number] Start Date: 11/03/23 Status: Ordered Eliquis 5 mg oral tablet Start: 08/30/23 13:36:00 EDT, 1 tab, PO, bid Start Date: 08/30/23 Status: Ordered esomeprazole 40 mg oral delayed release capsule Start: 03/09/23 16:40:00 EDT, See Instructions, Disp# 90 cap, Refills: 3, TAKE 1 CAPSULE BY MOUTH EVERY DAY, Pharmacy: [facility] [place] [id number] [facility] Start Date: 03/09/23 Status: Ordered Fish Oil 1200 mg oral capsule Start: 08/17/18 14:25:00 EDT, 1 cap, PO, Daily Start Date: 08/17/18 Status: Ordered Flonase 50 mcg/inh nasal spray Start: 04/13/22 14:01:00 EDT, 1 spray, each nostril, Daily, Disp# 16 g, Refills: 5, PRN: allergy symptoms, Pharmacy: [place] [id number] [facility] Start Date: 04/13/22 Stop Date: 10/10/22 Status: Ordered folic acid 1 mg oral tablet Start: 03/07/23 15:14:00 EDT, See Instructions, Disp# 90 tab, Refills: 3, TAKE 1 TABLET BY MOUTH EVERY DAY, Pharmacy: [facility] [id number] [facility] Start Date: 03/07/23 Status: Ordered hydroCHLOROthiazide-triamterene 25 mg-37.5 mg oral capsule Start: 06/09/23 10:07:00 EDT, 90 each, TAKE 1 CAPSULE BY MOUTH EVERY DAY IN THE MORNING Start Date: 06/09/23 Status: Ordered Klor-Con M20 oral tablet, extended release Start: 08/23/23 16:03:00 EDT, See Instructions, Disp# 90 tab, Refills: 0, TAKE 1 TABLET BY MOUTH EVERY DAY, [facility]acy: [id number] Start Date: 08/23/23 Status: Ordered meclizine 25 mg oral tablet Start: 11/03/23 10:10:00 EST, 1 tab, PO, tid, Disp# 30 tab, Refills: 0, PRN: as needed for dizziness, [id number] Start Date: 11/03/23 Status: Ordered Medrol 8 mg oral tablet Start: 06/06/23 8:51:00 EDT, 2 tab, PO, Daily, Disp# 180 tab, Refills: 1, , [id number] Start Date: 06/06/23 Stop Date: 12/03/23 Status: Ordered methotrexate 2.5 mg oral tablet Start: 10/14/23 16:19:00 EST, 7 tab, PO, q7days, Disp# 35 tab, Refills: 3, Pharmacy: [facility] [id number] Start Date: 10/14/23 Status: Ordered metoprolol succinate 50 mg oral tablet, extended release Start: 09/19/23 10:26:00 EDT, 50 mg =, PO, Daily, Disp# 90 tab, Refills: 3, [id number] Start Date: 09/19/23 Stop Date: 09/13/24 Status: Ordered montelukast 10 mg oral tablet Start: 09/19/23 10:26:00 EDT, See Instructions, Disp# 90 tab, Refills: 3, TAKE 1 TABLET BY MOUTH EVERY DAY IN THE EVENING, [id number] Start Date: 09/19/23 Status: Ordered nitroglycerin 0.4 mg sublingual tablet Start: 07/14/18 10:06:00 EDT, 1 tab, SL, q5min, PRN: Chest Pain Start Date: 07/14/18 Status: Ordered Orencia ClickJect Autoinjector 125 mg/mL SQ solution Start: 02/04/23 16:08:00 EST, See Instructions, Disp# 4 each, Refills: 3, INJECT 1 AUTOINJECTOR (125 MG) UNDER THE SKIN EVERY 7 DAYS, Pharmacy: [facility] Start Date: 02/04/23 Status: Ordered Praluent Pen 75 mg/mL subcutaneous solution Start: 05/08/19 10:47:00 EDT, 75 mg =, subQ, [id number] Start Date: 05/08/19 Status: Ordered pregabalin 100 mg oral capsule Start: 09/19/23 10:26:00 EDT, 1 cap, PO, bid, Disp# 180 cap, Refills: 0, Pharmacy: [id number] Start Date: 09/19/23 Stop Date: 12/18/23 Status: Ordered ProAir HFA 90 mcg/inh inhalation aerosol Start: 12/27/22 11:50:00 EST, 1 puff, inhaled, qid, Disp# 1 each, Refills: 5, PRN: as needed for wheezing, Pharmacy: [facility] Start Date: 12/27/22 Status: Ordered Probiotic Formula Start: 05/29/15 13:13:00, 1 cap, PO, Daily Start Date: 05/29/15 Status: Ordered Prolia 60 mg/mL subcutaneous solution Start: 01/25/23 19:19:00 EST, every 6 months Start Date: 01/25/23 Status: Ordered Prolia 60 mg/mL subcutaneous solution Start: 09/01/23 13:24:00 EDT, 60 mg =, subQ, [id number], Disp# 1 each, Refills: 1 Start Date: 09/01/23 Status: Ordered Proteolytic enzymes Start: 08/11/22 13:44:00 EDT, Proteolytic enzymes, 1 daily Start Date: 08/11/22 Status: Ordered sulfaSALAzine 500 mg oral tablet Start: 06/06/23 8:47:00 EDT, See Instructions, Disp# 180 tab, Refills: 1, TAKE 1 TABLET BY MOUTH TWICE A DAY, Pharmacy: [facility] [id number] [facility] Start Date: 06/06/23 Status: Ordered traMADol 50 mg oral tablet Start: 04/21/23 16:50:00 EDT, 1 tab, PO, qid, Disp# 120 tab, Refills: 1, PRN: as needed for pain, Pharmacy: [id number] Start Date: 04/21/23 Stop Date: 06/20/23 [...] PO, Daily Start Date: 11/05/20 Status: Ordered Problem List Condition Confirmation Course Effective Dates Status Health Status Informant ASCVD (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 disease) Confirmed Active Bilateral hip bursitis Confirmed Active DDD (degenerative disc disease), lumbosacral Confirmed Active Drug therapy Confirmed Active Fibromyalgia Confirmed Active Gastroesophageal reflux disease Confirmed Active Hemorrhoid Confirmed Active History of MT (myocardial infarction) Confirmed Active History of total bilateral knee replacement Confirmed Active Hypertension Confirmed Active Hyperuricemia Confirmed Active Hypothyroidism Confirmed Active Immunosuppressed status Confirmed Active Inflammatory polyarthropathy Confirmed Active 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 9left 10bilateral 11[facility] Social History Social History Type Response Smoking Status Never smoked cigaret ivania Sex Female Endocrinology Outpatient Note * MD Marcus, [facility]: PERFORM Event Display: Endocrinology Outpt Note Authored Date: [id number] ENDOCRINOLOGY OUTPATIENT NOTE Name: ELAINE DONAHUE Patient Number: [id number] : 1950 Date of Service: 11/02/2023 This visit was in lieu of the previously scheduled follow up clinic visit ( patient initiated). Patient verified identity by stating their name and prior to this visit. I personally discussed with the patient that this was a virtual visit and the patient was advised a virtual visit is billable to insurance and subject to a co-payment. The patient granted me consent to proceed with this virtual visit." Patient was at his/her( X )-home, ( )- other. Provider was at his/her ( X )- home office, ( )- office/clinic, ( )- other. The telehealth platform used for this visit was: ( )- Telephone ( institution approved), ( x )- [facility] on demand health/ ( ) Zoom- "real-time audio/visual communication" Chief Complaint: Follow up visit for Hypothyroidism HPI: Ms. Donahue is a 73 y/o woman with h/o primary hypothyroidism diagnosed in her 20s and has been on supplemental thyroid hormone since then. She was initially on Stafford thyroid at diagnosis for few years and then switched to levothyroxine, with switch to levothyroxine, she had reported to not feeling well ; decreased energy, cold intolerance and hence preferred to go back on Stafford thyroid. She was restarted/switched to Stafford thyroid 60mg daily in 2016 and her TFT monitored regularly maintaining euthyroid state. She has h/o osteoporosis ( treated with Reclast for few years now on drug holiday with stable bone density and no fragility fractures, follows up with Rheumatology) and CAD- stable. She denies any palpitations, tremors, or fragility fractures in the recent past. She was found to have renal tumor/cancer- s/p nephrectomy and has had few bouts of staph infections( this has been attributed to her lower immunity related to therapy for her arthritis; she continues to be on methylprednisolone ( for flare ups) and Enbrel ( maintenance drug). She has been struggling with lower back pain and is bedridden due to this. She is following up with pain clinic/orthopedic doctors for this. She has had spine fusion surgeries in the past. Otherwise 12 systems review negative except as noted above She reports to mother, daughter and son with thyroid issues She does not smoke cigarettes, no use of alcohol or recreational drugs 09/2023: TSH: 1.26 06/2022: TSH: 1.32, FT4: 0.99, FT3: 3.6 Current Home Meds: (Last Updated 11/01 12:32) abatacept (Orencia ClickJect Autoinjector 125 mg/mL SQ solution) INJECT 1 AUTOINJECTOR (125 MG) UNDER THE SKIN EVERY 7 DAYS acetaminophen (Tylenol Arthritis Caplet 650 mg oral tablet, extended release) 1,300 mg PO bid albuterol (ProAir HFA 90 mcg/inh inhalation aerosol) 1 puff inhaled qid PRN: as needed for wheezing alirocumab (Praluent Pen 75 mg/mL subcutaneous solution) 75 mg subQ [id number] amLODIPine (amLODIPine 10 mg oral tablet) 10 mg PO Daily apixaban (Eliquis 5 mg oral tablet) 5 mg PO bid ascorbic acid-carbonyl iron (Vitron-C 125 mg-65 mg oral tablet) 1 tab PO Daily aspirin (aspirin 81 mg oral delayed release tablet) 81 mg PO Daily bifidobacterium-lactobacillus (Probiotic Formula) 1 cap PO Daily calcium citrate 600 mg PO Daily cefadroxil (cefadroxil 500 mg oral capsule) TAKE 1 CAPSULE BY MOUTH EVERY 12 HOURS cholecalciferol (Vitamin D3 2000 intl units oral capsule) 2,000 Int_Unit PO Daily denosumab (Prolia 60 mg/mL subcutaneous solution) every 6 months denosumab (Prolia 60 mg/mL subcutaneous solution) 60 mg subQ [id number] docusate (Colace) 50 mg PO Daily esomeprazole (esomeprazole 40 mg oral delayed release capsule) TAKE 1 CAPSULE BY MOUTH EVERY DAY fluticasone nasal (Flonase 50 mcg/inh nasal spray) 50 mcg each nostril Daily PRN: allergy symptoms folic acid (folic acid 1 mg oral tablet) TAKE 1 TABLET BY MOUTH EVERY DAY hydroCHLOROthiazide-triamterene (hydroCHLOROthiazide-triamterene 25 mg-37.5 mg oral capsule) 90 each, TAKE 1 CAPSULE BY MOUTH EVERY DAY IN THE MORNING Responsible Provider: KATELYN MONZON 06/09 10:07 methotrexate (methotrexate 2.5 mg oral tablet) 7 tab PO q7days methylPREDNISolone (Medrol 8 mg oral tablet) 16 mg PO Daily MOISÉS 05/24/23 NOV 12/01/23- Elif Roberts 06/06 08:51 metoprolol (metoprolol succinate 50 mg oral tablet, extended release) 50 mg PO Daily montelukast (montelukast 10 mg oral tablet) TAKE 1 TABLET BY MOUTH EVERY DAY IN THE EVENING nitroglycerin (nitroglycerin 0.4 mg sublingual tablet) 0.4 mg SL q5min PRN: Chest Pain omega-3 polyunsaturated fatty acids (Fish Oil 1200 mg oral capsule) 1,200 mg PO Daily potassium chloride (Klor-Con M20 oral tablet, extended release) TAKE 1 TABLET BY MOUTH EVERY DAY pregabalin (pregabalin 100 mg oral capsule) 100 mg PO bid sulfaSALAzine (sulfaSALAzine 500 mg oral tablet) TAKE 1 TABLET BY MOUTH TWICE A DAY thyroid desiccated (Stafford Thyroid 60 mg oral tablet) 1 tab PO Daily traMADol (traMADol 50 mg oral tablet) 50 mg PO qid PRN: as needed for pain triamterene (triamterene 50 mg oral capsule) 50 mg PO Daily PRN: see order comments edema - W Leonae 01/25 12:35 ubiquinone (Co Q-10 100 mg oral capsule) 200 mg PO Daily unknown medication (CBD Oil) PRN unlisted medication (Proteolytic enzymes) 1 daily Allergies and Sensitivities: Adhesive bandage(rips skin) Adhesive bandage(vazquez) Adhesive bandage(rash) Plaquenil Sulfate(hives) Amitiza(Vomiting) Pravachol(Abdominal pain) CeleBREX(gastric bleed) Vicodin(dizziness) statins(joint pain) Plavix(hives) codeine(nausea) Actonel(nausea) Past Medical History: Problems: Hemorrhoid Renal cancer PMR (polymyalgia rheumatica) PMR (polymyalgia rheumatica) Drug therapy History of total bilateral knee replacement 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 (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 disease) 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 Seronegative rheumatoid arthritis History of MT (myocardial infarction) Immunosuppressed status Rheumatoid arthritis Other polyosteoarthritis Bilateral hip bursitis Cancer of kidney Gastroesophageal reflux disease Hypertension Herniated lumbar intervertebral disc Hypothyroidism Osteoporosis Fibromyalgia Lumbar radiculopathy DDD (degenerative disc disease), lumbosacral Greater trochanteric bursitis of right hip Erosive osteoarthritis of hand Sacroiliac pain Inflammatory polyarthropathy Weight disorder Hyperuricemia OBJECTIVE Physical Exam General: Patient sounded to be in no acute distress, alert, oriented HEENT: Coherent speech, no hoarseness in voice ASSESSMENT: 73 y/o woman with primary hypothyroidism on Stafford thyroid supplementation, appears euthyroid clinically. Will maintain/aim for TSH within 1-3 range given her age, h/o osteoporosis ( not to overtreat and suppress TSH causing iatrogenic hyperthyroid state) She has been struggling with lower back pain and is bedridden due to this. She is following up withpain clinic/orthopedic doctors for this. She has had spine fusion surgeries in the past. PLAN: _ - She will continue her current dose of desiccated ( Stafford) thyroid; 60mg daily - Periodic monitoring of TFT and she would notify us of any potential hyperthyroid Sx ( discussed at her visit). RTC in 1 year with repeat TFT Thank you for letting me be part of your patients medical care and if you have any further questions, feel free to contact us. 21 minutes were spent on this virtual visit with additional 15minutes spent for pre visit review and documentation post visit. This visit was not related to a visit/procedure that occurred in the past 7 days. Electronic Signature on File CC: TOMEKA [place] [address] [facility] [id number] Electronically Reviewed/Signed by: Arnie Velazquez MD Author Signature Dt/Tm:11/02/2023 12:00 PM Division of Endocrinology SN Pharmacology Outpatient Note * Hunter Wolfe: PERFORM Event Display: Pharmacy Outpt Note Authored Date: [id number] PHARMACY OUTPATIENT NOTE Medication Name & Dose: ORENCIA CLICKJECT SOLN AUTO Diagnosis Code: M06.09 Rheumatoid arthritis w/o rheumatoid factor, multiple sites Insurance Carrier: [employer] ID Number: [id number] Enrolled in Copay Assistance: no Previous Medications Tried or Contraindicated: mtx 2014, hydroxychloroquine 2013 (rash, nausea), ssz 2000mg 03/30/16 - 10/21/17, Enbrel Relevant Labs: TB 09/13/17 negative Approval Dates 11/28/2022-02/04/2024 Required Specialty Pharmacy: none medicare, PER PT [facility] Does patient require teaching: no Electronic Signature on File Electronically Reviewed/Signed by: Hunter Wolfe Author Signature Dt/Tm:02/04/2023 01:54 PM Electronically Reviewed/Signed by: Lyly Hogue Signature Dt/Tm: 02/04/2023 06:11 PM DSB Patient Care team information Care Team Personnel Name: TOMEKA Emmanuel Tara Position: Nurse Pract - Family Med Member Role: Primary Care Provider Address: Address: [address] [place] [id number] [place] Name: YESIKA Smallwood Tammy M Position: Physician 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 - 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 Surg Member Role: Lifetime Relationship Address: Address: [address] [address] [place] Name: MD Marcus, Arnie Position: Physician - Endocrinology Member Role: Lifetime Relationship Address: Address: [address] [place] [address], [place] [address] Name: MD Mohsen, Garcia Rosa Position: Physician - Urology Member Role: Lifetime Relationship Address: Address: [address] [place], [place] [id number] Name: Ita Oscar Courtney Position: Pharmacist Member Role: Pharmacy - Lifetime Name: Ita Garcia Brittani Position: Pharmacist Schedule II Member Role: Pharmacy - Lifetime Care Team Related Persons Name: BLAKE DONAHUE Address: [address] [id number] Name: BLAKE DONAHUE Address: [address] [id number] Name: KAM DONAHUE Address: home [address] [facility] [id number]
[2023-11-11 07:40] LABS: Basophils # (auto) 0.02 K/uL (0.00-0.20); Basophils % (auto) 0.2 %; Eosinophils # (auto) 0.22 K/uL (0.00-0.50); Eosinophils % (auto) 2.5 %; Hematocrit (blood only) 30.8 % (37.0-47.0); Hemoglobin 9.6 g/dl (12.0-16.0); Immature Granulocytes % (auto) 1.1 %; Lymphocytes # (auto) 1.56 K/uL (1.20-3.40); Lymphocytes % (auto) 17.6 %; Mean Corpuscular Hemoglobin 27.9 pg (25.0-34.0); Mean Corpuscular Hgb Conc 31.2 g/dL (32.0-36.0); Mean Corpuscular Volume 89.5 fL (80.0-100.0); Monocytes # (auto) 1.04 K/uL (0.11-0.59); Monocytes % (auto) 11.8 %; Neutrophils # (auto) 5.91 K/uL (1.40-6.50); Neutrophils % (auto) 66.8 %; Platelet Count 460 K/uL (130-400); RDW Coefficient of Variation 18.3 % (11.5-14.5); RDW Standard Deviation 58.7 fL (36.4-46.3); Red Blood Count 3.44 M/uL (4.20-5.40); White Blood Count 8.85 K/ul (4.8-10.8)
[2023-11-11 07:45] LABS: Calcium 9.2 mg/dl (8.6-10.3); Creatinine Clr Calc Pharmacy 61.4 ml/min; Est GFR (African American) 93.8 ml/min; Est GFR (Non-African American) 80.9 ml/min; Potassium 3.4 mmol/L (3.5-5.1)
[2023-11-11] MEDS: sulfaSALAzine 500 MG TABLET PO SCH ×2 (08:48→20:46)
[2023-11-11] MEDS: ACETAMINOPHEN 325 MG TAB PO SCH ×2 (08:48→20:45)
[2023-11-11] MEDS: DOCUSATE SODIUM 100 MG CAP PO SCH (08:48)
[2023-11-11] MEDS: amLODIPine BESYLATE 5 MG TAB PO SCH (08:48)
[2023-11-11] MEDS: DULoxetine HCL 30 MG CAP PO SCH (08:48)
[2023-11-11] MEDS: FOLIC ACID 1 MG TAB PO SCH (08:48)
[2023-11-11] MEDS: FAMOTIDINE 20 MG TAB PO SCH ×2 (08:48→20:46)
[2023-11-11] MEDS: ARMOUR THYROID 30 MG TAB PO SCH (08:49)
[2023-11-11] MEDS: POLYETHYLENE (MIRALAX) 17 GM PACK PO SCH (08:49)
[2023-11-11] MEDS: LIDOCAINE 5% 1 PATCH TD SCH (08:50)
[2023-11-11] MEDS: metHOTREXate sodium 2.5 MG TAB PO SCH (08:51)
[2023-11-11] MEDS: PREGABALIN 100 MG CAP PO SCH ×2 (08:58→20:44)
[2023-11-11] MEDS: METOPROLOL SUCC 50MG EXT REL TAB PO SCH (08:58)
[2023-11-11] MEDS ORDERED: ENOXAPARIN 1 MG/KG SQ SCH (11:45)
[2023-11-11] MEDS: ENOXAPARIN 80 MG/0.8 ML SYR SQ SCH ×2 (13:12→23:16)
[2023-11-11] MEDS ORDERED: POTASSIUM CHLORIDE CRTAB 20 MEQ TABCR PO STA (15:02)
--- NOTE | 2023-11-11 15:03 | Hospitalist Progress Note ---
Date of Service November 11, 2023 Assessment & Plan (1) Lumbar compression fracture: Plan: Spoke to Dr. Tafoya who wishes to operate on her on Wednesday 11/14. Limited options for pain relief as tramadol caused constipation without significant effect on pain Oxycodone caused delirium Will continue on her usual acetaminophen with additional PRN dosing Lidocaine patch Continue Lyrica Hold Eliquis (2) Abnormal urinalysis: Plan: Initial sample taken from mahmood catheter that was placed a month ago. Replace mahmood catheter and repeat sample Urine culture pending. No signs or symptoms of UTI at this time (3) Hypokalemia: Plan: Replacement given (4) Polymyalgia rheumatica: Plan: Continue methylprednisone 16mg PO daily (5) Rheumatoid arthritis: Plan: Continue methotrexate and sulfasalazine (6) History of pulmonary embolism: Plan: Diagnosed August 16, 2023. Currently on Eliquis. Started the patient on therapeutic dose of Lovenox preoperatively (7) Urinary retention: Plan: Present since last month. Continue mahmood catheter however needs replacement Suspect due to prolonged bed bound state Plan VTE Prophylaxis - Eliquis held for surgery. Therapeutic Lovenox started Diet - heart healthy Disposition - admit to med/surg Admission and Anticipated Discharge Date Admission Date: November 10, 2023 Subjective Patient is feeling well at rest in bed. No pain at rest. She is happy to know that she will be operated on Tuesday. She denies any chest pain or shortness of breath. Review of Systems Review of Systems: All systems reviewed & are unremarkable except as noted in Subjective Physical Exam Physical Exam: General: Awake, conversant Heart: S1, S2/regular rate and rhythm, no murmur rubs or gallops Lungs: Clear to auscultation bilaterally. Normal effort Abdomen: Soft/nontender/nondistended. No hepatosplenomegaly Extremities: No clubbing/cyanosis. No edema Behavior: Appropriate, cooperative Results & Data Results & Data Vital Signs (Past 12 Hours) Vital Signs Temp Pulse Resp BP BP Pulse Ox O2 Del Method 11/11/23 08:45 77 20 142/77 H 98 Room Air 11/11/23 07:18 36.8 C 76 18 116/71 97 Room Air Laboratory Results Abnormal lab results 11/10/23 11/11/23 11/11/23 Range/Units 16:16 00:42 06:35 WBC 11.83 H (4.8-10.8) K/ul RBC 3.55 L 3.44 L (4.20-5.40) M/uL Hgb 10.0 L 9.6 L (12.0-16.0) g/dl Hct 30.5 L 30.8 L (37.0-47.0) % MCHC 31.2 L (32.0-36.0) g/dL RDW Std Deviation 55.6 H 58.7 H (36.4-46.3) fL RDW Coeff of Ashley 17.9 H 18.3 H (11.5-14.5) % Plt Count 498 H 460 H (130-400) K/uL Neut # (Auto) 8.54 H (1.40-6.50) K/uL [place] # (Auto) 0.87 H 1.04 H (0.11-0.59) K/uL Sodium 135 L (136-145) mmol/L Potassium 3.0 L 3.4 L (3.5-5.1) mmol/L BUN/Creatinine Ratio 30.8 H 23.0 H (10-20) Glucose 113 H (70-99(Fasting)) mg/dl AST 12 L (13-39) U/L Urine Appearance Turbid A Turbid A (Clear) Urine Protein 1+ H 2+ H (Negative) Urine Ketones Trace H (Negative) Urine Blood 3+ H 2+ H (Negative) Ur Leukocyte Esterase 3+ H 3+ H (Negative) Urine WBC (Auto) >30 H >30 H (0-5) /hpf Urine RBC (Auto) 10-30 H 10-30 H (0-4) /hpf U Hyaline Cast (Auto) 5-10 H (0-5) /lpf U Epithel Cells (Auto) 20-30 H >30 H (0-5) /lpf Urine Bacteria (Auto) 1+ H (Negative) PG Care Time/CCT Total # of Minutes Spent Total Time Spent with Patient: Total time spent is greater than 50% in coordination of care (as documented) at patient's floor/unit and/or counseling patient: Coding Level of Care Code 32413 SUB INP/OBS CARE 2/35MIN Diagnoses Lumbar compression fracture S32.000A Abnormal urinalysis R82.90 Hypokalemia E87.6 Polymyalgia rheumatica M35.3 Rheumatoid arthritis M06.9 History of pulmonary embolism Z86.711 Urinary retention R33.9
--- NOTE | 2023-11-11 15:09 | Orthopedic Consultation ---
Date of Consultation November 11, 2023 Assessment & Plan (1) Lumbar compression fracture: Assessment compression fractures of L1 and L2 with loss of fixation. Plan and leg discussed today with the patient reviewing her x-ray and MRI findings. At this time she sustained 2 fractures at the adjacent level to her fusion construct this is causing significant pain and inability to ambulate. I am recommending that we extend the fusion to T12 and include a kyphoplasty of L1 and L2 at the same time. This would allow for increased pain control and stabilization across the fracture site ideally we can begin physical therapy and ambulation postoperatively. Patient stands agrees. Will wean her from her Eliquis and maintain the Lovenox until this Tuesday. Will plan for surgery Tuesday. History of Present Illness Reason for Consultation: Postoperative back pain Attending Physician: John Carvalho MD History of Present Illness This is a 73-year-old female who presents with worsening back pain postoperatively. Imaging and x-rays demonstrate evidence of compression fractures of L1 and L2. Her symptoms are quite limiting nature with any standing or walking. She is only comfortable lying supine. She has resolution of her leg radicular pain. She denies any strength deficits to the legs. 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 STOMACH codeine AdvReac Intermediate Gastrointestinal Verified 10/26/23 10:53 Upset hydrocodone [From Vicodin] AdvReac Intermediate Gastrointestinal Verified 10/26/23 10:53 Upset lubiprostone [From Amitiza] AdvReac Intermediate HX OF Verified 10/26/23 10:53 BLEEDING STOMACH pitavastatin AdvReac Intermediate Joint Pain Verified 10/26/23 10:53 pravastatin [From Pravachol] AdvReac Intermediate Joint Pain Verified 10/26/23 10:53 rosuvastatin AdvReac Intermediate Joint Pain Verified 10/26/23 10:53 [From Ezallor Sprinkle] simvastatin [From FloLipid] AdvReac Intermediate Joint Pain Verified 10/26/23 10:53 Krcqcny-BUV-PqS Reductase AdvReac Intermediate Joint Pain Verified 10/26/23 10:53 Inhibitor Home Medications Medication Instructions Recorded Confirmed Type albuterol sulfate 90 mcg/actuation 1 puff inhalation QID PRN Wheezing 04/05/23 11/10/23 History aerosol inhaler alirocumab 75 mg/mL subcutaneous 75 mg subcut .EVERY 14 DAYS 04/05/23 11/10/23 History pen injector (Praluent Pen) amlodipine 10 mg tablet 10 mg PO DAILY 04/05/23 11/10/23 History aspirin 81 mg tablet,delayed 81 mg PO DAILY 04/05/23 11/10/23 History release cefadroxil 500 mg capsule 500 mg PO Q12 04/05/23 11/10/23 History coenzyme Q10 100 mg capsule 100 mg PO BID 04/05/23 11/10/23 History (CoQ-10) docusate sodium 100 mg capsule 100 mg PO DAILY 04/05/23 11/10/23 History (Colace) fluticasone propionate 50 1 spray intranasal DAILY PRN 04/05/23 11/10/23 History mcg/actuation nasal allergy spray,suspension folic acid 1 mg tablet 1 mg PO DAILY 04/05/23 11/10/23 History lactobacillus combination no.4 3 3,000 mmu cells PO QPM 04/05/23 11/10/23 History billion cell capsule (Probiotic) methotrexate sodium 2.5 mg tablet 17.5 mg PO .QWEEK IN PM 04/05/23 11/10/23 History metoprolol succinate 50 mg 50 mg PO DAILY 04/05/23 11/10/23 History tablet,extended release 24 hr montelukast 10 mg tablet 10 mg PO QPM 04/05/23 11/10/23 History nitroglycerin 0.4 mg sublingual 0.4 mg sublingual DIRECTED PRN 04/05/23 11/10/23 History tablet Chest Pain omega 4-nzf-phn-fish oil 1,200 mg 1 cap PO QPM 04/05/23 11/10/23 History (144 mg-216 mg) capsule (Fish Oil) thyroid (pork) 60 mg tablet 60 mg PO DAILY 04/05/23 11/10/23 History (Chicken Thyroid) apixaban 5 mg tablet (Eliquis) 5 mg PO BID #60 tabs 08/17/23 11/10/23 Rx acetaminophen 650 mg 650 mg PO BID 09/26/23 11/10/23 History tablet,extended release (Tylenol Arthritis Pain) calcium carbonate 500 mg calcium 500 mg PO DAILY 09/26/23 11/10/23 History (1,250 mg) tablet denosumab 60 mg/mL subcutaneous 0 mg subcut DIRECTED 09/26/23 11/10/23 History syringe (Prolia) inulin-sorbitol 2 gram chewable 1 tab PO DAILY 09/26/23 11/10/23 History tablet methylprednisolone 8 mg tablet 16 mg PO DAILY 09/26/23 11/10/23 History ondansetron 4 mg disintegrating 4 mg translingual DIRECTED PRN 10/14/23 11/10/23 History tablet Nausea duloxetine 30 mg capsule,delayed 30 mg PO QAM #30 caps 10/21/23 11/10/23 Rx release famotidine 20 mg tablet 20 mg PO BID #60 tabs 10/21/23 11/10/23 Rx polyethylene glycol 3350 17 gram 17 g PO DAILY #30 ea 10/21/23 11/10/23 Rx oral powder packet (Miralax) pregabalin 100 mg capsule (Lyrica) 100 mg PO BID #60 caps 10/21/23 11/10/23 Rx tramadol 50 mg tablet 100 mg (2 x 50 mg) PO Q8H #90 tabs 10/21/23 11/10/23 Rx meclizine 25 mg tablet 25 mg PO TID PRN Dizziness 11/10/23 11/10/23 History sulfasalazine 500 mg tablet 500 mg PO BID 11/10/23 11/10/23 History Patient History Medical History Neurogenic claudication due to lumbar spinal stenosis Hypertensive emergency GERD (gastroesophageal reflux disease) HTN (hypertension) History of coronary artery disease Pulmonary emboli Giant cell arteritis Polymyalgia rheumatica Staph infection Diverticulitis Hypothyroid Osteoarthritis Rheumatoid arthritis Heart attack Coronary artery disease Stent May 2012 - [place] during stress test Stent Oct 2019 - pressure in chest Fibromyalgia Surgical History (Updated 10/27/23 @ 00:10 by Nahun Rios) Status post lumbar surgery History of left nephrectomy History of back surgery History of colon resection Social History Smoking Status: Never smoker Hx Alcohol Use: Yes Alcohol type: other Hx Substance Use: No Preferred Language: Japanese Communication Ability: Effective Independent Film Maker Required: No Beliefs That Will Affect Care: Adventist Adventist Beliefs: Mormonism Current Living Situation: Spouse Other Information That Helps Us Care for You: No Feels Safe at Home: Yes Safety Concerns: Feels Safe At This Time Assistive Devices: Bedside Commode, Cane and Walker Physical Exam Physical Exam: On exam she is lying supine in bed. She is comfortable with this position. She has reasonable strength testing to the lower extremities. Incision is well- healed. Results & Data Vital Signs (Past 12 Hours) Vital Signs Temp Pulse Resp BP BP Pulse Ox O2 Del Method 11/11/23 08:45 77 20 142/77 H 98 Room Air 11/11/23 07:18 36.8 C 76 18 116/71 97 Room Air
[2023-11-11] MEDS: MONTELUKAST SODIUM 10 MG TABLET PO SCH (20:45)
[2023-11-12] MEDS: METOPROLOL SUCC 50MG EXT REL TAB PO SCH (09:25)
[2023-11-12] MEDS: sulfaSALAzine 500 MG TABLET PO SCH ×2 (09:28→20:50)
[2023-11-12] MEDS: DOCUSATE SODIUM 100 MG CAP PO SCH (09:28)
[2023-11-12] MEDS: FAMOTIDINE 20 MG TAB PO SCH ×2 (09:28→20:51)
[2023-11-12] MEDS: ACETAMINOPHEN 325 MG TAB PO SCH ×2 (09:28→20:52)
[2023-11-12] MEDS: ENOXAPARIN 80 MG/0.8 ML SYR SQ SCH ×2 (09:28→20:51)
[2023-11-12] MEDS: amLODIPine BESYLATE 5 MG TAB PO SCH (09:28)
[2023-11-12] MEDS: FOLIC ACID 1 MG TAB PO SCH (09:29)
[2023-11-12] MEDS: POLYETHYLENE (MIRALAX) 17 GM PACK PO SCH (09:29)
[2023-11-12] MEDS: DULoxetine HCL 30 MG CAP PO SCH (09:29)
[2023-11-12] MEDS: ARMOUR THYROID 30 MG TAB PO SCH (09:29)
[2023-11-12] MEDS: LIDOCAINE 5% 1 PATCH TD SCH (09:30)
[2023-11-12] MEDS: PREGABALIN 100 MG CAP PO SCH ×2 (09:31→20:50)
--- NOTE | 2023-11-12 10:41 | Orthopedic Progress Note ---
Date of Service November 12, 2023 Assessment & Plan (1) Lumbar compression fracture: Plan: At this time we will continue current status with Lovenox and plan for surgery on Tuesday. Will discontinue Lovenox to tomorrow on Tuesday and n.p.o. after midnight Tuesday evening. Admission and Anticipated Discharge Date Admission Date: November 10, 2023 Subjective Patient's pain is controlled at rest. She is tolerating getting to the bathroom and back. Physical Exam Physical Exam: Patient currently in bed. She has good strength testing lower extremities. Results & Data Vital Signs (Past 12 Hours) Vital Signs Temp Pulse Resp BP Pulse Ox O2 Del Method 11/12/23 07:49 36.5 C 76 13 109/66 98 Room Air Queries Orthopedic Spine Vertebral Fracture Secondary to Osteoporosis: Yes
--- NOTE | 2023-11-12 14:46 | Hospitalist Progress Note ---
Date of Service November 12, 2023 Assessment & Plan (1) Lumbar compression fracture: Plan: Dr. Tafoya plans to operate on her on Wednesday 11/14. 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 Replace mahmood catheter and repeat sample Urine culture growing gram-negative dexter. No signs or symptoms of UTI at this time Given her immunocompromise state, we will treat her for complicated cystitis with IV ceftriaxone (3) Hypokalemia: Plan: Replacement given (4) Polymyalgia rheumatica: Plan: Continue methylprednisone 16mg PO daily (5) Rheumatoid arthritis: Plan: Continue methotrexate and sulfasalazine (6) History of pulmonary embolism: Plan: Diagnosed August 16, 2023. Currently on Eliquis. Started the patient on therapeutic dose of Lovenox preoperatively (7) Urinary retention: Plan: Present since last month. Continue mahmood catheter however needs replacement Suspect due to prolonged bed bound state Plan VTE Prophylaxis - Eliquis held for surgery. Therapeutic Lovenox Diet - heart healthy Disposition - admit to med/surg Admission and Anticipated Discharge Date Admission Date: November 10, 2023 Subjective Patient feels well. Denies chest pain or shortness of breath. Review of Systems Review of Systems: All systems reviewed & are unremarkable except as noted in Subjective Physical Exam Physical Exam: General: Awake, conversant Heart: S1, S2/regular rate and rhythm, no murmur rubs or gallops Lungs: Clear to auscultation bilaterally. Normal effort Abdomen: Soft/nontender/nondistended. No hepatosplenomegaly Extremities: No clubbing/cyanosis. No edema Behavior: Appropriate, cooperative Results & Data Results & Data Vital Signs (Past 12 Hours) Vital Signs Temp Pulse Resp BP Pulse Ox O2 Del Method 11/12/23 07:49 36.5 C 76 13 109/66 98 Room Air PG Care Time/CCT Total # of Minutes Spent Total Time Spent with Patient: Total time spent is greater than 50% in coordination of care (as documented) at patient's floor/unit and/or counseling patient: Coding Level of Care Code 89192 SUB INP/OBS CARE 235MIN Diagnoses Lumbar compression fracture S32.000A Abnormal urinalysis R82.90 Hypokalemia E87.6 Polymyalgia rheumatica M35.3 Rheumatoid arthritis M06.9 History of pulmonary embolism Z86.711 Urinary retention R33.9
[2023-11-12] MEDS ORDERED: cefTRIAXone SODIUM 1,000 MG in DEXTROSE 5 % MINI-B 50 ML IV SCH (16:00)
[2023-11-12] MEDS ORDERED: MECLIZINE HCL 25 MG TAB PO PRN (18:13)
[2023-11-12] MEDS: MONTELUKAST SODIUM 10 MG TABLET PO SCH (20:51)
[2023-11-13] MEDS ORDERED: DC ALL ANTICOAGULANTS ONE (07:33)
--- NOTE | 2023-11-13 08:13 | Orthopedic Progress Note ---
Date of Service November 13, 2023 Assessment & Plan (1) Lumbar compression fracture: Plan: Patient has developed adjacent level disease with compression fracture. Discussed precise nature of the surgery in detail the patient. Answered any questions that she has. She like to proceed with surgery as previously scheduled. I am stopping her Lovenox as well is making her n.p.o. after midnight tonight. Will proceed with surgical intervention tomorrow. Admission and Anticipated Discharge Date Admission Date: November 10, 2023 Subjective Patient was seen bedside in room 383. She states she is having continued back pain. She is not having any increased leg pain but her feet feel stiff. She is scheduled to undergo removal of hardware and extension of her fusion tomorrow secondary to adjacent level disease and fracture. She denies any other numbness, tingling, paresthesias. Physical Exam Physical Exam: On exam she is alert and oriented. Her lower extreme motor exam reveals no focal atrophy strength and sensation are both intact her calves are supple nontender abdomen soft and nontender. Cardiovascular exam reveals no gross abnormalities. Her gait was not observed. Results & Data Vital Signs (Past 12 Hours) Vital Signs Temp Pulse Resp BP Pulse Ox O2 Del Method 11/13/23 07:29 36.6 C 60 18 136/72 98 Room Air 11/12/23 20:55 Room Air
[2023-11-13] MEDS: LIDOCAINE 5% 1 PATCH TD SCH (08:57)
[2023-11-13] MEDS: FOLIC ACID 1 MG TAB PO SCH (08:58)
[2023-11-13] MEDS: METOPROLOL SUCC 50MG EXT REL TAB PO SCH (08:58)
[2023-11-13] MEDS: FAMOTIDINE 20 MG TAB PO SCH ×2 (08:58→20:54)
[2023-11-13] MEDS: sulfaSALAzine 500 MG TABLET PO SCH ×2 (08:58→20:53)
[2023-11-13] MEDS: ARMOUR THYROID 30 MG TAB PO SCH (08:58)
[2023-11-13] MEDS: ACETAMINOPHEN 325 MG TAB PO SCH ×2 (08:58→20:53)
[2023-11-13] MEDS: DOCUSATE SODIUM 100 MG CAP PO SCH (08:58)
[2023-11-13] MEDS: amLODIPine BESYLATE 5 MG TAB PO SCH (08:59)
[2023-11-13] MEDS: DULoxetine HCL 30 MG CAP PO SCH (08:59)
[2023-11-13] MEDS: POLYETHYLENE (MIRALAX) 17 GM PACK PO SCH (08:59)
[2023-11-13] MEDS: PREGABALIN 100 MG CAP PO SCH ×2 (09:00→21:00)
[2023-11-13] MEDS ORDERED: POTASSIUM CHLORIDE CRTAB 20 MEQ TABCR PO STA ×2 (14:13→17:46)
--- NOTE | 2023-11-13 14:15 | Hospitalist Progress Note ---
Date of Service November 13, 2023 Assessment & Plan (1) Lumbar compression fracture: Plan: Dr. Tafoya plans to operate on her on Wednesday 11/14. N.p.o. postmidnight ordered. Lovenox held for tonight. 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 Replace mahmood catheter and repeat sample Urine culture growing gram-negative dexter. No signs or symptoms of UTI at this time Given her immunocompromise state, we will treat her for complicated cystitis with IV ceftriaxone (3) Hypokalemia: Plan: Replacement given (4) Polymyalgia rheumatica: Plan: Continue methylprednisone 16mg PO daily Will give her stress dose of hydrocortisone tomorrow in preparation for surgery (5) Rheumatoid arthritis: Plan: Continue methotrexate and sulfasalazine (6) History of pulmonary embolism: Plan: Diagnosed August 16, 2023. Currently on Eliquis. Started the patient on therapeutic dose of Lovenox preoperatively (7) Urinary retention: Plan: Present since last month. Continue mahmood catheter however needs replacement Suspect due to prolonged bed bound state Plan VTE Prophylaxis - Eliquis held for surgery. Therapeutic Lovenox Diet - heart healthy Disposition - admit to med/surg Admission and Anticipated Discharge Date Admission Date: November 10, 2023 Subjective Patient feels well overall. Pain is only when she moves and tries to go to the bathroom. Currently painless at rest. Review of Systems Review of Systems: All systems reviewed & are unremarkable except as noted in Subjective Physical Exam Physical Exam: General: Awake, conversant Heart: S1, S2/regular rate and rhythm, no murmur rubs or gallops Lungs: Clear to auscultation bilaterally. Normal effort Abdomen: Soft/nontender/nondistended. No hepatosplenomegaly Extremities: No clubbing/cyanosis. No edema Behavior: Appropriate, cooperative Results & Data Results & Data Vital Signs (Past 12 Hours) Vital Signs Temp Pulse Resp BP Pulse Ox O2 Del Method 11/13/23 07:29 36.6 C 60 18 136/72 98 Room Air PG Care Time/CCT Total # of Minutes Spent Total Time Spent with Patient: Total time spent is greater than 50% in coordination of care (as documented) at patient's floor/unit and/or counseling patient: Coding Level of Care Code 77335 SUB INP/OBS CARE 2/35MIN Diagnoses Lumbar compression fracture S32.000A Abnormal urinalysis R82.90 Hypokalemia E87.6 Polymyalgia rheumatica M35.3 Rheumatoid arthritis M06.9 History of pulmonary embolism Z86.711 Urinary retention R33.9
[2023-11-13] MEDS: CEFEPIME 2,000 MG in SYRINGE 0 ML IV SCH ×2 (17:15→23:44)
[2023-11-13] MEDS: MONTELUKAST SODIUM 10 MG TABLET PO SCH (20:54)
[2023-11-14] MEDS: HYDROCORTISONE SOD 50 MG in SYRINGE 0 ML IV SCH ×3 (06:15→21:18)
[2023-11-14] MEDS: POLYETHYLENE (MIRALAX) 17 GM PACK PO SCH (09:09)
[2023-11-14] MEDS: FAMOTIDINE 20 MG TAB PO SCH ×2 (09:11→21:20)
[2023-11-14] MEDS: DOCUSATE SODIUM 100 MG CAP PO SCH (09:12)
[2023-11-14] MEDS: PREGABALIN 100 MG CAP PO SCH ×2 (09:16→21:17)
[2023-11-14] MEDS: CEFEPIME 2,000 MG in SYRINGE 0 ML IV SCH ×3 (09:16→23:52)
[2023-11-14] MEDS: METOPROLOL SUCC 50MG EXT REL TAB PO SCH (09:17)
[2023-11-14] MEDS: amLODIPine BESYLATE 5 MG TAB PO SCH (09:17)
[2023-11-14] MEDS: ACETAMINOPHEN 325 MG TAB PO SCH ×2 (09:17→21:21)
[2023-11-14] MEDS: ARMOUR THYROID 30 MG TAB PO SCH (09:17)
[2023-11-14] MEDS: FOLIC ACID 1 MG TAB PO SCH (09:17)
[2023-11-14] MEDS: DULoxetine HCL 30 MG CAP PO SCH (09:19)
[2023-11-14] MEDS: LIDOCAINE 5% 1 PATCH TD SCH (09:19)
[2023-11-14] MEDS: sulfaSALAzine 500 MG TABLET PO SCH ×2 (09:19→21:20)
[2023-11-14] MEDS ORDERED: SODIUM CHLORIDE 0.9% 250 ML IV PRN (11:14)
[2023-11-14] MEDS ORDERED: ONDANSETRON INJ 2 MG/ML 2 ML VIAL ONE (11:15)
[2023-11-14] MEDS ORDERED: PROPOFOL IV EMULSION 10 MG/ML 20 ML VIAL IV ONE (11:15)
[2023-11-14] MEDS ORDERED: MIDAZOLAM HCL 1 MG/ML 2ML VIAL ONE (11:15)
[2023-11-14] MEDS ORDERED: DEXAMETHASONE SOD INJ 4 MG/ML VIAL ONE (11:15)
[2023-11-14] MEDS ORDERED: ROCURONIUM BROMIDE 10 MG/ML 5 ML VIAL IV ONE (11:15)
[2023-11-14] MEDS ORDERED: LIDOCAINE 2% 2 ML VIAL/AMP(20MG/ML) INFIL ONE (11:15)
[2023-11-14] MEDS ORDERED: fentaNYL citrate PF 100 MCG/2 ML VIAL ONE ×3 (11:15→14:14)
[2023-11-14] MEDS: LACTATED RINGER'S 1,000 ML IV SCH ×2 (11:50→16:13)
--- NOTE | 2023-11-14 11:53 | History & Physical Bridge Note ---
Date of Service November 14, 2023 History & Physical Bridge Note I have examined the patient, reviewed the History & Physical and in the interval since the performance of the History & Physical I have noted the following changes of clinical significance: no changes noted Kyphoplasty L1 and L2, posterior spinal fusion T11-L2
[2023-11-14] MEDS ORDERED: BUPIVACAINE/EPINEPHRINE 0.25% 1:200,000 30 ML VIAL ONE (12:02)
[2023-11-14] MEDS ORDERED: ceFAZolin 330 MG/ML 1 GM VIAL ONE (12:03)
--- NOTE | 2023-11-14 12:04 | History & Physical Bridge Note ---
Date of Service November 14, 2023 History & Physical Bridge Note I have examined the patient, reviewed the History & Physical and in the interval since the performance of the History & Physical I have noted the following changes of clinical significance: no changes noted Please note this is a emergency. The patient has been successfully weaned off of her anticoagulation medications and we are working within the window of time it is safe to pursue surgical intervention. If she were not to have surgery she would be unable to ambulate beyond a few feet and will be in chronic pain and bedbound with the inherent obvious risks of such a state.
[2023-11-14] MEDS ORDERED: ATROPINE SULFATE 0.1 MG/ML 10ML SYR IV PRN (12:09)
[2023-11-14] MEDS ORDERED: HYDROmorphone INJ 2 MG/ML SYR/VIAL IV PRN (12:09)
[2023-11-14] MEDS ORDERED: ONDANSETRON INJ 2 MG/ML 2 ML VIAL IV PRN ×2 (12:09→15:58)
[2023-11-14] MEDS ORDERED: PROMETHAZINE HCL 6.25 MG in SODIUM CHLORIDE 0.9% 50 ML IV PRN (12:09)
[2023-11-14] MEDS ORDERED: ePHEDrine sulfate 50 MG/ML AMP IV PRN (12:09)
[2023-11-14] MEDS ORDERED: fentaNYL citrate PF 100 MCG/2 ML VIAL IV PRN (12:09)
--- NOTE | 2023-11-14 12:09 | Anesthesiology Consultation ---
Date of Service November 14, 2023 Assessment & Plan Chart Review Chart Review: Acceptable Risk for Surgery and Patient NOT seen in Pre Admission Testing Consults Requested none ASA ASA3 Proposed Anesthesia Anesthesia Type: General Risk / Benefits Reviewed With: PT / POA / Parent / Guardian, Accepts Plan and Informed Consent Obtained History Surgery Operation Date: 11/14/23 12:25 Proposed Procedures p T12-L2 Fusion, - Saturnino Tafoya DO s L1-L2 Kyphoplasty - Saturnino Tafoya DO Height/Weight Height: 5 ft 1 in Weight: 69.8 kg 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 STOMACH codeine AdvReac Intermediate Gastrointestinal Verified 10/26/23 10:53 Upset hydrocodone [From Vicodin] AdvReac Intermediate Gastrointestinal Verified 10/26/23 10:53 Upset lubiprostone [From Amitiza] AdvReac Intermediate HX OF Verified 10/26/23 10:53 BLEEDING STOMACH pitavastatin AdvReac Intermediate Joint Pain Verified 10/26/23 10:53 pravastatin [From Pravachol] AdvReac Intermediate Joint Pain Verified 10/26/23 10:53 rosuvastatin AdvReac Intermediate Joint Pain Verified 10/26/23 10:53 [From Ezallor Sprinkle] simvastatin [From FloLipid] AdvReac Intermediate Joint Pain Verified 10/26/23 10:53 [id number] Reductase AdvReac Intermediate Joint Pain Verified 10/26/23 10:53 Inhibitor Medications Home Medications Medication Instructions Recorded Confirmed Last Taken albuterol sulfate 90 mcg/actuation 1 puff inhalation QID PRN Wheezing 04/05/23 11/10/23 Unknown aerosol inhaler alirocumab 75 mg/mL subcutaneous 75 mg subcut .EVERY 14 DAYS 04/05/23 11/10/23 10/14/23 pen injector (Praluent Pen) amlodipine 10 mg tablet 10 mg PO DAILY 04/05/23 11/10/23 10/14/23 14:00 aspirin 81 mg tablet,delayed 81 mg PO DAILY 04/05/23 11/10/23 10/14/23 14:00 release cefadroxil 500 mg capsule 500 mg PO Q12 04/05/23 11/10/23 10/14/23 14:00 coenzyme Q10 100 mg capsule 100 mg PO BID 04/05/23 11/10/23 10/12/23 08:00 (CoQ-10) docusate sodium 100 mg capsule 100 mg PO DAILY 04/05/23 11/10/23 10/12/23 (Colace) fluticasone propionate 50 1 spray intranasal DAILY PRN 04/05/23 11/10/23 Unknown mcg/actuation nasal allergy spray,suspension folic acid 1 mg tablet 1 mg PO DAILY 04/05/23 11/10/23 10/12/23 lactobacillus combination no.4 3 3,000 mmu cells PO QPM 04/05/23 11/10/23 10/11/23 billion cell capsule (Probiotic) methotrexate sodium 2.5 mg tablet 17.5 mg PO .QWEEK IN PM 04/05/23 11/10/23 10/07/23 metoprolol succinate 50 mg 50 mg PO DAILY 04/05/23 11/10/23 10/12/23 tablet,extended release 24 hr montelukast 10 mg tablet 10 mg PO QPM 04/05/23 11/10/23 10/11/23 nitroglycerin 0.4 mg sublingual 0.4 mg sublingual DIRECTED PRN 04/05/23 11/10/23 Unknown tablet Chest Pain omega 4-vih-lzo-fish oil 1,200 mg 1 cap PO QPM 04/05/23 11/10/23 10/11/23 (144 mg-216 mg) capsule (Fish Oil) thyroid (pork) 60 mg tablet 60 mg PO DAILY 04/05/23 11/10/23 10/14/23 13:00 ([place] Thyroid) apixaban 5 mg tablet (Eliquis) 5 mg PO BID #60 tabs 08/17/23 11/10/23 10/14/23 14:00 acetaminophen 650 mg 650 mg PO BID 09/26/23 11/10/23 10/12/23 08:00 tablet,extended release (Tylenol Arthritis Pain) calcium carbonate 500 mg calcium 500 mg PO DAILY 09/26/23 11/10/23 10/12/23 (1,250 mg) tablet denosumab 60 mg/mL subcutaneous 0 mg subcut DIRECTED 09/26/23 11/10/23 Unknown syringe (Prolia) inulin-sorbitol 2 gram chewable 1 tab PO DAILY 09/26/23 11/10/23 10/12/23 tablet methylprednisolone 8 mg tablet 16 mg PO DAILY 09/26/23 11/10/23 10/12/23 ondansetron 4 mg disintegrating 4 mg translingual DIRECTED PRN 10/14/23 11/10/23 Unknown tablet Nausea duloxetine 30 mg capsule,delayed 30 mg PO QAM #30 caps 10/21/23 11/10/23 Unknown release famotidine 20 mg tablet 20 mg PO BID #60 tabs 10/21/23 11/10/23 Unknown polyethylene glycol 3350 17 gram 17 g PO DAILY #30 ea 10/21/23 11/10/23 Unknown oral powder packet (Miralax) pregabalin 100 mg capsule (Lyrica) 100 mg PO BID #60 caps 10/21/23 11/10/23 Unknown tramadol 50 mg tablet 100 mg (2 x 50 mg) PO Q8H #90 tabs 10/21/23 11/10/23 Unknown meclizine 25 mg tablet 25 mg PO TID PRN Dizziness 11/10/23 11/10/23 Unknown sulfasalazine 500 mg tablet 500 mg PO BID 11/10/23 11/10/23 Unknown Active Medications Generic Name Dose Route Start Last Admin Trade Name Freq PRN Reason Stop Dose Admin Acetaminophen 650 mg 11/10/23 21:00 11/14/23 09:17 Acetaminophen 325 Mg Tab PO 12/10/23 20:59 650 mg BID JEN Administration Amlodipine Besylate 10 mg 11/11/23 09:00 11/14/23 09:17 Amlodipine Besylate 5 Mg Tab PO 12/11/23 08:59 10 mg DAILY JEN Administration Cefadroxil 1 each 11/11/23 21:00 11/14/23 09:19 Cefadroxil 500 Mg PO 12/11/23 20:59 1 each BID JEN Administration Docusate Sodium 100 mg 11/11/23 09:00 11/14/23 09:12 Docusate Sodium 100 Mg Cap PO 12/11/23 08:59 Not Given DAILY JEN Duloxetine HCl 30 mg 11/11/23 09:00 12/18/23 09:19 Duloxetine Hcl 30 Mg Cap PO 12/11/23 08:59 30 mg QAM JEN Administration Famotidine 20 mg 11/10/23 21:00 11/14/23 09:11 Famotidine 20 Mg Tab PO 12/10/23 20:59 Not Given BID JEN Folic Acid 1 mg 11/11/23 09:00 11/14/23 09:17 Folic Acid 1 Mg Tab PO 12/11/23 08:59 1 mg DAILY JEN Administration Hydrocortisone Sodium 1 mls @ 4 mls/min 11/14/23 06:00 11/14/23 06:15 Succinate 50 mg/ Syringe IV 11/15/23 05:59 4 mls/min Q8 JEN Administration Cefepime HCl 2,000 mg/ Syringe 20 mls @ 5 mls/min 11/13/23 16:00 11/14/23 09:16 IV 11/23/23 15:59 5 mls/min Q8H JEN Administration Lactated Ringer's 1,000 mls @ 15 mls/hr 11/14/23 12:00 11/14/23 11:50 Lr IV 12/14/23 11:59 15 mls/hr .Q24H JEN Administration Lidocaine 1 patch 11/11/23 09:00 11/14/23 09:19 Lidocaine 5% 1 Patch TD 12/11/23 08:59 Not Given QAM JEN Methotrexate 17.5 mg 11/11/23 09:00 11/11/23 08:51 Methotrexate Sodium 2.5 Mg Tab PO 12/11/23 08:59 17.5 mg Fr@0900 JEN Administration Methylprednisolone 16 mg 11/11/23 09:00 11/14/23 09:17 Methylprednisolone 16 Mg Tab PO 12/11/23 08:59 16 mg DAILY JEN Administration Metoprolol Succinate 50 mg 11/11/23 09:00 11/14/23 09:17 Metoprolol Succ 50mg Ext Rel Tab PO 12/11/23 08:59 50 mg DAILY JEN Administration Miscellaneous 1 each 11/11/23 21:00 11/13/23 20:55 Remove Lidoderm Patch N/A 12/11/23 20:59 1 each DAILY@2100 JEN Administration Miscellaneous 1 each 11/12/23 16:00 11/14/23 09:08 Praluent ~ Order Awaiting Action N/A 12/12/23 15:59 Not Given QS JEN Montelukast Sodium 10 mg 11/10/23 21:00 11/13/23 20:54 Montelukast Sodium 10 Mg Tablet PO 12/10/23 20:59 10 mg QPM JEN Administration Polyethylene Glycol 17 gm 11/11/23 09:00 11/14/23 09:09 Polyethylene (Miralax) 17 Gm Pack PO 12/11/23 08:59 Not Given DAILY JEN Pregabalin 100 mg 11/10/23 21:00 11/14/23 09:16 Pregabalin 100 Mg Cap PO 12/10/23 20:59 100 mg BID JEN Administration Sulfasalazine 500 mg 11/10/23 21:00 11/14/23 09:19 Sulfasalazine 500 Mg Tablet PO 12/10/23 20:59 500 mg BID JEN Administration Thyroid 60 mg 11/11/23 09:00 11/14/23 09:17 [place] Thyroid 30 Mg Tab PO 12/11/23 08:59 60 mg DAILY JEN Administration NPO Date Last Intake of Fluids: 11/14/23 Time Last Intake of Fluids: 10:00 Last Intake of Fluids Comment: meds with sip of water Date Last Intake of Solids: 11/13/23 Time Last Intake of Solids: 17:00 Past Medical History Medical History Neurogenic claudication due to lumbar spinal stenosis Hypertensive emergency GERD (gastroesophageal reflux disease) HTN (hypertension) History of coronary artery disease Pulmonary emboli Giant cell arteritis Polymyalgia rheumatica Staph infection Diverticulitis Hypothyroid Osteoarthritis Rheumatoid arthritis Heart attack Coronary artery disease Stent May 2012 - [place] during stress test Stent Oct 2019 - pressure in chest Fibromyalgia Exercise / Class Metabolic Activity II 4-5 Yardwork/Stairs/Walk up hill Past Surgical History Surgical History (Updated 10/27/23 @ 00:10 by Nahun Rios) Status post lumbar surgery History of left nephrectomy History of back surgery History of colon resection Past Anesthesia History No Hx of Anesthesia Complications and No Family Hx of Anesthesia Complications History of PONV No Hx of PONV and No Hx of Motion Sickness Social History Smoking Status: Never smoker Hx Alcohol Use: Yes Alcohol type: other alcohol intake frequency: holidays/special occasions only Hx Substance Use: No substance use type: does not use Physical Exam Vital Signs Last Vital Signs Temp 36.8 C 11/14/23 11:32 Pulse 61 11/14/23 11:32 Resp 16 11/14/23 11:32 BP 135/69 11/14/23 11:32 Pulse Ox 96 11/14/23 11:32 O2 Del Method Room Air 11/14/23 11:32 ENMT Mouth: no dentition abnormality Thyromental Distance: > or= 3.5 Finger Breadths Mallampati Class: II Neck normal visual inspection Respiratory normal respiratory effort Auscultation: lungs clear to auscultation bilaterally Cardiovascular Rate/Rhythm: regular rate and regular rhythm Psychiatric Orientation: alert Testing Laboratory Results 11/11/23 06:35 11/11/23 06:35 Urine Color Dark Yellow 11/11/23 00:42 Urine Appearance Turbid (Clear) A 11/11/23 00:42 Urine pH 6.0 (4.5-7.5) 11/11/23 00:42 Ur Specific [place] 1.023 (1.000-1.030) 11/11/23 00:42 Urine Protein 2+ (Negative) H 11/11/23 00:42 Urine Glucose (UA) Negative (Negative) 11/11/23 00:42 Urine Ketones Trace (Negative) H 11/11/23 00:42 Urine Nitrite Negative (Negative) 11/11/23 00:42 Ur Leukocyte Esterase 3+ (Negative) H 11/11/23 00:42 Urine WBC (Auto) >30 /hpf (0-5) H 11/11/23 00:42 Urine RBC (Auto) 10-30 /hpf (0-4) H 11/11/23 00:42 U Hyaline Cast (Auto) 1-5 /lpf (0-5) 11/11/23 00:42 U Epithel Cells (Auto) >30 /lpf (0-5) H 11/11/23 00:42 Urine Bacteria (Auto) Negative (Negative) 11/11/23 00:42 11/11/23 00:42 Urine Culture - Final Urine,Straight Cath Pseudomonas aeruginosa 11/10/23 16:16 Urine Culture - Final Urine,Clean Catch Pseudomonas aeruginosa Morganella morganii 11/10/23 20:11 Aerobic Blood Culture - Preliminary Blood No growth in Aerobic bottle after 48 hours. Anaerobic Blood Culture - Preliminary No growth in Anaerobic bottle after 48 hours. 11/10/23 20:11 Aerobic Blood Culture - Preliminary Blood No growth in Aerobic bottle after 48 hours. Anaerobic Blood Culture - Final
[2023-11-14] MEDS ORDERED: GENTAMICIN SULFATE 40 MG/ML 2 ML VIAL ONE (12:29)
[2023-11-14] MEDS ORDERED: VANCOMYCIN HCL 1000MG/20ML VIAL ONE (12:30)
[2023-11-14] MEDS ORDERED: IOPAMIDOL INJ 61% 15 ML VIAL INSTIL ONE (13:46)
[2023-11-14] MEDS ORDERED: FLOSEAL HEMOSTATIC MATRIX 10ML TOP ONE (14:02)
[2023-11-14] MEDS ORDERED: NEOSTIGMINE METHYLSULFATE 1 MG/ML 10ML VIAL ONE (14:03)
[2023-11-14] MEDS ORDERED: GLYCOPYRROLATE 0.2 MG/ML VIAL ONE (14:03)
[2023-11-14] MEDS ORDERED: HYDROCORTISONE SOD SUCCINATE 100 MG/2 ML VIAL ONE (14:13)
--- NOTE | 2023-11-14 14:15 | Fluoroscopy Report ---
[place] lumbar spine 2-3V CLINICAL HISTORY: LUMBAR TECHNIQUE: 4 views were obtained with the C-arm in the OR with the above procedure. Total fluoroscopy time was 2 minutes 29 seconds. Comparison: Comparison is made to lumbar spine radiographs 11/10/2023 FINDINGS/IMPRESSION: Intraoperative images were obtained of T11-T12 fusion, L1-L2 kyphoplasty Please correlate with intraoperative fluoroscopy and operative report. ACT 112: Negative or not required by law. Electronically signed by: Moe Munguia M.D. 11/14/2023 2:14 PM
--- NOTE | 2023-11-14 14:19 | Operative Report ---
Post Operative Report Pre & Post Diagnosis Operation Date: 11/14/23 12:25 Pre-Op Diagnosis: L1-L2 Compression Fracture Post-Op Diagnosis: L1-L2 Compression Fracture I identified the patient and participated in the time-out.: Yes Procedure Operation Date: 11/14/23 12:25 Actual Procedures #1 removal of posterior lumbar rods and pedicle screw of L2. #2 exploration of fusion L2-L5. #3 posterior spinal fusion T11-L2. #4 kyphoplasty of L1 and L2. #5 placement posterior segmental instrumentation T11-L5. #6 placement infuse collagen sponge, mass graft in the posterior lateral gutters. Surgeon Saturnino Tafoya, Curriculum Advisory Teacher Gladys Mccall Estimated Blood Loss 200 Findings Consistent with Post-Op Diagnosis Specimens None Indications This is a 73-year-old female presents with osteoporotic compression fractures L1 on L2 and failure of instrumentation at L2 is here for urgent stabilization. Description of Procedure Patient was met with identified informed consent obtained. Patient was then taken to the operative suite underwent a patient placed in a prone position the [place] table atop the Chaz frame. All bony prominences well-padded eyes inspected to ensure no external pressure for spine. This point the thoracolumbar spine was prepped and draped in a sterile fashion. Sharp dissection with assistance of Bovie cautery was then performed down to and exposing the lamina and transverse processes of T11-T12 L1-L2 bilaterally. And then proceeded to move the rods extending from L2-L5 exploring the fusion mass. Fusion mass was maturing but not intact. All screws were stable except for the L2 screws bilaterally. These were subsequently removed. I then performed a k yphoplasty at L1 and L2 by inserting 20 mm balloons into the vertebral bodies and inflating under fluoroscopic visualization. Approximately 4 cc of Kyphon cement was injected at both levels and screws were subsequently placed in L1 and L2 reinserted as well as T12 and T11. The appropriate size rods were then contoured and locked into position bilaterally. The transverse processes of T11 T12-L1 and L2 were burred to subcortically and bone. Infuse collagen sponge, master graft was placed in the posterior gutters. Approximately 10 cc of Stimulan beads impregnated with vancomycin and gentamicin were placed throughout the incision. 10 round PRIMO drain inserted. The incision was then closed with 1 Vicryl fascia 2-0 Vicryl subcutaneously and 4 Monocryl for final skin closure. Steri-Strips sterile dressing placed. Patient awakened and taken to PACU in stable condition. Please note spinal cord monitoring was utilized at the procedure no changes noted. Lastly Gladys Mccall was present at the entire surgery and while the patient positioning complex portion of the surgery and final skin closure. I attest to the content of the Intraoperative Record and any orders documented therein. Any exceptions are noted below.
--- NOTE | 2023-11-14 14:56 | Hospitalist Progress Note ---
Date of Service November 14, 2023 Assessment & Plan (1) Lumbar compression fracture: Plan: Surgery scheduled for today 11/14. 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 Replace mahmood catheter and repeat sample Urine culture grew Pseudomonas Treating her with IV cefepime (3) Hypokalemia: Plan: Replacement given (4) Polymyalgia rheumatica: Plan: Continue methylprednisone 16mg PO daily Patient is getting stress dose of hydrocortisone for her surgery (5) Rheumatoid arthritis: Plan: Continue methotrexate and sulfasalazine (6) History of pulmonary embolism: Plan: Diagnosed August 16, 2023. Currently on Eliquis. Started the patient on therapeutic dose of Lovenox preoperatively Will switch to Eliquis after clearance from orthospine (7) Urinary retention: Plan: Present since last month. Continue mahmood catheter Suspect due to prolonged bed bound state Plan VTE Prophylaxis - Eliquis held for surgery. Therapeutic Lovenox Diet - heart healthy Disposition - admit to med/surg Admission and Anticipated Discharge Date Admission Date: November 10, 2023 Subjective When I saw the patient earlier this morning, she was still waiting to go to the OR. She denied any chest pain or shortness of breath. Review of Systems Review of Systems: All systems reviewed & are unremarkable except as noted in Subjective Physical Exam Physical Exam: General: Awake, conversant Heart: S1, S2/regular rate and rhythm, no murmur rubs or gallops Lungs: Clear to auscultation bilaterally. Normal effort Abdomen: Soft/nontender/nondistended. No hepatosplenomegaly Extremities: No clubbing/cyanosis. No edema Behavior: Appropriate, cooperative Results & Data Results & Data Vital Signs (Past 12 Hours) Vital Signs Temp Pulse Pulse Resp BP BP Pulse Ox 11/14/23 14:50 87 14 147/78 H 96 11/14/23 14:40 89 16 162/91 H 98 11/14/23 14:33 36.9 C 113 H 15 175/94 H 98 11/14/23 11:32 36.8 C 61 16 135/69 96 11/14/23 08:47 36.7 C 68 18 138/72 98 O2 Del Method O2 Flow Rate 11/14/23 14:50 Oxymask 4 11/14/23 14:40 Oxymask 4 11/14/23 14:33 Oxymask 6 11/14/23 11:32 Room Air 11/14/23 08:47 Room Air PG Care Time/CCT Total # of Minutes Spent Total Time Spent with Patient: Total time spent is greater than 50% in coordination of care (as documented) at patient's floor/unit and/or counseling patient: Coding Level of Care Code 07877 SUB INP/OBS CARE 2/35MIN Diagnoses Lumbar compression fracture S32.000A Abnormal urinalysis R82.90 Hypokalemia E87.6 Polymyalgia rheumatica M35.3 Rheumatoid arthritis M06.9 History of pulmonary embolism Z86.711 Urinary retention R33.9
--- NOTE | 2023-11-14 15:21 | Anesthesiology Progress Note ---
Date of Service November 14, 2023 Anesthesia Post Procedure Vital Signs Vital Signs: Temp Pulse Pulse Resp BP BP Pulse Ox 11/14/23 15:00 77 18 139/70 95 11/14/23 14:50 87 14 147/78 H 96 11/14/23 14:40 89 16 162/91 H 98 11/14/23 14:33 36.9 C 113 H 15 175/94 H 98 11/14/23 11:32 36.8 C 61 16 135/69 96 11/14/23 08:47 36.7 C 68 18 138/72 98 11/13/23 21:36 36.6 C 68 18 111/66 97 11/13/23 16:03 36.7 C 67 18 112/66 97 O2 Del Method O2 Flow Rate 11/14/23 15:00 Nasal Cannula 2 11/14/23 14:50 Oxymask 4 11/14/23 14:40 Oxymask 4 11/14/23 14:33 Oxymask 6 11/14/23 11:32 Room Air 11/14/23 08:47 Room Air 11/13/23 21:36 Room Air 11/13/23 16:03 Room Air Pain Intensity Lower Back: Pain Intensity: 4 Transfer of Care Handoff Completed per policy Notes Mental Status: alert / awake / arousable and participated in evaluation Patient Amnestic to Procedure: Yes Nausea / Vomiting: adequately controlled Pain: adequately controlled Airway Patency, RR, SpO2: stable & adequate BP & HR: stable & adequate Hydration State: stable & adequate Anesthetic Complications: no major complications apparent and Pt Satisfied with anesthetic care
[2023-11-14] MEDS ORDERED: NITROGLYCERIN SL 0.4 MG/TAB TAB SL PRN (15:58)
[2023-11-14] MEDS ORDERED: FAMOTIDINE 20 MG TAB PO PRN (15:58)
[2023-11-14] MEDS ORDERED: MAGNESIUM HYDROXIDE SUSP 30 ML UDC PO PRN (15:58)
[2023-11-14] MEDS ORDERED: ALUMINUM/MAGNESIUM SUSP 30 ML UDC PO PRN (15:58)
[2023-11-14] MEDS ORDERED: DO NOT ADMINISTER PNEUMOCOCCAL VACCINE PRN (15:58)
[2023-11-14] MEDS ORDERED: MECLIZINE HCL 25 MG TAB PO PRN (15:58)
[2023-11-14] MEDS ORDERED: oxyCODONE HCL IR 5 MG TAB (IMMEDIATE RELEASE) PO PRN (15:58)
[2023-11-14] MEDS ORDERED: SOD PHOSPHATE/SOD BIPHOSPHATE ENEMA 132 ML BTL PR PRN (15:58)
[2023-11-14] MEDS ORDERED: bisacodyL 10 MG SUPP PR PRN (15:58)
[2023-11-14] MEDS ORDERED: METOCLOPRAMIDE HCL INJ 5 MG/ML 2 ML VIAL IV PRN (15:58)
[2023-11-14] MEDS ORDERED: ACETAMINOPHEN 1,000 MG/100 ML VIAL IV PRN (15:58)
[2023-11-14] MEDS ORDERED: ALBUTEROL HFA 8 GM INHALER INH PRN (15:58)
[2023-11-14] MEDS ORDERED: hydrOXYzine HCl 25 MG TAB PO PRN (15:58)
[2023-11-14] MEDS ORDERED: PROMETHAZINE HCL 12.5 MG in SODIUM CHLORIDE 0.9% 50 ML IV PRN (15:58)
[2023-11-14] MEDS ORDERED: ONDANSETRON 4 MG OD TAB PO PRN (15:58)
[2023-11-14] MEDS ORDERED: DO NOT ADMINISTER FLU VACCINE PRN (15:58)
[2023-11-14] MEDS ORDERED: diphenhydrAMINE Capsule 25 MG CAP PO PRN (15:58)
[2023-11-14] MEDS ORDERED: traMADol HCL 50 MG TABLET PO PRN (15:58)
[2023-11-14] MEDS ORDERED: HYDROmorphone INJ 1 MG/ML SYRINGE IV PRN (15:58)
[2023-11-14] MEDS ORDERED: ACETAMINOPHEN 500 MG TAB PO PRN (15:58)
[2023-11-14] MEDS ORDERED: NALOXONE HCL 0.4 MG/1 ML VIAL/CARP IV PRN (15:58)
[2023-11-14] MEDS: traMADol HCL 50 MG TABLET PO SCH (17:02)
[2023-11-14] MEDS ORDERED: NON-FORMULARY MEDICATION (Coenzyme Q10 [Coq-10] 100 mg Capsule) PO SCH (21:00)
[2023-11-14] MEDS: DOCUSATE SODIUM/SENNA 50/8.6MG TAB PO SCH (21:18)
[2023-11-14] MEDS: OMEGA-3 (PURIFIED FISH OIL) 1 GM CAP PO SCH (21:19)
[2023-11-14] MEDS: ADVANCED PROBIOTIC 1250 MG CAPSULE PO SCH (21:19)
[2023-11-14] MEDS: MONTELUKAST SODIUM 10 MG TABLET PO SCH (21:20)
[2023-11-15] MEDS: traMADol HCL 50 MG TABLET PO SCH ×4 (01:11→23:36)
[2023-11-15] MEDS: LACTATED RINGER'S 1,000 ML IV SCH ×2 (05:12→13:33)
[2023-11-15] MEDS: POLYETHYLENE (MIRALAX) 17 GM PACK PO SCH ×5 (05:12→23:14)
[2023-11-15 07:24] LABS: Basophils # (auto) 0.02 K/uL (0.00-0.20); Basophils % (auto) 0.2 %; Eosinophils # (auto) 0.02 K/uL (0.00-0.50); Eosinophils % (auto) 0.2 %; Hematocrit (blood only) 22.6 % (37.0-47.0); Hemoglobin 7.3 g/dl (12.0-16.0); Immature Granulocytes # (auto) 0.09 K/uL (0.01-0.20); Immature Granulocytes % (auto) 0.7 %; Lymphocytes # (auto) 1.54 K/uL (1.20-3.40); Lymphocytes % (auto) 12.6 %; Mean Corpuscular Hemoglobin 28.4 pg (25.0-34.0); Mean Corpuscular Hgb Conc 32.3 g/dL (32.0-36.0); Mean Corpuscular Volume 87.9 fL (80.0-100.0); Mean Platelet Volume 11.2 fL (9.4-12.4); Monocytes # (auto) 1.42 K/uL (0.11-0.59); Monocytes % (auto) 11.6 %; Neutrophils # (auto) 9.15 K/uL (1.40-6.50); Neutrophils % (auto) 74.7 %; Platelet Count 328 K/uL (130-400); RDW Coefficient of Variation 18.6 % (11.5-14.5); RDW Standard Deviation 59.6 fL (36.4-46.3); Red Blood Count 2.57 M/uL (4.20-5.40); White Blood Count 12.24 K/ul (4.8-10.8)
[2023-11-15 07:45] LABS: Polychromasia 1+
[2023-11-15 07:51] LABS: BUN Creatinine Ratio 28.6 (10-20); Calcium 8.5 mg/dl (8.6-10.3); Creatinine Clr Calc Pharmacy 72.1 ml/min; Est GFR (African American) 103.9 ml/min; Est GFR (Non-African American) 89.6 ml/min
[2023-11-15] MEDS: HYDROmorphone INJ 0.5 MG/0.5 ML SYR IV PRN ×4 (09:11→23:36)
[2023-11-15] MEDS: CEFEPIME 2,000 MG in SYRINGE 0 ML IV SCH ×3 (09:14→23:36)
[2023-11-15] MEDS: sulfaSALAzine 500 MG TABLET PO SCH ×2 (09:15→20:08)
[2023-11-15] MEDS: ARMOUR THYROID 30 MG TAB PO SCH (09:16)
[2023-11-15] MEDS: amLODIPine BESYLATE 5 MG TAB PO SCH (09:16)
[2023-11-15] MEDS: ASPIRIN 81 MG ECTAB PO SCH (09:17)
[2023-11-15] MEDS: FAMOTIDINE 20 MG TAB PO SCH ×2 (09:18→20:09)
[2023-11-15] MEDS: FOLIC ACID 1 MG TAB PO SCH (09:18)
[2023-11-15] MEDS: DULoxetine HCL 30 MG CAP PO SCH (09:18)
[2023-11-15] MEDS: LIDOCAINE 5% 1 PATCH TD SCH (09:18)
[2023-11-15] MEDS: METOPROLOL SUCC 50MG EXT REL TAB PO SCH (09:20)
[2023-11-15] MEDS: ACETAMINOPHEN 325 MG TAB PO SCH ×2 (09:20→20:09)
[2023-11-15] MEDS: PREGABALIN 100 MG CAP PO SCH ×2 (09:25→20:07)
--- NOTE | 2023-11-15 10:35 | Orthopedic Progress Note ---
Date of Service November 15, 2023 Assessment & Plan (1) Lumbar compression fracture: Plan: At this time initiate physical therapy. But we will fit her with an LSO brace to be worn when she is up and ambulating. Will we will assess how she progresses throughout the next several days notably discharge home by the end of the week. Admission and Anticipated Discharge Date Admission Date: November 10, 2023 Subjective Back pain improved. Denies any leg pain. She is tolerating physical therapy. Physical Exam Physical Exam: On exam patient is in the chair at the bedside. Her is with her. She appears very comfortable. Is good strength testing. Results & Data Vital Signs (Past 12 Hours) Vital Signs Temp Pulse Resp BP Pulse Ox O2 Del Method 11/15/23 08:25 36.7 C 57 L 16 118/64 97 Room Air 11/15/23 08:08 36.7 C 57 L 16 118/64 97 Room Air 11/15/23 05:00 36.8 C 69 18 96/57 L 98 Room Air 11/15/23 01:00 36.7 C 64 18 104/65 94 Room Air Queries Orthopedic Spine Vertebral Fracture Secondary to Osteoporosis: Yes
[2023-11-15] MEDS: CALCIUM CARBONATE 1250MG TAB PO SCH (11:10)
[2023-11-15] MEDS ORDERED: Nursing to Pharmacy Communication SCH (12:45)
--- NOTE | 2023-11-15 17:31 | Hospitalist Progress Note ---
Date of Service November 15, 2023 Assessment & Plan (1) Lumbar compression fracture: Plan: Patient had surgery 11/14. Age-related osteoporotic fracture of the lumbar spine Surgery managing pain Awaiting surgery clearance for resumption of Eliquis/Lovenox (2) Abnormal urinalysis: Plan: Initial sample taken from mahmood catheter that was placed a month ago. Replace mahmood catheter and repeat sample Urine culture grew Pseudomonas Treating her with IV cefepime (3) Hypokalemia: Plan: Replacement given (4) Polymyalgia rheumatica: Plan: Continue methylprednisone 16mg PO daily Patient got stress dose of hydrocortisone for her surgery (5) Rheumatoid arthritis: Plan: Continue methotrexate and sulfasalazine (6) History of pulmonary embolism: Plan: Diagnosed August 16, 2023. Currently on Eliquis. Was on therapeutic dose of Lovenox preoperatively Will switch to Eliquis after clearance from orthospine (7) Urinary retention: Plan: Present since last month. Continue mahmood catheter Suspect due to prolonged bed bound state Plan VTE Prophylaxis - Eliquis held for surgery. Awaiting surgery clearance Diet - heart healthy Admission and Anticipated Discharge Date Admission Date: November 10, 2023 Subjective Patient feels well. She did well with physical therapy today. Review of Systems Review of Systems: All systems reviewed & are unremarkable except as noted in Subjective Physical Exam Physical Exam: General: Awake, conversant Heart: S1, S2/regular rate and rhythm, no murmur rubs or gallops Lungs: Clear to auscultation bilaterally. Normal effort Abdomen: Soft/nontender/nondistended. No hepatosplenomegaly Extremities: No clubbing/cyanosis. No edema Behavior: Appropriate, cooperative Results & Data Results & Data Vital Signs (Past 12 Hours) Vital Signs Temp Pulse Resp BP Pulse Ox O2 Del Method 11/15/23 15:42 36.4 C L 58 L 16 109/65 96 Room Air 11/15/23 08:25 36.7 C 57 L 16 118/64 97 Room Air 11/15/23 08:08 36.7 C 57 L 16 118/64 97 Room Air Laboratory Results Abnormal lab results 11/15/23 Range/Units 06:48 WBC 12.24 H (4.8-10.8) K/ul RBC 2.57 L (4.20-5.40) M/uL Hgb 7.3 L (12.0-16.0) g/dl Hct 22.6 L (37.0-47.0) % RDW Std Deviation 59.6 H (36.4-46.3) fL RDW Coeff of Ashley 18.6 H (11.5-14.5) % Neut # (Auto) 9.15 H (1.40-6.50) K/uL Stone # (Auto) 1.42 H (0.11-0.59) K/uL Chloride 111 H (98-107) mmol/L BUN/Creatinine Ratio 28.6 H (10-20) Calcium 8.5 L (8.6-10.3) mg/dl PG Care Time/CCT Total # of Minutes Spent Total Time Spent with Patient: Total time spent is greater than 50% in coordination of care (as documented) at patient's floor/unit and/or counseling patient: Coding Level of Care Code 55319 SUB INP/OBS CARE 2/35MIN Diagnoses Lumbar compression fracture S32.000A Abnormal urinalysis R82.90 Hypokalemia E87.6 Polymyalgia rheumatica M35.3 Rheumatoid arthritis M06.9 History of pulmonary embolism Z86.711 Urinary retention R33.9
[2023-11-15] MEDS: DOCUSATE SODIUM/SENNA 50/8.6MG TAB PO SCH (20:06)
[2023-11-15] MEDS: OMEGA-3 (PURIFIED FISH OIL) 1 GM CAP PO SCH (20:08)
[2023-11-15] MEDS: ADVANCED PROBIOTIC 1250 MG CAPSULE PO SCH (20:09)
[2023-11-15] MEDS: MONTELUKAST SODIUM 10 MG TABLET PO SCH (20:09)
[2023-11-16] MEDS: POLYETHYLENE (MIRALAX) 17 GM PACK PO SCH ×5 (06:33→23:17)
[2023-11-16] MEDS: HYDROmorphone INJ 0.5 MG/0.5 ML SYR IV PRN ×3 (06:34→17:26)
[2023-11-16 08:17] LABS: Hematocrit (blood only) 24.4 % (37.0-47.0); Hemoglobin 7.3 g/dl (12.0-16.0)
[2023-11-16] MEDS: traMADol HCL 50 MG TABLET PO SCH ×3 (08:27→23:17)
[2023-11-16] MEDS: amLODIPine BESYLATE 5 MG TAB PO SCH (08:28)
[2023-11-16] MEDS: ARMOUR THYROID 30 MG TAB PO SCH (08:28)
[2023-11-16] MEDS: FAMOTIDINE 20 MG TAB PO SCH ×2 (08:28→20:32)
[2023-11-16] MEDS: DULoxetine HCL 30 MG CAP PO SCH (08:29)
[2023-11-16] MEDS: ASPIRIN 81 MG ECTAB PO SCH (08:29)
[2023-11-16] MEDS: ACETAMINOPHEN 325 MG TAB PO SCH ×2 (08:29→20:32)
[2023-11-16] MEDS: FOLIC ACID 1 MG TAB PO SCH (08:29)
[2023-11-16] MEDS: CALCIUM CARBONATE 1250MG TAB PO SCH (08:29)
[2023-11-16] MEDS: LIDOCAINE 5% 1 PATCH TD SCH (08:30)
[2023-11-16] MEDS: METOPROLOL SUCC 50MG EXT REL TAB PO SCH (08:30)
[2023-11-16] MEDS: sulfaSALAzine 500 MG TABLET PO SCH ×2 (08:30→20:32)
[2023-11-16] MEDS: PREGABALIN 100 MG CAP PO SCH ×2 (08:31→20:33)
[2023-11-16] MEDS: CEFEPIME 2,000 MG in SYRINGE 0 ML IV SCH ×3 (08:31→23:17)
--- NOTE | 2023-11-16 08:45 | Orthopedic Progress Note ---
Date of Service November 16, 2023 Assessment & Plan (1) Lumbar compression fracture: Plan: Suad is postoperative day 2 status post kyphoplasties of L1 and L2 with extension of fusion up to T12. She will continue with physical therapy today. Again wear TLSO brace with ambulation and standing. Maintain PRIMO drain. DVT prophylaxis in the form of teds and SCDs. May resume her anticoagulation tomorrow which is 72 hours postoperative. She is hoping to return home. This will most likely be at the end of the week. Admission and Anticipated Discharge Date Admission Date: November 10, 2023 Subjective Suad is postoperative day 2 status post kyphoplasties of L1 and L2 and extension of fusion up to T12. PRIMO drain output last shift was 30 cc. Yesterday in physical therapy [place] 110 feet. She has complaints of back pain but this is improved compared to her preoperative pain. No radicular leg pain. She has a TLSO brace which is to be worn with ambulation and standing. Review of Systems Review of Systems: All systems reviewed & are unremarkable except as noted in HPI & below Physical Exam Physical Exam: She is in bed eating breakfast this morning Alert and oriented x 3 No acute distress Strength is intact bilateral lower extremities Thoracolumbar dressing is clean dry and intact with functioning PRIMO drain Results & Data Vital Signs (Past 12 Hours) Vital Signs Temp Pulse Resp BP Pulse Ox O2 Del Method 11/16/23 07:52 36.4 C L 65 16 135/64 98 Room Air Queries Orthopedic Spine Vertebral Fracture Secondary to Osteoporosis: Yes
[2023-11-16] MEDS ORDERED: SODIUM CHLORIDE 0.9% 250 ML IV PRN (13:47)
--- NOTE | 2023-11-16 15:47 | Hospitalist Progress Note ---
Date of Service November 16, 2023 Assessment & Plan (1) Lumbar compression fracture: Plan: Patient had surgery 11/14. 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 This will need to be ordered tomorrow. (2) Abnormal urinalysis: Plan: Initial sample taken from mahmood catheter that was placed a month ago. Replace mahmood catheter and repeat sample Urine culture grew Pseudomonas Treating her with IV cefepime (3) Hypokalemia: Plan: Replacement given (4) Polymyalgia rheumatica: Plan: Continue methylprednisone 16mg PO daily Patient got stress dose of hydrocortisone for her surgery (5) Rheumatoid arthritis: Plan: Continue methotrexate and sulfasalazine (6) History of pulmonary embolism: Plan: Diagnosed August 16, 2023. Currently on Eliquis. Was on therapeutic dose of Lovenox preoperatively Per surgery, she can be started back on Eliquis tomorrow 11/17. This will need to be ordered tomorrow. (7) Urinary retention: Plan: Present since last month. Continue mahmood catheter Suspect due to prolonged bed bound state (8) Postoperative anemia due to acute blood loss: Plan: Patient had surgery on 11/14. She is anemic with a hemoglobin of 7.4 She has symptoms of anemia with fatigue, weakness. I decided to give her 1 unit of blood to help her gain strength. Plan VTE Prophylaxis - Eliquis held for surgery. Can be resumed 11/17 Diet - heart healthy Admission and Anticipated Discharge Date Admission Date: November 10, 2023 Subjective Patient says that she feels washed out today. Very tired and fatigued. Not as energetic as yesterday. Noted that her hemoglobin is barely above 7. Review of Systems Review of Systems: All systems reviewed & are unremarkable except as noted in Subjective Physical Exam Physical Exam: General: Awake, conversant Heart: S1, S2/regular rate and rhythm, no murmur rubs or gallops Lungs: Clear to auscultation bilaterally. Normal effort Abdomen: Soft/nontender/nondistended. No hepatosplenomegaly Extremities: No clubbing/cyanosis. No edema Behavior: Appropriate, cooperative Results & Data Results & Data Vital Signs (Past 12 Hours) Vital Signs Temp Pulse Pulse Resp BP BP Pulse Ox 11/16/23 15:27 36.8 C 61 16 112/58 L 97 11/16/23 15:00 36.8 C 61 18 120/75 97 11/16/23 14:45 36.7 C 66 18 116/65 96 11/16/23 14:29 36.7 C 66 18 100/59 L 96 11/16/23 10:26 11/16/23 07:52 36.4 C L 65 16 135/64 98 O2 Del Method 11/16/23 15:27 Room Air 11/16/23 15:00 11/16/23 14:45 11/16/23 14:29 11/16/23 10:26 Room Air 11/16/23 07:52 Room Air Laboratory Results Abnormal lab results 11/14/23 11/16/23 Range/Units 11:21 07:44 Hgb 7.3 L (12.0-16.0) g/dl Hct 24.4 L (37.0-47.0) % Crossmatch See Detail PG Care Time/CCT Total # of Minutes Spent Total Time Spent with Patient: Total time spent is greater than 50% in coordination of care (as documented) at patient's floor/unit and/or counseling patient: Coding Level of Care Code 01995 SUB INP/OBS CARE 2/35MIN Diagnoses Lumbar compression fracture S32.000A Abnormal urinalysis R82.90 Hypokalemia E87.6 Polymyalgia rheumatica M35.3 Rheumatoid arthritis M06.9 History of pulmonary embolism Z86.711 Urinary retention R33.9 Postoperative anemia due to acute blood loss D62
[2023-11-16] MEDS: DOCUSATE SODIUM/SENNA 50/8.6MG TAB PO SCH (20:29)
[2023-11-16] MEDS: ADVANCED PROBIOTIC 1250 MG CAPSULE PO SCH (20:32)
[2023-11-16] MEDS: OMEGA-3 (PURIFIED FISH OIL) 1 GM CAP PO SCH (20:32)
[2023-11-16] MEDS: MONTELUKAST SODIUM 10 MG TABLET PO SCH (20:33)
[2023-11-17] MEDS: HYDROmorphone INJ 0.5 MG/0.5 ML SYR IV PRN ×2 (07:45→20:32)
--- NOTE | 2023-11-17 08:41 | Orthopedic Progress Note ---
Date of Service November 17, 2023 Assessment & Plan (1) Lumbar compression fracture: Plan: We will continue therapy today. Monitor PRIMO output. Anticipate discharge home Tuesday. Her morning H&H is still pending. Admission and Anticipated Discharge Date Admission Date: November 10, 2023 Subjective Patient's back pain is improved. She denies any leg pain. Physical Exam Physical Exam: On exam she is in bed. She has good strength testing. Results & Data Vital Signs (Past 12 Hours) Vital Signs Temp Pulse Resp BP Pulse Ox O2 Del Method 11/17/23 08:08 36.8 C 78 16 109/71 97 Room Air 11/16/23 22:25 36.8 C 71 16 129/75 95 Room Air Queries Orthopedic Spine Acute Posthemorrhagic Anemia: Yes Vertebral Fracture Secondary to Osteoporosis: Yes
[2023-11-17 08:43] LABS: Basophils # (auto) 0.03 K/uL (0.00-0.20); Basophils % (auto) 0.3 %; Eosinophils # (auto) 0.24 K/uL (0.00-0.50); Eosinophils % (auto) 2.2 %; Hematocrit (blood only) 25.9 % (37.0-47.0); Hemoglobin 8.4 g/dl (12.0-16.0); Immature Granulocytes # (auto) 0.15 K/uL (0.01-0.20); Immature Granulocytes % (auto) 1.4 %; Lymphocytes # (auto) 1.35 K/uL (1.20-3.40); Lymphocytes % (auto) 12.6 %; Mean Corpuscular Hgb Conc 32.4 g/dL (32.0-36.0); Mean Corpuscular Volume 87.9 fL (80.0-100.0); Mean Platelet Volume 10.7 fL (9.4-12.4); Monocytes # (auto) 1.54 K/uL (0.11-0.59); Monocytes % (auto) 14.4 %; Neutrophils % (auto) 69.1 %; Nucleated RBC # (auto) 0.03 K/uL (0.00-0.12); Nucleated RBC % (auto) 0.3 %; Platelet Count 319 K/uL (130-400); RDW Coefficient of Variation 18.5 % (11.5-14.5); White Blood Count 10.71 K/ul (4.8-10.8)
[2023-11-17 08:46] LABS: Creatinine Clr Calc Pharmacy 72.1 ml/min; Est GFR (African American) 103.9 ml/min; Est GFR (Non-African American) 89.6 ml/min; Potassium 3.7 mmol/L (3.5-5.1)
[2023-11-17] MEDS: amLODIPine BESYLATE 5 MG TAB PO SCH (10:20)
[2023-11-17] MEDS: ACETAMINOPHEN 325 MG TAB PO SCH ×2 (10:20→20:33)
[2023-11-17] MEDS: ASPIRIN 81 MG ECTAB PO SCH (10:20)
[2023-11-17] MEDS: sulfaSALAzine 500 MG TABLET PO SCH ×2 (10:21→20:33)
[2023-11-17] MEDS: CALCIUM CARBONATE 1250MG TAB PO SCH (10:21)
[2023-11-17] MEDS: METOPROLOL SUCC 50MG EXT REL TAB PO SCH (10:21)
[2023-11-17] MEDS: FOLIC ACID 1 MG TAB PO SCH (10:21)
[2023-11-17] MEDS: ARMOUR THYROID 30 MG TAB PO SCH (10:21)
[2023-11-17] MEDS: traMADol HCL 50 MG TABLET PO SCH ×3 (10:22→23:08)
[2023-11-17] MEDS: POLYETHYLENE (MIRALAX) 17 GM PACK PO SCH ×5 (10:23→23:08)
[2023-11-17] MEDS: PREGABALIN 100 MG CAP PO SCH ×2 (10:29→20:32)
[2023-11-17] MEDS: LIDOCAINE 5% 1 PATCH TD SCH (10:29)
[2023-11-17] MEDS: FAMOTIDINE 20 MG TAB PO SCH ×2 (10:30→20:33)
[2023-11-17] MEDS: DULoxetine HCL 30 MG CAP PO SCH (10:35)
[2023-11-17] MEDS: CEFEPIME 2,000 MG in SYRINGE 0 ML IV SCH ×3 (10:38→23:07)
--- NOTE | 2023-11-17 11:14 | XRay Report ---
LUMBAR SPINE 5 VIEWS HISTORY: Recent lumbar surgery. Back pain. COMPARISON: Lumbar spine 09/26/2023. FINDINGS: Prior cholecystectomy. Vascular calcifications are noted. The visualized sacrum is intact. Interval kyphoplasty at L1 and L2 with slight improved height of these vertebral bodies. No acute fr actures within the lumbar spine. Extensive posterior decompression and fusion from T11 through L5 wit h pedicle screws and rods. The hardware appears intact. Mild periprosthetic lucency at the right L5 p edicle screw is noted. There is a surgical drain and cement beads at the laminectomy site. IMPRESSION: 1. Interval posterior decompression and fusion from T11 through L5 with pedicle screws and rods. The hardware appears intact. 2. Mild periprosthetic lucency at the right L5 pedicle screw. 3. Kyphoplasty at L1 and L2 with slight improved height of these vertebral bodies. 4. No acute fractures within the lumbar spine. ACT 112: Negative or not required by law. Electronically signed by: Aly Diaz M.D. 11/17/2023 11:12 AM
--- NOTE | 2023-11-17 16:46 | Hospitalist Progress Note ---
Date of Service November 17, 2023 Assessment & Plan (1) Lumbar compression fracture: Plan: Patient had surgery 11/14. 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 Patient has had bleeding concerns during admission and received 1 unit of blood, will start with Lovenox 11/17 & 11/18 and if stable then transition to Eliquis 11/19. Hemoglobin is beginning to uptrend 11/17 (2) Abnormal urinalysis: Plan: Repeat catheter sample with Pseudomonas, IV cefepime continued Will complete at least 5 days of treatment 11/18, will continue cefepime while inpatient. Patient was scheduled to have voiding trial in with urology due to urinary retention (3) Hypokalemia: Plan: Replacement given (4) Polymyalgia rheumatica: Plan: Continue methylprednisone Patient got stress dose of hydrocortisone for her surgery (5) Rheumatoid arthritis: Plan: Continue methotrexate and sulfasalazine (6) History of pulmonary embolism: Plan: Diagnosed August 16, 2023. Currently on Eliquis. Was on therapeutic dose of Lovenox preoperatively Per surgery, she can be started back on Eliquis 11/17. Lovenox used temporarily pending stability, if doing well anticipate resuming Eliquis 11/19 on discharge (7) Urinary retention: Plan: Present since last month. Continue mahmood catheter Suspect due to prolonged bed bound state (8) Postoperative anemia due to acute blood loss: Plan: Patient had surgery on 11/14. She is anemic with a hemoglobin of 7.4. Received 1 unit of blood, hemoglobin beginning to uptrend 11/17. CBC daily. Plan VTE Prophylaxis -Lovenox, will transition to Eliquis Diet - heart healthy Admission and Anticipated Discharge Date Admission Date: November 10, 2023 Subjective Seen at bedside. Still has some pain, mostly at the surgical site but this is improving. Denies numbness/tingling in the lower extremities. Feels her strength is good. No fever, chills, sweats. No lightheadedness or dizziness. Catheter is in place draining light yellow urine, no pain at the catheter site and no abdominal pain. She reports that she tolerated her blood transfusion well previously does not have any current lightheadedness, chest pain, or chest pressure. Has not noticed any bleeding Physical Exam Physical Exam: General: A&Ox3. NAD. Cooperative. Skin: Surgical site intact, C/D/I, drain intact with scant sanguinous output HEENT: Atraumatic, normocephalic. Vision/hearing grossly intact Pulm: CTAB A&P. -wheezes, -rales, -rhonchi. Symmetrical chest rise. No increased work of breathing. No respiratory distress. Cardiac: RRR, -mrg. Radial pulses intact and symmetrical. Abdominal: Nontender, nondistended, soft. BS present. : Mahmood in place draining light yellow urine Extremities: Sensation and strength grossly intact in upper and lower extremities bilaterally without asymmetry. Results & Data Results & Data Vital Signs (Past 12 Hours) Vital Signs Temp Pulse Resp BP Pulse Ox O2 Del Method 11/17/23 16:21 36.9 C 69 16 142/84 H 98 Room Air 11/17/23 08:08 36.8 C 78 16 109/71 97 Room Air PG Care Time/CCT Total # of Minutes Spent Total Time Spent with Patient: Total time spent is greater than 50% in coordination of care (as documented) at patient's floor/unit and/or counseling patient: Coding Level of Care Code 19740 SUB INP/OBS CARE 2/35MIN Diagnoses Lumbar compression fracture S32.000A Abnormal urinalysis R82.90 Hypokalemia E87.6 Polymyalgia rheumatica M35.3 Rheumatoid arthritis M06.9 History of pulmonary embolism Z86.711 Urinary retention R33.9 Postoperative anemia due to acute blood loss D62
[2023-11-17] MEDS: ENOXAPARIN 80 MG/0.8 ML SYR SQ SCH (17:47)
[2023-11-17] MEDS ORDERED: ENOXAPARIN 1 MG/KG SQ SCH (19:00)
[2023-11-17] MEDS: ADVANCED PROBIOTIC 1250 MG CAPSULE PO SCH (20:34)
[2023-11-17] MEDS: MONTELUKAST SODIUM 10 MG TABLET PO SCH (20:34)
[2023-11-17] MEDS: DOCUSATE SODIUM/SENNA 50/8.6MG TAB PO SCH (20:34)
[2023-11-17] MEDS: OMEGA-3 (PURIFIED FISH OIL) 1 GM CAP PO SCH (20:34)
[2023-11-18] MEDS: ENOXAPARIN 80 MG/0.8 ML SYR SQ SCH ×2 (06:06→17:43)
[2023-11-18] MEDS: POLYETHYLENE (MIRALAX) 17 GM PACK PO SCH ×4 (06:07→17:44)
[2023-11-18 07:57] LABS: Basophils # (auto) 0.04 K/uL (0.00-0.20); Basophils % (auto) 0.4 %; Eosinophils # (auto) 0.18 K/uL (0.00-0.50); Eosinophils % (auto) 1.7 %; Hematocrit (blood only) 27.1 % (37.0-47.0); Hemoglobin 8.6 g/dl (12.0-16.0); Immature Granulocytes # (auto) 0.13 K/uL (0.01-0.20); Immature Granulocytes % (auto) 1.2 %; Lymphocytes # (auto) 1.48 K/uL (1.20-3.40); Mean Corpuscular Hemoglobin 27.8 pg (25.0-34.0); Mean Corpuscular Hgb Conc 31.7 g/dL (32.0-36.0); Mean Corpuscular Volume 87.7 fL (80.0-100.0); Mean Platelet Volume 11.4 fL (9.4-12.4); Monocytes # (auto) 1.29 K/uL (0.11-0.59); Monocytes % (auto) 12.2 %; Neutrophils # (auto) 7.44 K/uL (1.40-6.50); Neutrophils % (auto) 70.5 %; Nucleated RBC # (auto) 0.02 K/uL (0.00-0.12); Nucleated RBC % (auto) 0.2 %; Platelet Count 319 K/uL (130-400); RDW Coefficient of Variation 18.2 % (11.5-14.5); RDW Standard Deviation 58.5 fL (36.4-46.3); Red Blood Count 3.09 M/uL (4.20-5.40); White Blood Count 10.56 K/ul (4.8-10.8)
[2023-11-18 08:06] LABS: Calcium 9.1 mg/dl (8.6-10.3); Potassium 3.5 mmol/L (3.5-5.1)
[2023-11-18 08:11] LABS: BUN Creatinine Ratio 23.8 (10-20); Creatinine Clr Calc Pharmacy 72.1 ml/min; Est GFR (African American) 103.9 ml/min; Est GFR (Non-African American) 89.6 ml/min
[2023-11-18] MEDS: amLODIPine BESYLATE 5 MG TAB PO SCH (08:31)
[2023-11-18] MEDS: ACETAMINOPHEN 325 MG TAB PO SCH ×2 (08:31→20:40)
[2023-11-18] MEDS: PREGABALIN 100 MG CAP PO SCH ×2 (08:31→20:39)
[2023-11-18] MEDS: DULoxetine HCL 30 MG CAP PO SCH (08:31)
[2023-11-18] MEDS: FAMOTIDINE 20 MG TAB PO SCH ×2 (08:31→20:40)
[2023-11-18] MEDS: ASPIRIN 81 MG ECTAB PO SCH (08:31)
[2023-11-18] MEDS: sulfaSALAzine 500 MG TABLET PO SCH ×2 (08:31→20:40)
[2023-11-18] MEDS: FOLIC ACID 1 MG TAB PO SCH (08:31)
[2023-11-18] MEDS: CALCIUM CARBONATE 1250MG TAB PO SCH (08:31)
[2023-11-18] MEDS: ARMOUR THYROID 30 MG TAB PO SCH (08:32)
[2023-11-18] MEDS: traMADol HCL 50 MG TABLET PO SCH ×3 (08:33→23:14)
[2023-11-18] MEDS: LIDOCAINE 5% 1 PATCH TD SCH (08:33)
[2023-11-18] MEDS: HYDROmorphone INJ 0.5 MG/0.5 ML SYR IV PRN (08:34)
[2023-11-18] MEDS: METOPROLOL SUCC 50MG EXT REL TAB PO SCH (08:39)
[2023-11-18] MEDS: CEFEPIME 2,000 MG in SYRINGE 0 ML IV SCH ×3 (08:44→23:14)
--- NOTE | 2023-11-18 14:00 | Hospitalist Progress Note ---
Date of Service November 18, 2023 Assessment & Plan (1) Lumbar compression fracture: Plan: Patient had surgery 11/14. 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 Patient has had bleeding concerns during admission and received 1 unit of blood, will start with Lovenox 11/17 & 11/18 and if stable then transition to Eliquis 11/19. Hemoglobin no bleeding on repeat exam, hemoglobin continues to uptrend (2) Abnormal urinalysis: Plan: Repeat catheter sample with Pseudomonas, IV cefepime continued Will complete at least 5 days of treatment 11/18, will continue cefepime while inpatient. Patient was scheduled to have voiding trial in with urology due to urinary retention. Exchange Mahmood prior to discharge (3) Hypokalemia: Plan: Replacement given (4) Polymyalgia rheumatica: Plan: Continue methylprednisone Patient got stress dose of hydrocortisone for her surgery (5) Rheumatoid arthritis: Plan: Continue methotrexate and sulfasalazine (6) History of pulmonary embolism: Plan: Diagnosed August 16, 2023. Currently on Eliquis. Was on therapeutic dose of Lovenox preoperatively Per surgery, she can be started back on Eliquis 11/17. Lovenox used temporarily pending stability, if doing well anticipate resuming Eliquis 11/19 on discharge (7) Urinary retention: Plan: Present since last month. Continue mahmood catheter. Suspect due to prolonged bed bound state (8) Postoperative anemia due to acute blood loss: Plan: Patient had surgery on 11/14. hemoglobin stable and uptrending as noted. Continue to monitor CBC Plan VTE Prophylaxis -Lovenox, will transition to Eliquis 11/19 Diet - heart healthy Dispo: Anticipate discharge 11/19, clinically progressing Admission and Anticipated Discharge Date Admission Date: November 10, 2023 Subjective Seen in the hallway, patient is ambulating with PT. She feels that she is doing very well pain is improving, and her exercise tolerance continues to improve. Drain has light serosanguineous output. She denies fever, chills, sweats. Confidence intermittently is improving, no questions or concerns at time of evaluation Physical Exam Physical Exam: Limited exam as patient is seen in [facility] while ambulating with PT. Breathing is unlabored, PRIMO drain is in place with scant serosanguineous drainage, radial pulses regular in rate and rhythm. No distress, skin is warm and dry. Results & Data Results & Data Vital Signs (Past 12 Hours) Vital Signs Temp Pulse Pulse Resp BP Pulse Ox O2 Del Method 11/18/23 08:38 62 11/18/23 07:22 36.8 C 56 L 16 126/68 100 Room Air PG Care Time/CCT Total # of Minutes Spent Total Time Spent with Patient: Total time spent is greater than 50% in coordination of care (as documented) at patient's floor/unit and/or counseling patient: Coding Level of Care Code 32245 SUB INP/OBS CARE 2/35MIN Diagnoses Lumbar compression fracture S32.000A Abnormal urinalysis R82.90 Hypokalemia E87.6 Polymyalgia rheumatica M35.3 Rheumatoid arthritis M06.9 History of pulmonary embolism Z86.711 Urinary retention R33.9 Postoperative anemia due to acute blood loss D62
[2023-11-18] MEDS: metHOTREXate sodium 2.5 MG TAB PO SCH (14:38)
[2023-11-18] MEDS ORDERED: metHOTREXate sodium 2.5 MG TAB PO SCH (17:00)
[2023-11-18] MEDS: DOCUSATE SODIUM/SENNA 50/8.6MG TAB PO SCH (20:39)
[2023-11-18] MEDS: OMEGA-3 (PURIFIED FISH OIL) 1 GM CAP PO SCH (20:40)
[2023-11-18] MEDS: MONTELUKAST SODIUM 10 MG TABLET PO SCH (20:40)
[2023-11-18] MEDS: ADVANCED PROBIOTIC 1250 MG CAPSULE PO SCH (20:42)
[2023-11-19] MEDS: ENOXAPARIN 80 MG/0.8 ML SYR SQ SCH (05:33)
[2023-11-19] MEDS ORDERED: ARMOUR THYROID 30 MG TAB PO SCH (06:30)
[2023-11-19 07:55] LABS: Basophils # (auto) 0.03 K/uL (0.00-0.20); Basophils % (auto) 0.3 %; Eosinophils # (auto) 0.21 K/uL (0.00-0.50); Eosinophils % (auto) 2.3 %; Hematocrit (blood only) 27.9 % (37.0-47.0); Hemoglobin 8.6 g/dl (12.0-16.0); Immature Granulocytes # (auto) 0.09 K/uL (0.01-0.20); Lymphocytes # (auto) 1.22 K/uL (1.20-3.40); Lymphocytes % (auto) 13.6 %; Mean Corpuscular Hgb Conc 30.8 g/dL (32.0-36.0); Mean Corpuscular Volume 87.5 fL (80.0-100.0); Mean Platelet Volume 11.2 fL (9.4-12.4); Monocytes # (auto) 1.35 K/uL (0.11-0.59); Neutrophils # (auto) 6.09 K/uL (1.40-6.50); Neutrophils % (auto) 67.8 %; Platelet Count 335 K/uL (130-400); RDW Coefficient of Variation 17.8 % (11.5-14.5); RDW Standard Deviation 57.2 fL (36.4-46.3); Red Blood Count 3.19 M/uL (4.20-5.40); White Blood Count 8.99 K/ul (4.8-10.8)
[2023-11-19 08:17] LABS: BUN Creatinine Ratio 24.6 (10-20); Calcium 9.4 mg/dl (8.6-10.3); Creatinine Clr Calc Pharmacy 74.5 ml/min; Est GFR (Non-African American) 90.6 ml/min; Potassium 3.3 mmol/L (3.5-5.1)
[2023-11-19] MEDS: CEFEPIME 2,000 MG in SYRINGE 0 ML IV SCH (08:22)
[2023-11-19] MEDS: traMADol HCL 50 MG TABLET PO SCH (08:22)
[2023-11-19] MEDS: LIDOCAINE 5% 1 PATCH TD SCH (08:23)
[2023-11-19] MEDS: POLYETHYLENE (MIRALAX) 17 GM PACK PO SCH (08:25)
[2023-11-19] MEDS: ASPIRIN 81 MG ECTAB PO SCH (09:32)
[2023-11-19] MEDS: sulfaSALAzine 500 MG TABLET PO SCH (09:32)
[2023-11-19] MEDS: CALCIUM CARBONATE 1250MG TAB PO SCH (09:33)
[2023-11-19] MEDS: ACETAMINOPHEN 325 MG TAB PO SCH (09:33)
[2023-11-19] MEDS: FOLIC ACID 1 MG TAB PO SCH (09:34)
[2023-11-19] MEDS: FAMOTIDINE 20 MG TAB PO SCH (09:34)
[2023-11-19] MEDS: DULoxetine HCL 30 MG CAP PO SCH (09:34)
[2023-11-19] MEDS: METOPROLOL SUCC 50MG EXT REL TAB PO SCH (09:34)
[2023-11-19] MEDS: amLODIPine BESYLATE 5 MG TAB PO SCH (09:34)
[2023-11-19] MEDS: PREGABALIN 100 MG CAP PO SCH (09:38)
--- NOTE | 2023-11-19 10:28 | Discharge Summary ---
Date of Service November 19, 2023 Admission HPI Per Admitting Provider Annabella Donahue is a 73 year old female who presents to the ER on advice of her orthopedic surgeon for potential surgery on Tuesday. She underwent lumbar spine decompression and fusion with removal of prior posterior instrumentation performed by Dr Tafoya on October 04. She reports no significant improvement in her back pain since that time and is mostly bed bound at this stage. She cannot sit down or stand. Can walk very little. She followed up as a routine visit with orthopedic spine surgery today and was recommended to come to the ER for admission under medicine for potential surgery on Tuesday due to lumbar compression fracture suspected to be causing her pain. She last took her Eliquis this morning. During her prior hospitalization she also had problems with urine retention and mahmood catheter has been in since last month (due to change on Tuesday). She also had problems with fecal impaction which resolved with laxative use and she is now having regular bowel movements. Also had problems with alte red mental status which resolved on reducing her Lyrica back to 100mg PO BID and stopping oxycodone. Tramadol has mainly just caused constipation and does not help with pain relief. She takes Prolia for osteoporosis although missed her dose in July due to recurrent hospitalizations and is yet to be able to reschedule this. She notes her rheumatoid arthritis is under control despite missing her Orencia shots also due to prolonged hospitalizations (last one she had was in June). Her PMR has been under control since March when it was diagnosed and she was put back on steroids and has been on methylprednisone 16mg PO since following up with her ecosystem ecology professor after this visit. Principal Diagnosis Lumbar compression fractures Discharge Data 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 STOMACH codeine AdvReac Intermediate Gastrointestinal Verified 10/26/23 10:53 Upset hydrocodone [From Vicodin] AdvReac Intermediate Gastrointestinal Verified 10/26/23 10:53 Upset lubiprostone [From Amitiza] AdvReac Intermediate HX OF Verified 10/26/23 10:53 BLEEDING STOMACH pitavastatin AdvReac Intermediate Joint Pain Verified 10/26/23 10:53 pravastatin [From Pravachol] AdvReac Intermediate Joint Pain Verified 10/26/23 10:53 rosuvastatin AdvReac Intermediate Joint Pain Verified 10/26/23 10:53 [From Ezallor Sprinkle] simvastatin [From FloLipid] AdvReac Intermediate Joint Pain Verified 10/26/23 10:53 Ljduzxt-NYF-HwY Reductase AdvReac Intermediate Joint Pain Verified 10/26/23 10:53 Inhibitor Consultations 11/10/23 16:08 ED Decision to Admit Stat 11/10/23 19:10 Consult Orthopedic Spine Surgery Routine Procedures Performed Operation Date: 11/14/23 12:25 Actual Procedures p T11-L2 Instrumented Fusion, Removal of L2 Screws, (Not Applicable) - Saturnino Tafoya DO s L1 & L2 Kyphoplasty(Not Applicable) - Saturnino Tafoya DO Ordered Studies 11/14/23 [place] lumbar spine 2-3V Routine Hospital Course (1) Lumbar compression fracture: Patient presents with multiple compression fractures and loss of lumbar alignment. Subsequently she underwent revision thoracolumbar fusion. She tolerated this well was taken to orthopedic for postoperative. Postop patient progressed appropriately. PRIMO drain decreased appropriate. Pain markedly impro lynn. Subsidy discharged home. Discharge orders instructions found in chart for further review. Total Time Total Time Spent Total Time Spent (In Minutes): 20 minutes Discharge Plan Discharge Items Patient Disposition: Home - Self-Care Reason For Visit: L1/L2 COMPRESSION FRACTURE Discharge Diagnosis: L1 and L2 compression fractures Activity: As commented below Non-emergency contact: Primary Care Provider Call non-emergency contact if: you have any medication questions Follow-up/Referrals: Elaine Emmanuel [Primary Care Provider] - Diet: Regular Addtl Attending Provider Instructions: ACTIVITY RECOMMENDATIONS: SELF CARE INSTRUCTIONS AFTER THORACIC/LUMBAR FUSIONS 1. You may walk to your tolerance. It is good exercise for your legs and back. Expect some back and intermittent leg aches and pains. 2. You may perform "counter-top" level activities (make a sandwich, slaly with a project, etc.). 3. No bending or lifting of more than 10 pounds or back twisting of any nature (roll like a log when turning in bed). 4. You may ride in a car for 20-30 minutes at a time. No driving until after your first visit with your doctor. 5. Frequent changes of position and restricting sitting to 30 minutes at a time will help limit the amount of back spasms and stiffness you may experience. 6. You may discontinue the use of ambulatory aids (cane, crutches, etc.) once your strength and confidence allow. 7. You may manufacturing plant manager the shower and let water strike your incision when you arrive home at least once daily. Do not take a tub bath, sit in a hot tub or go into a swimming pool until after your first recheck in the office. SPECIAL CARE INSTRUCTIONS: VERY IMPORTANT TO READ AND REVIEW A. Your surgical incision has been closed with a cosmetic suture under the skin that will dissolve in about 6 weeks. In 14 days, you can use a pair of clean scissors and cut the suture that is left outside of the skin at the ends of your incision. 1. The small skin tapes can be removed 7 days after surgery if they have not fallen off by that point. 2. You may keep the wound open to air as much as possible to promote healing after post-op day number 5 unless told otherwise by your doctor. 3. If you think the wound looks like it is becoming infected (redness or worsening drainage) and/or you are experiencing fever, chill or worsening back pain and muscle spasms, contact the office so that we may evaluate you as soon as possible. B. Complications are uncommon, but please contact us if you have any signs or symptoms of: 1. wound infection (fever higher than 102.5 degrees F, redness, separation of wound, drainage, or increasing pain from the incision) 2. blood clots in legs (pain, swelling, redness and warmth in legs) 3. urinary tract infection (fever higher than 102.5 degrees F, burning upon urination or increased frequency of urination) 4. nerve problems (inability to walk on your toes or heels, numbness, loss of bowel or bladder control) 5. any other symptoms that concern you C. Please call the office at if you have any concerns or questions about your operation or recovery. D. No smoking! Smoking drastically decreases the chance of a solid fusion. E. Do not take any anti-inflammatory medications (Indocin, Advil, Motrin, Aspirin, Naprosyn, etc.) as these may inhibit the chance of a solid fusion. Tylenol is okay to take for pain. MANAGING PAIN AFTER SPINAL SURGERY 1. Narcotic medication is intended for short-term use and will be provided for surgical pain. Surgical pain usually lasts for a period of 4-6 weeks. Narcotic medication includes Percocet, Vicodin, Darvocet, Tylenol #3 or Lortab. 2. Longer-term pain is more appropriately treated with non-narcotic medication such as Tylenol ES. 3. Muscle spasm is not appropriately treated with narcotics. Muscle relaxers such as Soma, Flexeril or Skelaxin can be used along with Tylenol ES. 4. Remember that we all live with some "aches and pains". This is not unusual or uncommon after an injury or as we get older. a. Back pain is expected and may include muscle spasms for 4 to 6 weeks after surgery. The pain should gradually improve. If the pain worsens for no apparent reason, please contact the office. b. Intermittent leg pain may also be experienced and should not be concerned about unless it worsens for no apparent reason. If so, please contact the office. 5. We will provide appropriate medication within the normal guidelines of their prescribed use. We will also be very cautious and aware of potential abuse and extended duration of patients' medication needs. a. Pain medications are for your comfort and to assist with sleep and rest so that the tissue can heal. They are not provided in order to return to normal activity and should not be used through the day. To do so or worsening pain at night can result from ongoing tissue damage and development of tolerance to the prescribed medicine. 6. Please allow 2-3 days to process refills. Prescriptions will not be mailed but must be picked up at the office. FOLLOW UP VISIT: Keep your scheduled follow-up appointment. Any questions, please call the office at . Pending Studies at Discharge: No Stand-Alone Forms: My [facility], Smoking Cessation Medications and [place] Order Prescriptions: New hydromorphone [Dilaudid] 2 mg tablet 2 mg PO Q8H Qty: 20 0RF Continued metoprolol succinate 50 mg tablet extended release 24 hr 50 mg PO DAILY aspirin 81 mg Tablet,Delayed Release (Dr/Ec) 81 mg PO DAILY cefadroxil 500 mg capsule 500 mg PO Q12 methotrexate sodium 2.5 mg tablet 17.5 mg PO .QWEEK IN PM Rx Instructions: FRIDAYS--TAKES 7 TABS. amlodipine 10 mg tablet 10 mg PO DAILY nitroglycerin 0.4 mg tablet, sublingual 0.4 mg sublingual DIRECTED PRN (Reason: Chest Pain) Rx Instructions: PLACE 1 TABLET UNDER TONGUE EVERY 5 MINS, UP TO 3 DOSES NEEDED FOR CHEST PAIN docusate sodium [Colace] 100 mg Capsule 100 mg PO DAILY folic acid 1 mg tablet 1 mg PO DAILY montelukast 10 mg tablet 10 mg PO QPM albuterol sulfate 90 mcg/actuation HFA aerosol inhaler 1 puff INHALATION QID PRN (Reason: Wheezing) fluticasone propionate 50 mcg/actuation spray,suspension 1 spray INTRANASAL DAILY PRN (Reason: allergy) coenzyme Q10 [CoQ-10] 100 mg Capsule 100 mg PO BID thyroid (pork) [Dewitt Thyroid] 60 mg tablet 60 mg PO DAILY omega 9-uot-abs-fish oil [Fish Oil] 1,200 (144-216) mg Capsule 1 cap PO QPM Probiotic 3 billion cell Capsule 3,000 mmu cells PO QPM Rx Instructions: administer with a meal Praluent Pen 75 mg/mL pen injector 75 mg SUBCUT .EVERY 14 DAYS Rx Instructions: INJECT 1 ML (75 MG TOTAL) INTO THE SKIN EVERY 14 (FOURTEEN) DAYS. meclizine 25 mg tablet 25 mg PO TID PRN (Reason: Dizziness) sulfasalazine 500 mg tablet 500 mg PO BID Eliquis 5 mg tablet 5 mg PO BID Qty: 60 4RF acetaminophen [Tylenol Arthritis Pain] 650 mg Tablet Extended Release 650 mg PO BID calcium carbonate 500 mg calcium (1,250 mg) Tablet 500 mg PO DAILY methylprednisolone 8 mg tablet 16 mg PO DAILY inulin-sorbitol 2 gram Tablet,Chewable 1 tab PO DAILY Prolia 60 mg/mL Syringe 0 mg SUBCUT DIRECTED Rx Instructions: PER PT "OVER DUE, TROUBLE SCHEDULING AT THIS TIME". ondansetron 4 mg tablet,disintegrating 4 mg translingual DIRECTED PRN (Reason: Nausea) polyethylene glycol 3350 [Miralax] 17 gram Powder In Packet 17 g PO DAILY Qty: 30 0RF tramadol 50 mg Tablet 100 mg PO Q8H Qty: 90 0RF famotidine 20 mg Tablet 20 mg PO BID Qty: 60 0RF duloxetine 30 mg Capsule,Delayed Release(Dr/Ec) 30 mg PO QAM Qty: 30 3RF pregabalin [Lyrica] 100 mg Capsule 100 mg PO BID Qty: 60 3RF Discharge Orders: Discharge Order (Routine); Ordered 11/19/23 Ordered By: Saturnino Tafoya Admission Data Admit Date/Time: 11/10/23 16:40 Attending Provider: Chucho Grimaldo Admit Provider: John Carvalho Primary Care Provider: Elaine Emmanuel Other Providers: John Carvalho; Saturnino Tafoya
== END 2023-11-19 12:48 | disposition home or self-care (01) | DRG 457 ==
LOC: ED 13:44 → SUATTDRO 16:40 → 3N 16:40

== ENCOUNTER 2024-01-12 19:06 | Observation (INO) ==
--- NOTE | 2024-01-12 19:13 | ED Triage Note ---
Date of Service January 12, 2024 Provider in Triage Author: Christina Herrera History of Present Illness This patient was briefly evaluated while in triage. An abbreviated physical exam was performed. This patient is a 73-year-old Female who presents to the ED for evaluation of SOB and lower leg swelling. H/o CHF just started Lasix last week. Symptoms getting worse the last few days. Denies fevers. Notes chest pressure. History of PE on Eliquis, had surgery in Oct and was off blood thinner for a few days (bridged w lovenox). Physical Exam Constitutional: alert and oriented x3. no acute distress. HEENT: normocephalic, atraumatic. normal conjunctiva.PERRLA. EOM's grossly intact. Respiratory: equal chest rise. normal respiratory effort, no accessory muscle use. Cardiovascular: regular rate and rhythm. MSK: moves all 4 extremities spontaneously Psych:appropriate mood and affect. Initial orders for labs and / or imaging were placed and patient was placed in the waiting area until a bed is available. Please see further documentation for the full ED course.
--- NOTE | 2024-01-12 19:36 | XRay Report ---
SINGLE VIEW CHEST CLINICAL HISTORY: Dyspnea FINDINGS: An AP upright chest radiograph is compared to study dated 09/26/2023. The cardiomediastinal silhouette is unremarkable noting atherosclerotic calcification of the thoracic aorta. Chronic inter stitial thickening is similar to previous. There is mild chronic elevation of the right hemidiaphragm . The lungs and pleural spaces are clear. No pneumothorax is seen. The skeletal structures are osteop enic. The bony thorax is grossly intact. Fusion hardware is seen at the thoracolumbar junction. IMPRESSION: No active disease in the chest. ACT 112: Negative or not required by law. Electronically signed by: Garrett Ocampo M.D. 01/12/2024 7:35 PM
[2024-01-12 20:39] LABS: Basophils # (auto) 0.06 K/uL (0.00-0.20); Basophils % (auto) 0.8 %; Eosinophils # (auto) 0.26 K/uL (0.00-0.50); Eosinophils % (auto) 3.3 %; Hematocrit (blood only) 23.6 % (37.0-47.0); Hemoglobin 7.1 g/dl (12.0-16.0); Immature Granulocytes # (auto) 0.05 K/uL (0.01-0.20); Immature Granulocytes % (auto) 0.6 %; Lymphocytes # (auto) 2.18 K/uL (1.20-3.40); Lymphocytes % (auto) 27.6 %; Mean Corpuscular Hgb Conc 30.1 g/dL (32.0-36.0); Mean Corpuscular Volume 92.9 fL (80.0-100.0); Mean Platelet Volume 11.1 fL (9.4-12.4); Monocytes % (auto) 11.4 %; Neutrophils # (auto) 4.45 K/uL (1.40-6.50); Neutrophils % (auto) 56.3 %; Platelet Count 348 K/uL (130-400); RDW Standard Deviation 57.2 fL (36.4-46.3); Red Blood Count 2.54 M/uL (4.20-5.40)
[2024-01-12 20:50] LABS: Alanine Aminotransferase 11 U/L (7-52); Albumin Globulin Ratio 1.3 (0.9-2); Albumin Level 3.4 gm/dl (3.4-5.0); Alkaline Phosphatase 51 U/L (34-104); Anion Gap 8 (3-11); Aspartate Aminotransferase 13 U/L (13-39); BUN Creatinine Ratio 16.7 (10-20); Bilirubin,Total 0.2 mg/dl (0.2-1.0); Blood Urea Nitrogen 13 mg/dl (6-23); Calcium 8.6 mg/dl (8.6-10.3); Carbon Dioxide 26 mmol/L (21-32); Chloride 110 mmol/L (98-107); Globulin 2.7 gm/dl (2.5-4.0); Glucose 115 mg/dl (70-99(Fasting)); Magnesium 1.8 mg/dl (1.7-2.4); Potassium 3.3 mmol/L (3.5-5.1); Sodium 144 mmol/L (136-145); Total Protein 6.1 gm/dl (6.0-8.3)
[2024-01-12 20:56] LABS: Troponin I High Sensitivity 9.1 pg/ml (0-14)
[2024-01-12 21:03] LABS: Polychromasia 1+
[2024-01-12 21:04] LABS: INR 0.9 (0.9-1.1); Partial Thromboplastin Ratio 0.8; Partial Thromboplastin Time 23 Seconds (21-31); Prothrombin Time 10.3 Seconds (9.0-12.0)
--- NOTE | 2024-01-12 21:24 | Ultrasound Report ---
ULTRASOUND BILATERAL LOWER EXTREMITY VENOUS CLINICAL HISTORY: Extremity edema. COMPARISON STUDY: Right lower extremity venous ultrasound dated 09/26/2023. Left lower extremity veno us ultrasound dated 08/16/2023. TECHNIQUE: Real-time, grayscale, and color Doppler sonography of the deep veins of the right and left lower extremity was performed from the inguinal crease to the calf. Compression and augmentation wer e utilized. FINDINGS: There is no sonographic evidence of deep venous thrombosis identified in the right or left lower extremity. The common femoral, superficial femoral, and popliteal veins are patent and normally compressible bilaterally. The greater saphenous vein and the profunda femoris vein at the junction w ith the common femoral vein are clear in both legs. The visualized calf veins are patent bilaterally. IMPRESSION: There is no sonographic evidence of deep venous thrombosis identified in the right or lef t lower extremity. ACT 112: Negative or not required by law. Electronically signed by: Garrett Ocampo M.D. 01/12/2024 9:22 PM
[2024-01-12] MEDS ORDERED: SODIUM CHLORIDE 0.9% 250 ML IV PRN (22:04)
[2024-01-12] MEDS: FAMOTIDINE 20MG IV PUSH 20 MG/5 ML SYR IV STA (22:13)
[2024-01-12] MEDS: ONDANSETRON INJ 2 MG/ML 2 ML VIAL IV STA (22:13)
[2024-01-12] MEDS: PANTOprazole 80 MG in DEXTROSE 5% 100 ML IV STA (22:46)
[2024-01-12 22:49] LABS: Appearance Urine Clear (Clear); Bacteria Urine Automated Negative (Negative); Bilirubin Urine Negative (Negative); Blood Urine Negative (Negative); Color Urine Dark Yellow; Epithelial Cell Urine Auto >30 /lpf (0-5); Glucose Urine UA Negative (Negative); Ketones Urine Trace (Negative); Leukocyte Esterase Urine Negative (Negative); Nitrite Urine Negative (Negative); Protein Urine Trace (Negative); RBC Urine Automated 0-4 /hpf (0-4); Specific Gravity Urine 1.032 (1.000-1.030); Urobilinogen Urine Negative (Negative)
--- NOTE | 2024-01-12 23:18 | History & Physical Report ---
Date of Service January 12, 2024 Assessment & Plan (1) Symptomatic anemia: Plan: 73yo female presenting with exertional dyspnea and chest discomfort progressive over the last several weeks. She has worsening of her anemia - Hgb of 7.1 today - was last 8.6 on 11/19/23. Likely secondary to rectal blood loss from hemorrhoids. Patient also reports a history of colitis. -Ordered 1u PRBCs in the ER -Will add iron studies onto blood sample -Check CT of the abdomen -Hold Eliquis and ASA for now. -Patient has met with General Surgery regarding surgical intervention for her hemorrhoids. She is to complete her Eliquis course then followup. She has completed 5 months of anticoagulation at this time for an unprovoked PE. It would be reasonable to DC her Eliquis at this time given report of increased rectal bleeding and symptomatic anemia requiring transfusion -Consider General Surgery consult - will need followup (2) Edema: Plan: Patient with swelling of bilateral LE as well as exertional chest pain and dyspnea. Troponin is unremarkable as is EKG -Check 2D echo (3) History of pulmonary embolism: Plan: Hold Eliquis for now in acute blood loss anemia Patient could consider discontinuing this medication (4) GERD (gastroesophageal reflux disease): Plan: Chronic -Continue Protonix and Famotidine (5) Polymyalgia rheumatica: Plan: Chronic -Continue Methylprednisolone (6) HTN (hypertension): Plan: Chronic. Well controlled -Continue Amlodipine -Continue Metoprolol (7) Hypothyroid: Plan: Chronic -Continue Thyroid tab History of Present Illness Chief Complaint: shortness of breath bright red blood per rectum Primary Care Provider: Elaine Emmanuel Annabella Donahue is a pleasant 73yo female with multiple medical comorbidities- HTN, CAD, Hypothyroid, PE diagnosed in July on Eliquis anticoagulation (plan to discontinue in January to complete a 6 month course for unprovoked PE) presenting with shortness of breath. Patient reports she becomes short of breath with minimal exertion such as walking in her home. She has some substernal chest tightness and pressure with exertion and dizziness as well. Her symptoms have been progressing over the last couple of weeks with acute worsening over the last several days. She also reports pulsatile tinnitus in her left ear as well as swelling in her feet and ankles. She has also been having fairly persistent rectal bleeding - passage of bright red blood and clots with bowel movements. It has been occurring more frequently over the last several days. She denies fever, chills, syncope or falls. No nausea, vomiting, hematemesis. In the ER she is afebrile, HD stable, NAD Allergies Allergy/AdvReac Type Severity Reaction Status Date / Time clopidogrel [From Plavix] Allergy Intermediate Hives Verified 01/12/24 23:05 hydroxychloroquine Allergy Intermediate Hives Verified 01/12/24 23:05 [From Plaquenil] celecoxib [From Celebrex] AdvReac Intermediate HX OF Verified 01/12/24 23:05 BLEEDING STOMACH codeine AdvReac Intermediate Gastrointestinal Verified 01/12/24 23:05 Upset hydrocodone [From Vicodin] AdvReac Intermediate Gastrointestinal Verified 01/12/24 23:05 Upset lubiprostone [From Amitiza] AdvReac Intermediate HX OF Verified 01/12/24 23:05 BLEEDING STOMACH pitavastatin AdvReac Intermediate Joint Pain Verified 01/12/24 23:05 pravastatin [From Pravachol] AdvReac Intermediate Joint Pain Verified 01/12/24 23:05 rosuvastatin AdvReac Intermediate Joint Pain Verified 01/12/24 23:05 [From Ezallor Sprinkle] simvastatin [From FloLipid] AdvReac Intermediate Joint Pain Verified 01/12/24 23:05 [id number] Reductase AdvReac Intermediate Joint Pain Verified 10/26/23 10:53 Inhibitor Home Medications Medication Instructions Recorded Confirmed Type albuterol sulfate 90 mcg/actuation 1 puff inhalation QID PRN Wheezing 04/05/23 01/12/24 History aerosol inhaler amlodipine 10 mg tablet 10 mg PO DAILY 04/05/23 01/12/24 History aspirin 81 mg tablet,delayed 81 mg PO DAILY 04/05/23 01/12/24 History release cefadroxil 500 mg capsule 500 mg PO Q12 04/05/23 01/12/24 History coenzyme Q10 100 mg capsule 100 mg PO BID 04/05/23 01/12/24 History (CoQ-10) docusate sodium 100 mg capsule 100 mg PO DAILY 04/05/23 01/12/24 History (Colace) fluticasone propionate 50 1 spray intranasal DAILY PRN 04/05/23 01/12/24 History mcg/actuation nasal allergy spray,suspension lactobacillus combination no.4 3 3,000 mmu cells PO QPM 04/05/23 01/12/24 History billion cell capsule (Probiotic) metoprolol succinate 50 mg 50 mg PO DAILY 04/05/23 01/12/24 History tablet,extended release 24 hr montelukast 10 mg tablet 10 mg PO QPM 04/05/23 01/12/24 History nitroglycerin 0.4 mg sublingual 0.4 mg sublingual DIRECTED PRN 04/05/23 01/12/24 History tablet Chest Pain omega 9-hke-ebj-fish oil 1,200 mg 1 cap PO QPM 04/05/23 01/12/24 History (144 mg-216 mg) capsule (Fish Oil) thyroid (pork) 60 mg tablet 60 mg PO DAILY 04/05/23 01/12/24 History ([place] Thyroid) apixaban 5 mg tablet (Eliquis) 5 mg PO BID #60 tabs 08/17/23 01/12/24 Rx acetaminophen 650 mg 1,300 mg PO BID 09/26/23 01/12/24 History tablet,extended release (Tylenol Arthritis Pain) calcium carbonate 500 mg calcium 500 mg PO DAILY 09/26/23 01/12/24 History (1,250 mg) tablet denosumab 60 mg/mL subcutaneous 0 mg subcut DIRECTED 09/26/23 01/12/24 History syringe (Prolia) methylprednisolone 8 mg tablet 8 mg PO DAILY 09/26/23 01/12/24 History ondansetron 4 mg disintegrating 4 mg translingual DIRECTED PRN 10/14/23 01/12/24 History tablet Nausea polyethylene glycol 3350 17 gram 17 g PO DAILY #30 ea 10/21/23 01/12/24 Rx oral powder packet (Miralax) pregabalin 100 mg capsule (Lyrica) 100 mg PO BID #60 caps 10/21/23 01/12/24 Rx tramadol 50 mg tablet 100 mg (2 x 50 mg) PO Q8H #90 tabs 10/21/23 01/12/24 Rx sulfasalazine 500 mg tablet 500 mg PO BID 11/10/23 01/12/24 History esomeprazole magnesium 40 mg 40 mg PO DAILY 01/12/24 01/12/24 History capsule,delayed release evolocumab 140 mg/mL subcutaneous 140 mg subcut .Q 2WEEKS 01/12/24 01/12/24 History syringe (Repatha Syringe) furosemide 20 mg tablet 20 mg PO DAILY 01/12/24 01/12/24 History hydromorphone 2 mg tablet 2 mg PO Q8H PRN Pain 01/12/24 01/12/24 History (Dilaudid) potassium chloride 20 mEq 20 meq PO DAILY 01/12/24 01/12/24 History tablet,extended release(part/cryst) (Klor-Con M) Past Med/Surg History Medical History Neurogenic claudication due to lumbar spinal stenosis Hypertensive emergency GERD (gastroesophageal reflux disease) HTN (hypertension) History of coronary artery disease Pulmonary emboli Giant cell arteritis Polymyalgia rheumatica Staph infection Diverticulitis Hypothyroid Osteoarthritis Rheumatoid arthritis Heart attack Coronary artery disease Stent May 2012 - NC during stress test Stent Oct 2019 - pressure in chest Fibromyalgia Surgical History Status post lumbar surgery History of left nephrectomy History of back surgery History of colon resection Social History Smoking Status: Never smoker Hx Alcohol Use: Yes Alcohol type: other Hx Substance Use: No Preferred Language: Thai Communication Ability: Effective Manager Of [employer] Required: No Beliefs That Will Affect Care: Yarsanism Yarsanism Beliefs: Amish Current Living Situation: Spouse Other Information That Helps Us Care for You: No Feels Safe at Home: Yes Safety Concerns: Feels Safe At This Time Assistive Devices: Cane and Walker Review of Systems Review of Systems: All systems reviewed & are unremarkable except as noted in HPI & below Physical Exam Physical Exam: General: patient resting comfortably, NAD, non-toxic in appearance, AA&O x 4 Skin: warm, dry, intact, no rashes or lesions HEENT: NC/AT, PERRL, EOMI, anicteric sclera, conjunctiva without injection, external ear normal to inspection and nontender, nares patent, moist mucus membranes, dentition intact, no oropharyngeal lesions, neck supple, trachea midline, no LAD, no thyromegaly, no JVD Heart: +S1/S2, regular, no m/r/g Lungs: equal air entry bilaterally, no rales/rhonchi/wheezes Abd: +BS, soft, NT/ND, no masses/organomegaly/ascites Ext: warm, 2+ pulses in UE/LE bilaterally, no clubbing/cyanosis, non-pitting edema present on bilateral LEs Neuro: nonfocal, patient AA&O x 4, speech intact, no facial droop, moving all extremities on command with equal strength 5/5 Rectal exam performed by ER reports presence of hemorrhoids with bleeding noted. Results & Data Results & Data Vital Signs (Past 12 Hours) Vital Signs Temp Pulse Pulse Resp BP BP Pulse Ox 01/12/24 22:14 86 01/12/24 21:45 90 20 114/76 100 01/12/24 21:45 100 01/12/24 19:11 36.8 C 96 H 18 117/74 96 O2 Del Method 01/12/24 22:14 01/12/24 21:45 Room Air 01/12/24 21:45 Room Air 01/12/24 19:11 Room Air Laboratory Results Laboratory Results WBC 7.90 K/ul (4.8-10.8) 01/12/24 20:09 RBC 2.54 M/uL (4.20-5.40) L 01/12/24 20:09 Hgb 7.1 g/dl (12.0-16.0) L 01/12/24 20:09 Hct 23.6 % (37.0-47.0) L 01/12/24 20:09 MCV 92.9 fL (80.0-100.0) 01/12/24 20:09 MCH 28.0 pg (25.0-34.0) 01/12/24 20:09 MCHC 30.1 g/dL (32.0-36.0) L 01/12/24 20:09 RDW Std Deviation 57.2 fL (36.4-46.3) H 01/12/24 20:09 RDW Coeff of [place] 17.0 % (11.5-14.5) H 01/12/24 20:09 Plt Count 348 K/uL (130-400) 01/12/24 20:09 MPV 11.1 fL (9.4-12.4) 01/12/24 20:09 Immature Gran % (Auto) 0.6 % 01/12/24 20:09 Neut % (Auto) 56.3 % 01/12/24 20:09 Lymph % (Auto) 27.6 % 01/12/24 20:09 [place] % (Auto) 11.4 % 01/12/24 20:09 Eos % (Auto) 3.3 % 01/12/24 20:09 Baso % (Auto) 0.8 % 01/12/24 20:09 Neut # (Auto) 4.45 K/uL (1.40-6.50) 01/12/24 20:09 Lymph # (Auto) 2.18 K/uL (1.20-3.40) 01/12/24 20:09 [place] # (Auto) 0.90 K/uL (0.11-0.59) H 01/12/24 20:09 Eos # (Auto) 0.26 K/uL (0.00-0.50) 01/12/24 20:09 Baso # (Auto) 0.06 K/uL (0.00-0.20) 01/12/24 20:09 Immature Gran # (Auto) 0.05 K/uL (0.01-0.20) 01/12/24 20:09 Polychromasia 1+ 01/12/24 20:09 PT 10.3 Seconds (9.0-12.0) 01/12/24 20:09 INR 0.9 (0.9-1.1) 01/12/24 20:09 APTT 23 Seconds (21-31) 01/12/24 20:09 PTT Ratio 0.8 01/12/24 20:09 Sodium 144 mmol/L (136-145) 01/12/24 20:09 Potassium 3.3 mmol/L (3.5-5.1) L 01/12/24 20:09 Chloride 110 mmol/L (98-107) H 01/12/24 20:09 Carbon Dioxide 26 mmol/L (21-32) 01/12/24 20:09 Anion Gap 8 (3-11) 01/12/24 20:09 BUN 13 mg/dl (6-23) 01/12/24 20:09 Creatinine 0.78 mg/dl (0.6-1.2) 01/12/24 20:09 Est Cr Clr Drug Dosing Not Reportable 01/12/24 20:09 Est GFR ( Amer) 88.0 ml/min 01/12/24 20:09 Est GFR (Non-Af Amer) 76.0 ml/min 01/12/24 20:09 BUN/Creatinine Ratio 16.7 (10-20) 01/12/24 20:09 Glucose 115 mg/dl (70-99(Fasting)) H 01/12/24 20:09 Calcium 8.6 mg/dl (8.6-10.3) 01/12/24 20:09 Magnesium 1.8 mg/dl (1.7-2.4) 01/12/24 20:09 Iron 27 mcg/dl (35-150) L 01/12/24 20:09 TIBC 280 mcg/dl (250-450) 01/12/24 20:09 Unsaturated IBC 253 mcg/dl (155-355) 01/12/24 20:09 Transferrin % Sat 10 % (15-50) L 01/12/24 20:09 Ferritin 36.0 ng/ml (8-388) 01/12/24 20:09 Total Bilirubin 0.2 mg/dl (0.2-1.0) 01/12/24 20:09 AST 13 U/L (13-39) 01/12/24 20:09 ALT 11 U/L (7-52) 01/12/24 20:09 Alkaline Phosphatase 51 U/L (34-104) 01/12/24 20:09 Troponin I High Sens 7.1 pg/ml (0-14) 01/12/24 22:26 B-Natriuretic Peptide 135 pg/ml (0-100) H 01/12/24 20:09 Total Protein 6.1 gm/dl (6.0-8.3) 01/12/24 20:09 Albumin 3.4 gm/dl (3.4-5.0) 01/12/24 20:09 Globulin 2.7 gm/dl (2.5-4.0) 01/12/24 20:09 Albumin/Globulin Ratio 1.3 (0.9-2) 01/12/24 20:09 TSH 1.161 uIu/ml (0.300-4.500) 01/12/24 20:09 Urine Color Dark Yellow 01/12/24 22:00 Urine Appearance Clear (Clear) 01/12/24 22:00 Urine pH 5.0 (4.5-7.5) 01/12/24 22:00 Ur Specific [place] 1.032 (1.000-1.030) H 01/12/24 22:00 Urine Protein Trace (Negative) H 01/12/24 22:00 Urine Glucose (UA) Negative (Negative) 01/12/24 22:00 Urine Ketones Trace (Negative) H 01/12/24 22:00 Urine Blood Negative (Negative) 01/12/24 22:00 Urine Nitrite Negative (Negative) 01/12/24 22:00 Urine Bilirubin Negative (Negative) 01/12/24 22:00 Urine Urobilinogen Negative (Negative) 01/12/24 22:00 Ur Leukocyte Esterase Negative (Negative) 01/12/24 22:00 Urine WBC (Auto) 1-5 /hpf (0-5) 01/12/24 22:00 Urine RBC (Auto) 0-4 /hpf (0-4) 01/12/24 22:00 U Hyaline Cast (Auto) 5-10 /lpf (0-5) H 01/12/24 22:00 U Epithel Cells (Auto) >30 /lpf (0-5) H 01/12/24 22:00 Urine Bacteria (Auto) Negative (Negative) 01/12/24 22:00 Blood Type O Positive 01/12/24 22:25 Antibody Screen NEGATIVE 01/12/24 22: Crossmatch See Detail 01/12/24 22:25 Impressions Chest X-Ray 01/12/24 19:13 SINGLE VIEW CHEST CLINICAL HISTORY: Dyspnea FINDINGS: An AP upright chest radiograph is compared to study dated 09/26/2023. The cardiomediastinal silhouette is unremarkable noting atherosclerotic calcification of the thoracic aorta. Chronic interstitial thickening is similar to previous. There is mild chronic elevation of the right hemidiaphragm. The lungs and pleural spaces are clear. No pneumothorax is seen. The skeletal structures are osteopenic. The bony thorax is grossly intact. Fusion hardware is seen at the thoracolumbar junction. IMPRESSION: No active disease in the chest. ACT 112: Negative or not required by law. Electronically signed by: Garrett Ocampo M.D. 01/12/2024 7:35 PM Venous Doppler Study 01/12/24 19:13 ULTRASOUND BILATERAL LOWER EXTREMITY VENOUS CLINICAL HISTORY: Extremity edema. COMPARISON STUDY: Right lower extremity venous ultrasound dated 09/26/2023. Left lower extremity venous ultrasound dated 08/16/2023. TECHNIQUE: Real-time, grayscale, and color Doppler sonography of the deep veins of the right and left lower extremity was performed from the inguinal crease to the calf. Compression and augmentation were utilized. FINDINGS: There is no sonographic evidence of deep venous thrombosis identified in the right or left lower extremity. The common femoral, superficial femoral, and popliteal veins are patent and normally compressible bilaterally. The greater saphenous vein and the profunda femoris vein at the junction with the common femoral vein are clear in both legs. The visualized calf veins are patent bilaterally. IMPRESSION: There is no sonographic evidence of deep venous thrombosis identified in the right or left lower extremity. ACT 112: Negative or not required by law. Electronically signed by: Garrett Ocampo M.D. 01/12/2024 9:22 PM Code Status & VTE Plan VTE Prophylaxis Plan VTE Prophylaxis will be ordered: Yes PG Care Time/CCT Total # of Minutes Spent Total Time Spent with Patient: Total time spent is greater than 50% in coordination of care (as documented) at patient's floor/unit and/or counseling patient: Coding Level of Care Code 61674 INT INP/OBS CARE 3/75MIN Diagnoses Symptomatic anemia D64.9 Edema R60.9 History of pulmonary embolism Z86.711 GERD (gastroesophageal reflux disease) K21.9 Polymyalgia rheumatica M35.3 HTN (hypertension) I10 Hypothyroid E03.9
--- NOTE | 2024-01-12 23:28 | Emergency Department Note ---
History of Present Illness General Chief complaint: Shortness of Breath/Dyspnea Stated complaint: SOB AND SWELLING IN LEGS AND FEET Time Seen by Provider: 01/12/24 21:51 History of Present Illness This 73-year-old female with a history of anemia who last got blood transfusion in October presents the ER complaining chest pain, dyspnea increasing leg pain and swelling for the past few days. She states her hemorrhoids have been bleeding more. Patient denies abdominal pain, vomiting, diarrhea, black stool. No complications with blood transfusions in the past Home Medications Medication Instructions Recorded Confirmed Type albuterol sulfate 90 mcg/actuation 1 puff inhalation QID PRN Wheezing 04/05/23 01/12/24 History aerosol inhaler amlodipine 10 mg tablet 10 mg PO DAILY 04/05/23 01/12/24 History aspirin 81 mg tablet,delayed 81 mg PO DAILY 04/05/23 01/12/24 History release cefadroxil 500 mg capsule 500 mg PO Q12 04/05/23 01/12/24 History coenzyme Q10 100 mg capsule 100 mg PO BID 04/05/23 01/12/24 History (CoQ-10) docusate sodium 100 mg capsule 100 mg PO DAILY 04/05/23 01/12/24 History (Colace) fluticasone propionate 50 1 spray intranasal DAILY PRN 04/05/23 01/12/24 History mcg/actuation nasal allergy spray,suspension lactobacillus combination no.4 3 3,000 mmu cells PO QPM 04/05/23 01/12/24 History billion cell capsule (Probiotic) metoprolol succinate 50 mg 50 mg PO DAILY 04/05/23 01/12/24 History tablet,extended release 24 hr montelukast 10 mg tablet 10 mg PO QPM 04/05/23 01/12/24 History nitroglycerin 0.4 mg sublingual 0.4 mg sublingual DIRECTED PRN 04/05/23 01/12/24 History tablet Chest Pain omega 1-vbm-hvu-fish oil 1,200 mg 1 cap PO QPM 04/05/23 01/12/24 History (144 mg-216 mg) capsule (Fish Oil) thyroid (pork) 60 mg tablet 60 mg PO DAILY 04/05/23 01/12/24 History ([place] Thyroid) apixaban 5 mg tablet (Eliquis) 5 mg PO BID #60 tabs 08/17/23 01/12/24 Rx acetaminophen 650 mg 1,300 mg PO BID 09/26/23 01/12/24 History tablet,extended release (Tylenol Arthritis Pain) calcium carbonate 500 mg calcium 500 mg PO DAILY 09/26/23 01/12/24 History (1,250 mg) tablet denosumab 60 mg/mL subcutaneous 0 mg subcut DIRECTED 09/26/23 01/12/24 History syringe (Prolia) methylprednisolone 8 mg tablet 8 mg PO DAILY 09/26/23 01/12/24 History ondansetron 4 mg disintegrating 4 mg translingual DIRECTED PRN 10/14/23 01/12/24 History tablet Nausea polyethylene glycol 3350 17 gram 17 g PO DAILY #30 ea 10/21/23 01/12/24 Rx oral powder packet (Miralax) pregabalin 100 mg capsule (Lyrica) 100 mg PO BID #60 caps 10/21/23 01/12/24 Rx tramadol 50 mg tablet 100 mg (2 x 50 mg) PO Q8H #90 tabs 10/21/23 01/12/24 Rx sulfasalazine 500 mg tablet 500 mg PO BID 11/10/23 01/12/24 History esomeprazole magnesium 40 mg 40 mg PO DAILY 01/12/24 01/12/24 History capsule,delayed release evolocumab 140 mg/mL subcutaneous 140 mg subcut .Q 2WEEKS 01/12/24 01/12/24 History syringe (Repatha Syringe) furosemide 20 mg tablet 20 mg PO DAILY 01/12/24 01/12/24 History hydromorphone 2 mg tablet 2 mg PO Q8H PRN Pain 01/12/24 01/12/24 History (Dilaudid) potassium chloride 20 mEq 20 meq PO DAILY 01/12/24 01/12/24 History tablet,extended release(part/cryst) (Klor-Con M) Allergies Allergy/AdvReac Type Severity Reaction Status Date / Time clopidogrel [From Plavix] Allergy Intermediate Hives Verified 01/12/24 23:05 hydroxychloroquine Allergy Intermediate Hives Verified 01/12/24 23:05 [From Plaquenil] celecoxib [From Celebrex] AdvReac Intermediate HX OF Verified 01/12/24 23:05 BLEEDING STOMACH codeine AdvReac Intermediate Gastrointestinal Verified 01/12/24 23:05 Upset hydrocodone [From Vicodin] AdvReac Intermediate Gastrointestinal Verified 01/12/24 23:05 Upset lubiprostone [From Amitiza] AdvReac Intermediate HX OF Verified 01/12/24 23:05 BLEEDING STOMACH pitavastatin AdvReac Intermediate Joint Pain Verified 01/12/24 23:05 pravastatin [From Pravachol] AdvReac Intermediate Joint Pain Verified 01/12/24 23:05 rosuvastatin AdvReac Intermediate Joint Pain Verified 01/12/24 23:05 [From Ezallor Sprinkle] simvastatin [From FloLipid] AdvReac Intermediate Joint Pain Verified 01/12/24 23:05 Jsokqmb-REX-LyY Reductase AdvReac Intermediate Joint Pain Verified 10/26/23 10:53 Inhibitor Past Med/Surg History Medical History Neurogenic claudication due to lumbar spinal stenosis Hypertensive emergency GERD (gastroesophageal reflux disease) HTN (hypertension) History of coronary artery disease Pulmonary emboli Giant cell arteritis Polymyalgia rheumatica Staph infection Diverticulitis Hypothyroid Osteoarthritis Rheumatoid arthritis Heart attack Coronary artery disease Stent May 2012 - [place] during stress test Stent Oct 2019 - pressure in chest Fibromyalgia Surgical History (Updated 10/27/23 @ 00:10 by Nahun Daterrell) Status post lumbar surgery History of left nephrectomy History of back surgery History of colon resection Social History Smoking Status: Never smoker Hx Alcohol Use: Yes Alcohol type: other Hx Substance Use: No Preferred Language: Cymro Communication Ability: Effective Yarn Rewinder Required: No Beliefs That Will Affect Care: Baptism Baptism Beliefs: Lutheran Current Living Situation: Spouse Feels Safe at Home: Yes Assistive Devices: Bedside Commode, Cane and Walker Review of Systems A total of 10 systems reviewed and were otherwise negative Physical Exam Vital Signs Vital Signs - 24 hr 01/12/24 19:11 01/12/24 21:45 01/12/24 21:45 Temperature 36.8 C Temperature Source Temporal Artery Scan Pulse Rate 96 H Pulse Rate [Finger] 90 Respiratory Rate 18 20 Respiratory Effort / Characteristics Non-Labored Spontaneous Respiratory Depth Normal Respiratory Pattern Regular Blood Pressure 117/74 Blood Pressure [Left Arm] 114/76 Blood Pressure Mean 88 Blood Pressure Mean [Left Arm] 88 Blood Pressure Position Sitting Pulse Oximetry 96 100 100 Oxygen Delivery Method Room Air Room Air Room Air Sepsis Recent Fever Within 48 Hours No Sepsis New/Unexplained Change in Mental Status N/A Sepsis Action Taken by Nursing No Action Required 01/12/24 22:14 Temperature Temperature Source Pulse Rate 86 Pulse Rate [Finger] Respiratory Rate Respiratory Effort / Characteristics Respiratory Depth Respiratory Pattern Blood Pressure Blood Pressure [Left Arm] Blood Pressure Mean Blood Pressure Mean [Left Arm] Blood Pressure Position Pulse Oximetry Oxygen Delivery Method Sepsis Recent Fever Within 48 Hours Sepsis New/Unexplained Change in Mental Status Sepsis Action Taken by Nursing VITALS: Vitals are noted on the nurse's note and reviewed by myself. Vital signs stable. GENERAL: Pleasant female, in no acute distress, nondiaphoretic, well-developed well-nourished. SKIN: Capillary reflex less than 2 seconds. HEENT: Normocephalic. PERRLA. EOMI. Nares patent. Mucous membranes moist. Neck is supple without nuchal rigidity. HEART: Regular rate and rhythm LUNGS: Clear to auscultation bilaterally without wheezes, rales or rhonchi. No retractions or accessory muscle use. ABDOMEN: Positive bowel sounds x 4. Normal tympanic percussion. Soft, nontender, without masses or organomegaly. Trujillo sign negative. No guarding or rebound tenderness. no CVA tenderness Rectal exam: Multiple hemorrhoids, bright red blood present. MUSCULOSKELETAL: No gross musculoskeletal defects. NEURO: Patient was alert and oriented to person place and time. No focal neurological deficits. Course Administered Medications Discontinued Medications Famotidine (Pepcid 20mg Iv Push) 20 mg in 5 mls @ 2.5 mls/min IV NOW STA Stop: 01/12/24 22:05 Last Admin: 01/12/24 22:13 Dose: 2.5 mls/min Documented By: ZACHARIAH Pantoprazole Sodium 80 mg/ (Dextrose) 120 mls @ 480 mls/hr IV ONE STA Stop: 01/12/24 22:18 Last Admin: 01/12/24 22:46 Dose: 480 mls/hr Documented By: ZACHARIAH Ondansetron HCl (Ondansetron Inj 2 Mg/Ml 2 Ml Vial) 4 mg IV NOW STA Stop: 01/12/24 22:05 Last Admin: 01/12/24 22:13 Dose: 4 mg Documented By: ZACHARIAH Medical Decision Making Medical Records Attestation: I reviewed the patient's medical records. Home Medications Current Medication List: was personally reviewed by me Laboratory Data Attestation: I reviewed the patient's lab results. 01/12/24 20:09 01/12/24 20:09 Lab Results 01/12/24 01/12/24 01/12/24 Range/Units 20:09 22:00 22:25 WBC 7.90 (4.8-10.8) K/ul RBC 2.54 L (4.20-5.40) M/uL Hgb 7.1 L (12.0-16.0) g/dl Hct 23.6 L (37.0-47.0) % MCV 92.9 (80.0-100.0) fL MCH 28.0 (25.0-34.0) pg MCHC 30.1 L (32.0-36.0) g/dL RDW Std Deviation 57.2 H (36.4-46.3) fL RDW Coeff of Ashley 17.0 H (11.5-14.5) % Plt Count 348 (130-400) K/uL MPV 11.1 (9.4-12.4) fL Immature Gran % (Auto) 0.6 % Neut % (Auto) 56.3 % Lymph % (Auto) 27.6 % [place] % (Auto) 11.4 % Eos % (Auto) 3.3 % Baso % (Auto) 0.8 % Neut # (Auto) 4.45 (1.40-6.50) K/uL Lymph # (Auto) 2.18 (1.20-3.40) K/uL [place] # (Auto) 0.90 H (0.11-0.59) K/uL Eos # (Auto) 0.26 (0.00-0.50) K/uL Baso # (Auto) 0.06 (0.00-0.20) K/uL Immature Gran # (Auto) 0.05 (0.01-0.20) K/uL Polychromasia 1+ PT 10.3 (9.0-12.0) Seconds INR 0.9 (0.9-1.1) APTT 23 (21-31) Seconds PTT Ratio 0.8 Sodium 144 (136-145) mmol/L Potassium 3.3 L (3.5-5.1) mmol/L Chloride 110 H (98-107) mmol/L Carbon Dioxide 26 (21-32) mmol/L Anion Gap 8 (3-11) BUN 13 (6-23) mg/dl Creatinine 0.78 (0.6-1.2) mg/dl Est Cr Clr Drug Dosing Not Reportable Est GFR ( Amer) 88.0 ml/min Est GFR (Non-Af Amer) 76.0 ml/min BUN/Creatinine Ratio 16.7 (10-20) Glucose 115 H (70-99(Fasting)) mg/dl Calcium 8.6 (8.6-10.3) mg/dl Magnesium 1.8 (1.7-2.4) mg/dl Total Bilirubin 0.2 (0.2-1.0) mg/dl AST 13 (13-39) U/L ALT 11 (7-52) U/L Alkaline Phosphatase 51 (34-104) U/L Troponin I High Sens 9.1 (0-14) pg/ml B-Natriuretic Peptide 135 H (0-100) pg/ml Total Protein 6.1 (6.0-8.3) gm/dl Albumin 3.4 (3.4-5.0) gm/dl Globulin 2.7 (2.5-4.0) gm/dl Albumin/Globulin Ratio 1.3 (0.9-2) Urine Color Dark Yellow Urine Appearance Clear (Clear) Urine pH 5.0 (4.5-7.5) Ur Specific [place] 1.032 H (1.000-1.030) Urine Protein Trace H (Negative) Urine Glucose (UA) Negative (Negative) Urine Ketones Trace H (Negative) Urine Blood Negative (Negative) Urine Nitrite Negative (Negative) Urine Bilirubin Negative (Negative) Urine Urobilinogen Negative (Negative) Ur Leukocyte Esterase Negative (Negative) Urine WBC (Auto) 1-5 (0-5) /hpf Urine RBC (Auto) 0-4 (0-4) /hpf U Hyaline Cast (Auto) 5-10 H (0-5) /lpf U Epithel Cells (Auto) >30 H (0-5) /lpf Urine Bacteria (Auto) Negative (Negative) Crossmatch See Detail 01/12/24 Range/Units 22:26 WBC (4.8-10.8) K/ul RBC (4.20-5.40) M/uL Hgb (12.0-16.0) g/dl Hct (37.0-47.0) % MCV (80.0-100.0) fL MCH (25.0-34.0) pg MCHC (32.0-36.0) g/dL RDW Std Deviation (36.4-46.3) fL RDW Coeff of Ashley (11.5-14.5) % Plt Count (130-400) K/uL MPV (9.4-12.4) fL Immature Gran % (Auto) % Neut % (Auto) % Lymph % (Auto) % [place] % (Auto) % Eos % (Auto) % Baso % (Auto) % Neut # (Auto) (1.40-6.50) K/uL Lymph # (Auto) (1.20-3.40) K/uL [place] # (Auto) (0.11-0.59) K/uL Eos # (Auto) (0.00-0.50) K/uL Baso # (Auto) (0.00-0.20) K/uL Immature Gran # (Auto) (0.01-0.20) K/uL Polychromasia PT (9.0-12.0) Seconds INR (0.9-1.1) APTT (21-31) Seconds PTT Ratio Sodium (136-145) mmol/L Potassium (3.5-5.1) mmol/L Chloride (98-107) mmol/L Carbon Dioxide (21-32) mmol/L Anion Gap (3-11) BUN (6-23) mg/dl Creatinine (0.6-1.2) mg/dl Est Cr Clr Drug Dosing Est GFR ( Amer) ml/min Est GFR (Non-Af Amer) ml/min BUN/Creatinine Ratio (10-20) Glucose (70-99(Fasting)) mg/dl Calcium (8.6-10.3) mg/dl Magnesium (1.7-2.4) mg/dl Total Bilirubin (0.2-1.0) mg/dl AST (13-39) U/L ALT (7-52) U/L Alkaline Phosphatase (34-104) U/L Troponin I High Sens 7.1 (0-14) pg/ml B-Natriuretic Peptide (0-100) pg/ml Total Protein (6.0-8.3) gm/dl Albumin (3.4-5.0) gm/dl Globulin (2.5-4.0) gm/dl Albumin/Globulin Ratio (0.9-2) Urine Color Urine Appearance (Clear) Urine pH (4.5-7.5) Ur Specific [place] (1.000-1.030) Urine Protein (Negative) Urine Glucose (UA) (Negative) Urine Ketones (Negative) Urine Blood (Negative) Urine Nitrite (Negative) Urine Bilirubin (Negative) Urine Urobilinogen (Negative) Ur Leukocyte Esterase (Negative) Urine WBC (Auto) (0-5) /hpf Urine RBC (Auto) (0-4) /hpf U Hyaline Cast (Auto) (0-5) /lpf U Epithel Cells (Auto) (0-5) /lpf Urine Bacteria (Auto) (Negative) Crossmatch Imaging Data Attestation: I personally reviewed and interpreted this imaging study as follows: Radiologist's Impression: Chest X-Ray 01/12/24 19:13 SINGLE VIEW CHEST CLINICAL HISTORY: Dyspnea FINDINGS: An AP upright chest radiograph is compared to study dated 09/26/2023. The cardiomediastinal silhouette is unremarkable noting atherosclerotic calcification of the thoracic aorta. Chronic interstitial thickening is similar to previous. There is mild chronic elevation of the right hemidiaphragm. The lungs and pleural spaces are clear. No pneumothorax is seen. The skeletal structures are osteopenic. The bony thorax is grossly intact. Fusion hardware is seen at the thoracolumbar junction. IMPRESSION: No active disease in the chest. ACT 112: Negative or not required by law. Electronically signed by: Garrett Ocampo M.D. 01/12/2024 7:35 PM Venous Doppler Study 01/12/24 19:13 ULTRASOUND BILATERAL LOWER EXTREMITY VENOUS CLINICAL HISTORY: Extremity edema. COMPARISON STUDY: Right lower extremity venous ultrasound dated 09/26/2023. Left lower extremity venous ultrasound dated 08/16/2023. TECHNIQUE: Real-time, grayscale, and color Doppler sonography of the deep veins of the right and left lower extremity was performed from the inguinal crease to the calf. Compression and augmentation were utilized. FINDINGS: There is no sonographic evidence of deep venous thrombosis identified in the right or left lower extremity. The common femoral, superficial femoral, and popliteal veins are patent and normally compressible bilaterally. The greater saphenous vein and the profunda femoris vein at the junction with the common femoral vein are clear in both legs. The visualized calf veins are patent bilaterally. IMPRESSION: There is no sonographic evidence of deep venous thrombosis identified in the right or left lower extremity. ACT 112: Negative or not required by law. Electronically signed by: Garrett Ocampo M.D. 01/12/2024 9:22 PM [facility] Narrative Prior records/ancillary studies reviewed. Triage Nursing notes reviewed. Additional history obtained from family. The patient's history was concerning for chest pain. Differential diagnosis: Etiologies such as cardiac ischemia, aortic dissection, pulmonary embolism, pneumonia, pneumothorax, musculoskeletal, infections, pericarditis, myocarditis, esophageal rupture, gastrointestinal, as well as others were entertained. Physical examination: As above. ER treatment provided: An order was placed for continuous cardiac monitoring. The monitor shows a rate of 60-100 with a sinus rhythm per my interpretation. Patient was typed and crossmatched for 1 unit. She was consented. Paperwork was placed in the chart. Protonix, Pepcid, Zofran and fluids were ordered On reassessment the patient felt better. Diagnostic interpretation by me: The electrocardiogram was negative for pathologic change. Ordered for chest pain EKG: Normal sinus, normal intervals, no acute ST-T wave changes. Anterior infarct. Rate of 91. Impression normal sinus rhythm independent interpreted by myself I think arrhythmia is unlikely. EKG shows normal sinus rhythm with no interval abnormalities such as QT prolongation or WPW. There are no findings to suggest Brugada syndrome. Cardiac monitoring in the emergency department reveals no tachycardic or bradycardic dysrhythmia. Hypertrophic cardiomyopathy was considered but there are no clear historical elements pointing toward this. EKG is not suggestive. The QRS voltage is not extremely large The labs Independently Interpreted by myself revealed worsening anemia. 2 negative troponins. Imaging studies: Chest x-ray with no acute consolidation, pneumothorax or free air per my independent interpretation Ultrasound negative for DVT. HEART SCORE: Hx: high/mod/low suspicion: 0 ECG: ST depression/nonspecific changes/normal: 0 Age: Greater than 65/45-64/less than 45: 2 Risk factors: (Hypertension, hyperlipidemia, diabetes, coronary disease, tobacco use, cocaine use): 2 Troponin: Greater than 2 times normal limits/1-2 times normal limits/normal: 0 Total: 4 Consultation: A consultation was placed with the hospitalist. The case was discussed and diagnostics were reviewed. The patient was evaluated in the ER for further treatment. Exam and history seem consistent with symptomatic anemia. Patient was typed and crossmatched for 1 unit. She was medicated as above. Medicine was consulted and the case was discussed. She is agreeable treatment plan of admission. By the evaluation outlined above emergent etiologies such as aortic dissection, pulmonary embolism, pneumonia, pneumothorax, infections, pericarditis, myocarditis, gastrointestinal, as well as others were deemed relatively unlikely. The pt informed about the findings as listed above. All questions were answered and pleased with the treatment. The chart was completed utilizing [employer] Speech voice recognition software. Grammatical errors, random word insertions, pronoun errors, and incomplete sentences are an occassional consequence of this system due to software limitations, ambient noise, and hardware issues. Any formal questions or concerns about the content, text, or information contained within the body of this dictation should be directly addressed to the physician floral assistant for clarification. Impression & Plan Symptomatic anemia, Chest pain, Acute dyspnea, Edema of both lower legs Discharge Plan Visit Data Chief Complaint: Shortness of Breath/Dyspnea Stated Complaint: SOB AND SWELLING IN LEGS AND FEET ED Provider: Marcello Fowler ED Midlevel Provider: Angelika Mills Discharge Problem: Symptomatic anemia, Chest pain, Acute dyspnea, Edema of both lower legs Patient Disposition: Admitted As Inpatient Condition: Fair Forms Stand Alone Forms: Pending Sale To [facility] Prescriptions Prescriptions: No Action metoprolol succinate 50 mg tablet extended release 24 hr 50 mg PO DAILY aspirin 81 mg Tablet,Delayed Release (Dr/Ec) 81 mg PO DAILY cefadroxil 500 mg capsule 500 mg PO Q12 amlodipine 10 mg tablet 10 mg PO DAILY nitroglycerin 0.4 mg tablet, sublingual 0.4 mg sublingual DIRECTED PRN (Reason: Chest Pain) Rx Instructions: PLACE 1 TABLET UNDER TONGUE EVERY 5 MINS, UP TO 3 DOSES NEEDED FOR CHEST PAIN docusate sodium [Colace] 100 mg Capsule 100 mg PO DAILY montelukast 10 mg tablet 10 mg PO QPM albuterol sulfate 90 mcg/actuation HFA aerosol inhaler 1 puff INHALATION QID PRN (Reason: Wheezing) fluticasone propionate 50 mcg/actuation spray,suspension 1 spray INTRANASAL DAILY PRN (Reason: allergy) coenzyme Q10 [CoQ-10] 100 mg Capsule 100 mg PO BID thyroid (pork) [[place] Thyroid] 60 mg tablet 60 mg PO DAILY omega 8-oag-hru-fish oil [Fish Oil] 1,200 (144-216) mg Capsule 1 cap PO QPM Probiotic 3 billion cell Capsule 3,000 mmu cells PO QPM Rx Instructions: administer with a meal sulfasalazine 500 mg tablet 500 mg PO BID Eliquis 5 mg tablet 5 mg PO BID Qty: 60 4RF acetaminophen [Tylenol Arthritis Pain] 650 mg Tablet Extended Release 1,300 mg PO BID calcium carbonate 500 mg calcium (1,250 mg) Tablet 500 mg PO DAILY methylprednisolone 8 mg tablet 8 mg PO DAILY Prolia 60 mg/mL Syringe 0 mg SUBCUT DIRECTED Rx Instructions: PER PT "OVER DUE, TROUBLE SCHEDULING AT THIS TIME". ondansetron 4 mg tablet,disintegrating 4 mg translingual DIRECTED PRN (Reason: Nausea) polyethylene glycol 3350 [Miralax] 17 gram Powder In Packet 17 g PO DAILY Qty: 30 0RF tramadol 50 mg Tablet 100 mg PO Q8H Qty: 90 0RF pregabalin [Lyrica] 100 mg Capsule 100 mg PO BID Qty: 60 3RF potassium chloride [Klor-Con M20] 20 mEq tablet,ER particles/crystals 20 meq PO DAILY esomeprazole magnesium 40 mg capsule,delayed release(DR/EC) 40 mg PO DAILY furosemide 20 mg tablet 20 mg PO DAILY Repatha Syringe 140 mg/mL syringe 140 mg SUBCUT .Q 2WEEKS hydromorphone [Dilaudid] 2 mg tablet 2 mg PO Q8H PRN (Reason: Pain) Referrals Referrals: Elaine Emmanuel [Primary Care Provider] -
[2024-01-13] MEDS ORDERED: ONDANSETRON INJ 2 MG/ML 2 ML VIAL IV PRN (01:54)
[2024-01-13] MEDS ORDERED: HYDROmorphone HCL 2 MG TAB PO PRN (01:54)
[2024-01-13] MEDS ORDERED: FLUTICASONE PROPIONATE NA SPR 16 GM BTL PRN (01:54)
[2024-01-13] MEDS ORDERED: ALBUTEROL HFA 8 GM INHALER INH PRN (01:54)
[2024-01-13 02:24] LABS: Iron 27 mcg/dl (35-150); Total Iron Binding Cap Calc 280 mcg/dl (250-450); Transferrin (FE) Percent Satur 10 % (15-50); Unsaturated Iron Binding Cap 253 mcg/dl (155-355)
[2024-01-13 02:39] LABS: Thyroid Stimulating Hormone 1.161 uIu/ml (0.300-4.500)
[2024-01-13] MEDS: traMADol HCL 50 MG TABLET PO SCH (03:08)
[2024-01-13 04:26] LABS: Hematocrit (blood only) 22.1 % (37.0-47.0); Hemoglobin 7.1 g/dl (12.0-16.0); Mean Corpuscular Hemoglobin 28.9 pg (25.0-34.0); Mean Corpuscular Hgb Conc 32.1 g/dL (32.0-36.0); Mean Corpuscular Volume 89.8 fL (80.0-100.0); Mean Platelet Volume 10.9 fL (9.4-12.4); Platelet Count 280 K/uL (130-400); RDW Coefficient of Variation 16.2 % (11.5-14.5); RDW Standard Deviation 52.6 fL (36.4-46.3); Red Blood Count 2.46 M/uL (4.20-5.40); White Blood Count 6.86 K/ul (4.8-10.8)
[2024-01-13 04:40] LABS: Calcium 8.2 mg/dl (8.6-10.3); Creatinine Clr Calc Pharmacy 61.2 ml/min; Est GFR (African American) 92.3 ml/min; Est GFR (Non-African American) 79.6 ml/min; Potassium 3.7 mmol/L (3.5-5.1)
[2024-01-13] MEDS ORDERED: POLYETHYLENE (MIRALAX) 17 GM PACK PO SCH (09:00)
[2024-01-13] MEDS: POLYETHYLENE (MIRALAX) 17 GM PACK PO SCH (09:05)
[2024-01-13] MEDS: IRON SUCROSE 200 MG in 0.9 % SODIUM CHLORIDE 100 ML IV ONE (09:20)
[2024-01-13] MEDS: ARMOUR THYROID 30 MG TAB PO SCH (09:21)
[2024-01-13] MEDS: DOCUSATE SODIUM 100 MG CAP PO SCH (09:22)
[2024-01-13] MEDS: methylPREDNISolone 4 MG TAB PO SCH (09:22)
[2024-01-13] MEDS: sulfaSALAzine 500 MG TABLET PO SCH (09:22)
[2024-01-13] MEDS: METOPROLOL SUCC 50MG EXT REL TAB PO SCH (09:23)
[2024-01-13] MEDS: PANTOprazole 40 MG TAB PO SCH (09:24)
[2024-01-13 11:27] LABS: Hemoglobin 7.6 g/dl (12.0-16.0)
--- NOTE | 2024-01-13 11:42 | Electrocardiogram Report ---
Test Reason : Blood Pressure : / mmHG Vent. Rate : 091 BPM Atrial Rate : 091 BPM P-R Int : 160 ms QRS Dur : 064 ms QT Int : 346 ms P-R-T Axes : 026 000 016 degrees QTc Int : 425 ms Normal sinus rhythm Possible Inferior infarct (cited on or before 05-APR-2023) Poor R wave progression, consider anterior FL vs. lead placement vs. LVH Abnormal ECG When compared with ECG of 19-OCT-2023 19:37, Premature ventricular complexes are no longer Present Questionable change in initial forces of Anterior leads Non-specific change in ST segment in Lateral leads Confirmed by Devaughn Whitkaer ([id number]) on 01/13/2024 11:42:01 AM Referred By: REFERRED SELF Confirmed By:Devaughn Whitaker
--- NOTE | 2024-01-13 12:01 | Surgery Consultation ---
Date of Consultation January 13, 2024 Assessment & Plan (1) Symptomatic anemia: Likely due to bleeding internal and external hemorrhoids. She is being treated by medicine conservatively. 1 unit PRBC today. (2) Hemorrhoid: She has extensive hemorrhoidal disease with evidence of some mild incontinence. She would be best treated with colorectal surgery managing these. She currently would not be a candidate for surgery until she has the Eliquis out of her system due to the high bleeding risk with hemorrhoidal surgery. The Eliquis is to be stopped early as per medicine. I have instructed her to call her colorectal surgeon to make a follow-up appointment to get her surgery scheduled. We will sign off. Please call with questions History of Present Illness Reason for Consultation: bleeding hemorrhoids Requesting Physician: Curtis Smalls DO Attending Physician: Curtis Smalls DO History of Present Illness 73-year-old woman on Eliquis and aspirin for pulmonary embolism who presents to the emergency room with symptomatic anemia and worsening bleeding from hemorrhoids. She has extensive hemorrhoids which have been bleeding for a number of years. She has seen colorectal surgery with plans to have these removed once she was off of the Eliquis. She has noted increased bright red blood per rectum every time she sits on the toilet. This has been going on for the last few days. She is still passing some clots. She also leaks stool intermittently. She comes to the emergency room with shortness of breath. Her hemoglobin was found to be 7.1. She has received blood transfusions in the past. She is scheduled to receive a blood transfusion of a unit today. Allergies Allergy/AdvReac Type Severity Reaction Status Date / Time clopidogrel [From Plavix] Allergy Intermediate Hives Verified 01/12/24 23:05 hydroxychloroquine Allergy Intermediate Hives Verified 01/12/24 23:05 [From Plaquenil] celecoxib [From Celebrex] AdvReac Intermediate HX OF Verified 01/12/24 23:05 BLEEDING STOMACH codeine AdvReac Intermediate Gastrointestinal Verified 01/12/24 23:05 Upset hydrocodone [From Vicodin] AdvReac Intermediate Gastrointestinal Verified 12/29 04/20 23:05 Upset lubiprostone [From Amitiza] AdvReac Intermediate HX OF Verified 01/12/24 23:05 BLEEDING STOMACH pitavastatin AdvReac Intermediate Joint Pain Verified 01/12/24 23:05 pravastatin [From Pravachol] AdvReac Intermediate Joint Pain Verified 01/12/24 23:05 rosuvastatin AdvReac Intermediate Joint Pain Verified 01/12/24 23:05 [From Ezallor Sprinkle] simvastatin [From FloLipid] AdvReac Intermediate Joint Pain Verified 01/12/24 23:05 [id number] Reductase AdvReac Intermediate Joint Pain Verified 10/26/23 10:53 Inhibitor Home Medications Medication Instructions Recorded Confirmed Type albuterol sulfate 90 mcg/actuation 1 puff inhalation QID PRN Wheezing 04/05/23 01/12/24 History aerosol inhaler amlodipine 10 mg tablet 10 mg PO DAILY 04/05/23 01/12/24 History aspirin 81 mg tablet,delayed 81 mg PO DAILY 04/05/23 01/12/24 History release cefadroxil 500 mg capsule 500 mg PO Q12 04/05/23 01/12/24 History coenzyme Q10 100 mg capsule 100 mg PO BID 04/05/23 01/12/24 History (CoQ-10) docusate sodium 100 mg capsule 100 mg PO DAILY 04/05/23 01/12/24 History (Colace) fluticasone propionate 50 1 spray intranasal DAILY PRN 04/05/23 01/12/24 History mcg/actuation nasal allergy spray,suspension lactobacillus combination no.4 3 3,000 mmu cells PO QPM 04/05/23 01/12/24 History billion cell capsule (Probiotic) metoprolol succinate 50 mg 50 mg PO DAILY 04/05/23 01/12/24 History tablet,extended release 24 hr montelukast 10 mg tablet 10 mg PO QPM 04/05/23 01/12/24 History nitroglycerin 0.4 mg sublingual 0.4 mg sublingual DIRECTED PRN 04/05/23 01/12/24 History tablet Chest Pain omega 9-kjv-azc-fish oil 1,200 mg 1 cap PO QPM 04/05/23 01/12/24 History (144 mg-216 mg) capsule (Fish Oil) thyroid (pork) 60 mg tablet 60 mg PO DAILY 04/05/23 01/12/24 History ([place] Thyroid) apixaban 5 mg tablet (Eliquis) 5 mg PO BID #60 tabs 08/17/23 01/12/24 Rx acetaminophen 650 mg 1,300 mg PO BID 09/26/23 01/12/24 History tablet,extended release (Tylenol Arthritis Pain) calcium carbonate 500 mg calcium 500 mg PO DAILY 09/26/23 01/12/24 History (1,250 mg) tablet denosumab 60 mg/mL subcutaneous 0 mg subcut DIRECTED 09/26/23 01/12/24 History syringe (Prolia) methylprednisolone 8 mg tablet 8 mg PO DAILY 09/26/23 01/12/24 History ondansetron 4 mg disintegrating 4 mg translingual DIRECTED PRN 10/14/23 01/12/24 History tablet Nausea polyethylene glycol 3350 17 gram 17 g PO DAILY #30 ea 10/21/23 01/12/24 Rx oral powder packet (Miralax) pregabalin 100 mg capsule (Lyrica) 100 mg PO BID #60 caps 10/21/23 01/12/24 Rx tramadol 50 mg tablet 100 mg (2 x 50 mg) PO Q8H #90 tabs 10/21/23 01/12/24 Rx sulfasalazine 500 mg tablet 500 mg PO BID 11/10/23 01/12/24 History esomeprazole magnesium 40 mg 40 mg PO DAILY 01/12/24 01/12/24 History capsule,delayed release evolocumab 140 mg/mL subcutaneous 140 mg subcut .Q 2WEEKS 01/12/24 01/12/24 History syringe (Repatha Syringe) furosemide 20 mg tablet 20 mg PO DAILY 01/12/24 01/12/24 History hydromorphone 2 mg tablet 2 mg PO Q8H PRN Pain 01/12/24 01/12/24 History (Dilaudid) potassium chloride 20 mEq 20 meq PO DAILY 01/12/24 01/12/24 History tablet,extended release(part/cryst) (Klor-Con M) Patient History Medical History Neurogenic claudication due to lumbar spinal stenosis Hypertensive emergency GERD (gastroesophageal reflux disease) HTN (hypertension) History of coronary artery disease Pulmonary emboli Giant cell arteritis Polymyalgia rheumatica Staph infection Diverticulitis Hypothyroid Osteoarthritis Rheumatoid arthritis Heart attack Coronary artery disease Stent May 2012 - PR during stress test Stent Oct 2019 - pressure in chest Fibromyalgia Surgical History Status post lumbar surgery History of left nephrectomy History of back surgery History of colon resection Social History Smoking Status: Never smoker Hx Alcohol Use: Yes Alcohol type: other Hx Substance Use: No Preferred Language: [place] Communication Ability: Effective Engineering 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 Programmer Required: No Beliefs That Will Affect Care: Confucianist Confucianist Beliefs: Lutheran Current Living Situation: Spouse Other Information That Helps Us Care for You: No Feels Safe at Home: Yes Safety Concerns: Feels Safe At This Time Assistive Devices: Bedside Commode, Cane, Walker and Wheelchair Physical Exam Constitutional: WD/WN, vitals as above Eyes: PERRL, conjunctivae normal, anicteric sclerae ENMT: Ears: no hearing impairment and no external ear abnormality Respiratory: normal respiratory effort, lungs clear to auscultation Cardiovascular: Rate/Rhythm: regular rate and regular rhythm Gastrointestinal (Abdomen): Rectal Exam: + hemorrhoids (large tatiana of external hemorrhoids, leaking dark stool) Neurologic: awake; no focal motor deficits Psychiatric: A+Ox3, euthymic affect Results & Data Vital Signs (Past 12 Hours) Vital Signs Temp Pulse Pulse Resp BP BP Pulse Ox 01/13/24 08:30 73 22 99 01/13/24 08:30 142/79 H 01/13/24 08:00 84 16 97 01/13/24 07:30 79 16 96 01/13/24 07:30 131/70 01/13/24 07:11 72 01/13/24 07:00 74 21 97 01/13/24 07:00 130/72 01/13/24 06:30 72 20 96 01/13/24 06:30 126/67 01/13/24 06:00 69 18 135/76 97 01/13/24 05:00 74 19 125/67 97 01/13/24 04:00 69 18 120/60 97 01/13/24 02:47 36.8 C 82 18 110/54 L 98 01/13/24 02:13 85 01/13/24 02:00 80 15 108/58 L 99 01/13/24 02:00 36.8 C 82 18 106/57 L 99 01/13/24 01:00 36.7 C 83 18 112/66 98 01/13/24 00:30 36.9 C 86 18 130/71 99 01/13/24 00:15 36.8 C 88 18 100/67 99 01/12/24 23:58 36.9 C 87 18 109/54 L 100 O2 Del Method 01/13/24 08:30 01/13/24 08:30 01/13/24 08:00 01/13/24 07:30 01/13/24 07:30 01/13/24 07:11 01/13/24 07:00 01/13/24 07:00 01/13/24 06:30 01/13/24 06:30 01/13/24 06:00 Room Air 01/13/24 05:00 Room Air 01/13/24 04:00 Room Air 01/13/24 02:47 Room Air 01/13/24 02:13 01/13/24 02:00 Room Air 01/13/24 02:00 01/13/24 01:00 01/13/24 00:30 01/13/24 00:15 01/12/24 23:58 Laboratory Results 01/13/24 01/13/24 01/12/24 Range/Units 10:58 04:10 22:26 WBC 6.86 (4.8-10.8) K/ul RBC 2.46 L (4.20-5.40) M/uL Hgb 7.6 L 7.1 L (12.0-16.0) g/dl Hct 25.0 L 22.1 L (37.0-47.0) % MCV 89.8 (80.0-100.0) fL MCH 28.9 (25.0-34.0) pg MCHC 32.1 (32.0-36.0) g/dL RDW Std Deviation 52.6 H (36.4-46.3) fL RDW Coeff of [place] 16.2 H (11.5-14.5) % Plt Count 280 (130-400) K/uL MPV 10.9 (9.4-12.4) fL Immature Gran % (Auto) % Neut % (Auto) % Lymph % (Auto) % [place] % (Auto) % Eos % (Auto) % Baso % (Auto) % Neut # (Auto) (1.40-6.50) K/uL Lymph # (Auto) (1.20-3.40) K/uL [place] # (Auto) (0.11-0.59) K/uL Eos # (Auto) (0.00-0.50) K/uL Baso # (Auto) (0.00-0.20) K/uL Immature Gran # (Auto) (0.01-0.20) K/uL Polychromasia PT (9.0-12.0) Seconds INR (0.9-1.1) APTT (21-31) Seconds PTT Ratio Sodium 143 (136-145) mmol/L Potassium 3.7 (3.5-5.1) mmol/L Chloride 112 H (98-107) mmol/L Carbon Dioxide 26 (21-32) mmol/L Anion Gap 5 (3-11) BUN 12 (6-23) mg/dl Creatinine 0.75 (0.6-1.2) mg/dl Est Cr Clr Drug Dosing 61.2 Est GFR ( Amer) 92.3 ml/min Est GFR (Non-Af Amer) 79.6 ml/min BUN/Creatinine Ratio 16.0 (10-20) Glucose 125 H (70-99(Fasting)) mg/dl Calcium 8.2 L (8.6-10.3) mg/dl Magnesium (1.7-2.4) mg/dl Iron (35-150) mcg/dl TIBC (250-450) mcg/dl Unsaturated IBC (155-355) mcg/dl Transferrin % Sat (15-50) % Ferritin (8-388) ng/ml Total Bilirubin (0.2-1.0) mg/dl AST (13-39) U/L ALT (7-52) U/L Alkaline Phosphatase (34-104) U/L Troponin I High Sens 7.1 (0-14) pg/ml B-Natriuretic Peptide (0-100) pg/ml Total Protein (6.0-8.3) gm/dl Albumin (3.4-5.0) gm/dl Globulin (2.5-4.0) gm/dl Albumin/Globulin Ratio (0.9-2) TSH (0.300-4.500) uIu/ml Urine Color Urine Appearance (Clear) Urine pH (4.5-7.5) Ur Specific [place] (1.000-1.030) Urine Protein (Negative) Urine Glucose (UA) (Negative) Urine Ketones (Negative) Urine Blood (Negative) Urine Nitrite (Negative) Urine Bilirubin (Negative) Urine Urobilinogen (Negative) Ur Leukocyte Esterase (Negative) Urine WBC (Auto) (0-5) /hpf Urine RBC (Auto) (0-4) /hpf U Hyaline Cast (Auto) (0-5) /lpf U Epithel Cells (Auto) (0-5) /lpf Urine Bacteria (Auto) (Negative) Blood Type Antibody Screen Crossmatch 01/12/24 01/12/24 01/12/24 Range/Units 22:25 22:00 20:09 WBC 7.90 (4.8-10.8) K/ul RBC 2.54 L (4.20-5.40) M/uL Hgb 7.1 L (12.0-16.0) g/dl Hct 23.6 L (37.0-47.0) % MCV 92.9 (80.0-100.0) fL MCH 28.0 (25.0-34.0) pg MCHC 30.1 L (32.0-36.0) g/dL RDW Std Deviation 57.2 H (36.4-46.3) fL RDW Coeff of [place] 17.0 H (11.5-14.5) % Plt Count 348 (130-400) K/uL MPV 11.1 (9.4-12.4) fL Immature Gran % (Auto) 0.6 % Neut % (Auto) 56.3 % Lymph % (Auto) 27.6 % [place] % (Auto) 11.4 % Eos % (Auto) 3.3 % Baso % (Auto) 0.8 % Neut # (Auto) 4.45 (1.40-6.50) K/uL Lymph # (Auto) 2.18 (1.20-3.40) K/uL [place] # (Auto) 0.90 H (0.11-0.59) K/uL Eos # (Auto) 0.26 (0.00-0.50) K/uL Baso # (Auto) 0.06 (0.00-0.20) K/uL Immature Gran # (Auto) 0.05 (0.01-0.20) K/uL Polychromasia 1+ PT 10.3 (9.0-12.0) Seconds INR 0.9 (0.9-1.1) APTT 23 (21-31) Seconds PTT Ratio 0.8 Sodium 144 (136-145) mmol/L Potassium 3.3 L (3.5-5.1) mmol/L Chloride 110 H (98-107) mmol/L Carbon Dioxide 26 (21-32) mmol/L Anion Gap 8 (3-11) BUN 13 (6-23) mg/dl Creatinine 0.78 (0.6-1.2) mg/dl Est Cr Clr Drug Dosing Not Reportable Est GFR ( Amer) 88.0 ml/min Est GFR (Non-Af Amer) 76.0 ml/min BUN/Creatinine Ratio 16.7 (10-20) Glucose 115 H (70-99(Fasting)) mg/dl Calcium 8.6 (8.6-10.3) mg/dl Magnesium 1.8 (1.7-2.4) mg/dl Iron 27 L (35-150) mcg/dl TIBC 280 (250-450) mcg/dl Unsaturated IBC 253 (155-355) mcg/dl Transferrin % Sat 10 L (15-50) % Ferritin 36.0 (8-388) ng/ml Total Bilirubin 0.2 (0.2-1.0) mg/dl AST 13 (13-39) U/L ALT 11 (7-52) U/L Alkaline Phosphatase 51 (34-104) U/L Troponin I High Sens 9.1 (0-14) pg/ml B-Natriuretic Peptide 135 H (0-100) pg/ml Total Protein 6.1 (6.0-8.3) gm/dl Albumin 3.4 (3.4-5.0) gm/dl Globulin 2.7 (2.5-4.0) gm/dl Albumin/Globulin Ratio 1.3 (0.9-2) TSH 1.161 (0.300-4.500) uIu/ml Urine Color Dark Yellow Urine Appearance Clear (Clear) Urine pH 5.0 (4.5-7.5) Ur Specific [place] 1.032 H (1.000-1.030) Urine Protein Trace H (Negative) Urine Glucose (UA) Negative (Negative) Urine Ketones Trace H (Negative) Urine Blood Negative (Negative) Urine Nitrite Negative (Negative) Urine Bilirubin Negative (Negative) Urine Urobilinogen Negative (Negative) Ur Leukocyte Esterase Negative (Negative) Urine WBC (Auto) 1-5 (0-5) /hpf Urine RBC (Auto) 0-4 (0-4) /hpf U Hyaline Cast (Auto) 5-10 H (0-5) /lpf U Epithel Cells (Auto) >30 H (0-5) /lpf Urine Bacteria (Auto) Negative (Negative) Blood Type O Positive Antibody Screen NEGATIVE Crossmatch See Detail
--- OUTSIDE RECORDS SUMMARY | 2024-01-13 13:10 | External Medical Summary | Continuity of Care Document ---
Author Name Unknown Organization [address] Address [address] [place] [address] [phone] Care Team Providers Care Ad Trafficker Name Role Phone Elaine Emmanuel Primary Care Physician [phone] Encounter [facility] [id number] Date(s): 01/06/24 - 01/06/[address], [address] [place] [address] [phone] Encounter Diagnosis HLD (hyperlipidemia)(Discharge Diagnosis) - 01/06/24 Edema(Discharge Diagnosis) - 01/06/24 Hyperlipidemia, unspecified(Final) - Edema, unspecified(Final) - HTN (hypertension)(Discharge Diagnosis) - 01/06/24 CAD in pauma artery(Discharge Diagnosis) - 01/06/24 Discharge Disposition: Home or Self Care Attending Physician: TOMEKA Chance Sarah A Allergies, Adverse Reactions, Alerts Substance Reaction Severity Status codeine nausea Active Vicodin dizziness Active statins joint pain Active CeleBREX 1 gastric bleed Active Plavix hives Active Actonel nausea Active Plaquenil Sulfate 2 hives Active Pravachol Abdominal pain Active Adhesive bandage rash vazquez rips skin Active Amitiza Vomiting Active 1GI bleed x 2 2hives Assessment and Plan Extracted from: Title:Cardiology Office Visit Note Author:TOMEKA Santillan rd, Sarah A Date:01/06/24 Impression: 1. CAD - Stent in the circumflex in 2011, she had a cardiac catheterizationon 11/05/2019which showedLAD with stenosisof 50percent, widely patent LAD stentwithout evidence of restenosis, mid circumflexwith stenosis of 90 to 95%,RCAis the dominant vesselstenosis of 30%,mid RCA has 30 to 40%focal stenosis. She receiveda drug-eluting stent to the circumflex. 2. Bilateral pulmonary embolism and extensive DVT following travel in the setting of a COVID infection07/2023. 3. Echocardiogram at [facility] 07/2023 with normal LVEF, EF 65 to 70%, no wall motion abnormalities, RVSP 30 to 40 mmHg 4.History of hypertensive urgency 5. Hyperlipidemia Ms. Morton appears to be in heart failure given her sob and lower extremity edema. In going over diet since discharge, she has been eating a lot of quick/frozen foods that are likely very high sodium. She will start furosemide 20 mg daily. She will havea bmp and bnptoday to make sure her potassium doesn't need replaced as she had hypokalemia at discharge from the hospital. She'll repeat labs in a week. She was counseled to maintain a low sodium diet of less than 2,000 mg per day. She had similar symptoms in the hospital and her EKGs were reviewed and were unchanged from previous. She continues anticoagulation for PE. She had lovenox perioperatively. Her blood pressure is much better controlled. She will switch to Repatha from Praluent due to change in her insurance formulary. She will have lipids today. We will touch base after her follow up labs over the phone and she will return to the clinic in 2 months. Immunizations Given and Recorded Vaccine Date Status Refusal Reason SARS-CoV-2 (COVID-19) mRNA-vacc - [id number] 1 12/02/23 Recorded RSV vaccine preF3, recombinant 2 09/05/23 Recorded influenza virus vaccine, inactivated 08/30/23 Give n influenza virus vaccine, inactivated 08/14/21 Jono rded influenza virus vaccine, inactivated 08/28/18 Jono rded SARS-CoV-2 mRNA-1273 (6y+ bivalent) 3 11/05/22 Rec orded SARS-CoV-2 (COVID-19) mRNA-1273 vaccine 4 02/10/22 Recorded SARS-CoV-2 (COVID-19) mRNA-1273 vaccine 5 07/24/21 Recorded SARS-CoV-2 (COVID-19) mRNA-1273 vaccine 6 01/31/21 Recorded SARS-CoV-2 (COVID-19) mRNA-1273 vaccine 7 12/27/20 Recorded pneumococcal 23-valent vaccine 8 07/12/18 Given pneumococcal 23-valent vaccine 9 08/04/12 Recorded pneumococcal 13-valent vaccine 10 09/17/16 Recorde d tetanus/diphtheria/pertuss, acel (Tdap) 11 05/05/11 Recorded 1Result Comment: 2023-12-06: Historical information-source unspecified 2Result Comment: 2023-09-13: Historical information-source unspecified 3Result Comment: 2022-11-12: Historical information-source unspecified 4Result Comment: 2022-02-15: Historical information-source unspecified 5Result Comment: 2021-07-27: Historical information-source unspecified 6Result Comment: 2021-07-27: Historical information-source unspecified 7Result Comment: 2021-07-27: Historical information-source unspecified 8Early/Late Reason: Other : late 9Result Comment: 2021-07-27: Historical information-source unspecified 10Result Comment: 2021-07-27: Historical information-source unspecified 11Result Comment: 2021-07-27: Historical information-source unspecified Medications amLODIPine 10 mg oral tablet Start: 09/19/23 10:24:00 EDT, 1 tab, PO, Daily, Disp# 90 tab, Refills: 3, [id number] Start Date: 09/19/23 Stop Date: 09/13/24 Status: Ordered [place] Thyroid 60 mg oral tablet Start: 10/17/23 11:18:00 EST, 1 tab, PO, Daily, Disp# 90 tab, Refills: 1, Pharmacy: [id number] Start Date: 10/17/23 Status: Ordered aspirin 81 [...] CAPSULE BY MOUTH EVERY 12 HOURS, Pharmacy: [id number] Start Date: 06/09/23 Status: Ordered Co Q-10 100 mg oral capsule Start: 10/11/13 11:05:00, 2 cap, PO, Daily Start Date: 10/11/13 Status: Ordered Colace Start: 01/23/19 14:14:00 EST, 50 mg =, PO, Daily Start Date: 01/23/19 Status: Ordered Eliquis 5 mg oral tablet Start: 08/30/23 13:36:00 EDT, 1 tab, PO, bid Start Date: 08/30/23 Status: Ordered esomeprazole 40 mg oral delayed release capsule Start: 03/09/23 16:40:00 EDT, See Instructions, Disp# 90 cap, Refills: 3, TAKE 1 CAPSULE BY MOUTH EVERY DAY, Pharmacy: [facility] [id number] [facility] Start Date: 03/09/23 Status: Ordered Fish Oil 1200 mg oral capsule Start: 08/17/18 14:25:00 EDT, 1 cap, PO, Daily Start Date: 08/17/18 Status: Ordered Flonase 50 mcg/inh nasal spray Start: 04/13/22 14:01:00 EDT, 1 spray, each nostril, Daily, Disp# 16 g, Refills: 5, PRN: allergy symptoms, Pharmacy: [facility] [id number] [facility] Start Date: 04/13/22 Stop Date: 10/10/22 Status: Ordered furosemide 20 mg oral tablet Start: 01/06/24 10:48:00 EST, 1 tab, PO, Daily, Disp# 90 tab, Refills: 3, [id number] Start Date: 01/06/24 Status: Ordered hydroCHLOROthiazide-triamterene 25 mg-37.5 mg oral capsule Start: 06/09/23 10:07:00 EDT, 90 each, TAKE 1 CAPSULE BY MOUTH EVERY DAY IN THE MORNING Start Date: 06/09/23 Status: Ordered Klor-Con M20 oral tablet, extended release Start: 11/16/23 16:32:00 EST, See Instructions, Disp# 90 tab, Refills: 3, TAKE 1 TABLET BY MOUTH EVERY DAY, Pharmacy: [id number] Start Date: 11/16/23 Status: Ordered meclizine 25 mg oral tablet Start: 11/03/23 10:10:00 EST, 1 tab, PO, tid, Disp# 30 tab, Refills: 0, PRN: as needed for dizziness, [id number] Start Date: 11/03/23 Status: Ordered methylPREDNISolone 8 mg oral tablet Start: 12/01/23 12:23:00 EST, 1 tab, PO, Daily, Disp# 30 tab, Refills: 5, dose needs adjustment by dec 01 visit pls, [id number] Start Date: 12/01/23 Stop Date: 05/29/24 Status: Ordered metoprolol succinate 50 mg oral tablet, extended release Start: 09/19/23 10:26:00 EDT, 50 mg =, PO, Daily, Disp# 90 tab, Refills: 3, [id number] Start Date: 09/19/23 Stop Date: 09/13/24 Status: Ordered montelukast 10 mg oral tablet Start: 09/19/23 10:26:00 EDT, See Instructions, Disp# 90 tab, Refills: 3, TAKE 1 TABLET BY MOUTH EVERY DAY IN THE EVENING, [id number] Start Date: 09/19/23 Status: Ordered nitroglycerin 0.4 mg sublingual tablet Start: 07/14/18 10:06:00 EDT, 1 tab, SL, q5min, PRN: Chest Pain Start Date: 07/14/18 Status: Ordered Orencia ClickJect Autoinjector 125 mg/mL SQ solution Start: 02/04/23 16:08:00 EST, See Instructions, Disp# 4 each, Refills: 3, INJECT 1 AUTOINJECTOR (125 MG) UNDER THE SKIN EVERY 7 DAYS, Pharmacy: [facility] Start Date: 02/04/23 Status: Ordered pregabalin 100 mg oral capsule Start: 12/06/23 20:37:00 EST, 1 cap, PO, bid, Disp# 180 cap, Refills: 0, Pharmacy: [id number] Start Date: 12/06/23 Stop Date: 03/05/24 Status: Ordered ProAir HFA 90 mcg/inh inhalation aerosol Start: 12/27/22 11:50:00 EST, 1 puff, inhaled, qid, Disp# 1 each, Refills: 5, PRN: as needed for wheezing, Pharmacy: [facility] [id number] [facility] Start Date: 12/27/22 Status: Ordered Probiotic Formula Start: 05/29/15 13:13:00, 1 cap, PO, Daily Start Date: 05/29/15 Status: Ordered Prolia 60 mg/mL subcutaneous solution Start: 01/25/23 19:19:00 EST, every 6 months Start Date: 01/25/23 Status: Ordered Prolia 60 mg/mL subcutaneous solution Start: 09/01/23 13:24:00 EDT, 60 mg =, subQ, [id number], Disp# 1 each, Refills: 1 Start Date: 09/01/23 Status: Ordered Proteolytic enzymes Start: 08/11/22 13:44:00 EDT, Proteolytic enzymes, 1 daily Start Date: 08/11/22 Status: Ordered Repatha Prefilled Syringe 140 mg/mL subcutaneous solution Start: 01/06/24 11:03:00 EST, 140 mg =, subQ, [id number], Disp# 2 each, Refills: 6, Pharmacy: [id number] Start Date: 01/06/24 Status: Ordered sulfaSALAzine 500 mg oral tablet Start: 11/22/23 21:28:00 EST, 1 tab, PO, bid, Disp# 180 tab, Refills: 1, Pharmacy: [facility] [id number] Start Date: 11/22/23 Status: Ordered triamterene 50 mg oral capsule [...] Start Date: 11/05/20 Status: Ordered Mental Status 01/06/24 Barriers to Learning one year Vision imp airment Mandatory Health Literacy Documentation Yes Health Literacy Communication Barriers N ever Primary Language Yakut Problem List Condition Confirmation Course Effective Dates Status Health Status Informant ASCVD (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 disease) Confirmed Active Bilateral hip bursitis Confirmed Active DDD (degenerative disc disease), lumbosacral Confirmed Active Fibromyalgia Confirmed Active Gastroesophageal reflux disease Confirmed Active Hemorrhoid Confirmed Active History of PA (myocardial infarction) Confirmed Active History of total bilateral knee replacement Confirmed Active Hypertension Confirmed Active Hyperuricemia Confirmed Active Hypothyroidism Confirmed Active Inflammatory polyarthropathy Confirmed Active [facility] systemic steroid user Confirmed Active Lumbar radiculopathy Confirmed Active Renal cancer Confirmed Active Erosive osteoarthritis of hand Confirmed Active Osteoporosis Confirmed Active Other polyosteoarthritis Confirmed Active PMR (polymyalgia rheumatica) Confirmed Active PMR (polymyalgia rheumatica) Confirmed Active Herniated lumbar intervertebral disc Confirmed Active Rheumatoid arthritis Confirmed Active Seronegative rheumatoid arthritis Confirmed Active Sacroiliac pain Confirmed Active Weight disorder Confirmed Active Diagnosis Diagnosis Type Effective Dates Health Status Cl inical Service Informant HTN (hypertension) Discharge Diagnosis 01/06/24 Non-Specified CAD in pauma artery Discharge Diagnosis 01/06/24 Non-Specified HLD (hyperlipidemia) Discharge Diagnosis 01/06/24 Non-Specified Edema Discharge Diagnosis 01/06/24 Non-Specified Procedures Procedure Date Related Diagnosis Body Site [...] Completed Endoscopy 05/2012 Completed Repair of bladder 2007 [facility] ed Cholecystectomy 2001 Completed Hysterectomy 1996 Completed Tonsillectomy with adenoidectomy 1957 Completed Endometrial ablation Comp leted 1No acute chest disease. 2No evidence of acute bony injury. 3No aute bony abnormality is seen involving the thoracic spine. 4OD 20/40 OS 20/30 5follow-up proceedure secondary to post-op infection 6Left nephrectomy 7Arthrodesis 1st metatarsophalangeal joint, left foot. Shorty osteotomy, 1st metatarsophalangeal joint, left foot. Hammertoe correction 2nd digit, left foot. Chito metatarsal osteotomy 2nd metatarsal, left foot. 8Right total knee arthroplasty. 9left 10bilateral 11colon resection [facility] Results Laboratory List Name Date Basic Metabolic Panel (BASIC METAB PANEL ) 01/06/24 Lipid Profile (LIPOPROTEINS) 01/06/24 NT-Pro BNP 01/06/24 Most recent to oldest [Reference Range]: 1 eGFR CKD-EPI [>60 mL/min/1.73 m2] 66 mL/ min/1.73 m2 1 (01/06/24 11:18 AM) Non-HDL 108 mg/dL 2 (01/06/24 11:18 AM) BNP, NT-Pro [<125 pg/mL] 104 pg/mL (01/06/24 11:18 AM) Estimated CrCl 51.01 mL/min (01/06/24 11:47 AM) Anion Gap [5-14 mmol/L] 10 mmol/L (01/06/24 11:18 AM) BUN [7-20 mg/dL] 11 mg/dL (01/06/24 11:18 AM) Ca [8.4-10.2 mg/dL] 9.8 mg/dL (01/06/24 11:18 AM) Chol/HDL 2 (01/06/24 11:18 AM) Chol [125-200 mg/dL] 185 mg/dL (01/06/24 11:18 AM) Cl- [96-107 mmol/L] 107 mmol/L (01/06/24 11:18 AM) HCO3 [22-30 mmol/L] 25 mmol/L (01/06/24 11:18 AM) Cret [0.60-1.00 mg/dL] 0.92 mg/dL (01/06/24 11:18 AM) Glu [74-106 mg/dL] 111 mg/dL *HI* (01/06/24 11:18 AM) HDL [>35 mg/dL] 77 mg/dL (01/06/24 11:18 AM) K [3.5-5.1 mmol/L] 3.8 mmol/L (01/06/24 11:18 AM) LDL Chol, Calculated [50-130 mg/dL] 79 m g/dL (01/06/24 11:18 AM) Na [137-145 mmol/L] 142 mmol/L (01/06/24 11:18 AM) TG [<200 mg/dL] 147 mg/dL (01/06/24 11:18 AM) 1Result Comment: Testing Performed By: Dept of Pathology [facility] Carlos Ambrocio, [address] [facility] [place] [address] 2Result Comment: Testing Performed By: Dept of Pathology [facility] Carlos Ambrocio, [address] [facility] [place] [address] Vital Signs Most recent to oldest [Reference Range]: 1 Patient Weight 76 kg (01/06/24 10:19 AM) Heart Rate 65 bpm (01/06/24 10:19 AM) Respiratory Rate 18 br/min (01/06/24 10:19 AM) Blood Pressure 130/68mmHg (01/06/24 10:19 AM) BP Location # 1 Left Arm (01/06/24 10:19 AM) Social History Social History Type Response Smoking Status Never smoked cigaret ivania Sex Female Cardiology Outpatient Note * TOMEKA Chance Sarah A: PERFORM Event Display: Cardiology Outpt Note Authored Date: [id number] Primary Care Provider TOMEKA Emmanuel Tara Chief Complaint follow up History of Present Illness Ms. Donahue presents for follow up of her history of CAD with ELLEN in the LADin 2011,and DESin the circumflex in 2019,history of PE and extensive DVT,hyperlipidemia, and hypertension. Unfortunately, Ms. Donahue has had 3 hospitalizations since we last saw her. She had the hospitalization after having been recommended to go to the ED from this clinic for hypertensive urgency. She then had a spine decompression and fusion on 11/03 [facility] a revision with a thoracolumbar fusion and was discharged 11/19.She is still having difficulty ambulating and pain but the pain is much better. She remains on Eliquis for PE and it to remain so until January. She has worsening bilateral LE edema and sob with exertion. She feels a tightness in her chest withexertion with sharp pain to the right of her sternum. Not worse with a deep breath. Not reproducible to palpation. It does not feel like the angina she had prior to her stents. She felt this way inthe hospital as well. She does have what sounds like vertigo that comes and goes. Review of Systems All other systems reviewed and negative except as discussed in the HPI Physical Exam Vitals & Measurements HR:65(Monitored) RR:18 BP:130/68 SpO2:99% WT:76kg WT:76.000kg(Dosing) Physical Examination General: Alert and oriented, No acute distress. Respiratory: Lungs are clear to auscultation, Respirations are non-labored. Cardiovascular: Normal rate, Regular rhythm, No murmur, No edema, no carotid bruits to auscultation bilaterally. Integumentary: Warm, Dry, [place] Neurologic: Alert, Oriented. Cognition and Speech: Speech clear and coherent. Psychiatric: Cooperative, Appropriate mood & affect. Assessment/Plan Impression: 1. CAD - Stent in the circumflex in 2011, she had a cardiac catheterizationon 11/05/2019which showedLAD with stenosisof 50percent, widely patent LAD stentwithout evidence of restenosis, mid circumflexwith stenosis of 90 to 95%,RCAis the dominant vesselstenosis of 30%,mid RCA has 30 to 40%focal stenosis. She receiveda drug-eluting stent to the circumflex. 2. Bilateral pulmonary embolism and extensive DVT following travel in the setting of a COVID infection07/2023. 3. Echocardiogram at [facility] 07/2023 with normal LVEF, EF 65 to 70%, no wall motion abnormalities, RVSP30 to 40 mmHg 4.History of hypertensive urgency 5. Hyperlipidemia Ms. Morton appears to be in heart failure given her sob and lower extremity edema. In going over diet since discharge, she has been eating a lot of quick/frozen foods that are likely very high sodium. She will start furosemide 20 mg daily. She will havea bmp and bnptoday to make sure her potassium doesn't need replaced as she had hypokalemia at discharge from the hospital. She'll repeat labs in a week. She was counseled to maintain a low sodium diet of less than 2,000 mg per day. She had similar symptoms in the hospital and her EKGs were reviewed and were unchanged from previous. She continues anticoagulation for PE. She had lovenox perioperatively. Her blood pressure is much better controlled. She will switch to Repatha from Praluent due to change in her insurance formulary. She will havelipids today. We will touch base after her follow up labs over the phone and she will return to the clinic in 2 months. 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 systemic steroid user Lumbar radiculopathy Osteoporosis Other polyosteoarthritis PMR (polymyalgia rheumatica) PMR (polymyalgia rheumatica) Renal cancer Rheumatoid arthritis Sacroiliac pain Seronegative rheumatoid arthritis Weight disorder Historical Cancer of kidney Diverticulitis Diverticulitis of Colon without Mention of Hemorrhage Drug therapy Erosive osteoarthrosis Finger infection Greater trochanteric bursitis of right hip Immunosuppressed status Left kidney mass Low back pain Lumbar [...] 1 puff, inhaled, qid, PRN, 5 refills amLODIPine(amLODIPine 10 mg oral tablet), 10 mg= [...] 60 mg/mL subcutaneous solution), 60 mg, subQ, [id number], 1 refills docusate(Colace), 50 mg, PO, Daily esomeprazole(esomeprazole 40 mg oral delayed release capsule), See Instructions, 3 refills evolocumab(Repatha Prefilled Syringe 140 mg/mL subcutaneous solution), 140 mg, subQ, [id number], 6 refills fluticasone nasal(Flonase 50 mcg/inh nasal spray), 50 mcg= 1 spray, each nostril, Daily, PRN, 5 refills furosemide(furosemide 20 mg oral tablet), 20 mg= 1 tab, PO, Daily, 3 refills hydroCHLOROthiazide-triamterene(hydroCHLOROthiazide-triamterene 25 mg-37.5 mg oral capsule) meclizine(meclizine 25 mg oral tablet), 25 mg= 1 tab, PO, tid, PRN methylPREDNISolone(methylPREDNISolone 8 mg oral tablet), 8 mg= 1 tab, PO, Daily, 5 refills metoprolol(metoprolol succinate 50 mg oral tablet, extended release), 50 mg, PO, Daily, 3 refills montelukast(montelukast 10 mg oral tablet), See Instructions, 3 refills nitroglycerin(nitroglycerin 0.4 mg sublingual tablet), 0.4 mg= 1 tab, SL, q5min, PRN omega-3 polyunsaturated fatty acids(Fish Oil 1200 mg oral capsule), 1200 mg= 1 cap, PO, Daily potassium chloride(Klor-Con M20 oral tablet, extended release), See Instructions, 3 refills pregabalin(pregabalin 100 mg oral capsule), 100 mg= 1 cap, PO, bid sulfaSALAzine(sulfaSALAzine 500 mg oral tablet), 1 tab, PO, bid thyroid desiccated([place] Thyroid 60 mg oral tablet), 1 tab, PO, Daily triamterene(triamterene 50 mg oral capsule), 50 mg= [...] Heart disease: Mother. Health Status Family Member(s) Electronic Signature on File CC: TOMEKA Glasgow [address] [place] [id number] Electronically Reviewed/Signed by: TOMEKA Amezquita Author Signature Dt/Tm:01/06/2024 11:45 AM [facility] [place] [facility] Patient Care team information Care Team Personnel Name: TOMEKA Emmanuel Tara Position: Nurse Pract - Family Med Member Role: Primary Care Provider Address: Address: [address] [place] [address] Name: YESIKA Smallwood, Nati Park Position: Physician Manager Solution - Orthopaedic Surg Member Role: Lifetime Relationship Address: Address: [address] [facility] [address] [place] [id number] Name: MD Marcus, Arnie Position: Physician - Endocrinology Member Role: Lifetime Relationship Address: Address: [address] [place] [address] Name: MD Mohsen, Garcia Rosa Position: Physician - Urology Member Role: Lifetime Relationship Address: Address: [address] [place] [id number] Name: Ita Oscar Courtney Position: Pharmacist Member Role: Pharmacy - Lifetime Name: Ita Garcia Brittani Position: Pharmacist Schedule II Member Role: Pharmacy - Lifetime Care Team Related Persons Name: BLAKE DONAHUE Address: [address] [phone] Name: BLAKE DONAHUE Address: home [address] [place] [phone] Name: KAM DONAHUE Address: home [address] [facility], [phone]
--- OUTSIDE RECORDS SUMMARY | 2024-01-13 13:10 | External Medical Summary | Continuity of Care Document ---
Author Name Unknown Organization [facility] [address] Address [address] [place], [place] [id number] Care Team Providers Care Property Custodian Name Role Phone Debracésar Elaine Primary Care Physician [phone] [id number] Date([facility] 12/02/23 - 12/02/23 [facility] [address] [employer] [place] [address] [facility] [address] [facility] 1 [place], [place] [phone] Encounter Diagnosis Hypothyroidism, unspecified(Final) - Discharge Disposition: Home or Self Care Attending Physician: MD Velazquez Shyam Referring Physician: MD Velazquez Shyam Allergies, Adverse Reactions, Alerts Substance Reaction Severity Status codeine nausea Active statins joint pain Active CeleBREX 1 gastric bleed Active Plavix hives Active Actonel nausea Active Plaquenil Sulfate 2 hives Active Pravachol Abdominal pain Active Vicodin dizziness Active Adhesive bandage rash vazquez rips skin Active Amitiza Vomiting Active 1GI bleed x 2 2hives Immunizations Given and Recorded Vaccine Date Status [...] Daily, Disp# 90 tab, Refills: 3, Pharmacy: [facility]/pharmacy #[id number] Start Date: 09/19/23 Stop Date: 09/13/24 Status: Ordered [place] Thyroid 60 mg oral tablet Start: 10/17/23 11:18:00 EST, 1 tab, PO, Daily, Disp# 90 tab, Refills: 1, Pharmacy: [facility] STORE [id number] Start Date: 10/17/23 Status: Ordered aspirin 81 [...] CAPSULE BY MOUTH EVERY 12 HOURS, Pharmacy: [facility]/pharmacy #[id number] Start Date: 06/09/23 Status: [...] 1 CAPSULE BY MOUTH EVERY DAY, Pharmacy: [place] [id number] [facility] Start Date: 03/09/23 Status: Ordered Fish Oil 1200 mg oral capsule Start: 08/17/18 14:25:00 EDT, 1 cap, PO, Daily Start Date: 08/17/18 Status: Ordered Flonase 50 mcg/inh nasal spray Start: 04/13/22 14:01:00 EDT, 1 spray, each nostril, Daily, Disp# 16 g, Refills: 5, PRN: allergy symptoms, Pharmacy: [place] [id number] [facility] Start Date: 04/13/22 Stop Date: 10/10/22 Status: Ordered hydroCHLOROthiazide-triamterene 25 mg-37.5 mg oral capsule Start: 06/09/23 10:07:00 EDT, 90 each, TAKE 1 CAPSULE BY MOUTH EVERY DAY IN THE MORNING Start Date: 06/09/23 Status: Ordered Klor-Con M20 oral tablet, extended release Start: 11/16/23 16:32:00 EST, See Instructions, Disp# 90 tab, Refills: 3, TAKE 1 TABLET BY MOUTH EVERY DAY, Pharmacy: [facility]/pharmacy #[id number] Start Date: 11/16/23 Status: Ordered meclizine 25 mg oral tablet Start: 11/03/23 10:10:00 EST, 1 tab, PO, tid, Disp# 30 tab, Refills: 0, PRN: as needed for dizziness, Pharmacy: [facility]/pharmacy #[id number] Start Date: 11/03/23 Status: Ordered methylPREDNISolone 8 mg oral tablet Start: 12/01/23 12:23:00 EST, 1 tab, PO, Daily, Disp# 30 tab, Refills: 5, dose needs adjustment by dec 01 visit pls, [id number] Start Date: 12/01/23 Stop Date: 05/29/24 Status: Ordered metoprolol succinate 50 mg oral tablet, extended release Start: 09/19/23 10:26:00 EDT, 50 mg =, PO, Daily, Disp# 90 tab, Refills: 3, [id number] Start Date: 09/19/23 Stop Date: 09/13/24 Status: Ordered montelukast 10 mg oral tablet Start: 09/19/23 10:26:00 EDT, See Instructions, Disp# 90 tab, Refills: 3, TAKE 1 TABLET BY MOUTH EVERY DAY IN THE EVENING, [id number] Start Date: 09/19/23 Status: Ordered nitroglycerin 0.4 mg sublingual tablet Start: 07/14/18 10:06:00 EDT, 1 tab, SL, q5min, PRN: Chest Pain Start Date: 07/14/18 Status: Ordered Orencia ClickJect Autoinjector 125 mg/mL SQ solution Start: 02/04/23 16:08:00 EST, See Instructions, Disp# 4 each, Refills: 3, INJECT 1 AUTOINJECTOR (125 MG) UNDER THE SKIN EVERY 7 DAYS, Pharmacy: [facility] Start Date: 02/04/23 Status: Ordered Praluent Pen 75 mg/mL subcutaneous solution Start: 05/08/19 10:47:00 EDT, 75 mg =, subQ, [id number] Start Date: 05/08/19 Status: Ordered pregabalin 100 mg oral capsule Start: 09/19/23 10:26:00 EDT, 1 cap, PO, bid, Disp# 180 cap, Refills: 0, [id number] Start Date: 09/19/23 Stop Date: 12/18/23 Status: Ordered ProAir HFA 90 mcg/inh inhalation aerosol Start: 12/27/22 11:50:00 EST, 1 puff, inhaled, qid, Disp# 1 each, Refills: 5, PRN: as needed for wheezing, Pharmacy: [facility] [id number] [facility] Start Date: 12/27/22 Status: Ordered Probiotic Formula Start: 05/29/15 13:13:00, 1 cap, PO, Daily Start Date: 05/29/15 Status: Ordered Prolia 60 mg/mL subcutaneous solution Start: 01/25/23 19:19:00 EST, every 6 months Start Date: 01/25/23 Status: Ordered Prolia 60 mg/mL subcutaneous solution Start: 09/01/23 13:24:00 EDT, 60 mg =, subQ, b2ovynap, Disp# 1 each, Refills: 1 Start Date: 09/01/23 Status: Ordered Proteolytic enzymes Start: 08/11/22 13:44:00 EDT, Proteolytic enzymes, 1 daily Start Date: 08/11/22 Status: Ordered sulfaSALAzine 500 mg oral tablet Start: 11/22/23 21:28:00 EST, 1 tab, PO, bid, Disp# 180 tab, Refills: 1, Pharmacy: [facility] STORE [id number] Start Date: 11/22/23 Status: Ordered triamterene 50 [...] Confirmed Active Hemorrhoid Confirmed Active History of NE (myocardial infarction) Confirmed Active History of total bilateral knee replacement Confirmed Active Hypertension Confirmed Active Hyperuricemia Confirmed Active Hypothyroidism Confirmed Active Inflammatory polyarthropathy Confirmed Active long-term systemic steroid user Confirmed Active Lumbar radiculopathy Confirmed Active Renal cancer Confirmed Active Erosive osteoarthritis of hand Confirmed Active Osteoporosis Confirmed Active Other polyosteoarthritis Confirmed Active PMR (polymyalgia rheumatica) Confirmed Active PMR (polymyalgia rheumatica) Confirmed Active Herniated lumbar intervertebral disc Confirmed Active Rheumatoid arthritis Confirmed Active Seronegative rheumatoid arthritis Confirmed Active Sacroiliac pain Confirmed Active Weight disorder Confirmed Active Procedures Procedure Date Related Diagnosis Body Site [...] involving the thoracic spine. 4OD 20/40 OS 5follow-up proceedure secondary to post-op infection 6Left nephrectomy 7Arthrodesis 1st metatarsophalangeal joint, left foot. Shorty osteotomy, 1st metatarsophalangeal joint, left foot. Hammertoe correction 2nd digit, left foot. [place]ito metatarsal osteotomy 2nd metatarsal, left foot. 8Right total knee arthroplasty. 9left 10bilateral 11colon resection [facility] Results Laboratory List Name Date Free T3 (T3, FREE) 12/02/23 T4, Free (T4, FREE) 12/02/23 Thyroid Stimulating Hormone (TSH) 12/02/23 Most recent to oldest [Reference Range]: 1 Free T4 [0.70-1.48 ng/dL] 1.10 ng/dL 1 (12/02/23 2:23 PM) TSH [0.47-4.68 uIU/mL] 1.91 uIU/mL 2 (12/02/23 2:23 PM) Free T3 [2.0-4.4 pg/mL] 3.3 pg/mL (12/02/23 2:23 PM) 1Result Comment: Testing Performed By: Dept of Pathology [facility] Richard [address], [address] [place] [address] 2Result Comment: Testing Performed By: Dept of Pathology [facility], [address] [place] [address] Social History Social History Type Response Smoking Status Never smoked cigaret ivania Sex Female Patient Care team information Care Team Personnel Name: TOMEKA Emmanuel Tara Position: Nurse Pract - Family Med Member Role: Primary Care Provider Address: Address: [address] [place] [address] Name: YESIKA Smallwood, Nati Park Position: Physician Roofing Plant Supervisor - Orthopaedic Surg Member Role: Lifetime Relationship Address: Address: [address] [address] [place] Name: MD Marcus, Arnie Position: Physician - Endocrinology Member Role: Lifetime Relationship Address: Address: [address] [place] [address] Name: MD Mohsen, Garcia Rosa Position: Physician - Urology Member Role: Lifetime Relationship Address: Address: [address] [place] [address] Name: Ita Oscar Courtney Position: Pharmacist Member Role: Pharmacy - Lifetime Name: Ita Garcia Brittani Position: Pharmacist Schedule II Member Role: Pharmacy - Lifetime Care Team Related Persons Name: BLAKE SHELBY Address: [address] [id number] Name: BLAKE SHELBY Address: home [address] [place] [id number] Name: KAM SHELBY Address: home [address] [facility], [id number]
--- OUTSIDE RECORDS SUMMARY | 2024-01-13 13:10 | External Medical Summary | Continuity of Care Document ---
Author Name Unknown Organization [address] [id number] Care Team Providers Care Tugboat Pilot Name Role Phone Elaine Emmanuel Primary Care Physician [phone] [facility]counter [id number] Date(s): 12/02/23 - 12/02/[address] [address] [phone] Encounter Diagnosis Osteoporosis(Discharge Diagnosis) - 12/02/23 PE (pulmonary thromboembolism)(Discharge Diagnosis) - 12/02/23 Hypertension(Discharge Diagnosis) - 12/02/23 Lumbar radiculopathy(Discharge Diagnosis) - 12/02/23 ASCVD (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 disease)(Discharge Diagnosis) - 12/02/23 Hemorrhoid(Discharge Diagnosis) - 12/02/23 Discharge Disposition: Home or Self Care Attending Physician: TOMEKA Emmanuel Tara Referring Physician: TOMEKA Emmanuel Tara Allergies, Adverse Reactions, Alerts Substance Reaction Severity Status codeine nausea Active Plavix hives Active Actonel nausea Active Plaquenil Sulfate 1 hives Active Pravachol Abdominal pain Active Vicodin dizziness Active Adhesive bandage rash vazquez rips skin Active Amitiza Vomiting Active statins joint pain Active CeleBREX 2 gastric bleed Active 1hives 2GI bleed x 2 Assessment and Plan Extracted from: Title:follow up Author:TOMEKA Emmanuel Tara Date:12/02/23 1.Osteoporosis Acute/Chronic: chronic Goal:Resolution/ control Status:stable/controlled Data: records/pt report Plan:Will give her prolia today. Ca+ 9.4 on 11/19/23 2.Lumbar radiculopathy Acute/Chronic: chronic Goal:Resolution/ control Status:stable/controlled Data: records/pt report Plan:Her pain is much better since last surgery and also hip injections. Will taper off cymbalta. 3.PE (pulmonary thromboembolism) Acute/Chronic: chronic Goal:Resolution/ control Status:stable/controlled Data: records/pt report Plan:Contd on eliquis until January for total of 6 mo due to PE. Will see her in early January to make sure everything is going well and can then stop. 4.Hypertension Acute/Chronic: chronic Goal:Resolution/ control Status:stable/controlled Data: records/pt report Plan:Contd on present regimen. 5.ASCVD (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 disease) Acute/Chronic: chronic Goal:Resolution/ control Status:stable/controlled Data: records/pt report Plan:She is on praluent, BB and asa. She is on TAE or ARB. Cardiology discussed possibly starting Will defer to card. 6.Hemorrhoid Acute/Chronic: chronic Goal:Resolution/ control Status:stable/controlled Data: records/pt report Plan:Once she is off of eliquis can explore possibility of surgery. Follow up in 3 mo time spent reviewing chart, face to face visit, ordersand documentation: 45 min Immunizations Given and Recorded Vaccine Date Status [...] Daily, Disp# 90 tab, Refills: 3, [id number] Start Date: 09/19/23 Stop Date: 09/13/24 Status: Ordered [place] Thyroid 60 mg oral tablet Start: 10/17/23 11:18:00 EST, 1 tab, PO, Daily, Disp# 90 tab, Refills: 1, Pharmacy: [id number] Start Date: 10/17/23 Status: Ordered aspirin 81 [...] CAPSULE BY MOUTH EVERY 12 HOURS, [id number] Start Date: 06/09/23 Status: Ordered Co [...] 1 CAPSULE BY MOUTH EVERY DAY, Pharmacy: [facility] [id number] [facility] Start Date: 03/09/23 Status: Ordered Fish Oil 1200 mg oral capsule Start: 08/17/18 14:25:00 EDT, 1 cap, PO, Daily Start Date: 08/17/18 Status: Ordered Flonase 50 mcg/inh nasal spray Start: 04/13/22 14:01:00 EDT, 1 spray, each nostril, Daily, Disp# 16 g, Refills: 5, PRN: allergy symptoms, Pharmacy: [facility] [id number] [facility] Start Date: 04/13/22 Stop Date: 10/10/22 Status: Ordered hydroCHLOROthiazide-triamterene 25 mg-37.5 mg oral capsule Start: 06/09/23 10:07:00 EDT, 90 each, TAKE 1 CAPSULE BY MOUTH EVERY DAY IN THE MORNING Start Date: 06/09/23 Status: Ordered Klor-Con M20 oral tablet, extended release Start: 11/16/23 16:32:00 EST, See Instructions, Disp# 90 tab, Refills: 3, TAKE 1 TABLET BY MOUTH EVERY DAY, Pharmacy: [id number] Start Date: 11/16/23 Status: Ordered meclizine 25 mg oral tablet Start: 11/03/23 10:10:00 EST, 1 tab, PO, tid, Disp# 30 tab, Refills: 0, PRN: as needed for dizziness, Pharmacy: [facility] #[id number] Start Date: 11/03/23 Status: Ordered methylPREDNISolone 8 mg oral tablet Start: 12/01/23 12:23:00 EST, 1 tab, PO, Daily, Disp# 30 tab, Refills: 5, dose needs adjustment by dec 01 visit pls, Pharmacy: [facility] #[id number] Start Date: 12/01/23 Stop Date: 05/29/24 Status: Ordered metoprolol succinate 50 mg oral tablet, extended release Start: 09/19/23 10:26:00 EDT, 50 mg =, PO, Daily, Disp# 90 tab, Refills: 3, [id number] Start Date: 09/19/23 Stop Date: 09/13/24 Status: Ordered montelukast 10 mg oral tablet Start: 09/19/23 10:26:00 EDT, See Instructions, Disp# 90 tab, Refills: 3, TAKE 1 TABLET BY MOUTH EVERY DAY IN THE EVENING, Pharmacy: [facility] #[id number] Start Date: 09/19/23 Status: Ordered nitroglycerin 0.4 mg sublingual tablet Start: 07/14/18 10:06:00 EDT, 1 tab, SL, q5min, PRN: Chest Pain Start Date: 07/14/18 Status: Ordered Orencia ClickJect Autoinjector 125 mg/mL SQ solution Start: 02/04/23 16:08:00 EST, See Instructions, Disp# 4 each, Refills: 3, INJECT 1 AUTOINJECTOR (125 MG) UNDER THE SKIN EVERY 7 DAYS, Pharmacy: [facility] Start Date: 02/04/23 Status: Ordered Praluent Pen 75 mg/mL subcutaneous solution Start: 05/08/19 10:47:00 EDT, 75 mg =, subQ, [id number] Start Date: 05/08/19 Status: Ordered pregabalin 100 mg oral capsule Start: 09/19/23 10:26:00 EDT, 1 cap, PO, bid, Disp# 180 cap, Refills: 0, Pharmacy: [facility]/pharm[facility] #[id number] Start Date: 09/19/23 Stop Date: 12/18/23 Status: Ordered ProAir HFA 90 mcg/inh inhalation aerosol Start: 12/27/22 11:50:00 EST, 1 puff, inhaled, qid, Disp# 1 each, Refills: 5, PRN: as needed for wheezing, Pharmacy: [facility] [id number] [facility] Start Date: 12/27/22 Status: Ordered Probiotic Formula Start: 05/29/15 13:13:00, 1 cap, PO, Daily Start Date: 05/29/15 Status: Ordered Prolia 60 mg/mL subcutaneous solution Start: 01/25/23 19:19:00 EST, every 6 months Start Date: 01/25/23 Status: Ordered Prolia 60 mg/mL subcutaneous solution Start: 09/01/23 13:24:00 EDT, 60 mg =, subQ, [id number], Disp# 1 each, Refills: 1 Start Date: 09/01/23 Status: Ordered Proteolytic enzymes Start: 08/11/22 13:44:00 EDT, Proteolytic enzymes, 1 daily Start Date: 08/11/22 Status: Ordered sulfaSALAzine 500 mg oral tablet Start: 11/22/23 21:28:00 EST, 1 tab, PO, bid, Disp# 180 tab, Refills: 1, Pharmacy: [id number] Start Date: 11/22/23 Status: Ordered triamterene 50 [...] Start Date: 11/05/20 Status: Ordered Mental Status 12/02/23 Barriers to Learning one year Vision imp airment Mandatory Health Literacy Documentation Yes Health Literacy Communication Barriers N ever Primary Language Arabic Problem List Condition Confirmation Course Effective Dates Status Health Status Informant ASCVD (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 disease) Confirmed Active Bilateral hip bursitis Confirmed Active DDD (degenerative disc disease), lumbosacral Confirmed Active Fibromyalgia Confirmed Active Gastroesophageal reflux disease Confirmed Active Hemorrhoid Confirmed Active History of NM (myocardial infarction) Confirmed Active History of total bilateral knee replacement Confirmed Active Hypertension Confirmed Active Hyperuricemia Confirmed Active Hypothyroidism Confirmed Active Inflammatory polyarthropathy Confirmed Active correction systemic steroid user Confirmed Active Lumbar radiculopathy [...] Effective Dates Health Status Clinical Service Informant Osteoporosis Discharge Diagnosis 12/02/23 PE (pulmonary thromboembolism) Discharge Diagnosis 12/02/23 Hypertension Discharge Diagnosis 12/02/23 Hemorrhoid Discharge Diagnosis 12/02/23 Lumbar radiculopathy Discharge Diagnosis 12/02/23 ASCVD (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 disease) Discharge Diagnosis 12/02/23 Procedures Procedure Date Related Diagnosis Body Site Status Chest X-ray 1 04/05/[address] of cervical spine 2 04/05/[address] of thoracic spine 3 04/05/23 Co mpleted Eye examination 4 11/04/20 [facility] ed Cardiac Cath and Cardiac Otto [...] is seen involving the thoracic spine. 4OD 20 OS 5follow-up proceedure secondary to post-op infection 6Left nephrectomy 7Arthrodesis 1st metatarsophalangeal joint, left foot. Shorty osteotomy, 1st metatarsophalangeal joint, left foot. Hammertoe correction 2nd digit, left foot. [place] metatarsal osteotomy 2nd metatarsal, left foot. 8Right total knee arthroplasty. 9left 10bilateral 11colon resection [facility] Vital Signs Most recent to oldest [Reference Range]: 1 Height 153.8 cm (12/02/23 12:56 PM) Patient Weight 80.7 kg (12/02/23 12:56 PM) Body Mass Index 34.12 kg/m2 (12/02/23 12:56 PM) Heart Rate 83 bpm (12/02/23 12:56 PM) Respiratory Rate 16 br/min (12/02/23 12:56 PM) Blood Pressure 142/78mmHg (12/02/23 12:56 PM) Cuff Pulse Pressure 64 mmHg (12/02/23 12:56 PM) Social History Social History Type Response Smoking Status Never smoked cigaret ivania Sex Female [facility] Outpt Note * TOMEKA Emmanuel Tara: PERFORM Event Display: [facility] Outpt Note Authored Date: Chief Complaint f/u,states she is feeling better with pain level improving, had rheum appt yesterday and was toldto discuss stopping eliquis and cymb gregoria History of Present Illness On 11/14/23 she under went kyphoplasty and revision of hardware in her lumbar spine. She is feelingbetter. She is trying walk as the surgeon said this was the best thing pain is moremuscle/incision pain. She is on eliquis for PE and DVT that occurred 07/30/23. She had labs done with calcium 11/19/23 9.4. She is due for her prolia. Had kenalog injections for bursitis and her pain is much better. Hx of rectal-vagina fistula and bleeding hemorrhoid. She saw Dr. Gtz who does not want to do surgery until she is off Eliquis. Constipation is much improved. Since off opiates. Review of Systems Constitutional: No fever, chills, sweats EENT:No vision change, eye pain, rhinorrhea, sinus pain, epistaxis, dysphagia, change in hearing,tinnitus, vertigo, oral ulcers or lesions. Pulmonary: No shortness of breath, dyspnea with exertion, cough, hemoptysis, wheezing, chest pain. Cardiovascular: No chest pain, palpitations, syncope, edema, cyanosis, claudication, orthopnea. GI: No nausea, vomiting, diarrhea, melena, hematochezia, change in appetite, abdominal pain, changein bowel habits or stools Musculoskeletal: as per HPI Neurologic: No headache, lightheadedness, dizziness Psychiatric: No depression, anxiety, Endocrine: No weight change, heat or cold intolerance, tremor, insomnia, polyuria, polydipsia, polyphagia, abnormal hair growth, change in nails Physical Exam Vitals & Measurements HR:83(Monitored) RR:16 BP:142/78 SpO2:98% HT:153.8cm WT:80.7kg WT:80.700kg(Dosing) BMI:34.12 PHQ2 Data(Data Documented on:12/02/2023 12:56) Emotional health assessment NEGATIVE head- normocephalic eyes- PERRLA , conjunctiva clear, sclera white, anicteric, ears- TM's non-injected, good light reflex, no protrusion or retraction nose -nares patent, no sinus pressure throat- pharynx non erythematous, no exudate, no masses mouth- buccal mucosa, moist and intact, dentition intact, neck-no lymphadenopathy, masses, or thyromegaly, +carotid pulses, no bruits, trachea midline Pulmonary- chest expansion symmetric, CTA (clear to auscultation), eupnea, no adventitious sounds (rales, crackles, wheezes) CV (cardiovascular)- RRR no m/r/g (systolic ejection murmur, rubs, gallops), good peripheral perfusion extremitiesNo edema or erythema. skin-good turgor w/o lesions, redness, cyanosis, edema nails- no clubbing or deformities w good cap refill Neuro:Alert, Oriented, Psy:no homicidal or suicidal ideations. Assessment/Plan 1.Osteoporosis Acute/Chronic: chronic Goal:Resolution/ control Status:stable/controlled Data: records/pt report Plan:Will give her prolia today. Ca+ 9.4 on 11/19/23 2.Lumbar radiculopathy Acute/Chronic: chronic Goal:Resolution/ control Status:stable/controlled Data: records/pt report Plan:Her pain is much better since last surgery and also hip injections. Will taper off cymbalta. 3.PE (pulmonary thromboembolism) Acute/Chronic: chronic Goal:Resolution/ control Status:stable/controlled Data: records/pt report Plan:Contd on eliquis until January for total of 6 mo due to PE. Will see her in early January to make sure everything is going well and can then stop. 4.Hypertension Acute/Chronic: chronic Goal:Resolution/ control Status:stable/controlled Data: records/pt report Plan:Contd on present regimen. 5.ASCVD (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 disease) Acute/Chronic: chronic Goal:Resolution/ control Status:stable/controlled Data: records/pt report Plan:She is on praluent, BB and asa. She is on TAE or ARB. Cardiology discussed possibly startingWill defer to card. 6.Hemorrhoid Acute/Chronic: chronic Goal:Resolution/ control Status:stable/controlled Data: records/pt report Plan:Once she is off of eliquis can explore possibility of surgery. Follow up in 3 mo time spent reviewing chart, face to face visit, ordersand documentation: 45 min Problem List/Past Medical History Ongoing ASCVD (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 disease) Bilateral hip bursitis DDD (degenerative disc disease), lumbosacral Erosive osteoarthritis of hand Fibromyalgia Gastroesophageal reflux disease Hemorrhoid Herniated lumbar intervertebral disc History of NM (myocardial infarction) History of total bilateral knee replacement Hypertension Hyperuricemia Hypothyroidism Inflammatory polyarthropathy correction systemic steroid user Lumbar [...] 75 mg/mL subcutaneous solution), 75 mg, subQ, [id number] amLODIPine(amLODIPine 10 mg oral tablet), 10 mg= [...] 60 mg/mL subcutaneous solution), 60 mg, subQ, [id number], 1 refills docusate(Colace), 50 mg, PO, Daily esomeprazole(esomeprazole 40 mg oral delayed release capsule), See Instructions, 3 refills fluticasone nasal(Flonase 50 mcg/inh nasal spray), 50 mcg= 1 spray, each nostril, Daily, PRN, 5 refills hydroCHLOROthiazide-triamterene(hydroCHLOROthiazide-triamterene 25 mg-37.5 mg oral capsule) [...] oral tablet), 1 tab, PO, bid thyroid desiccated([place] Thyroid 60 mg oral tablet), 1 tab, [...] due07/21/23and every 731day Due Adult COVID-19 Vaccination due12/02/23Unknown Frequency Adult Social Determinants of Health Screening due12/02/23Unknown Frequency Adult Tdap/Td Vaccine due12/02/23Unknown Frequency Medicare Annual Wellness Visit due12/02/23and every 1year Shingles Vaccine due12/02/23One-time only Due In Future Adult Influenza Vaccine not due until05/27/24and every 1year Satisfied(in the past 1 year) Satisfied Adult Influenza Vaccine on08/30/23.Satisfied by SERGIO Berman Bobbi Body Mass Index on12/02/23.Satisfied by SERGIO Warner Heather Electronic Signature on File Electronically Reviewed/Signed by: TOMEKA Glasgow Author Signature Dt/Tm:12/02/2023 02:12 PM Department of Family Medicine TB Patient Care team information Care Team Personnel Name: TOMEKA Emmanuel Tara Position: Nurse Pract - Family Med Member Role: Primary Care Provider Address: Address: [address] [place] [address] [place] Name: YESIKA Smallwood, Nati Park Position: Physician Child Daycare Worker - Orthopaedic Surg Member Role: Lifetime Relationship Address: Address: [address] [facility] [address] [place] [address] [place] Name: MD Marcus, Arnie Position: Physician - Endocrinology Member Role: Lifetime Relationship Address: Address: [address] [place] [address] Name: MD Mohsen, Garcia Rosa Position: Physician - Urology Member Role: Lifetime Relationship Address: Address: [address] [place] [address] Name: Ita Oscar Courtney Position: Pharmacist Member Role: Pharmacy - Lifetime Name: Ita Garcia Brittani Position: Pharmacist Schedule II Member Role: Pharmacy - Lifetime Care Team Related Persons Name: BLAKE SHELBY Address: [address] [id number] Name: BLAKE SHELBY Address: home [address] [id number] Name: KAM SHELBY Address: home [address] [facility], [id number]
--- OUTSIDE RECORDS SUMMARY | 2024-01-13 13:10 | External Medical Summary | Continuity of Care Document ---
Author Name Unknown Organization [facility] [address] [place], [place] [id number] Care Team Providers Care Neck Fitter Name Role Phone Debracésar Elaine Primary Care Physician [phone] [id number] Date[facility]/02/23 - 12/02/23 [facility] [address] [facility] [address] [facility] [address] [place], [place] [phone] Encounter Diagnosis Anemia, unspecified(Final) - Discharge Disposition: Home or Self Care Attending Physician: MD Tripathi Juan Referring Physician: MD Tripathi Juan Allergies, Adverse Reactions, [...] Daily, Disp# 90 tab, Refills: 3, [id number] Start Date: 09/19/23 Stop Date: 09/13/24 Status: Ordered [place] Thyroid 60 mg oral tablet Start: 10/17/23 11:18:00 EST, 1 tab, PO, Daily, Disp# 90 tab, Refills: 1, Pharmacy: [facility] [id number] Start Date: 10/17/23 Status: Ordered aspirin 81 [...] CAPSULE BY MOUTH EVERY 12 HOURS, Pharmacy: [facility]/pharmacy #[id number] Start Date: 06/09/23 Status: Ordered Co [...] 1 CAPSULE BY MOUTH EVERY DAY, Pharmacy: [facility] [id number] [facility] Start Date: 03/09/23 Status: Ordered Fish Oil 1200 mg oral capsule Start: 08/17/18 14:25:00 EDT, 1 cap, PO, Daily Start Date: 08/17/18 Status: Ordered Flonase 50 mcg/inh nasal spray Start: 04/13/22 14:01:00 EDT, 1 spray, each nostril, Daily, Disp# 16 g, Refills: 5, PRN: allergy symptoms, Pharmacy: [facility] [facility] [id number] [facility] Start Date: 04/13/22 Stop Date: 10/10/22 Status: Ordered hydroCHLOROthiazide-triamterene 25 mg-37.5 mg oral capsule Start: 06/09/23 10:07:00 EDT, 90 each, TAKE 1 CAPSULE BY MOUTH EVERY DAY IN THE MORNING Start Date: 06/09/23 Status: Ordered Klor-Con M20 oral tablet, extended release Start: 11/16/23 16:32:00 EST, See Instructions, Disp# 90 tab, Refills: 3, TAKE 1 TABLET BY MOUTH EVERY DAY, Pharmacy: [facility]/pharmacy #[id number] Start Date: 11/16/23 Status: Ordered meclizine 25 mg oral tablet Start: 11/03/23 10:10:00 EST, 1 tab, PO, tid, Disp# 30 tab, Refills: 0, PRN: as needed for dizziness, Pharmacy: [facility]/pharmacy #[id number] Start Date: 11/03/23 Status: Ordered methylPREDNISolone 8 mg oral tablet Start: 12/01/23 12:23:00 EST, 1 tab, PO, Daily, Disp# 30 tab, Refills: 5, dose needs adjustment by dec 01 visit pls, [id number] Start Date: 12/01/23 Stop Date: 05/29/24 Status: Ordered metoprolol succinate 50 mg oral tablet, extended release Start: 09/19/23 10:26:00 EDT, 50 mg =, PO, Daily, Disp# 90 tab, Refills: 3, [id number] Start Date: 09/19/23 Stop Date: 09/13/24 Status: Ordered montelukast 10 mg oral tablet Start: 09/19/23 10:26:00 EDT, See Instructions, Disp# 90 tab, Refills: 3, TAKE 1 TABLET BY MOUTH EVERY DAY IN THE EVENING, [id number] Start Date: 09/19/23 Status: Ordered nitroglycerin 0.4 mg sublingual tablet Start: 07/14/18 10:06:00 EDT, 1 tab, SL, q5min, PRN: Chest Pain Start Date: 07/14/18 Status: Ordered Orencia ClickJect Autoinjector 125 mg/mL SQ solution Start: 02/04/23 16:08:00 EST, See Instructions, Disp# 4 each, Refills: 3, INJECT 1 AUTOINJECTOR (125 MG) UNDER THE SKIN EVERY 7 DAYS, Pharmacy: [facility] Start Date: 02/04/23 Status: Ordered Praluent Pen 75 mg/mL subcutaneous solution Start: 05/08/19 10:47:00 EDT, 75 mg =, subQ, [id number] Start Date: 05/08/19 Status: Ordered pregabalin 100 mg oral capsule Start: 09/19/23 10:26:00 EDT, 1 cap, PO, bid, Disp# 180 cap, Refills: 0, Pharmacy: [facility]/pharmacy #[id number] Start Date: 09/19/23 Stop Date: 12/18/23 Status: Ordered ProAir HFA 90 mcg/inh inhalation aerosol Start: 12/27/22 11:50:00 EST, 1 puff, inhaled, qid, Disp# 1 each, Refills: 5, PRN: as needed for wheezing, Pharmacy: [facility] [id number] Start Date: 12/27/22 Status: Ordered Probiotic Formula Start: 05/29/15 13:13:00, 1 cap, PO, Daily Start Date: 05/29/15 Status: Ordered Prolia 60 mg/mL subcutaneous solution Start: 01/25/23 19:19:00 EST, every 6 months Start Date: 01/25/23 Status: Ordered Prolia 60 mg/mL subcutaneous solution Start: 09/01/23 13:24:00 EDT, 60 mg =, subQ, [id number], Disp# 1 each, Refills: 1 Start Date: 09/01/23 Status: Ordered Proteolytic enzymes Start: 08/11/22 13:44:00 EDT, Proteolytic enzymes, 1 daily Start Date: 08/11/22 Status: Ordered sulfaSALAzine 500 mg oral tablet Start: 11/22/23 21:28:00 EST, 1 tab, PO, bid, Disp# 180 tab, Refills: 1, Pharmacy: [id number] Start Date: 11/22/23 Status: Ordered triamterene 50 [...] Confirmed Active Hemorrhoid Confirmed Active History of DC (myocardial infarction) Confirmed Active History of total bilateral knee replacement Confirmed Active Hypertension Confirmed Active Hyperuricemia Confirmed Active Hypothyroidism Confirmed Active Inflammatory polyarthropathy Confirmed Active nursing home systemic steroid user Confirmed Active Lumbar radiculopathy [...] Co mpleted Eye examination 4 11/04/20 [facility] ed Cardiac Cath and Cardiac Otto nt [...] arthroplasty. 9left 10bilateral 11colon resection [facility] Results Laboratory List Name Date Complete Blood Count (CBC) 12/02/23 Most recent to oldest [Reference Range]: 1 MPV [9.0-12.2 fL] 9.7 fL 1 (12/02/23 2:30 PM) RDW [11.5-14.2 %] 19.5 % *HI* (12/02/23 2:30 PM) Hct [35-44 %] 30.4 % *LOW* (12/02/23 2:30 PM) Hgb [11.7-15.0 g/dL] 9.4 g/dL *LOW* (12/02/23 2:30 PM) MCH [28-33 pg] 27.6 pg *LOW* (12/02/23 2:30 PM) MCHC [32-36 g/dL] 30.9 g/dL *LOW* (12/02/23 2:30 PM) MCV [81-96 fL] 89.1 fL (12/02/23 2:30 PM) Plts [150-350 K/uL] 462 K/uL *HI* (12/02/23 2:30 PM) RBC [3.90-5.00 M/uL] 3.41 M/uL *LOW* (12/02/23 2:30 PM) WBC [4.0-10.4 K/uL] 10.10 K/uL (12/02/23 2:30 PM) 1Result Comment: Testing Performed By: Dept of Pathology [facility], [address] [place] [address] Social History Social History Type Response Smoking Status Never smoked cigaret ivania Sex Female Patient Care team information Care Team Personnel Name: TOMEKA Emmanuel Tara Position: Nurse Pract - Family Med Member Role: Primary Care Provider Address: Address: [address] [place] [address] [place] Name: YESIKA Smallwood Tammy M Position: Physician Waiter/Waitress Room Service - Orthopaedic Surg Member Role: Lifetime Relationship Address: Address: [address] [facility] [address] [place] [address] [place] Name: MD Marcus, Arnie Position: Physician - Endocrinology Member Role: Lifetime Relationship Address: Address: [address] [place] [address] [place] Name: MD Connolly Jay D Position: Physician - Urology Member Role: Lifetime Relationship Address: Address: [address] [place] [address] [place] Name: Ita Oscar Courtney Position: Pharmacist Member Role: Pharmacy - Lifetime Name: Ita Garcia Brittani Position: Pharmacist Schedule II Member Role: Pharmacy - Lifetime Care Team Related Persons Name: BLAKE SHELBY Address: [address] [id number] Name: BLAKE SHELBY Address: home [address] [phone] Name: KAM SHELBY Address: home [address] [facility], [phone]
--- OUTSIDE RECORDS SUMMARY | 2024-01-13 13:10 | External Medical Summary | Continuity of Care Document ---
Author Name Unknown Organization [facility] [address] [place] [address] [place] [id number] Care Team Providers Care Csw Name Role Phone Elaine Emmanuel Primary Care Physician [id number] [id number] Date(s): 12/01/23 - 12/01/23 [facility] [address] [place] [address] [address] [place] [address] [phone] Encounter Diagnosis Other polyosteoarthritis(Discharge Diagnosis) - 12/01/23 PMR (polymyalgia rheumatica)(Discharge Diagnosis) - 12/01/23 Drug therapy(Discharge Diagnosis) - 12/01/23 Seronegative rheumatoid arthritis(Discharge Diagnosis) - 12/01/23 Osteoporosis(Discharge Diagnosis) - 12/01/23 Discharge Disposition: Home or Self Care Attending Physician: MD Gayatri, Katherin Fabián Referring Physician: TOMEKA Emmanuel Tara Allergies, Adverse [...] Give n influenza virus vaccine, inactivated 08/14/21 Ojno rded influenza virus vaccine, inactivated 08/28/18 Jono [...] Daily, Disp# 90 tab, Refills: 3, Pharmacy: [facility]/pharmacy #[id number] Start Date: 09/19/23 Stop Date: 09/13/24 Status: Ordered Ellenton Thyroid 60 mg oral tablet Start: 10/17/23 11:18:00 EST, 1 tab, PO, Daily, Disp# 90 tab, Refills: 1, Pharmacy: [id number] Start Date: 10/17/23 Status: Ordered aspirin 81 [...] CAPSULE BY MOUTH EVERY 12 HOURS, Pharmacy: [facility]/pharmacy #[id number] Start Date: 06/09/23 Status: Ordered [...] 1 CAPSULE BY MOUTH EVERY DAY, Pharmacy: [facility] [id number] [facility] Start Date: 03/09/23 Status: Ordered Fish Oil 1200 mg oral capsule Start: 08/17/18 14:25:00 EDT, 1 cap, PO, Daily Start Date: 08/17/18 Status: Ordered Flonase 50 mcg/inh nasal spray Start: 04/13/22 14:01:00 EDT, 1 spray, each nostril, Daily, Disp# 16 g, Refills: 5, PRN: allergy symptoms, Pharmacy: [facility] [id number] [facility] Start Date: 04/13/22 Stop Date: 10/10/22 Status: Ordered hydroCHLOROthiazide-triamterene 25 mg-37.5 mg oral capsule Start: 06/09/23 10:07:00 EDT, 90 each, TAKE 1 CAPSULE BY MOUTH EVERY DAY IN THE MORNING Start Date: 06/09/23 Status: Ordered Klor-Con M20 oral tablet, extended release Start: 11/16/23 16:32:00 EST, See Instructions, Disp# 90 tab, Refills: 3, TAKE 1 TABLET BY MOUTH EVERY DAY, Pharmacy: [facility]/pharmacy #[id number] Start Date: 11/16/23 Status: Ordered meclizine 25 mg oral tablet Start: 11/03/23 10:10:00 EST, 1 tab, PO, tid, Disp# 30 tab, Refills: 0, PRN: as needed for dizziness, [id number] Start Date: 11/03/23 Status: Ordered methylPREDNISolone 8 mg oral tablet Start: 12/01/23 12:23:00 EST, 1 tab, PO, Daily, Disp# 30 tab, Refills: 5, dose needs adjustment by dec 01 visit pls, [id number] Start Date: 12/01/23 Stop Date: 05/29/24 Status: Ordered metoprolol succinate 50 mg oral tablet, extended release Start: 09/19/23 10:26:00 EDT, 50 mg =, PO, Daily, Disp# 90 tab, Refills: 3, Pharmacy: [facility] #[id number] Start Date: 09/19/23 Stop Date: 09/13/24 Status: Ordered montelukast 10 mg oral tablet Start: 09/19/23 10:26:00 EDT, See Instructions, Disp# 90 tab, Refills: 3, TAKE 1 TABLET BY MOUTH EVERY DAY IN THE EVENING, [id number] Start Date: 09/19/23 Status: Ordered nitroglycerin 0.4 mg sublingual tablet Start: 07/14/18 10:06:00 EDT, 1 tab, SL, q5min, PRN: Chest Pain Start Date: 07/14/18 Status: Ordered Orencia ClickJect Autoinjector 125 mg/mL SQ solution Start: 02/04/23 16:08:00 EST, See Instructions, Disp# 4 each, Refills: 3, INJECT 1 AUTOINJECTOR (125 MG) UNDER THE SKIN EVERY 7 DAYS, Pharmacy: [facility] Start Date: 02/04/23 Status: Ordered Praluent Pen 75 mg/mL subcutaneous solution Start: 05/08/19 10:47:00 EDT, 75 mg =, subQ, f6xkgts Start Date: 05/08/19 Status: Ordered pregabalin 100 mg oral capsule Start: 09/19/23 10:26:00 EDT, 1 cap, PO, bid, Disp# 180 cap, Refills: 0, [id number] Start Date: 09/19/23 Stop Date: 12/18/23 Status: Ordered ProAir HFA 90 mcg/inh inhalation aerosol Start: 12/27/22 11:50:00 EST, 1 puff, inhaled, qid, Disp# 1 each, Refills: 5, PRN: as needed for wheezing, Pharmacy: [facility] [id number] [facility] Start Date: 12/27/22 Status: Ordered Probiotic Formula Start: 05/29/15 13:13:00, 1 cap, PO, Daily Start Date: 05/29/15 Status: Ordered Prolia 60 mg/mL subcutaneous solution Start: 01/25/23 19:19:00 EST, every 6 months Start Date: 01/25/23 Status: Ordered Prolia 60 mg/mL subcutaneous solution Start: 09/01/23 13:24:00 EDT, 60 mg =, subQ, [id number], Disp# 1 each, Refills: 1 Start Date: 09/01/23 Status: Ordered Proteolytic enzymes Start: 08/11/22 13:44:00 EDT, Proteolytic enzymes, 1 daily Start Date: 08/11/22 Status: Ordered sulfaSALAzine 500 mg oral tablet Start: 11/22/23 21:28:00 EST, 1 tab, PO, bid, Disp# 180 tab, Refills: 1, Pharmacy: [facility] [id number] Start Date: 11/22/23 Status: Ordered triamterene 50 [...] Start Date: 11/05/20 Status: Ordered Mental Status 12/01/23 Barriers to Learning one year Vision imp airment Mandatory Health Literacy Documentation Yes Health Literacy Communication Barriers N ever Primary Language Romansh Problem List Condition Confirmation Course Effective Dates [...] Hypothyroidism Confirmed Active Inflammatory polyarthropathy Confirmed Active MCC systemic steroid user Confirmed Active Lumbar radiculopathy [...] Effective Dates Health Status Clinical Service Informant PMR (polymyalgia rheumatica) Discharge Diagnosis 12/01/23 Seronegative rheumatoid arthritis Discharge Diagnosis 12/01/23 Other polyosteoarthritis Discharge Diagnosis 12/01/23 Drug therapy Discharge Diagnosis 12/01/23 Osteoporosis Discharge Diagnosis 12/01/23 Procedures Procedure Date Related Diagnosis Body Site [...] arthroplasty. 9left 10bilateral 11colon resection [facility] Vital Signs Most recent to oldest [Reference Range]: 1 Temperature [36.5-37.9 DegC] 35.7 DegC *LOW* (12/01/23 11:23 AM) Heart Rate 78 bpm (12/01/23 11:23 AM) Respiratory Rate 18 br/min (12/01/23 11:23 AM) Blood Pressure 134/78mmHg (12/01/23 11:23 AM) Cuff Pulse Pressure 56 mmHg (12/01/23 11:23 AM) BP Location # 1 Left Arm, Non-invasive (12/01/23 11:23 AM) Social History Social History Type Response Smoking Status Never smoked cigaret ivania Sex Female Patient Care team information Care Team Personnel Name: TOMEKA Emmanuel Tara Position: Nurse Pract - Family Med Member Role: Primary Care Provider Address: Address: [address] [place] [id number] [place] Name: YESIKA Smallwood, Nati Park Position: Physician Computer Programming Supervisor - Orthopaedic Surg Member Role: Lifetime Relationship Address: Address: [address] [place] [address] [place] Name: MD Marcus, Arnie Position: Physician - Endocrinology Member Role: Lifetime Relationship Address: Address: [address] [place] [address] Name: MD Mohsen, Garcia Rosa Position: Physician - Urology Member Role: Lifetime Relationship Address: Address: [address] [place] [id number] Name: Ita Oscar Courtney Position: Pharmacist Member Role: Pharmacy - Lifetime Name: Ita Garcia Brittani Position: Pharmacist Schedule II Member Role: Pharmacy - Lifetime Care Team Related Persons Name: BLAKE SHELBY Address: home [address] [place] [id number] Name: BLAKE SHELBY Address: home [address] [place] [id number] Name: KAM SHELBY Address: home [address] [place], [id number]
--- NOTE | 2024-01-13 13:50 | CT Scan Report ---
ABDOMEN AND PELVIS CT WITH ORAL CONTRAST CT DOSE: 1269.38 mGy.cm HISTORY: rectal bleed, h/o colitis TECHNIQUE: Multiaxial CT images of the abdomen and pelvis were performed following the use of oral co ntrast. A dose lowering technique was utilized adhering to the principles of ALARA. COMPARISON STUDY: Abdomen and pelvis CT 10/12/2023. FINDINGS: Left basilar linear densities favor subsegmental atelectasis or scarring. No pneumoperitone um. No pneumatosis. Stable sclerotic focus within the right femoral head. This favors a bone island. Posterior fusion hardware again noted within the thoracolumbar spine. Progressive fragmentation at th e superior endplate of L2 with progressive loss of height. However, there is evidence for vertebropla sty at this level. Therefore, this is likely chronic. There is mild central canal narrowing at this l evel due to the 4 mm retropulsed fragment. There are severe coronary artery calcifications again note d. Small fat-containing umbilical hernia. Prior cholecystectomy. The unenhanced liver, pancreas, sple en, adrenal glands, and right kidney are unremarkable. Prior left nephrectomy. No masses at the nephr ectomy bed. No retroperitoneal lymphadenopathy. Calcified plaque within the normal caliber abdominal aorta. No pelvic lymphadenopathy or pelvic free fluid. Prior hysterectomy. Normal bladder. Colonic di verticulosis. No evidence for acute diverticulitis. No dilated loops of bowel to suggest an obstructi on. The distal colon is decompressed. There is suggestion of mild thickening of the sigmoid colon and rectum with mild pericolonic fat stranding. This suggests a mild distal proctocolitis. Normal append ix. IMPRESSION: 1. There is suggestion of mild thickening of the sigmoid colon and rectum with mild pericolonic fat s tranding. This suggests a mild distal proctocolitis. 2. Progressive fragmentation at the superior endplate of L2 with progressive loss of height. However, there is evidence for vertebroplasty at this level. Therefore, this is likely chronic. 3. Postoperative changes as described above. 4. Additional findings as described above. ACT 112: Negative or not required by law. Electronically signed by: Aly Diaz M.D. 01/13/2024 1:49 PM
[2024-01-13] MEDS: amLODIPine BESYLATE 5 MG TAB PO SCH (14:03)
[2024-01-13] MEDS: FUROSEMIDE 20 MG TAB PO SCH (14:03)
[2024-01-13] MEDS: PREGABALIN 100 MG CAP PO SCH (14:03)
--- NOTE | 2024-01-13 14:34 | XCELERA ---
[id number] \\[id number]_[id number]}___[id number].pdf
--- NOTE | 2024-01-13 16:55 | Hospitalist Progress Note ---
Date of Service January 13, 2024 Assessment & Plan (1) Symptomatic anemia: Plan: 73yo female presenting with exertional dyspnea and chest discomfort progressive over the last several weeks. She has worsening of her anemia - Hgb of 7.1 today - was last 8.6 on 11/19/23. Likely secondary to rectal blood loss from hemorrhoids. Patient also reports a history of colitis. -Ordered 1u PRBCs in the ER (01/12/2024), second unit ordered due to still feeling symptomatic with hemoglobin of 7.6 on recheck. History of CAD and previous stent placement - iron studies demonstrating combination blood loss anemia plus iron deficient anemia -200 mg of Venofer transfused this morning -CT of the abdomen only showing mild proctocolitis without suspicious mass -Hold Eliquis and ASA for now. -Patient has met with General Surgery regarding surgical intervention for her h emorrhoids. She is to complete her Eliquis course then followup. She has completed 5 months of anticoagulation at this time for an unprovoked PE. It would be reasonable to DC her Eliquis at this time given report of increased rectal bleeding and symptomatic anemia requiring transfusion. Once hemorrhoids are nonbleeding/resolve, patient should be on lifelong prophylaxis given unprovoked PE. -General surgery consulted for extensive bleeding hemorrhoids, no immediate intervention needed at this time and feels it would be better managed by colorectal surgeon. General surgery has signed off. (2) Edema: Plan: Patient with swelling of bilateral LE as well as exertional chest pain and dyspnea. Troponin is unremarkable as is EKG -Without known history of congestive heart failure, however, she does have risk factors with coronary artery disease and stents in the past -Echo demonstrating EF of 60 to 65% with no wall motion abnormalities with mild left ventricular hypertrophy. (3) History of pulmonary embolism: Plan: -Hold Eliquis for now in acute blood loss anemia -Recommend prophylaxis once hemorrhoid bleeding is resolved (4) GERD (gastroesophageal reflux disease): Plan: Chronic -Continue Protonix and Famotidine (5) Polymyalgia rheumatica: Plan: Chronic -Continue Methylprednisolone (6) HTN (hypertension): Plan: Chronic. Well controlled -Continue Amlodipine -Continue Metoprolol (7) Hypothyroid: Plan: Chronic -Continue Thyroid tab [facility] symptomatic anemia, transfusing second unit DVT prophylaxis: Contraindicated in the setting of blood loss anemia Diet: Clear liquid until bleeding resolves CODE STATUS: Full code Admission and Anticipated Discharge Date Admission Date: January 12, 2024 Supervising Physician Co-Signing Physician Notes I personally examined the patient and verified all allen points of history and exam, discussed case, and agree with decision making with Dr Louis Feeling better some. Bleeding slowing down some. Notes last colonoscopy was 5 years ago at [facility] (she leaves to live closer to [place]). Still has a degree of dyspnea on exertion. Vitals noted, in general she is awake and alert pleasant no distress. HEENT normocephalic atraumatic mucous membranes moist. Breathing unlabored no accessory muscle use good effort. Skin shows no rashes no pallor or icterus. Neuro without focal deficits. Rectal bleeding with acute blood loss anemiaappearing to be secondary to hemorrhoids and anticoagulation with Eliquiswas on Eliquis for PE that was about 5 months ago. Her dyspnea on exertion had much improved until recent worsening but she is taking the Eliquis faithfullyso I highly doubt she has a new PE causing her dyspnea. At the same time she has coronary disease and symptomatic anemiaI suspect her dyspnea on exertion is due to symptomatic anemia. Will give another unit of blood, and follow her symptoms. If she continues to show symptoms with a more robust hemoglobin, then obviously need to workup further with unstable angina or venous thromboembolic disease being high on the differential. As it relates to her Eliquisgiven that acute PE is quite low on the differential, and given that she has been treated for 5 monthswill hold anticoagulation for now to allow the bleeding to stop, and really this could be held until hemorrhoidal surgery, given that it would hopefully be in the near future. If postop her bleeding has resolved, then I did discuss that with an unprovoked PE, it makes a lot of sense to be on some semblance of long- term anticoagulation based on most data. Rounding out the picture, we will need to try to find report from her previous colonoscopy, and she might require a colonoscopy semielectively in the next few months simply to rule out any other causes of the bleed, but it certainly seems quite likely to be hemorrhoidal. Subjective Patient seen at bedside this morning. No acute events reported overnight. Patient continues to have bright red blood per rectum without bowel movements. Denies any abdominal pain or discomfort. Eating and drinking without difficulty. Currently on clear liquids. No new complaints this morning. Review of Systems Review of Systems: Per HPI Physical Exam Constitutional: WD/WN, vitals as above Eyes: + anicteric sclerae Neck: trachea midline, no thyromegaly Respiratory: normal respiratory effort, lungs clear to auscultation Cardiovascular: Rate/Rhythm: regular rate and regular rhythm Gastrointestinal (Abdomen): normal bowel sounds, soft, nontender, no hepatosplenomegaly Rectal Exam: + hemorrhoids (Extensive external hemorrhoids noted on the perimeter of anus) Musculoskeletal: Head/Neck/Chest: normocephalic and head atraumatic Skin: no rashes, warm and dry Neurologic: moves all extremities Psychiatric: A+Ox3, euthymic affect Results & Data Results & Data Vital Signs (Past 12 Hours) Vital Signs Pulse Resp BP Pulse Ox O2 Del Method 01/13/24 15:00 77 20 01/13/24 14:00 79 18 01/13/24 13:00 73 22 99 01/13/24 13:00 127/73 01/13/24 12:50 73 26 H 97 01/13/24 12:50 143/87 H 01/13/24 12:00 148/76 H 01/13/24 12:00 74 21 01/13/24 11:30 138/79 01/13/24 11:30 73 14 01/13/24 11:00 80 17 01/13/24 10:30 73 16 99 01/13/24 10:30 144/105 H 01/13/24 10:00 162/77 H 01/13/24 10:00 79 27 H 01/13/24 09:31 78 21 01/13/24 09:31 158/106 H 01/13/24 09:01 149/113 H 01/13/24 09:01 82 21 83 L 01/13/24 09:00 84 21 81 L 01/13/24 08:30 73 22 99 01/13/24 08:30 142/79 H 01/13/24 08:00 84 16 97 01/13/24 07:30 79 16 96 01/13/24 07:30 131/70 01/13/24 07:11 72 01/13/24 07:00 74 21 97 01/13/24 07:00 130/72 01/13/24 06:30 72 20 96 01/13/24 06:30 126/67 01/13/24 06:00 69 18 135/76 97 Room Air 01/13/24 05:00 74 19 125/67 97 Room Air
[2024-01-13] MEDS ORDERED: SODIUM CHLORIDE 0.9% 250 ML IV PRN (18:05)
--- NOTE | 2024-01-13 18:09 | Billing Data ---
Date of Service January 13, 2024 Coding Level of Care Code 88744 SUB INP/OBS CARE MIN
[2024-01-13] MEDS ORDERED: Nursing to Pharmacy Communication SCH (23:00)
[2024-01-14] MEDS: MONTELUKAST SODIUM 10 MG TABLET PO SCH (00:14)
[2024-01-14] MEDS: ARMOUR THYROID 30 MG TAB PO SCH (06:32)
[2024-01-14 07:19] LABS: Hematocrit (blood only) 28.7 % (37.0-47.0); Hemoglobin 8.9 g/dl (12.0-16.0); Mean Corpuscular Hemoglobin 28.3 pg (25.0-34.0); Mean Corpuscular Volume 91.4 fL (80.0-100.0); Mean Platelet Volume 11.2 fL (9.4-12.4); Nucleated RBC # (auto) 0.02 K/uL (0.00-0.12); Nucleated RBC % (auto) 0.3 %; Platelet Count 314 K/uL (130-400); RDW Coefficient of Variation 16.4 % (11.5-14.5); Red Blood Count 3.14 M/uL (4.20-5.40); White Blood Count 6.72 K/ul (4.8-10.8)
[2024-01-14 07:39] LABS: Albumin Globulin Ratio 1.5 (0.9-2); Albumin Level 3.3 gm/dl (3.4-5.0); BUN Creatinine Ratio 11.3 (10-20); Bilirubin,Total 0.5 mg/dl (0.2-1.0); Calcium 8.1 mg/dl (8.6-10.3); Creatinine Clr Calc Pharmacy 67.2 ml/min; Est GFR (African American) 98.6 ml/min; Est GFR (Non-African American) 85.1 ml/min; Globulin 2.2 gm/dl (2.5-4.0); Potassium 3.4 mmol/L (3.5-5.1); Total Protein 5.5 gm/dl (6.0-8.3)
[2024-01-14] MEDS: ACETAMINOPHEN 325 MG TAB PO PRN (08:16)
[2024-01-14] MEDS: POTASSIUM CHLORIDE CRTAB 20 MEQ TABCR PO STA (08:16)
[2024-01-14] MEDS: POTASSIUM CHLORIDE CRTAB 20 MEQ TABCR PO SCH (08:16)
--- NOTE | 2024-01-14 09:19 | Hospitalist Progress Note ---
Date of Service January 14, 2024 Assessment & Plan (1) Symptomatic anemia: Plan: 73yo female presenting with exertional dyspnea and chest discomfort progressive over the last several weeks. She has worsening of her anemia - Hgb of 7.1 today - was last 8.6 on 11/19/23. Likely secondary to rectal blood loss from hemorrhoids. Patient also reports a history of colitis. -Ordered 1u PRBCs in the ER (01/12/2024), second unit ordered due to still feeling symptomatic with hemoglobin of 7.6 on recheck. History of CAD and previous stent placement - iron studies demonstrating combination blood loss anemia plus iron deficient anemia -200 mg of Venofer transfused this morning -CT of the abdomen only showing mild proctocolitis without suspicious mass -Hold Eliquis and ASA for now. -Patient has met with General Surgery regarding surgical intervention for her h emorrhoids. She is to complete her Eliquis course then followup. She has completed 5 months of anticoagulation at this time for an unprovoked PE. It would be reasonable to DC her Eliquis at this time given report of increased rectal bleeding and symptomatic anemia requiring transfusion. Once hemorrhoids are nonbleeding/resolve, patient should be on lifelong prophylaxis given unprovoked PE. -General surgery consulted for extensive bleeding hemorrhoids, no immediate intervention needed at this time and feels it would be better managed by colorectal surgeon. General surgery has signed off. (2) Edema: Plan: Patient with swelling of bilateral LE as well as exertional chest pain and dyspnea. Troponin is unremarkable as is EKG -Without known history of congestive heart failure, however, she does have risk factors with coronary artery disease and stents in the past -Echo demonstrating EF of 60 to 65% with no wall motion abnormalities with mild left ventricular hypertrophy. (3) History of pulmonary embolism: Plan: -Hold Eliquis for now in acute blood loss anemia -Recommend prophylaxis once hemorrhoid bleeding is resolved (4) GERD (gastroesophageal reflux disease): Plan: Chronic -Continue Protonix and Famotidine (5) Polymyalgia rheumatica: Plan: Chronic -Continue Methylprednisolone (6) HTN (hypertension): Plan: Chronic. Well controlled -Continue Amlodipine -Continue Metoprolol (7) Hypothyroid: Plan: Chronic -Continue Thyroid tab [facility], transfusing second unit DVT prophylaxis: Contraindicated in the setting of blood loss anemia Diet: Clear liquid until bleeding resolves CODE STATUS: Full code Admission and Anticipated Discharge Date Admission Date: January 12, 2024 Subjective Patient seen at bedside this morning. No acute events reported overnight. Patient continues to have bright red blood per rectum without bowel movements. Denies any abdominal pain or discomfort. Eating and drinking without difficulty. Currently on clear liquids. No new complaints this morning. Review of Systems Review of Systems: Per HPI Results & Data Results & Data Vital Signs (Past 12 Hours) Vital Signs Temp Pulse Pulse Resp BP BP Pulse Ox 01/14/24 07:52 84 01/14/24 07:30 36.7 C 81 17 138/70 95 01/14/24 03:50 36.7 C 75 14 147/75 H 94 01/13/24 23:23 79 01/13/24 22:42 36.6 C 84 18 139/88 96 01/13/24 21:26 36.6 C 77 18 129/79 96 01/13/24 21:19 36.6 C 78 18 147/70 H 95 O2 Del Method 01/14/24 07:52 01/14/24 07:30 Room Air 01/14/24 03:50 Room Air 01/13/24 23:23 01/13/24 22:42 Room Air 01/13/24 21:26 01/13/24 21:19
--- NOTE | 2024-01-14 12:34 | Discharge Summary ---
Date of Service January 14, 2024 Admission HPI Per Admitting Provider Annabella Donahue is a pleasant 73yo female with multiple medical comorbidities- HTN, CAD, Hypothyroid, PE diagnosed in July on Eliquis anticoagulation (plan to discontinue in January to complete a 6 month course for unprovoked PE) presenting with shortness of breath. Patient reports she becomes short of breath with minimal exertion such as walking in her home. She has some substernal chest tightness and pressure with exertion and dizziness as well. Her symptoms have been progressing over the last couple of weeks with acute worsening over the last several days. She also reports pulsatile tinnitus in her left ear as well as swelling in her feet and ankles. She has also been having fairly persistent rectal bleeding - passage of bright red blood and clots with bowel movements. It has been occurring more frequently over the last several days. She denies fever, chills, syncope or falls. No nausea, vomiting, hematemesis. In the ER she is afebrile, HD stable, NAD Admission Exam Per Admitting Provider General: patient resting comfortably, NAD, non-toxic in appearance, AA&O x 4 Skin: warm, dry, intact, no rashes or lesions HEENT: NC/AT, PERRL, EOMI, anicteric sclera, conjunctiva without injection, external ear normal to inspection and nontender, nares patent, moist mucus membranes, dentition intact, no oropharyngeal lesions, neck supple, trachea midline, no LAD, no thyromegaly, no JVD Heart: +S1/S2, regular, no m/r/g Lungs: equal air entry bilaterally, no rales/rhonchi/wheezes Abd: +BS, soft, NT/ND, no masses/organomegaly/ascites Ext: warm, 2+ pulses in UE/LE bilaterally, no clubbing/cyanosis, non-pitting edema present on bilateral LEs Neuro: nonfocal, patient AA&O x 4, speech intact, no facial droop, moving all extremities on command with equal strength 5/5 Rectal exam performed by ER reports presence of hemorrhoids with bleeding noted. Principal Diagnosis Symptomatic anemia from lower GI bleed due to hemorrhoids Discharge Exam Constitutional: WD/WN, vitals as above Eyes: + anicteric sclerae Neck: trachea midline, no thyromegaly Respiratory: normal respiratory effort, lungs clear to auscultation Cardiovascular: Rate/Rhythm: regular rate and regular rhythm Gastrointestinal (Abdomen): soft, nontender, no hepatosplenomegaly Musculoskeletal: Head/Neck/Chest: normocephalic and head atraumatic Skin: no rashes, warm and dry Neurologic: moves all extremities Psychiatric: A+Ox3, euthymic affect Discharge Data Allergies Allergy/AdvReac Type Severity Reaction Status Date / Time clopidogrel [From Plavix] Allergy Intermediate Hives Verified 01/12/24 23:05 hydroxychloroquine Allergy Intermediate Hives Verified 01/12/24 23:05 [From Plaquenil] celecoxib [From Celebrex] AdvReac Intermediate HX OF Verified 01/12/24 23:05 BLEEDING STOMACH codeine AdvReac Intermediate Gastrointestinal Verified 01/12/24 23:05 Upset hydrocodone [From Vicodin] AdvReac Intermediate Gastrointestinal Verified 01/12/24 23:05 Upset lubiprostone [From Amitiza] AdvReac Intermediate HX OF Verified 01/12/24 23:05 BLEEDING STOMACH pitavastatin AdvReac Intermediate Joint Pain Verified 01/12/24 23:05 pravastatin [From Pravachol] AdvReac Intermediate Joint Pain Verified 01/12/24 23:05 rosuvastatin AdvReac Intermediate Joint Pain Verified 01/12/24 23:05 [From Ezallor Sprinkle] simvastatin [From FloLipid] AdvReac Intermediate Joint Pain Verified 01/12/24 23:05 Igggaka-ALR-YuE Reductase AdvReac Intermediate Joint Pain Verified 10/26/23 10:53 Inhibitor Consultations 01/12/24 22:06 ED Decision to Admit Stat 01/13/24 09:36 Consult General Surgery Routine Ordered Studies 01/12/24 19:13 US venous doppler LE BI Stat 01/13/24 03:27 CT abd pelvis oral con only Routine Hospital Course (1) Acute dyspnea: (2) Symptomatic anemia: (3) Pulmonary emboli: (4) Hemorrhoid: Plan (1) Symptomatic anemia: Plan: -Pt presented with exertional dyspnea and chest discomfort progressively worsening over several weeks in setting of frequent blood loss from rectal hemorrhoids -CTAP only demonstrated proctocolitis w/o other acute processes -Hgb 7.1 on admission -Received total of 2u pRBC while in hospital (01/12 and 01/13) -Iron studies demonstrated RONY, received 200 mg Venofer on 01/13 -Hgb 8.9 at time of discharge -General surgery consulted for extensive bleeding hemorrhoids, no immediate intervention needed at this time and feels it would be better managed by colorectal surgeon who she follows with as outpatient -Dyspnea on exertion resolved by time of discharge (2) Edema: Plan: -Noted swelling of bilateral LE as well as exertional chest pain and dyspnea on admission -Troponin and EKG unremarkable -TTE with EF 60-65% and no WMA -Resolved by time of discharge (3) History of pulmonary embolism: Plan: -Held Eliquis while hospitalized for acute blood loss anemia -To date, has completed 5 months of treatment for unprovoked PE -Advised to discontinue Eliquis on discharge until likely hemorrhoid surgery (4) GERD (gastroesophageal reflux disease): Plan: Chronic -Continued Protonix and famotidine (5) Polymyalgia rheumatica: Plan: Chronic, no flares during hospitalization -Continued methylprednisolone (6) HTN (hypertension): Plan: Chronic, well controlled during hospitalization -Continued Amlodipine -Continued Metoprolol Total Time Total Time Spent Total Time Spent (In Minutes): <30 Discharge Plan Discharge Items Patient Disposition: Home - Self-Care Reason For Visit: SINGH, CHEST TIGHTNESS, EDEDMA Discharge Diagnosis: Anemia Condition on Discharge: Fair Activity: Resume your previous activity Non-emergency contact: Primary Care Provider and Surgeon Call non-emergency contact if: your symptoms worsen Follow-up/Referrals: Elaine Emmanuel [Primary Care Provider] - Diet: Clear liquid Addtl Attending Provider Instructions: You were admitted to the hospital for shortness of breath. This was evaluated to be due to anemia, which is low blood count from the bleeding from rectal hemorrhoids. You were treated with blood transfusions to fix the anemia. A discharge summary will be sent to your primary care physician to ensure continuity of care. Please bring this discharge summary with you to your next office appointment so that your provider can review it at that time. Follow-up appointments: - Make a follow-up appointment with Elaine Mcqueen within the next week. It is very important that you follow up with her shortly after discharge from the hospital. - Call Dr. Gtz's office to schedule an evaluation for hemorrhoid surgery. Medications: Your medication list has been reviewed and reconciled upon discharge to ensure accuracy and continuity of care. An updated list of all your medications is included with your hospital discharge paperwork. Please review this list closely, and make note of any changes. -Do not take Eliquis anymore. This may be resumed at a later date but for now, discontinue the medication. Take your medications as instructed; do not skip a dose of your medicines. Make sure all of your doctors know every medicine you are taking (including whfl-qee-ccjuiui medicines, vitamins, and supplements). Call your primary care provider before taking any new medicines (including mmke-yln-btqxlsx medicines, vitamins, and supplements), because some of these may interact with your current medications, or may make your symptoms worse. Tell your primary care provider if you cannot afford your medications. CONTACT YOUR PRIMARY CARE PROVIDER if you experience any of the following: -Dark black stool -Heavy rectal bleeding -Shortness of breath at rest - Difficulty following your treatment plan, or difficulty taking medications CALL 911 OR GO TO THE EMERGENCY DEPARTMENT if you experience any of the following: - Sudden, severe abdominal pain or nausea/vomiting - Severe chest pain, or chest pain that radiates (moves) to your jaw or arm - Sudden, severe shortness of breath or difficulty breathing Thank you for allowing us to participate in your care Pending Studies at Discharge: No Stand-Alone Forms: My [facility] Medications and DC Order Prescriptions: Continued metoprolol succinate 50 mg tablet extended release 24 hr 50 mg PO DAILY aspirin 81 mg Tablet,Delayed Release (Dr/Ec) 81 mg PO DAILY cefadroxil 500 mg capsule 500 mg PO Q12 amlodipine 10 mg tablet 10 mg PO DAILY nitroglycerin 0.4 mg tablet, sublingual 0.4 mg sublingual DIRECTED PRN (Reason: Chest Pain) Rx Instructions: PLACE 1 TABLET UNDER TONGUE EVERY 5 MINS, UP TO 3 DOSES NEEDED FOR CHEST PAIN docusate sodium [Colace] 100 mg Capsule 100 mg PO DAILY montelukast 10 mg tablet 10 mg PO QPM albuterol sulfate 90 mcg/actuation HFA aerosol inhaler 1 puff INHALATION QID PRN (Reason: Wheezing) fluticasone propionate 50 mcg/actuation spray,suspension 1 spray INTRANASAL DAILY PRN (Reason: allergy) coenzyme Q10 [CoQ-10] 100 mg Capsule 100 mg PO BID thyroid (pork) [[place] Thyroid] 60 mg tablet 60 mg PO DAILY omega 6-jbs-hze-fish oil [Fish Oil] 1,200 (144-216) mg Capsule 1 cap PO QPM Probiotic 3 billion cell Capsule 3,000 mmu cells PO QPM Rx Instructions: administer with a meal sulfasalazine 500 mg tablet 500 mg PO BID acetaminophen [Tylenol Arthritis Pain] 650 mg Tablet Extended Release 1,300 mg PO BID calcium carbonate 500 mg calcium (1,250 mg) Tablet 500 mg PO DAILY methylprednisolone 8 mg tablet 8 mg PO DAILY Prolia 60 mg/mL Syringe 0 mg SUBCUT DIRECTED Rx Instructions: PER PT "OVER DUE, TROUBLE SCHEDULING AT THIS TIME". ondansetron 4 mg tablet,disintegrating 4 mg translingual DIRECTED PRN (Reason: Nausea) polyethylene glycol 3350 [Miralax] 17 gram Powder In Packet 17 g PO DAILY Qty: 30 0RF tramadol 50 mg Tablet 100 mg PO Q8H Qty: 90 0RF pregabalin [Lyrica] 100 mg Capsule 100 mg PO BID Qty: 60 3RF potassium chloride [Klor-Con M20] 20 mEq tablet,ER particles/crystals 20 meq PO DAILY esomeprazole magnesium 40 mg capsule,delayed release(DR/EC) 40 mg PO DAILY furosemide 20 mg tablet 20 mg PO DAILY Repatha Syringe 140 mg/mL syringe 140 mg SUBCUT .Q 2WEEKS hydromorphone [Dilaudid] 2 mg tablet 2 mg PO Q8H PRN (Reason: Pain) Discontinued Eliquis 5 mg tablet 5 mg PO BID Qty: 60 4RF Discharge Orders: Discharge Order (Routine); Ordered 01/14/24 Ordered By: Maryellen Hussein Admission Data Admit Date/Time: 01/12/24 23:16 Attending Provider: Curtis Smalls Admit Provider: Olga Rock Primary Care Provider: Elaine Emmanuel Other Providers: Olga Rock; Susan Saucedo Other Interventions: Discharge Summary Assessment (RN) Last Done: 01/14/24 13:38 Supervising Physician Co-Signing Physician Notes I personally examined the patient and verified all allen points of history and exam, discussed case, and agree with decision making with Dr Hussein feeling better, bleeding stopped, still some easy fatigue but not really SINGH. feels up to going home. Vitals noted, in general she is awake and alert pleasant no distress. HEENT normocephalic atraumatic mucous membranes moist. Breathing unlabored no accessory muscle use good effort. Skin shows no rashes no pallor or icterus. Neuro without focal deficits. we walk ~100ft around the [place] 97% on RA to start, 98% on RA to finish, brisk pace no conversational dyspnea or accessory muscles. lungs slightly coarse but overall clear. Rectal bleeding with acute blood loss anemiaappearing to be secondary to hemorrhoids and anticoagulation with Eliquiswas on Eliquis for PE that was about 5 months ago. Her dyspnea on exertion had much improved until recent worsening but she was taking the Eliquis faithfullyso I highly doubt she has a new PE causing her dyspnea. At the same time she has coronary disease and symptomatic anemiaI suspect her dyspnea on exertion is due to symptomatic anemia. this improved nicely w additional transfusion and residual seems far more consistent with deconditioning than cardiopulmonary illness. safe/stable for home -for anemia: now stable, bleeding stopped - bulk of bleeding likely caused by eliquis and as long as off anticoagulation doubt will have serious recurrence; will want hemorrhoids remedied (set up with colorectal, she notes she'll work through her PCP to move that up); we discussed colo in the next few months for completeness (ie exceedingly likely bleeding was all hemorrhoidal but can't r/o something further upstream); outpt PCP f/u, serial CBC -for SINGH - seems to have been from symptomatic anemia and now mostly deconditi oning; we discussed if that's the case then should improve over time; if doesn't, then may need to see cardiology to consider w/u for atypical angina -for PE - as above highly doubt new/worse PE given adherence to eliquis. given that PE formed in context of flight + Covid, unlikely to be high risk for immediate recurrence (ie safe off anticoagulation while hemorrhoids are dealt with) but given that flight and covid are fairly soft provoking factors, also likely would benefit from indefinite reduced dose DOAC once bleed situation totally remedied given potential risk of recurrence over intermediate to group home Resident Activity Tracking Resident Involvement: Resident Care Provided Care Provided: Adult [facility]
--- NOTE | 2024-01-14 14:26 | Billing Data ---
Date of Service January 14, 2024 Coding Level of Care Code 07917 IN/OBS DISCH 30 MIN/LESS
== END 2024-01-14 15:33 | disposition home or self-care (01) | DRG 813 ==
LOC: ED 19:06 → SUATTDRO 23:16 → EDINP 23:16 → INTOOBSV 23:16 → 2N 01-13 01:54